=== PATIENT | female | born 1940 | race Caucasian/White ===

== ENCOUNTER → 2020-03-09 09:54 | Outpatient (BNVA) | payer MEDICARE, SELFPAY | PROVIDERS: PCP Internal Medicine; Visit Provider Surgery | DX: N64.4 Mastodynia (principal); Z80.3 Family history of malignant neoplasm of breast | CPT/HCPCS: 99214 ==

== ENCOUNTER 2020-03-10 22:58 | Emergency (ER) | payer MEDICARE, SELFPAY ==
[2020-03-10 23:10] VITALS: BP 152/68; BP 162/90; PULSE 68; PULSE 73; RESP 16; TEMP 36.7; O2SAT 98; BMI 32.5
--- NOTE | 2020-03-10 23:20 | CT_ITS ---
EXAMINATIONS: CT HEAD WITHOUT CONTRAST AND CT CERVICAL SPINE WITHOUT CONTRAST CLINICAL INFORMATION: Fall. Pain. COMPARISON: 10/21/2013. TECHNIQUE: Contiguous helical images of the brain were obtained without IV contrast. Contiguous helical images of the cervical spine were obtained without IV contrast. Multiplanar reconstructions were performed. DLP: 1004 mGy-cm. FINDINGS: There are no pathologic extra-axial fluid collections. The lateral, third, fourth ventricles are prominent, though stable, age-appropriate and concordant with the appearance of the sulci. There is no evidence for acute intraparenchymal hemorrhage or infarct. There is neither mass nor mass effect. There is no shift of midline structures. The paranasal sinuses and mastoid air cells are clear. There are no osseous lesions. The cervical vertebra are in normal alignment. There is disc height loss at C4/C5, C5/C6 and C6/C7. Disc heights and vertebral heights are otherwise well-preserved. There are no fractures. There is no prevertebral soft tissue swelling. There is no cervical lymphadenopathy. The visualized lung apices are clear. IMPRESSION: No evidence for acute intracranial injury. No evidence for acute injury to the cervical spine. Automated exposure control (Care Dose) Adjustment of the mA and/or kv according to patient size (this includes techniques or standardized protocols for targeted exams where dose is matched to indication / reason for exam; i.e. extremities or head).
[2020-03-11] VITALS: BP 152/72; PULSE 67; RESP 16; TEMP 36.7; O2SAT 99
--- NOTE | 2020-03-11 | XR_ITS ---
EXAMINATION: XR FOREARM, LEFT CLINICAL INFORMATION: Pain after fall. COMPARISON: None TECHNIQUE: AP and lateral views of the left forearm were obtained. FINDINGS: The bones and soft tissues are normal. No fracture. Imaged portions of the elbow and wrist are unremarkable. IMPRESSION: No evidence for acute injury to the left forearm.
--- NOTE | 2020-03-11 00:04 | ED.FALL ---
HPI - Fall General Chief Complaint: Fall Stated Complaint: FALL,+HEADSTRIKE,-LOC,-THINNERS,+COLLAR Time Seen by Provider: 03/10/20 23:20 Source: patient Mode of arrival: EMS Limitations: no limitations History of Present Illness HPI Narrative: This is a 79-year-old female brought in by EMS after sustaining a fall with head strike but no LOC. Patient states that she got up to take her earrings out turned too quickly became unsteady fell against the bedpost and then onto the floor catching herself with her left wrist. Patient states that she has pain at the left forearm but otherwise no cervical spine tenderness. She states she is up-to-date on her tetanus shot. Related Data Home Medications Medication Instructions Recorded Confirmed atorvastatin 20 mg tablet 20 mg PO DAILY 03/09/20 03/09/20 bupropion HCl 100 mg tablet 150 mg PO BID tab 03/09/20 03/09/20 cholecalciferol (vitamin D3) 25 25 mcg PO DAILY 03/09/20 03/09/20 mcg (1,000 unit) capsule dicyclomine 20 mg tablet 20 mg PO BID 03/09/20 03/09/20 losartan 50 mg tablet 50 mg PO DAILY 03/09/20 03/09/20 nitroglycerin 2 % transdermal 1 inch TRANSDERMAL BID 03/09/20 03/09/20 ointment nortriptyline 10 mg capsule 10 mg PO BID 03/09/20 03/09/20 omega-3 fatty acids 1,000 mg 1,000 mg PO DAILY 03/09/20 03/09/20 capsule pantoprazole 20 mg tablet,delayed 20 mg PO DAILY 03/09/20 03/09/20 release timolol maleate 0.5 % eye drops 1 drp OPHTHALMIC (EYE) DAILY 03/09/20 03/09/20 Allergies Allergy/AdvReac Type Severity Reaction Status Date / Time aspirin [ASPIRIN] Allergy Unknown UNKNOWN Verified 03/10/20 23:17 lisinopril Allergy Unknown cough Verified 03/10/20 23:17 oxycodone [OXYCODONE] Allergy Unknown ITCHY Verified 03/10/20 23:17 Penicillins [PCN] Allergy Unknown RASH Verified 03/10/20 23:17 shellfish Allergy Unknown anaphylaxis Verified 03/10/20 23:17 aspirin AdvReac Unknown severe Verified 03/10/20 23:17 reflux, sever reflux Codeine Phosphate Allergy Intermediate nausea/vomi Uncoded 03/09/20 10:28 ting arythromycin AdvReac Intermediate Gastrointestinal Uncoded 03/10/20 23:17 Upset opiates AdvReac Mild Gastrointestinal Uncoded 03/10/20 23:17 Upset Review of Systems Review of Systems: Pertinent positives and negatives as stated in HPI and 10 point review of systems is otherwise negative. PMFSH Past Medical History Source: nursing notes reviewed Medical History Carpal tunnel syndrome Depression Family history of breast cancer Fibromyalgia GERD (gastroesophageal reflux disease) Glaucoma Hyperlipidemia Seasonal allergies Family History Family History Mother History of breast cancer Father History of throat cancer Paternal Grandmother History of liver cancer Social History Social History Alcohol intake: never Smoking Status: Never smoker Advance Directives: No Advance Directives Information Provided: No Physical Exam Vital Signs: Vital Signs: Vital Signs Temp Pulse Resp BP Pulse Ox 03/11/20 00:00 98.0 F 67 16 152/72 H 99 03/10/20 23:10 98.0 F 68 16 152/68 H 98 Body Mass Index 32.5 VITAL SIGNS: Reviewed. GENERAL: Well developed, well nourished, in no acute distress. HEAD: Normocephalic/+laceration to the LEFT parietal EYES: PERRLA, EOMI intact without pain, no nystagmus/pallor/icterus noted EARS: Ext canals without abnormality, TMs non-bulging and non-erythematous NOSE: Nares patent bilateral OROPHARYNX: no oral lesions noted, posterior pharynx clear and non-erythematous without noted tonsillar enlargement/erythema/exudates NECK: c-collar in place without midline ttp, no adenopathy LUNGS: Normal breath sounds. No adventitious sounds or accessory muscle use. SpO2<98%> CARDIOVASCULAR: Regular rate and rhythm without noted murmurs, no JVD or lower extremity edema. ABDOMEN: Soft, non-tender, non-distended with bowel sounds. No rigidity. No guarding. No palpable masses or hernias noted MUSCULOSKELETAL: No tenderness, deformities, or effusions noted on gross inspection. EXTREMITIES: No cyanosis, clubbing or edema. SKIN: Inspection of the skin reveals no rashes, ulcerations, jaundice, pallor, or petechiae. NEUROLOGIC: Alert and oriented x 4. Strength and sensation to light touch were grossly intact x 4. Course Course Course Narrative: This is a pleasant 79-year-old female with history and clinical presentation consistent with mechanical fall and sustaining laceration to the left scalp and is not taking any blood thinners. There are no neurological findings and patient's head and neck will be scanned as well as checking a UA for presence of any infection. On review of all investigations CT of the head and cervical spine are without acute findings, in addition there is no evidence UTI or fracture to the left wrist. Patient was informed of all results and findings and will be discharged in stable condition with application of 3 sandro to the laceration and good hemostasis obtained. Procedures Laceration Laceration 1: Site: scalp Side (If applicable): left Size (cm): 3 Description: linear Depth: simple, single layer Pre-repair: wound explored and irrigated extensively Skin layer closed with: other ( staple) Number of sutures: 3 MDM - Fall Lab Data Labs: Lab Results 03/11/20 Range/Units 00:32 Urine Color YELLOW Urine Appearance CLEAR Urine pH 6.0 (5.0-8.0) Ur Specific [place] 1.015 (1.005-1.025) Urine Protein NEG (NEG-TRACE) MG/DL Urine Glucose (UA) NEG (NEG) MG/DL Urine Ketones NEG (NEG) MG/DL Urine Blood NEG (NEG) Urine Nitrite NEG (NEG) Ur Leukocyte Esterase NEG (NEG) Discharge Plan Discharge Clinical Impression: Laceration Fall Qualifiers: Encounter type: initial encounter Qualified Code(s): W19.XXXA - Unspecified fall, initial encounter Patient Disposition: Home, Self-Care Instructions: Fall Prevention for Older Adults (ED), Head Laceration (ED), Staple Care (ED) Additional Instructions: 1. You may wash your hair but be cautious regarding this sandro on the left side when you are combing it. 2. take [id number] Tylenol or ibuprofen as needed for pain control. 3. return to your primary care provider for removal of sandro in 7 days. If your primary care provider is unable to remove them then please return to this emergency room. The patient and/or family acknowledge understanding of results (as applicable), diagnosis, treatment plan, need for follow up, and symptoms that should prompt a return to the emergency room. Prescriptions: No Action atorvastatin [Lipitor] 20 mg tablet 20 mg PO DAILY RF: 0 omega-3 fatty acids [Fish Oil Concentrate] 1,000 mg capsule 1,000 mg PO DAILY RF: 0 bupropion HCl 100 mg tablet 150 mg PO BID RF: 0 timolol maleate 0.5 % drops 1 drp ophthalmic (eye) DAILY RF: 0 nortriptyline 10 mg capsule 10 mg PO BID RF: 0 cholecalciferol (vitamin D3) 25 mcg (1,000 unit) capsule 25 mcg PO DAILY RF: 0 pantoprazole 20 mg tablet,delayed release (DR/EC) 20 mg PO DAILY RF: 0 dicyclomine 20 mg tablet 20 mg PO BID RF: 0 losartan 50 mg tablet 50 mg PO DAILY RF: 0 Nitro-Bid 2 % ointment 1 inch transdermal BID RF: 0 Referrals: Iwona Walker MD [Primary Care Provider] - 2 days ( Staple removal in 7 days)
[2020-03-11 00:45] LABS: Glucose Urine UA NEG (NEG); Leukocyte Esterase Urine NEG (NEG); Nitrite Urine NEG (NEG); Specific Gravity - Urine 1.015 (1.005-1.025); Urine Blood NEG (NEG); Urine Ketones NEG (NEG); Urine Protein NEG (NEG-TRACE)
[2020-03-11 00:47] LABS: Appearance Urine CLEAR; Color Urine YELLOW; UACC Culture Trigger NO
[2020-03-11] MEDS: Acetaminophen 325 MG TABLET 975 MG PO (01:22)
[2020-03-11 02:00] VITALS: BP 156/87; PULSE 88; RESP 16; O2SAT 98
--- NOTE | 2020-03-11 02:35 | PC.NURSE ---
PROVIDER AT BEDSIDE TO PLACE 3 BERNARDO IN PTS L LATERAL HEAD. TOLERATED WELL.
== END 2020-03-11 03:01 | disposition home or self-care (01) ==
PROVIDERS: Emergency Provider Student in an Organized Health Care Education/Training Program; PCP Internal Medicine
DX: S01.01XA Laceration without foreign body of scalp, initial encounter (principal); W01.190A Fall on same level from slipping, tripping and stumbling with subsequent striking against furniture, initial encounter; Y93.9 Activity, unspecified; Y92.019 Unspecified place in single-family (private) house as the place of occurrence of the external cause; Y99.9 Unspecified external cause status
CPT/HCPCS: 12002; 70450; 72125; 73090; 81003; 99284

== ENCOUNTER 2020-03-18 09:51 | Outpatient (REF) | payer MEDICARE, SELFPAY ==
--- NOTE | 2020-03-18 09:59 | XR_ITS ---
EXAMINATION: XR HAND WRIST, LEFT CLINICAL INFORMATION: Pain left wrist. COMPARISON: Radiographs left forearm 03/11/2020 TECHNIQUE: The left hand and wrist are imaged in wide [id number] images for a total of 3 projections. FINDINGS: There is short linear ossification or periosteal thickening at distal dorsal radius in retrospect similar to the forearm radiographs. The pronator quadratus fat pad appears normal. There is no interval radiolucent fracture line demonstrated. The ulnar variance is neutral. The carpus and hand show no acute or healing fracture or dislocation. No destructive process. XR/XR hand wrist LT IMPRESSION: 1. Short linear ossification or periosteal thickening at distal dorsal radius in retrospect similar to prior radiographs 03/11/2020. Pronator quadratus fat is normal. 2. No visible interval radiolucent fracture line or dislocation.
== END 2020-03-18 09:52 | disposition home or self-care (01) ==
LOC: HO.HMGCX 09:51
PROVIDERS: PCP Internal Medicine; Visit Provider Nurse Practitioner Family
DX: M25.532 Pain in left wrist (principal)
CPT/HCPCS: 73110; 73130

== ENCOUNTER 2020-08-27 08:31 | Outpatient (REF) | payer MEDICARE, SELFPAY ==
[2020-08-27 12:53] LABS: Folate 9.7 ng/mL (> or = 4.0); Vitamin B12 205 pg/mL (200-900)
== END 2020-08-27 08:32 | disposition home or self-care (01) ==
LOC: HO.HMGCLDS 08:31
PROVIDERS: PCP Internal Medicine; Visit Provider Psychiatry & Neurology Neurology
DX: G20 Parkinson's disease (principal)
CPT/HCPCS: 36415; 82607; 82746

== ENCOUNTER 2020-11-18 11:12 | Outpatient (REF) | payer MEDICARE, SELFPAY ==
--- NOTE | ~2020-11-18 | MM_ITS ---
EXAMINATION: MM SCREENING DIGITAL BREAST TOMOSYNTHESIS, BILATERAL CLINICAL INFORMATION: Screening. Asymptomatic. The lifetime risk of breast cancer based on the Tyrer-Cuzick Model is 1.9%. COMPARISON: Mammography: June 20, 2019 and studies dating back to February 01, 2012 TECHNIQUE: Digital breast tomosynthesis is performed in both the craniocaudal and mediolateral oblique views along with computer-aided detection (CAD). Synthesized 2D images are generated from the tomosynthesis. FINDINGS: The breasts are heterogeneously dense, which may obscure small masses (ACR BI-RADS breast composition Category c). There are no significant masses, abnormal calcifications, or other abnormalities. MM/MM tomosynthesis screening BI IMPRESSION: There are no significant changes from prior study. ASSESSMENT: BI-RADS 1: Negative RECOMMENDATION: Routine annual mammography screening. This patient's information was entered into a reminder system with a target due date for their next mammogram.
== END 2020-11-18 11:13 | disposition home or self-care (01) ==
LOC: HO.MAMMO 11:12
PROVIDERS: Visit Provider Internal Medicine
DX: Z12.31 Encounter for screening mammogram for malignant neoplasm of breast (principal)
CPT/HCPCS: 77063; 77067

== ENCOUNTER → 2021-04-01 11:09 | Outpatient (BNVA) | payer MEDICARE, SELFPAY | PROVIDERS: PCP Internal Medicine; Referring Provider Internal Medicine; Visit Provider Surgery | DX: Z91.89 Other specified personal risk factors, not elsewhere classified (principal); Z80.3 Family history of malignant neoplasm of breast | CPT/HCPCS: 99212 ==

== ENCOUNTER → 2021-05-24 11:00 | Outpatient (BNVA) | payer MEDICARE, SELFPAY | PROVIDERS: PCP Internal Medicine; Visit Provider Nurse Practitioner Family | DX: M54.40 Lumbago with sciatica, unspecified side (principal) | CPT/HCPCS: 99202 ==

== ENCOUNTER 2021-07-05 05:57 | Day surgery (SDC) | payer MEDICARE, SELFPAY ==
[2021-05-26 13:24] VITALS: BMI 30.4
--- NOTE | 2021-07-04 10:56 | HO.ANESPROP2 ---
Documented by User: Madisyn Suazo NP 07/04/21 10:57 HPI - Anesthesia Eval Consult details Narrative: 80yo F for Colonoscopy *Multiple Med Allergies* PMFSH Active Problems Active Problems: All Active Problems (Updated 05/26/21 @ 13:13 by Marilyn Celeste RN) Hyperlipidemia (Acute) Bilateral low back pain with sciatica (Acute) Parkinson disease (Acute) Family history of breast cancer (Acute) Family history of Parkinson's disease (Acute) Difficulty performing writing activities (Acute) Seasonal allergies (Acute) Glaucoma (Acute) Depression (Acute) Past Medical History Medical History Balance problems Bilateral low back pain with sciatica Carpal tunnel syndrome COVID-19 vaccine series completed Depression Difficulty performing writing activities Family history of breast cancer Family history of Parkinson's disease Fibromyalgia Fibromyalgia GERD (gastroesophageal reflux disease) Glaucoma Hyperlipidemia IBS (irritable bowel syndrome) Left wrist pain Osteoarthritis Parkinson disease Seasonal allergies Tremor of right hand Family History Family History Mother History of breast cancer Father History of throat cancer Paternal Grandmother History of liver cancer Surgical History Surgical History H/O colonoscopy History of carpal tunnel surgery History of esophagogastroduodenoscopy (EGD) Social History Social History Are you a primary physician locums urgent care to a significant other at home: No Alcohol intake: never Patient Tobacco Use Status: Never used Tobacco Use of substances other than those prescribed or required for medical reasons: No Have you been hit, kicked, punched, or otherwise hurt by someone within the past year? If so, by whom?: No Are you DNR?: No Advance Directives Information Provided: Yes (as above noted-will bring copy DOS) Advance Directives on File: No Recently lost weight without trying: No Eating poorly because of decreased appetite: No Nutrition Risks: Surgical patient >75years Poor oral hygiene: No Meds Allergies Allergy/AdvReac Type Severity Reaction Status Date / Time shellfish derived Allergy Severe Anaphylaxis Verified 05/26/21 13:11 oxycodone [OXYCODONE] Allergy Intermediate Itching Verified 05/26/21 13:11 Penicillins [PCN] Allergy Intermediate RASH Verified 05/26/21 13:11 aspirin [ASPIRIN] Allergy Unknown UNKNOWN Verified 05/24/21 11:07 codeine AdvReac Intermediate Nausea and Verified 05/26/21 13:09 Vomiting erythromycin base AdvReac Intermediate Gastrointestinal Verified 05/26/21 13:09 Upset lisinopril AdvReac Intermediate cough Verified 05/26/21 13:11 Home Medications Medication Instructions Recorded Confirmed Last Taken Type cholecalciferol (vitamin D3) 25 25 mcg PO DAILY 03/09/20 05/26/21 Unknown History mcg (1,000 unit) capsule dicyclomine 20 mg tablet 20 mg PO BID 03/09/20 05/26/21 Unknown History nitroglycerin 2 % transdermal 1 inch TRANSDERMAL BID 03/09/20 05/24/21 Unknown History ointment (Nitro-Bid) omega-3 fatty acids 1,000 mg 1,000 mg PO DAILY 03/09/20 05/26/21 06/21/21 History capsule (Fish Oil Concentrate) pantoprazole 20 mg tablet,delayed 20 mg PO DAILY 03/09/20 05/26/21 07/05/21 History release carbidopa ER 50 mg-levodopa 200 mg 1 tab PO TID 10/13/20 05/26/21 07/05/21 History tablet,extended release bupropion HCl 200 mg tablet,12 hr 200 mg PO BID 04/01/21 05/26/21 07/05/21 History sustained-release timolol maleate 0.5 % eye drops 1 drp OPHTHALMIC (EYE) BID 04/13/21 05/26/21 07/05/21 History atorvastatin 20 mg tablet 1 tab PO DAILY 05/26/21 05/26/21 Unknown History Exam Exam Date and Time: July 04, 2021 1056 Height,Weight and Vital Signs: Height 5 ft 6 in Weight 85.729 kg Assessment and Plan Assessment Anesthesia Assessment: Chart Reviewed Documented by User: Zeenat Stephen MD 07/05/21 07:51 [facility] Active Problems Active Problems: All Active Problems (Updated 05/26/21 @ 13:13 by Marilyn Celeste RN) Hyperlipidemia (Acute) Bilateral low back pain with sciatica (Acute) Parkinson disease (Acute) Family history of breast cancer (Acute) Family history of Parkinson's disease (Acute) Difficulty performing writing activities (Acute) Seasonal allergies (Acute) Glaucoma (Acute) Depression (Acute) Hypertension Raynaud's- on nitrobid ointment GERD Past Medical History Medical History Balance problems Bilateral low back pain with sciatica Carpal tunnel syndrome COVID-19 vaccine series completed Depression Difficulty performing writing activities Family history of breast cancer Family history of Parkinson's disease Fibromyalgia Fibromyalgia GERD (gastroesophageal reflux disease) Glaucoma Hyperlipidemia IBS (irritable bowel syndrome) Left wrist pain Osteoarthritis Parkinson disease Seasonal allergies Tremor of right hand Family History Family History Mother History of breast cancer Father History of throat cancer Paternal Grandmother History of liver cancer Family history of problems with anesthesia: No Surgical History Surgical History H/O colonoscopy History of carpal tunnel surgery History of esophagogastroduodenoscopy (EGD) History of Problems with Anesthesia: No Social History Social History Are you a primary physician locums urgent care to a significant other at home: No Alcohol intake: never Patient Tobacco Use Status: Never used Tobacco Use of substances other than those prescribed or required for medical reasons: No Have you been hit, kicked, punched, or otherwise hurt by someone within the past year? If so, by whom?: No Are you DNR?: No Advance Directives Information Provided: Yes (as above noted-will bring copy DOS) Advance Directives on File: No Recently lost weight without trying: No Eating poorly because of decreased appetite: No Nutrition Risks: Surgical patient >75years Poor oral hygiene: No Meds Allergies Allergy/AdvReac Type Severity Reaction Status Date / Time shellfish derived Allergy Severe Anaphylaxis Verified 05/26/21 13:11 oxycodone [OXYCODONE] Allergy Intermediate Itching Verified 05/26/21 13:11 Penicillins [PCN] Allergy Intermediate RASH Verified 05/26/21 13:11 aspirin [ASPIRIN] Allergy Unknown UNKNOWN Verified 05/24/21 11:07 codeine AdvReac Intermediate Nausea and Verified 05/26/21 13:09 Vomiting erythromycin base AdvReac Intermediate Gastrointestinal Verified 05/26/21 13:09 Upset lisinopril AdvReac Intermediate cough Verified 05/26/21 13:11 Home Medications Medication Instructions Recorded Confirmed Last Taken Type cholecalciferol (vitamin D3) 25 25 mcg PO DAILY 03/09/20 05/26/21 Unknown History mcg (1,000 unit) capsule dicyclomine 20 mg tablet 20 mg PO BID 03/09/20 05/26/21 Unknown History nitroglycerin 2 % transdermal 1 inch TRANSDERMAL BID 03/09/20 05/24/21 Unknown History ointment (Nitro-Bid) omega-3 fatty acids 1,000 mg 1,000 mg PO DAILY 03/09/20 05/26/21 06/21/21 History capsule (Fish Oil Concentrate) pantoprazole 20 mg tablet,delayed 20 mg PO DAILY 03/09/20 05/26/21 07/05/21 History release carbidopa ER 50 mg-levodopa 200 mg 1 tab PO TID 10/13/20 05/26/21 07/05/21 History tablet,extended release bupropion HCl 200 mg tablet,12 hr 200 mg PO BID 04/01/21 05/26/21 07/05/21 History sustained-release timolol maleate 0.5 % eye drops 1 drp OPHTHALMIC (EYE) BID 04/13/21 05/26/21 07/05/21 History atorvastatin 20 mg tablet 1 tab PO DAILY 05/26/21 05/26/21 Unknown History Exam Height,Weight and Vital Signs: Height 5 ft 6 in Weight 85.729 kg Vital Signs Temp Pulse Resp BP Pulse Ox 07/05/21 06:26 98 F 60 16 139/71 97 Airway Mallampati Class: III TM Dist: >3cm Neck ROM: Full Loose/Missing/Broken Teeth: Yes (Missing molars ) Heart: RRR Lungs: CTAB Assessment and Plan Assessment Anesthesia Assessment: Anesthesia Plan Discussed Final Anesthetic Review Family History of Problems with Anesthesia: No History of Problems with Anesthesia: No NPO: Yes ASA Class: III Final Preanesthetic Review: No Changes in Pt Med Stat, Meds/Allgs Chart Reviewed, Consent Obtained/Reviewed and Anes Risks/Benef Reviewed Patient Risk: Intermediate Procedure Risk: Low Assessment/Block/Sedation in SS: Assess/Block/Sedation-SS Anesthetic Plan Anesthetic Plan: MAC: Disposition: Standard PACU
[2021-07-05 06:26] VITALS: BP 139/71; PULSE 60; RESP 16; TEMP 36.6; O2SAT 97
[2021-07-05] MEDS: Lactated Ringers 1,000 ML 100 ML IVCONT (07:01)
--- NOTE | 2021-07-05 07:02 | MHC.SHP ---
Pre-Procedural Eval Section A Date of Service: 07/05/21 Section B Chief Complaint: screening Details of Present Illness: see H&P no changes Relevant Family History (Specify if Yes): No Relevant Social History: None Present Medications: see Short Stay Collaborative assessment Medical History: No relevant PMH History of Previous Operations: No relevant previous surgery Allergies: Allergies Allergy/AdvReac Type Severity Reaction Status Date / Time shellfish derived Allergy Severe Anaphylaxis Verified 05/26/21 13:11 oxycodone [OXYCODONE] Allergy Intermediate Itching Verified 05/26/21 13:11 Penicillins [PCN] Allergy Intermediate RASH Verified 05/26/21 13:11 aspirin [ASPIRIN] Allergy Unknown UNKNOWN Verified 05/24/21 11:07 codeine AdvReac Intermediate Nausea and Verified 05/26/21 13:09 Vomiting erythromycin base AdvReac Intermediate Gastrointestinal Verified 05/26/21 13:09 Upset lisinopril AdvReac Intermediate cough Verified 05/26/21 13:11 Review of Systems Sugical H&P ROS: Negative: Constitution, Cardiovascular, Respiratory, Neurological, Psychiatric, Hem-Onc, Allergic/Immunologic, Gastrointestinal, Genitourinary, Musculoskeletal, Integumentary, Endocrine and Eyes/Ears/Nose/Throat Exam Surgical H&P Exam: Normal: HEENT, Normal: Heart, Normal: Lungs, Normal: Extremities, Normal: Abdomen, Normal: Skin and Normal: Neurological Plan Diagnosis/Plan: Unchanged I have reviewed the history and physical and performed a pertinent physical examination on my patient. No changes have occurred unless specified.
[2021-07-05 08:02] VITALS: BP 123/36; PULSE 58; RESP 16; TEMP 36.9; O2SAT 98
--- NOTE | 2021-07-05 08:03 | PM.OP ---
Brief Operative Note Date of Service: 07/05/21 Pre-op diagnosis: screening Post-op diagnosis: same (colon polyp) Procedure: colonoscopy Surgeon: Maury Gautam Anesthesia: MAC Was an Application Support Consultant used for this Procedure?: No Estimated blood loss (mL): 0 Pathology: other (polyps x2) Condition: stable Disposition: PACU
[2021-07-05 08:17] VITALS: BP 108/55; PULSE 79; RESP 18; TEMP 36.7; O2SAT 100
--- NOTE | 2021-07-05 08:37 | OP_ITS ---
SURGEON: Maury Gautam MD INDICATIONS: Colon cancer screening. PREOPERATIVE DIAGNOSIS: POSTOPERATIVE DIAGNOSIS: PROCEDURE PERFORMED: Colonoscopy to the terminal ileum with snare polypectomy. ESTIMATED BLOOD LOSS: COMPLICATIONS: ANESTHESIA: Medications, monitored anesthesia care. ASSISTANTS: SPECIMENS: DESCRIPTION OF PROCEDURE: A history and physical was performed. The risks and benefits of the procedure were explained to the patient. Informed consent was obtained. The patient was placed in the left lateral decubitus position. A digital rectal exam was performed and was found to be normal. The Olympus pediatric video colonoscope was introduced into the rectum and advanced to the cecum without difficulty. The cecum was identified by transillumination, palpation, and identification of ileocecal valve. Examination was performed. The scope was removed. She tolerated the procedure well and was returned to the recovery area in stable condition. FINDINGS: The terminal ileum was examined and appeared normal. The visualized colonic mucosa was normal. The quality of the prep was good. Two polyps measuring less than 10 mm were removed with a snare and recovered via suction. The 1st was located in the cecum. The 2nd was located at 70 cm. No other polyps were identified. Retroflexed examination showed moderate-sized internal hemorrhoids. IMPRESSION: Colon polyps. RECOMMENDATION: 1. Follow up the biopsy results. 2. Further screening is optional based on age. MD DANIAL Cobb/FRANCISCO / [phone]
== END 2021-07-05 09:05 | disposition home or self-care (01) ==
PROVIDERS: PCP Internal Medicine; Visit Provider Internal Medicine Gastroenterology
PROC: 0DJD8ZZ Inspection of Lower Intestinal Tract, Via Natural or Artificial Opening Endoscopic (ICD-10-PCS; CPT 45378; principal; 2021-07-05 07:30)
DX: Z12.11 Encounter for screening for malignant neoplasm of colon (principal); Z86.010 Personal history of colon polyps; D12.0 Benign neoplasm of cecum; K63.5 Polyp of colon; K64.8 Other hemorrhoids; K58.9 Irritable bowel syndrome, unspecified; K21.9 Gastro-esophageal reflux disease without esophagitis; E78.00 Pure hypercholesterolemia, unspecified; G20 Parkinson's disease; R26.81 Unsteadiness on feet; M79.7 Fibromyalgia; F32.9 Major depressive disorder, single episode, unspecified; Z79.899 Other long term (current) drug therapy
CPT/HCPCS: 45385; 88305

== ENCOUNTER 2021-11-15 08:25 | Outpatient (REF) | payer MEDICARE, SELFPAY ==
[2021-11-15 11:34] LABS: MANUAL DIFF FLAG NO
[2021-11-15 11:59] LABS: Basophils Percent Auto 0.4 % (0-2); Eosinophils Absolute Auto 0.1 X10*3/uL (0.0-0.4); Eosinophils Percent Auto 1.3 % (0-4); Hematocrit 46.3 % (37.0-47.0); Hemoglobin 14.9 g/dl (12.0-16.0); Imm Gran Abs Auto 0.02 X10*3/uL (0.00-0.03); Imm Gran Pct Auto 0.3 % (0.0-0.4); Lymphocytes Absolute Auto 1.8 X10*3/uL (1.2-4.9); Lymphocytes Percent Auto 23.1 % (20-40); Mean Corpuscular HGB Conc 32.2 g/dl (31.0-35.0); Mean Corpuscular Hemoglobin 31.6 pg (27.0-33.0); Mean Corpuscular Volume 98.1 fL (80.0-98.0); Mean Platelet Volume 10.4 fL (9.4-12.3); Monocytes Absolute Auto 0.7 X10*3/uL (0.1-1.2); Monocytes Percent Auto 8.6 % (2-11); Neutrophils Percent Auto 66.3 % (45-73); Platelet Count 265 X10*3/uL (160-400); Red Blood Count 4.72 X10*6/uL (4.20-5.50); Red Cell Distribution Width 12.8 % (11.0-16.0); White Blood Count 7.6 X10*3/uL (4.8-10.8)
[2021-11-15 12:11] LABS: Alanine Aminotransferase 7 U/L (0-31); Anion Gap 10 (12-20); Aspartate Amino Transferase 17 U/L (5-31); Blood Urea Nitrogen 15 mg/dL (9-16); Calcium 9.3 mg/dL (8.4-10.2); Carbon Dioxide 28 mmol/L (22-29); Chloride 105 mmol/L (96-108); Cholesterol 158 mg/dL; Estimated Glomerular Filt Rate > 60; Glucose Fasting 113 mg/dL (60-99); HDL Cholesterol 37 mg/dL; LDL Cholesterol Calculated 87 mg/dl; Potassium 4.3 mmol/L (3.3-5.1); Sodium 139 mmol/L (135-145); Triglycerides 174 mg/dL
[2021-11-15 12:24] LABS: Vitamin D 25-OH Total 35.5 ng/mL (>30)
== END 2021-11-15 08:26 | disposition home or self-care (01) ==
LOC: HO.HMGCLDS 08:25
PROVIDERS: Visit Provider Internal Medicine
DX: Z78.0 Asymptomatic menopausal state (principal); E78.5 Hyperlipidemia, unspecified
CPT/HCPCS: 36415; 80048; 80061; 82306; 84450; 84460; 85025

== ENCOUNTER 2021-11-23 10:48 | Outpatient (REF) | payer MEDICARE, SELFPAY ==
--- NOTE | ~2021-11-23 | MM_ITS ---
EXAMINATION: MM SCREENING DIGITAL BREAST TOMOSYNTHESIS, BILATERAL CLINICAL INFORMATION: Screening. Asymptomatic. The lifetime risk of breast cancer based on the Tyrer-Cuzick Model is 4%. COMPARISON: Mammography: 11/18/2020, 06/20/2019, 05/03/2018 TECHNIQUE: Digital breast tomosynthesis is performed in both the craniocaudal and mediolateral oblique views along with computer-aided detection (CAD). Synthesized 2D images are generated from the tomosynthesis. FINDINGS: There are scattered areas of fibroglandular density (ACR BI-RADS breast composition Category b). There are scattered bilateral stable asymmetries and fibronodular pattern similar to prior studies. There is denser breast tissue composition right upper outer quadrant similar to prior exams. No developing density or interval architectural abnormality. There are regional ductal secretory calcifications anterior right breast and benign-appearing tightly grouped relatively coarse calcifications posterior upper outer right breast. The axilla and skin contours are unremarkable. No significant changes. MM/MM tomosynthesis screening BI IMPRESSION: No mammographic evidence of malignancy. ASSESSMENT: BI-RADS 2: Benign RECOMMENDATION: Routine annual mammography screening. This patient's information was entered into a reminder system with a target due date for their next mammogram.
== END 2021-11-23 10:49 | disposition home or self-care (01) ==
LOC: HO.MAMMO 10:48
PROVIDERS: Visit Provider Internal Medicine
DX: Z12.31 Encounter for screening mammogram for malignant neoplasm of breast (principal)
CPT/HCPCS: 77063; 77067

== ENCOUNTER → 2022-02-14 14:02 | Outpatient (BNVA) | payer MEDICARE, SELFPAY | PROVIDERS: PCP Internal Medicine; Visit Provider Obstetrics & Gynecology | DX: N95.0 Postmenopausal bleeding (principal) | CPT/HCPCS: 99202 ==

== ENCOUNTER 2022-03-02 12:53 | Outpatient (REF) | payer MEDICARE, SELFPAY ==
--- NOTE | ~2022-03-02 | US_ITS ---
EXAMINATION: US PELVIS CLINICAL INFORMATION: Postmenopausal bleeding. COMPARISON: Previous pelvic ultrasound April 2018. TECHNIQUE: Ultrasound of the pelvis is performed using both transabdominal and transvaginal transducers along with Doppler. Transvaginal imaging is performed due to inadequate visualization transabdominally. FINDINGS: The uterus is anteverted and measures 7.4 x 4.5 x 5.8 cm in dimension. The endometrium is markedly thickened measuring 2.9 cm and heterogeneous appearing with small cystic areas. This is increased in size from 2.2 cm April 2018. There is question of a focal hyperechoic solid lesion. Measuring 2.7 x 2.7 x 2.4 cm questionable for a polyp. There is a 3.2 x 3.2 x 2.9 cm left upper uterine body fibroid. There are nabothian cysts in the cervix. The right ovary is normal appearing and measures 2.2 x 0.9 x 1.3 cm. The left ovary is not seen. There is no fluid in the pelvis. US/US pelvic and transvaginal IMPRESSION: Markedly thickened heterogeneous endometrium increased in size from 2018. Question endometrial polyp. 3 cm left upper uterine body fibroid. Normal right ovary. Left ovary not seen.
== END 2022-03-02 12:54 | disposition home or self-care (01) ==
LOC: HO.HMGCX 12:53
PROVIDERS: PCP Internal Medicine; Visit Provider Obstetrics & Gynecology
DX: N95.0 Postmenopausal bleeding (principal)
CPT/HCPCS: 76830; 76856

== ENCOUNTER 2022-03-21 12:08 | Outpatient (REF) | payer MEDICARE, SELFPAY | END 2022-03-21 12:09 | disposition home or self-care (01) | LOC: HO.LNP 12:08 | PROVIDERS: PCP Internal Medicine; Visit Provider Obstetrics & Gynecology | DX: N95.0 Postmenopausal bleeding (principal); D21.9 Benign neoplasm of connective and other soft tissue, unspecified | CPT/HCPCS: 58100; 88305; 99212 ==

== ENCOUNTER → 2022-03-27 11:23 | Outpatient (BNVA) | payer MEDICARE, SELFPAY | PROVIDERS: PCP Internal Medicine; Visit Provider Obstetrics & Gynecology | DX: C54.1 Malignant neoplasm of endometrium (principal) | CPT/HCPCS: 99212 ==

== ENCOUNTER → 2022-06-09 10:46 | Outpatient (BNVA) | payer MEDICARE, SELFPAY | PROVIDERS: PCP Internal Medicine; Referring Provider Internal Medicine; Visit Provider Surgery | DX: Z91.89 Other specified personal risk factors, not elsewhere classified (principal); Z80.3 Family history of malignant neoplasm of breast | CPT/HCPCS: 99212 ==

== ENCOUNTER 2022-06-20 08:20 | Outpatient (REF) | payer MEDICARE, SELFPAY ==
[2022-06-20 12:30] LABS: Alanine Aminotransferase < 6 U/L (0-31); Anion Gap 12 (12-20); Aspartate Amino Transferase 16 U/L (5-31); Blood Urea Nitrogen 16 mg/dL (9-16); Calcium 9.1 mg/dL (8.4-10.2); Carbon Dioxide 28 mmol/L (22-29); Chloride 105 mmol/L (96-108); Cholesterol 159 mg/dL; Estimated Glomerular Filt Rate > 60; Glucose Fasting 106 mg/dL (60-99); HDL Cholesterol 39 mg/dL; LDL Cholesterol Calculated 102 mg/dl; Potassium 4.4 mmol/L (3.3-5.1); Sodium 141 mmol/L (135-145); Triglycerides 91 mg/dL
[2022-06-20 12:33] LABS: Estimated Average Glucose 108 mg/dL; Hemoglobin A1c % 5.4 %
== END 2022-06-20 08:21 | disposition home or self-care (01) ==
LOC: HO.HMGCLDS 08:20
PROVIDERS: PCP Internal Medicine; Visit Provider Internal Medicine
DX: F32.9 Major depressive disorder, single episode, unspecified (principal); R73.01 Impaired fasting glucose; R26.89 Other abnormalities of gait and mobility; I10 Essential (primary) hypertension; E78.5 Hyperlipidemia, unspecified
CPT/HCPCS: 36415; 80048; 80061; 83036; 84450; 84460

== ENCOUNTER 2022-07-11 11:22 | Outpatient (AMB) | payer MEDICARE, SELFPAY ==
--- NOTE | 2022-07-11 11:48 | A.OFFPC_ITS ---
Vital Signs 07/11/22 11:59 Height 5 ft 6 in Weight 188 lb BMI 30.3 BP 136/70 Blood Pressure Location Lt brachial Position Sitting Pulse 80 Pulse Source Pulse Oximeter Pulse Oximetry (%) 97 Oxygen Delivery Method Room Air Intake Visit Reasons: Followup labs,meds Intake Note: Pt is here today for her labs and meds Allergies shellfish derived Allergy (Severe, Verified 01/09/23 11:20) Anaphylaxis oxycodone [OXYCODONE] Allergy (Intermediate, Verified 01/09/23 11:20) Itching Penicillins [PCN] Allergy (Intermediate, Verified 01/09/23 11:20) RASH aspirin [ASPIRIN] Allergy (Unknown, Verified 01/09/23 11:20) UNKNOWN codeine Adverse Reaction (Intermediate, Verified 01/09/23 11:20) Nausea and Vomiting erythromycin base Adverse Reaction (Intermediate, Verified 01/09/23 11:20) Gastrointestinal Upset lisinopril Adverse Reaction (Intermediate, Verified 01/09/23 11:20) cough Medication List - Last Reconciled 07/11/22 by Iwona Walker MD atorvastatin 20 mg PO DAILY bupropion HCl 200 mg PO BID 90 days carbidopa-levodopa 50-200 mg ER 1 tab PO TID cholecalciferol (vitamin D3) 25 mcg PO DAILY dicyclomine 20 mg PO BID losartan 50 mg PO DAILY nitroglycerin 2% (Nitro-Bid) 1 inch transdermal BID omega-3 fatty acids (Fish Oil Concentrate) 1,000 mg PO DAILY timolol maleate 0.5% 1 drp ophthalmic (eye) BID Tobacco use date assessed: 07/11/22 Fall risk assessment: No Falls in past year Last assessed Fall Risk: 07/11/22 HPI Followup labs,meds HPI Details 82-year-old lady with Parkinson's disease, hypertension, hyperlipidemia, IBS, depression, glaucoma, with history of endometrial adenocarcinoma, here today for a follow-up. Had recent fasting labs done which showed electrolytes and renal function within normal limits, but fasting blood sugar mildly elevated and LDL cholesterol at goal but low HDL cholesterol level. [facility] Medical History (Updated 01/09/23 @ 11:37 by Iwona Walker MD) Bilateral low back pain with sciatica Carpal tunnel syndrome COVID-19 vaccine series completed Depression Essential hypertension Family history of Parkinson's disease Fibromyalgia Gait instability GERD (gastroesophageal reflux disease) Glaucoma Hyperlipidemia IBS (irritable bowel syndrome) Impaired fasting glucose Osteoarthritis Parkinson disease Seasonal allergies Tremor of right hand Surgical History (Reviewed 01/09/23 @ 10:57 by Nicola Peace [facility]) H/O colonoscopy H/O: hysterectomy History of carpal tunnel surgery History of esophagogastroduodenoscopy (EGD) Family History (Reviewed 01/09/23 @ 10:57 by Nicola Peace [facility]) Mother History of breast cancer Father History of throat cancer Paternal Grandmother History of liver cancer Social History (Reviewed 01/09/23 @ 10:57 by Nicola Peace [facility]) Housing: House Are you a primary career development counselor to a significant other at home: No Alcohol intake: never Patient Tobacco Use Status: Never used Tobacco e-Cigarette/Vaping Use: Never Used service: No Current occupational status: retired Cognitive needs: No Hearing needs: No Vision needs: Yes Questionnaire PHQ-9 Over the last 2 weeks, how often have you been bothered by any of the following problems? 1. Little interest or pleasure in doing things: not at all 2. Feeling down, depressed, or hopeless: not at all 3. Trouble falling or staying asleep, or sleeping too much: not at all 4. Feeling tired or having little energy: not at all 5. Poor appetite or overeating: not at all 6. Feeling bad about yourself - or that you are a failure or have let yourself or your family down: not at all 7. Trouble concentrating on things, such as reading the newspaper or watching television: not at all 8. Moving or speaking so slowly that other people could have noticed. Or the opposite - being so fidgety or restless that you have been moving around a lot more than usual: not at all 9. Thoughts that you would be better off or of hurting yourself in some way: not at all Total score: 0 Source: Developed by Drs. Milo Maurice, Tyesha oFx, Cj Gregory and colleagues, with an educational hernandez from [employer]. Thrive Questionnaire Declines Thrive assessment: No Date Thrive assessed: 07/11/22 I am a: Patient What is your living situation today?: I have a steady place to live Within the past 12 months, did the food you bought not last and you didn't have the money to get more?: Never true Within the past 12 months, did you worry whether your food would run out before you got money to buy more?: Never true Do you have trouble paying for medicines?: No Do you have trouble getting transportation to medical appointments?: No Do you have trouble paying your heating and electricity bill?: No Do you have trouble taking care of your child, family member or friend?: No Do you have trouble with day-to-day activities such as bathing, preparing meals, shopping, managing finances, etc.?: No Are you currently unemployed and looking for a job?: No Are you interested in more education?: No AUDIT C Alcohol Use Questionnaire (AUDIT-C) 1. How often do you have a drink containing alcohol?: Never 3. How often do you have six or more drinks on one occasion?: Never Total Score: 0 FOREST-7 AMB Questionnaire FOREST-7 Date FOREST - 7 assessed: 07/11/22 Feeling nervous, anxious, or on edge: 0 = Not at all Not being able to stop or control worryin = Not at all Worrying too much about different things: 0 = Not at all Trouble relaxin = Not at all Being so restless that it is hard to sit still: 0 = Not at all Becoming easily annoyed or irritable: 0 = Not at all Feeling afraid as if something awful might happen: 0 = Not at all Total FOREST-7 score (0-4 normal; 5-9 mild; 10-14 moderate; 15-21 severe): 0 Source: Developed by Drs. Milo Maurice, Tyesha Fox, Cj Gregory and colleagues, with an educational hernandez from [employer]. Review of Systems Const Denies body aches, Denies fever(s), Denies headache(s) and Denies weakness Eyes Denies change in vision ENT Denies dizziness, Denies headache(s), Denies nasal congestion, Denies nasal discharge and Denies sore throat Card Denies chest pain, Denies lightheadedness, Denies palpitations and Denies dyspnea Resp Denies chest congestion, Denies cough, Denies dyspnea and Denies wheezing GI Denies abdominal pain, Denies change in bowel habits and Denies heartburn Denies hematuria, Denies urinary frequency, Denies dysuria and Denies urinary u rgency Skin/Breast Denies breast pain, Denies lesions and Denies rash Neuro Denies dizziness, Denies headache(s), Reports tremor(s) (In hands) and Denies weakness Psych Reports as per HPI Endo Denies polydipsia, Denies polyuria and Denies palpitations Yair/Lymph Denies easy bruising Aller/Immun Denies seasonal rhinorrhea and Denies wheezing Physical exam (Primary Care) Vital Signs: Last Vital Signs Pulse 80 07/11/22 11:59 BP 136/70 07/11/22 11:59 Pulse Ox 97 07/11/22 11:59 Oxygen Delivery Method Room Air 07/11/22 11:59 BMI result Body Mass Index 30.3 Tobacco/Smoking Status: Tobacco use Status Tobacco use date assessed 07/11/22 07/11/22 12:04 Patient Tobacco Use Status Never used Tobacco 07/11/22 11:50 e-Cigarette/Vaping Use Never Used 07/11/22 11:50 PHQ-9: PHQ-9 Score PHQ-9: Total score 0 01/15/23 00:26 Thrive Assessment: Date of Thrive Assessment Date Thrive assessed 07/11/22 07/11/22 12:00 Const General: comfortable, no acute distress and alert Orientation/consciousness: patient oriented x3 HENMT Ears: external ears normal, TM's normal bilaterally and EAC's normal General nose exam: Normal external nose present and No nasal discharge present Mouth: Normal oral and palatal mucosa present, oropharynx normal and moist mucous membranes Eyes General: appearance normal, both eyes and all related structures Conjunctivae: conjunctivae normal Sclerae: sclerae normal Pupils: Equal, round and reactive pupils present EOM: EOMs intact bilaterally Neck Neck: Yes full ROM, Yes no lymphadenopathy and Yes supple Resp Effort & Inspection: normal respiratory effort and able to speak in complete sentences Auscultation: clear to auscultation bilaterally Cardio Rate: regular rate Rhythm: regular rhythm (Occasional skipped beat) Heart sounds: S1 normal heart sound present and S2 normal heart sound present GI Palpation (GI): Soft to palpation, nontender and no masses Auscultation: normal bowel sounds Back/Spine/Pelvis Back: No back tenderness Skin General skin exam: no rashes or lesions noted Neuro Other: Mild tremors noted in both hands General: patient oriented x3, tone normal, moves all extremities, Normal light touch and pain sensation and no focal motor deficits Cranial nerves: Yes CN's II-XII intact bilaterally and Yes Equal, round and reactive pupils present Cognition (Neuro): normal cognition Extrem General: Yes full ROM, Yes no joint enlargement, Yes no clubbing, cyanosis or edema and Yes no calf tenderness Psych Appearance: grossly normal and well kempt Mental Status: mental status grossly normal Speech and movement: Normal speech and movement present Affect: normal affect Attitude: cooperative Results Reviewed Results Reviewed: SPEC : [id number] KRANTHI: 06/20/22 STATUS: COMP REQ : [id number] RECD: 06/20/[address]: Iwona Walker MD COMP: 06/20/22 ENTERED: 06/20/[address]: ORDERED: Met Prof Fast, AST, ALT, Lipid Panel Test Result Flag Reference Site Sodium 141 135-145 mmol/L Potassium 4.4 3.3-5.1 mmol/L CL 105 96-108 mmol/L CO2 28 22-29 mmol/L Gap 12 12-20 BUN 16 9-16 mg/dL Creat 0.84 0.5-1.4 mg/dL EGFR > 60 NOTE: For -[place] individuals, multiply the result by 1.210. Chronic Kidney Disease: Estimated GFR < 60 mL/min/1.73m2 Severe Kidney Disease: Estimated GFR < 15 m L/min/1.73m2 FBS 106 H 60-99 mg/dL A fasting glucose from 100-125 mg/dl is considered impaired (pre-diabetes). CA 9.1 8.4-10.2 mg/dL AST (GOT) 16 5-31 U/L ALT (GPT) < 6 0-31 U/L Triglyceride 91 mg/dL Desirable Triglyceride: less than 150 mg/dL Borderline High Triglyceride 150-199 mg/dL High Triglyceride: 200-499 mg/dL Very High Triglyceride: greater than or equal to 5OO mg/dL Chol 159 mg/dL Desirable Cholesterol: less than 200 mg/dL Borderline High Cholesterol: 200-239 mg/dL High Cholesterol: greater than 239 mg/dL LDL Calculated 102 mg/dl Desirable LDL: less than 100 mg/dL Near Optimal/Above Optimal LDL: 110-129 mg/dL Borderline High LDL: 130-159 mg/dL High LDL: 160-189 mg/dL Very High LDL: greater than or equal to 190 mg/dL HDL 39 mg/dL Desirable HDL: greater than 40 mg/dL Note: This HDL assay may give artificially low results in patients with liver disease. Assessment and Plan Assessment & Plan (1) Essential hypertension: Code(s): I10 - Essential (primary) hypertension Plan: Blood pressure at goal of less than 130/80. Continue with current medication. Reinforced importance of following a low sodium diet, getting regular exercise, and lowering stress levels. (2) Hyperlipidemia: Code(s): E78.5 - Hyperlipidemia, unspecified Plan: Reviewed recent fasting lipid profile with patient with LDL cholesterol at goal . Continue with atorvastatin 20 mg daily and [place] 3 fatty acid supplements once or twice a day , in addition to adherence to low-cholesterol diet and regular exercise, at least 30 minutes 3 to 4 times a week. Advised patient to make healthy food choices, eat more fruits, vegetables, whole grains, wild caught fish and low-fat dairy. Limit amount of meat and fried or fatty food products, as well as processed foods and fast foods. (3) Surgical menopause: Code(s): E89.40 - Asymptomatic postprocedural ovarian failure Plan: Will check vitamin-D level, basic metabolic panel. Taking adequate calcium from dietary sources and cholecalciferol, 25 mcg taken once a day Orders: Orders Alanine Aminotransferase 12/19/22 I10 - Essential (primary) hypertension, E78.5 - Hyperlipidemia, unspecified Aspartate Amino Transferase 12/19/22 I10 - Essential (primary) hypertension, E78.5 - Hyperlipidemia, unspecified Basic Metabolic Panel Fasting 12/19/22 I10 - Essential (primary) hypertension, E78.5 - Hyperlipidemia, unspecified Lipid Panel 12/19/22 I10 - Essential (primary) hypertension, E78.5 - Hyperlipidemia, unspecified Vitamin D 25-OH Total 12/19/22 I10 - Essential (primary) hypertension, E78.5 - Hyperlipidemia, unspecified, E89.40 - Asymptomatic postprocedural ovarian failure Coding Level of Care Code Est Pt Level 3 (56606) Diagnoses Essential hypertension I10 Hyperlipidemia E78.5 Surgical menopause E89.40
[2022-07-11 11:59] VITALS: BP 136/70; PULSE 80; O2SAT 97; BMI 30.3
== END 2022-07-11 12:51 | disposition home or self-care (01) ==
LOC: HO.HMGC 11:22
PROVIDERS: PCP Internal Medicine; Visit Provider Internal Medicine
DX: I10 Essential (primary) hypertension (principal); E78.5 Hyperlipidemia, unspecified; E89.40 Asymptomatic postprocedural ovarian failure
CPT/HCPCS: 99213

== ENCOUNTER 2022-11-29 10:55 | Outpatient (REF) | payer MEDICARE, SELFPAY ==
--- NOTE | ~2022-11-29 | MM_ITS ---
EXAMINATION: MM SCREENING DIGITAL BREAST TOMOSYNTHESIS, BILATERAL CLINICAL INFORMATION: Screening. Asymptomatic. The lifetime risk of breast cancer based on the Tyrer-Cuzick Model is 3.7%. COMPARISON: Mammography: This study is compared with prior exams dating back to 2018. TECHNIQUE: Digital breast tomosynthesis is performed in both the craniocaudal and mediolateral oblique views along with computer-aided detection (CAD). Synthesized 2D images are generated from the tomosynthesis. FINDINGS: The breasts are heterogeneously dense, which may obscure small masses (ACR BI-RADS breast composition Category c). There are no significant masses, abnormal calcifications, or other abnormalities. Few, bilateral, unchanged, benign calcifications are present. MM/MM tomosynthesis screening BI IMPRESSION: No mammographic evidence of malignancy. ASSESSMENT: BI-RADS BI-RADS 2 - Benign Findings RECOMMENDATION: Routine annual mammography screening. 1 year F/U This examination should not preclude the clinical evaluation of a suspicious palpable abnormality. This patient's information was entered into a reminder system with a target due date for their next mammogram.
== END 2022-11-29 10:56 | disposition home or self-care (01) ==
LOC: HO.MAMMO 10:55
PROVIDERS: PCP Internal Medicine; Visit Provider Internal Medicine
DX: Z12.31 Encounter for screening mammogram for malignant neoplasm of breast (principal)
CPT/HCPCS: 77063; 77067

== ENCOUNTER → 2022-11-29 11:00 | Outpatient (BNV) | payer MEDICARE, SELFPAY | PROVIDERS: PCP Internal Medicine; Visit Provider Radiology Diagnostic Radiology | DX: Z12.31 Encounter for screening mammogram for malignant neoplasm of breast (principal) | CPT/HCPCS: 77063; 77067 ==

== ENCOUNTER 2023-01-03 08:09 | Outpatient (REF) | payer MEDICARE, SELFPAY ==
[2023-01-03 12:08] LABS: Alanine Aminotransferase 8 U/L (0-31); Anion Gap 10 (12-20); Aspartate Amino Transferase 19 U/L (5-31); Blood Urea Nitrogen 19 mg/dL (9-16); Calcium 9.3 mg/dL (8.4-10.2); Carbon Dioxide 27 mmol/L (22-29); Chloride 107 mmol/L (96-108); Cholesterol 147 mg/dL; Estimated Glomerular Filt Rate > 60; Glucose Fasting 98 mg/dL (60-99); HDL Cholesterol 39 mg/dL; LDL Cholesterol Calculated 81 mg/dl; Potassium 4.4 mmol/L (3.3-5.1); Sodium 140 mmol/L (135-145); Triglycerides 137 mg/dL
[2023-01-03 12:14] LABS: Vitamin D 25-OH Total 59.3 ng/mL (>30)
== END 2023-01-03 08:10 | disposition home or self-care (01) ==
LOC: HO.HMGCLDS 08:09
PROVIDERS: PCP Internal Medicine; Visit Provider Internal Medicine
DX: E78.5 Hyperlipidemia, unspecified (principal); E89.40 Asymptomatic postprocedural ovarian failure; I10 Essential (primary) hypertension
CPT/HCPCS: 36415; 80048; 80061; 82306; 84450; 84460

== ENCOUNTER 2023-01-09 10:53 | Outpatient (AMB) | payer MEDICARE, SELFPAY ==
[2023-01-09 10:56] VITALS: BP 130/74; PULSE 76; O2SAT 97; BMI 30.8
--- NOTE | 2023-01-09 10:56 | AM.OFFVISMDC ---
Intake Vital Signs 01/09/23 10:56 Height 5 ft 6 in Weight 191 lb BMI 30.8 BP 130/74 Blood Pressure Location Lt brachial Position Sitting Pulse 76 Pulse Source Pulse Oximeter Pulse Oximetry (%) 97 Oxygen Delivery Method Room Air Intake Visit Reasons: AWV Intake Note: pt is here for AWV, labs done. patient left AWV paperwork at home. Cookie Padder Required: No Accompanied by: Self / Same As Patient Allergies shellfish derived Allergy (Severe, Verified 01/09/23 11:20) Anaphylaxis oxycodone [OXYCODONE] Allergy (Intermediate, Verified 01/09/23 11:20) Itching Penicillins [PCN] Allergy (Intermediate, Verified 01/09/23 11:20) RASH aspirin [ASPIRIN] Allergy (Unknown, Verified 01/09/23 11:20) UNKNOWN codeine Adverse Reaction (Intermediate, Verified 01/09/23 11:20) Nausea and Vomiting erythromycin base Adverse Reaction (Intermediate, Verified 01/09/23 11:20) Gastrointestinal Upset lisinopril Adverse Reaction (Intermediate, Verified 01/09/23 11:20) cough Medication List - Last Reconciled 01/09/23 by Iwona Walker MD atorvastatin 20 mg PO DAILY bupropion HCl 200 mg PO BID 90 days carbidopa-levodopa 50-200 mg ER 1 tab PO TID cholecalciferol (vitamin D3) 25 mcg PO DAILY dicyclomine 20 mg PO BID losartan 50 mg PO DAILY nitroglycerin 2% (Nitro-Bid) 1 inch transdermal BID omega-3 fatty acids (Fish Oil Concentrate) 1,000 mg PO DAILY pantoprazole 40 mg PO DAILY timolol maleate 0.5% 1 drp ophthalmic (eye) BID HPI AWV HPI Details SWV ? 82-year-old lady here today for her subsequent annual wellness visit.? She has history of endometrial adenocarcinoma, as Parkinson's disease, stable controlled present treatment, has hyperlipidemia, season allergies, glaucoma, IBS, and depression currently stable controlled on present treatment. She is up-to-date with her screening mammogram done 11/29/2022 with normal findings, sees Dr. Segundo for her routine Pap and pelvic exam . She had a normal bone density scan done 04/11/2016 which showed normal findings. She is up-to-date with her screening colonoscopy done 07/05/[address] Gautam, to be repeated again in 2026. Up-to-date with her lipid and diabetes mellitus screening, done 01/03/2023 with normal findings. She gets yearly flu shots, up-to-date with her COVID vaccination, and Tdap as well as her Shingrix vaccination and pneumococcal vaccines. ? Medical / Social History Reviewed? Past Medical History ?Yes . ? [place] of Care / Care Team list updated ?Yes . ? Surgical/Hospitalization History ?Yes . ? Current Medications (including OTC and supplements) ?Yes . ? Family History ?Yes . ? Tobacco Control form ?Yes . ? AUDIT-C (Alcohol use) form ?Yes . ? Illicit drug use in Social History ?Yes . ? Current diagnosis of depression? ?Yes, controlled with present treatment ? Appropriate PHQ2/PHQ9 completed ?Yes . ? Data entered by ?Miscellaneous Machine Operator and reviewed by provider ? Fall Risk ? Fall History? Have you had any falls with injury in the past year? ?No . ? Have you had two or more falls in the past year? ?No . ? Fall Risk Assessment: ?No falls in the past year . ? HRA filled out by the patient, reviewed by Provider and scanned. ?SWV ? Balance? [place] ?Yes . ? Tandem walk- unable. ? Walk and Turn ?Yes . ? Rise from sit to stand ?Yes . ?Vision? Corrective lens ?Yes ? Vision screen ? Up-to-date, currently sees Dr Humphrey. ? Whisper test ?pass . ?Written Plan?Completed. See Patient Documents.? [facility] Medical History (Updated 01/09/23 @ 11:37 by Iwona Walker MD) Gait instability Impaired fasting glucose Essential hypertension COVID-19 vaccine series completed Osteoarthritis IBS (irritable bowel syndrome) Bilateral low back pain with sciatica Parkinson disease Family history of Parkinson's disease Tremor of right hand Glaucoma Seasonal allergies Depression Carpal tunnel syndrome GERD (gastroesophageal reflux disease) Hyperlipidemia Fibromyalgia Surgical History H/O: hysterectomy History of esophagogastroduodenoscopy (EGD) H/O colonoscopy History of carpal tunnel surgery Family History Mother History of breast cancer Father History of throat cancer Paternal Grandmother History of liver cancer Social History Housing: House Are you a primary acute care nurse to a significant other at home: No Alcohol intake: never Patient Tobacco Use Status: Never used Tobacco e-Cigarette/Vaping Use: Never Used service: No Current occupational status: retired Cognitive needs: No Hearing needs: No Vision needs: Yes Questionnaire Medicare Wellness Checkup What is your age?: 81 or older What gender do you identify with?: female During the past 4 weeks, how much have you been bothered by emotional problems such as feeling anxious, depressed, irritable, sad or downhearted, and blue?: slightly During the past 4 weeks, has your physical & emotional health limited your social activities with family, friends, neighbors, or groups?: not at all During the past 4 weeks, how much bodily pain have you generally had?: very mild pain During the past 4 weeks, was someone available to help you if you needed & wanted help?: yes, as much as I wanted During the past 4 weeks, what was the hardest physical activity you could do for at least 2 minutes?: heavy Can you get to places out of walking distance without help? (For eg., can you travel alone on buses, taxis or drive your car?): No Can you go shopping for groceries or clothes without someone's help?: No Can you prepare your own meals?: Yes Can you do your housework without help?: Yes Because of any health problems, do you need the help of another person with your personal care needs such as eating, bathing, dressing or getting around the house?: No Can you handle your own money without help?: Yes During the past 4 weeks, how would you rate your health in general?: very good During the past 4 weeks how have things been going for you?: pretty well Are you having difficulties driving your car?: not applicable, I don't use a car Do you always fasten your seat belt when you are in a car?: yes, usually During past 4 weeks, have you been bothered by the following: never: Falling or dizzy when standing up, Sexual problems?, Trouble eating well?, Teeth or denture problems? and Problems using the telephone? and sometimes: Tiredness or fatigue? Have you fallen 2 or more times in the past year?: No Are you afraid of falling?: Yes Are you a smoker?: no During the past 4 weeks, how many drinks of wine, beer, or other alcoholic beverages did you have?: no alcohol at all Do you exercise for about 20 minutes 3 or more times a week?: no, I usually do not exercise this much Have you been given information to help with the following?: no: Hazards in your house that might hurt you? and no: Keeping track of your medications? How often do you have trouble taking medicines the way you have been told to take them?: I do not have to take medicine How confident are you that you can control & manage most of your health problems?: very confident What is your race?: White Mini Mental State Exam (MMSE) Orientation What is the (year) (season) (date) (day) (month)?: year (2022), season (Summer), date (01/09/2023), day (Sunday) and month (December) Where are we (state) (county) (town or city) (hospital) (floor)?: state ([place]), county ([place]), town or city ([place]) and hospital/clinic ([facility]) Score Score: 9 Activity of Daily Living Bathing - sponge bath, tub bath or shower: receives no assistance (gets in/out by self, if usual bathing means Dressing - getting clothes from closets & drawers, including inner/outer garments & fasteners.: gets clothes & gets completely dressed without help Toileting - going to the 'toilet room' for urine/bowel elimination & cleaning self/arranging clothes: goes to toilet room, cleans self, arranges clothes without help Transfer: moves in & out of bed and chair without help (may use support object) Continence: controls urination/bowel movements completely by self Feeding: feeds self without help Total Score: 0 Information obtained from: patient Using telephone: independent Traveling: needs assistance Shopping: needs assistance Preparing meals: independent Housework: independent Taking medicine: independent Managing money: independent PHQ-9 Over the last 2 weeks, how often have you been bothered by any of the following problems? 1. Little interest or pleasure in doing things: not at all 2. Feeling down, depressed, or hopeless: not at all 3. Trouble falling or staying asleep, or sleeping too much: not at all 4. Feeling tired or having little energy: several days 5. Poor appetite or overeating: not at all 6. Feeling bad about yourself - or that you are a failure or have let yourself or your family down: not at all 7. Trouble concentrating on things, such as reading the newspaper or watching television: not at all 8. Moving or speaking so slowly that other people could have noticed. Or the opposite - being so fidgety or restless that you have been moving around a lot more than usual: not at all 9. Thoughts that you would be better off or of hurting yourself in some way: not at all Total score: 1 Depression Screening Interpretation: Negative (Depression stable controlled on present treatment) 85339 - PHQ-9 Billing: Yes Source: Developed by Drs. Milo Maurice, Tyesha Fox, Cj Gregory and colleagues, with an educational hernandez from [employer]. Physical Exam Vital Signs: Last Vital Signs Pulse 76 01/09/23 10:56 BP 130/74 01/09/23 10:56 Pulse Ox 97 01/09/23 10:56 Oxygen Delivery Method Room Air 01/09/23 10:56 BMI result Body Mass Index 30.8 Results Reviewed Results Reviewed: ENTERED: 01/03/[address] [facility] [address]: ORDERED: Met Prof Fast, AST, ALT, Lipid Panel, Vitamin D 25-OH Test Result Flag Reference Site Sodium 140 135-145 mmol/L Potassium 4.4 3.3-5.1 mmol/L CL 107 96-108 mmol/L CO2 27 22-29 mmol/L Gap 10 L 12-20 BUN 19 H 9-16 mg/dL Creat 0.85 0.5-1.4 mg/dL EGFR > 60 NOTE: For -Citizen Of [place] individuals, multiply the result by 1.210. Chronic Kidney Disease: Estimated GFR < 60 mL/min/1.73m2 Severe Kidney Disease: Estimated GFR < 15 mL/min/1.73m2 FBS 98 60-99 mg/dL CA 9.3 8.4-10.2 mg/dL AST (GOT) 19 5-31 U/L ALT (GPT) 8 0-31 U/L Triglyceride 137 mg/dL Desirable Triglyceride: less than 150 mg/dL Borderline High Triglyceride 150-199 mg/dL High Triglyceride: 200-499 mg/dL Very High Triglyceride: greater than or equal to 5OO mg/dL Chol 147 mg/dL Desirable Cholesterol: less than 200 mg/dL Borderline High Cholesterol: 200-239 mg/dL High Cholesterol: greater than 239 mg/dL LDL Calculated 81 mg/dl Desirable LDL: less than 100 mg/dL Near Optimal/Above Optimal LDL: 110-129 mg/dL Borderline High LDL: 130-159 mg/dL High LDL: 160-189 mg/dL Very High LDL: greater than or equal to 190 mg/dL HDL 39 mg/dL Desirable HDL: greater than 40 mg/dL Note: This HDL assay may give artificially low results in patients with liver disease. Vit D 25-OH Tot 59.3 >30 ng/mL Health Based Reference Values* < 20 ng/mL Deficient 20-30 ng/mL Insufficient > 30 ng/mL Sufficient Assessment & Plan Assessment & Plan (1) Parkinson disease: Comment: ff'd by Dr Hutson Code(s): G20 - Parkinson's disease Plan: Followed by Neurology, currently on carbidopa-levodopa (2) Gait instability: Code(s): R26.81 - Unsteadiness on feet Plan: Due to Parkinson's disease, referred for physical therapy (3) IBS (irritable bowel syndrome): Code(s): K58.9 - Irritable bowel syndrome without diarrhea Plan: Currently on dicyclomine 20 mg 1 tablet twice a day as needed (4) Endometrial adenocarcinoma: Comment: FIGO 1 Code(s): C54.1 - Malignant neoplasm of endometrium Plan: Status post hysterectomy, followed by supervisor machine setter Dr. Segundo regularly (5) Essential hypertension: Code(s): I10 - Essential (primary) hypertension Plan: Stable controlled on losartan 50 mg daily (6) Hyperlipidemia: Code(s): E78.5 - Hyperlipidemia, unspecified Plan: Recent fasting labs showed lipids within normal limits, stable controlled on [place] 3 fatty acid atorvastatin 20 mg daily (7) Glaucoma: Code(s): H40.9 - Unspecified glaucoma Plan: On timolol maleate eyedrops, followed by Dr. Humphrey (8) Depression: Code(s): F32.9 - Major depressive disorder, single episode, unspecified Plan: Controlled on bupropion HCL 100 mg daily (9) Encounter for subsequent annual wellness visit (AWV) in Medicare patient: Code(s): Z00.00 - Encounter for general adult medical examination without abnormal findings Plan: Medicare wellness checklist discussed with patient, reviewed and updated, copy given to her. Reminded to get her COVID vaccine booster and her flu shot for this year. (10) Advanced directives, counseling/discussion: Code(s): Z71.89 - Other specified counseling Plan: Initiated the conversation about Advanced Directives. Advanced Directives help patients prepare for current and future decisions about their medical treatment and place of care. Discussed with patient that it is a process where a patients current condition and prognosis are reviewed, their wishes for information regarding their illness are elicited, and likely medical dilemmas are presented and options discussed. MOLST completed today. Orders: Orders PT Evaluation and Treatment 01/09/23 G20 - Parkinson's disease, R26.81 - Unsteadiness on feet Quality Reporting (2019) Depression/Bipolar (159/160/161/177) PHQ-9: Total score: 1 Coding Level of Care Code Medicare Subsequent (G0439) Diagnoses Parkinson disease G20 Gait instability R26.81 IBS (irritable bowel syndrome) K58.9 Endometrial adenocarcinoma C54.1 Essential hypertension I10 Hyperlipidemia E78.5 Glaucoma H40.9 Depression F32.9 Encounter for subsequent annual wellness visit (AWV) in Medicare patient Z00.00 Advanced directives, counseling/discussion Z71.89 CPT Codes Advance Care Planning - Time spent: 16-45 minutes ([id number]) Advance Care Planning Advance Care Planning discussion: Completed/Scanned Date of discussion: 01/09/23 Who was present: Patient Forms completed: MOLST Time spent: 16-45 minutes Actual minutes spent: 16
== END 2023-01-09 11:50 | disposition home or self-care (01) ==
PROVIDERS: Visit Provider Internal Medicine
DX: Z00.00 Encounter for general adult medical examination without abnormal findings (principal); G20 Parkinson's disease; K58.9 Irritable bowel syndrome, unspecified; C54.1 Malignant neoplasm of endometrium; I10 Essential (primary) hypertension; F32.9 Major depressive disorder, single episode, unspecified; R26.81 Unsteadiness on feet; E78.5 Hyperlipidemia, unspecified; H40.9 Unspecified glaucoma
CPT/HCPCS: 99497; G0439

== ENCOUNTER 2023-02-28 10:00 | Outpatient (RCR) | payer MEDICARE, SELFPAY ==
--- NOTE | 2023-01-26 12:55 | MHC.PT.EP ---
[facility] [place] [facility] [place] [facility] [place] [facility] [address] Shruthi Horvath [address] [phone] F: [phone] F: [phone] F: [phone] F: [phone] Physical Therapy Plan of Care Date of Evaluation: 01/26/23 Date of Surgery: Diagnosis: This is an 82 yo female presenting to skilled PT with a script for Parkinson's, gait instability. Assessment: This is an 82 yo female presenting to skilled PT with a script for Parkinson's, gait instability. Patient was diagnosed with PD about 2.5 years ago (she had fallen 3 times in a year and then was dx). Today she presents for evaluation with a script from her PCP to work on her balance. In terms of symptoms she reports minor hand tremors, decreased balance, tolerance for walking and stairs and decreased confidence with movements and transfers. Her last fall was 1 year ago. Patient lives alone in a 2 story home but has moved to the first floor and equipped her full bath downstairs to be handicapped accessible. She uses a rollator out of the house and furniture cruises or uses a cane in the house. 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 Of note, she additionally has newer low back pain. Her pain is mainly on the L side low back and increases with flexion based activities. Assessment reveals pain that ranges from up to a 6/10 at the worst. Patient demos limitations in UB and LB ROM, strength of B UE and LE, impaired posture with forward head and rounded shoulders and decreased balance, confidence with mobility and transfers. Based on functional limitations, impaired QOL and pain tolerance patient is a good candidate for skilled PT 2x/wk for 4wks. Our plan is to work on BIG exercises for home use as her transportation and MD appointments do not allow her to come here 4x/wk and then transition care to her back as needed. Frequency and Duration: The patient will be seen 2x/wk for 4wks Short Term Goals: (in 2 weeks) Improve mod tandem stance to 20 sec B Patient will perform TUG and DGI for original assessment Patient will understand safe techniques at home for HEP practice Assisted Goals: (in 4wks) Improve DGI by at least 5 points Improve self reported confidence with transfers, ambulation by at least 25% Demo I with HEP and good understanding of safety techniques Treatment Plan: Modalities to reduce pain, spasms and effusion. Manual therapy to restore motion and function. Therapeutic exercise to improve strength and flexibility. Neuromuscular re-education for posture and balance. Therapeutic activities to return to functional activities of daily living. Electronically signed by: Lynnette Mireles PT Please sign and return to therapist. Thank you for your referral.
--- NOTE | 2023-02-28 13:17 | MHC.PT.DC ---
[facility] [place] Office [place] Office [place] Office [address] Shruthi Horvath [address] [phone] F: [phone] F: [phone] F: [phone] F: [phone] Physical Therapy Discharge Report Diagnosis: This is an 82 yo female presenting to skilled PT with a script for Parkinson's, gait instability. Date of Surgery: Date of Evaluation: 01/26/23 Date of Discharge: 02/28/23 Treatments to Date: 9 Cancellations to Date: 0 No Shows to Date: 0 Discharge Status: Achieved Goals Improved Function Independent with HEP Discharge Summary: Patient now has two options for HEP on own for balance specifically for Parkinson's (BIG program seated and mod standing). She demos improved tolerance for the program, understanding of balance strategies and understanding of diagnosis. She improved her TUG score by 5 secs. She would benefit from use of her rollator not only for balance/safety but for cardiovascular health and foot clearance. She has complained of back pain, I educated her that if she would like to try PT for this she needs to contact her PCP for a referral. DC to HEP, she is I and has met her PT goals. Electronically signed by: Lynnette Mireles, PT Please sign and return to therapist. Thank you for your referral.
== END 2023-02-28 13:17 | disposition home or self-care (01) ==
LOC: HO.PTCHIC 10:00
PROVIDERS: PCP Internal Medicine; Visit Provider Internal Medicine
DX: G20 Parkinson's disease (principal); R26.81 Unsteadiness on feet
CPT/HCPCS: 97110; 97112; 97163

== ENCOUNTER 2023-04-18 08:11 | Outpatient (REF) | payer MEDICARE, SELFPAY ==
[2023-04-18 12:25] LABS: Alanine Aminotransferase 7 U/L (0-31); Anion Gap 9 (12-20); Aspartate Amino Transferase 22 U/L (5-31); Blood Urea Nitrogen 21 mg/dL (9-16); Calcium 9.5 mg/dL (8.4-10.2); Carbon Dioxide 32 mmol/L (22-29); Chloride 103 mmol/L (96-108); Cholesterol 167 mg/dL (<200); Estimated Glomerular Filt Rate > 60; Glucose Fasting 107 mg/dL (60-99); HDL Cholesterol 43 mg/dL (>40); LDL Cholesterol Calculated 90 mg/dL (<100); Potassium 4.3 mmol/L (3.3-5.1); Sodium 140 mmol/L (135-145); Triglycerides 173 mg/dL (<150)
[2023-04-18 12:31] LABS: Vitamin D 25-OH Total 51.4 ng/mL (>30)
== END 2023-04-18 08:12 | disposition home or self-care (01) ==
LOC: HO.HMGCLDS 08:11
PROVIDERS: PCP Internal Medicine; Visit Provider Internal Medicine
DX: E78.5 Hyperlipidemia, unspecified (principal); I10 Essential (primary) hypertension; G20.C Parkinsonism, unspecified; Z78.0 Asymptomatic menopausal state
CPT/HCPCS: 36415; 80048; 80061; 82306; 84450; 84460

== ENCOUNTER 2023-04-25 11:19 | Outpatient (AMB) | payer MEDICARE, SELFPAY ==
--- NOTE | 2023-04-25 11:45 | MHC.PC.OV ---
Vital Signs 04/25/23 11:46 Height 5 ft 6 in Weight 195 lb 4 oz BMI 31.5 BP 132/70 Blood Pressure Location Rt brachial Position Sitting Pulse 70 Pulse Source Pulse Oximeter Pulse Oximetry (%) 99 Oxygen Delivery Method Room Air Intake Visit Reasons: 4 month follow up Intake Note: Pt is here to follow up for her lab results Allergies shellfish derived Allergy (Severe, Verified 06/18/23 04:30) Anaphylaxis oxycodone [OXYCODONE] Allergy (Intermediate, Verified 06/18/23 04:30) Itching Penicillins [PCN] Allergy (Intermediate, Verified 06/18/23 04:30) RASH aspirin [ASPIRIN] Allergy (Unknown, Verified 06/18/23 04:30) UNKNOWN codeine Adverse Reaction (Intermediate, Verified 06/18/23 04:30) Nausea and Vomiting erythromycin base Adverse Reaction (Intermediate, Verified 06/18/23 04:30) Gastrointestinal Upset lisinopril Adverse Reaction (Intermediate, Verified 06/18/23 04:30) cough Medication List - Last Reconciled 04/25/23 by Iwona Walker MD atorvastatin 20 mg PO DAILY bupropion HCl 200 mg PO BID 90 days carbidopa-levodopa 50-200 mg ER 1 tab PO TID cholecalciferol (vitamin D3) 25 mcg PO DAILY dicyclomine 20 mg PO BID losartan 50 mg PO DAILY nitroglycerin 2% (Nitro-Bid) 1 inch transdermal BID omega-3 fatty acids (Fish Oil Concentrate) 1,000 mg PO DAILY pantoprazole 40 mg PO DAILY timolol maleate 0.5% 1 drp ophthalmic (eye) BID Tobacco use date assessed: 04/25/23 Fall risk assessment: No Falls in past year Last assessed Fall Risk: 04/25/23 Dental Screening Dental Screen Date: 04/25/23 Did you have a dental visit in the last 12 months?: Yes Did you have a dental problem in the last 6 months where you did not have access to dental care?: No Was dental information given to patient?: Patient has dentist HPI 4 month follow up HPI Details 82-year-old lady here today for follow-up on her lipids, and hypertension. Has compliant with medications, not much exercise however, as she has Parkinson's and is afraid of falling. Complains of recurrent pain across her lower back, worse with prolonged standing or walking. Denies any accompanying numbness tingling or weakness in extremities noted. She has also been having frequent leaking in her bladder, gets occasional accidents when she coughs or sneezes vigorously. Complains of a slightly itchy rash behind her right ear. [facility] Medical History (Updated 04/25/23 @ 12:46 by Iwona Walker MD) Impaired fasting glucose Urinary incontinence Lumbago syndrome Gait instability Essential hypertension COVID-19 vaccine series completed Osteoarthritis IBS (irritable bowel syndrome) Bilateral low back pain with sciatica Parkinson disease Family history of Parkinson's disease Tremor of right hand Glaucoma Seasonal allergies Depression Carpal tunnel syndrome GERD (gastroesophageal reflux disease) Hyperlipidemia Fibromyalgia Surgical History H/O: hysterectomy History of esophagogastroduodenoscopy (EGD) H/O colonoscopy History of carpal tunnel surgery Family History Mother History of breast cancer Father History of throat cancer Paternal Grandmother History of liver cancer Social History Housing: House Are you a primary manager wound care to a significant other at home: No Alcohol intake: never Comment: Parkinson's-use cane or walker Patient Tobacco Use Status: Never used Tobacco e-Cigarette/Vaping Use: Never Used service: No Current occupational status: retired Cognitive needs: No Hearing needs: No Vision needs: Yes Questionnaire Thrive Questionnaire Date Thrive assessed: 07/11/22 FOREST-7 AMB Questionnaire FOREST-7 Date FOREST - 7 assessed: 07/11/22 Source: Developed by Drs. Milo Maurice, Tyesha Fox, Cj Gregory and colleagues, with an educational hernandez from [employer]. Review of Systems Const Denies body aches, Denies fever(s), Denies headache(s) and Denies weakness Eyes Denies change in vision ENT Denies dizziness, Denies headache(s), Denies nasal congestion, Denies nasal discharge and Denies sore throat Card Denies chest pain, Denies lightheadedness, Denies palpitations and Denies dyspnea Resp Denies chest congestion, Denies cough, Denies dyspnea and Denies wheezing GI Denies abdominal pain, Denies change in bowel habits and Denies heartburn Denies hematuria, Denies urinary frequency, Denies dysuria and Denies urinary urgency Musc Reports no additional complaints and Reports stiffness Neuro Denies dizziness, Denies headache(s), Reports tremor(s) (In hands) and Denies weakness Endo Denies polydipsia, Denies polyuria and Denies palpitations Yair/Lymph Denies easy bruising Aller/Immun Denies seasonal rhinorrhea and Denies wheezing Physical exam (Primary Care) Vital Signs: Last Vital Signs Pulse 70 04/25/23 11:46 BP 132/70 04/25/23 11:46 Pulse Ox 99 04/25/23 11:46 Oxygen Delivery Method Room Air 04/25/23 11:46 BMI result Body Mass Index 31.5 Tobacco/Smoking Status: Tobacco use Status Tobacco use date assessed 04/25/23 04/25/23 11:53 Patient Tobacco Use Status Never used Tobacco 04/25/23 11:46 e-Cigarette/Vaping Use Never Used 04/25/23 11:46 Thrive Assessment: Date of Thrive Assessment Date Thrive assessed 07/11/22 04/25/23 11:46 Const General: comfortable, no acute distress and alert Orientation/consciousness: patient oriented x3 HENMT Ears: external ears normal, TM's normal bilaterally and EAC's normal General nose exam: Normal external nose present Mouth: Normal oral and palatal mucosa present, oropharynx normal and moist mucous membranes Eyes General: appearance normal, both eyes and all related structures Neck Neck: Yes full ROM, Yes no lymphadenopathy and Yes supple Resp Effort & Inspection: normal respiratory effort and able to speak in complete sentences Auscultation: clear to auscultation bilaterally Cardio Rate: regular rate Rhythm: regular rhythm (Occasional skipped beat) Heart sounds: S1 normal heart sound present and S2 normal heart sound present GI Palpation (GI): Soft to palpation, nontender and no masses Auscultation: normal bowel sounds Back/Spine/Pelvis Thoracic/Lumbar Spine: straight leg raise negative bilaterally and paraspinal muscle tenderness bilaterally in the mid lumbar Skin Other: Slightly raised scaly patch on right retroauricular area Neuro Other: Mild tremors noted in both hands General: patient oriented x3, tone normal, moves all extremities, Normal light touch and pain sensation and no focal motor deficits Cranial nerves: Yes CN's II-XII intact bilaterally Cognition (Neuro): normal cognition Extrem General: Yes full ROM, Yes no joint enlargement, Yes no clubbing, cyanosis or edema and Yes no calf tenderness Results Reviewed Results Reviewed: ENTERED: 04/18/[address] [facility] : ORDERED: Met Prof Fast, AST, ALT, Lipid Panel, Vitamin D 25-OH Test Result Flag Reference Site Sodium 140 135-145 mmol/L Potassium 4.3 3.3-5.1 mmol/L CL 103 96-108 mmol/L CO2 32 H 22-29 mmol/L Gap 9 L 12-20 BUN 21 H 9-16 mg/dL Creat 0.87 0.5-1.4 mg/dL EGFR > 60 NOTE: For -Honduran individuals, multiply the result by 1.210. Chronic Kidney Disease: Estimated GFR < 60 mL/min/1.73m2 Severe Kidney Disease: Estimated GFR < 15 mL/min/1.73m2 FBS 107 H 60-99 mg/dL A fasting glucose from 100-125 mg/dl is considered impaired (pre-diabetes). CA 9.5 8.4-10.2 mg/dL AST (GOT) 22 5-31 U/L ALT (GPT) 7 0-31 U/L Triglyceride 173 H <150 mg/dL Desirable Triglyceride: less than 150 mg/dL Borderline High Triglyceride 150-199 mg/dL High Triglyceride: 200-499 mg/dL Very High Triglyceride: greater than or equal to 5OO mg/dL Cholesterol 167 <200 mg/dL Desirable Cholesterol: less than 200 mg/dL Borderline High Cholesterol: 200-239 mg/dL High Cholesterol: greater than 239 mg/dL LDL Calculated 90 <100 mg/dL Desirable LDL: less than 100 mg/dL Near Optimal/Above Optimal LDL: 110-129 mg/dL Borderline High LDL: 130-159 mg/dL High LDL: 160-189 mg/dL Very High LDL: greater than or equal to 190 mg/dL HDL 43 >40 mg/dL Desirable HDL: greater than 40 mg/dL Note: This HDL assay may give artificially low results in patients with liver disease. Vit D 25-OH Tot 51.4 >30 ng/mL Health Based Reference Values* < 20 ng/mL Deficient 20-30 ng/mL Insufficient > 30 ng/mL Sufficient Assessment and Plan Assessment & Plan (1) Essential hypertension: Code(s): I10 - Essential (primary) hypertension Plan: Blood pressure at goal of less than 130/80. Continue with losartan 50 mg daily. Reinforced importance of following a low sodium diet, getting regular exercise, and lowering stress levels. (2) Hyperlipidemia: Code(s): E78.5 - Hyperlipidemia, unspecified Qualifiers: Hyperlipidemia type: mixed hyperlipidemia Qualified Code(s): E78.2 - Mixed hyperlipidemia Plan: Reviewed recent fasting lipid profile with patient with normal LDL cholesterol, but elevated triglycerides. . Continue with atorvastatin 20 mg daily , in addition to adherence to low-cholesterol diet and regular exercise, at least 30 minutes 3 to 4 times a week. Advised to get fasting glucose levels controlled of Advised patient to make healthy food choices, eat more fruits, vegetables, whole grains, wild caught fish and low-fat dairy. Limit amount of meat and fried or fatty food products, as well as processed foods and fast foods. Follow-up scheduled with repeat fasting lipid panel in 6 months. (3) Lumbago syndrome: Code(s): M54.50 - Low back pain, unspecified Qualifiers: Back pain laterality: bilateral Chronicity: chronic Sciatica presence: without sciatica Qualified Code(s): M54.50 - Low back pain, unspecified; G89.29 - Other chronic pain Plan: X-ray lumbar spine ordered, patient interested in getting massage therapy, will check with nearby businesses if they can do home service (4) Urinary incontinence: Code(s): R32 - Unspecified urinary incontinence Qualifiers: Urinary Incontinence type: mixed stress and urge incontinence Qualified Code(s): N39.46 - Mixed incontinence Plan: Started on Mirabegron 25 mg per tablet to take once a day 30 tablets with no refill, call if no improvement of symptoms noted (5) Depression: Code(s): F32.9 - Major depressive disorder, single episode, unspecified Qualifiers: Active/Remission status: in partial remission Depression Type: major depressive disorder Major depression recurrence: recurrent Qualified Code(s): F33.41 - Major depressive disorder, recurrent, in partial remission Plan: Continue bupropion 200 mg twice a day (6) Dermatitis: Code(s): L30.9 - Dermatitis, unspecified Plan: In right retroauricular area, trial of cortisone 10 cream apply sparingly to affected area twice a day for no more than 10 days per (7) Impaired fasting glucose: Code(s): R73.01 - Impaired fasting glucose Plan: Your fasting blood sugars elevated above 100 mg/dL. Impaired glucose metabolism O2 at risk for developing diabetes mellitus type 2, as well as heart attack and stroke later on. Lifestyle changes at just weight loss, healthy eating habits, and regular exercise are important, and can prevent the progression to diabetes Orders: Orders XR lumbar spine 6V w bending 04/25/23 M54.50 - Low back pain, unspecified Hemoglobin A1c 12/10/23 R73.01 - Impaired fasting glucose, I10 - Essential (primary) hypertension, E78.5 - Hyperlipidemia, unspecified, Z78.0 - Asymptomatic menopausal state Alanine Aminotransferase 12/10/23 R73.01 - Impaired fasting glucose, I10 - Essential (primary) hypertension, E78.5 - Hyperlipidemia, unspecified, Z78.0 - Asymptomatic menopausal state Basic Metabolic Panel Fasting 12/10/23 R73.01 - Impaired fasting glucose, I10 - Essential (primary) hypertension, E78.5 - Hyperlipidemia, unspecified, Z78.0 - Asymptomatic menopausal state Lipid Panel 12/10/23 R73.01 - Impaired fasting glucose, I10 - Essential (primary) hypertension, E78.5 - Hyperlipidemia, unspecified, Z78.0 - Asymptomatic menopausal state Aspartate Amino Transferase 12/10/23 R73.01 - Impaired fasting glucose, I10 - Essential (primary) hypertension, E78.5 - Hyperlipidemia, unspecified, Z78.0 - Asymptomatic menopausal state Vitamin D 25-OH Total 12/10/23 R73.01 - Impaired fasting glucose, I10 - Essential (primary) hypertension, E78.5 - Hyperlipidemia, unspecified, Z78.0 - Asymptomatic menopausal state Medications: New mirabegron ER 25 mg PO DAILY 30 tabs 0RF R32 - Unspecified urinary incontinence Coding Level of Care Code Est Pt Level 4 (62801) Diagnoses Essential hypertension I10 Mixed hyperlipidemia E78.2 Hyperlipidemia type: mixed hyperlipidemia Chronic bilateral low back pain without sciatica M54.50; G89.29 Back pain laterality: bilateral Chronicity: chronic Sciatica presence: without sciatica Mixed stress and urge urinary incontinence N39.46 Urinary Incontinence type: mixed stress and urge incontinence Recurrent major depressive disorder, in partial remission F33.41 Active/Remission status: in partial remission Depression Type: major depressive disorder Major depression recurrence: recurrent Dermatitis L30.9 Impaired fasting glucose R73.01
[2023-04-25 11:46] VITALS: BP 132/70; PULSE 70; O2SAT 99; BMI 31.5
== END 2023-04-25 12:47 | disposition home or self-care (01) ==
PROVIDERS: PCP Internal Medicine; Visit Provider Internal Medicine
DX: I10 Essential (primary) hypertension (principal); F33.41 Major depressive disorder, recurrent, in partial remission; E78.2 Mixed hyperlipidemia; M54.50 Low back pain, unspecified; G89.29 Other chronic pain; N39.46 Mixed incontinence; L30.9 Dermatitis, unspecified; R73.01 Impaired fasting glucose
CPT/HCPCS: 99214

== ENCOUNTER 2023-05-08 09:49 | Outpatient (REF) | payer MEDICARE, SELFPAY | END 2023-05-08 09:50 | disposition home or self-care (01) | LOC: HO.HMGCX 09:49 | PROVIDERS: PCP Internal Medicine; Visit Provider Internal Medicine | DX: M54.50 Low back pain, unspecified (principal) | CPT/HCPCS: 72110 ==

== ENCOUNTER 2023-06-14 10:37 | Outpatient (AMB) | payer MEDICARE, SELFPAY ==
--- NOTE | 2023-06-14 10:46 | MHC.OFFVIS ---
Intake Vital Signs 06/14/23 10:47 Height 5 ft 6 in Weight 199 lb BMI 32.1 BP 122/80 Blood Pressure Location Lt brachial Position Sitting Intake Visit Reasons: Yearly breast exam Intake Note: Patient is seen in office for yearly breast exam. Pt c/o: denies any concerns or changes mm sched: 12/05/23 Floor Cleaner Required: No Platen Press Feeder: Platen Press Feeder Present Accompanied by: Self / Same As Patient Allergies shellfish derived Allergy (Severe, Verified 06/14/23 10:48) Anaphylaxis oxycodone [OXYCODONE] Allergy (Intermediate, Verified 06/14/23 10:48) Itching Penicillins [PCN] Allergy (Intermediate, Verified 06/14/23 10:48) RASH aspirin [ASPIRIN] Allergy (Unknown, Verified 06/14/23 10:48) UNKNOWN codeine Adverse Reaction (Intermediate, Verified 06/14/23 10:48) Nausea and Vomiting erythromycin base Adverse Reaction (Intermediate, Verified 06/14/23 10:48) Gastrointestinal Upset lisinopril Adverse Reaction (Intermediate, Verified 06/14/23 10:48) cough Medication List - Last Reconciled 06/14/23 by Jak Wilson MD atorvastatin 20 mg PO DAILY bupropion HCl 200 mg PO BID 90 days carbidopa-levodopa 50-200 mg ER 1 tab PO TID cholecalciferol (vitamin D3) 25 mcg PO DAILY dicyclomine 20 mg PO BID losartan 50 mg PO DAILY nitroglycerin 2% (Nitro-Bid) 1 inch transdermal BID omega-3 fatty acids (Fish Oil Concentrate) 1,000 mg PO DAILY timolol maleate 0.5% 1 drp ophthalmic (eye) BID HPI HPI Comments History of Present Illness Details 82-year-old female patient, former patient of Dr. Palumbo, returning for a routine annual breast check due to a strong family history for breast cancer. Her family history is significant for metastatic breast cancer in her mother, diagnosed at the age of 39 as well as a maternal aunt with breast cancer. Her maternal grandfather was treated for prostate cancer. Patient has no breast cancer history and denies any new breast symptoms. H Her Tyrer-Cuzick lifetime risk of developing breast cancer was calculated at 4 %. She is , menarche at the age of 14 menopause at age 54. She denies any new breast concerns this time. She underwent a robotic hysterectomy with lymph node dissection stage [address] Elena Akhtar at [facility] last year. She was seen earlier this year by Dr. Akhtar. She tolerated the procedure well and feels well today. Her most recent mammogram dated 11/29/2022 revealed no mammographic evidence of malignancy (BI-RADS 2). One year follow-up is recommended and has been scheduled for 12/05/2023. [facility] Medical History (Updated 04/25/23 @ 12:46 by Iwona Walker MD) Impaired fasting glucose Urinary incontinence Lumbago syndrome Gait instability Essential hypertension COVID-19 vaccine series completed Osteoarthritis IBS (irritable bowel syndrome) Bilateral low back pain with sciatica Parkinson disease Family history of Parkinson's disease Tremor of right hand Glaucoma Seasonal allergies Depression Carpal tunnel syndrome GERD (gastroesophageal reflux disease) Hyperlipidemia Fibromyalgia Surgical History H/O: hysterectomy History of esophagogastroduodenoscopy (EGD) H/O colonoscopy History of carpal tunnel surgery Family History Mother History of breast cancer Father History of throat cancer Paternal Grandmother History of liver cancer Social History Housing: House Are you a primary senior care manager to a significant other at home: No Alcohol intake: never Comment: Parkinson's-use cane or walker Patient Tobacco Use Status: Never used Tobacco e-Cigarette/Vaping Use: Never Used service: No Current occupational status: retired Cognitive needs: No Hearing needs: No Vision needs: Yes Review of Systems Const All systems reviewed & are unremarkable except as noted in HPI and below Denies anorexia, Denies chills, Denies fever(s) and Denies weight loss ENT Reports Normal hearing present Card Denies chest pain, Denies rapid heart rate, Denies irregular heart rhythm and Denies palpitations Resp Denies chest congestion, Denies cough, Denies hemoptysis and Denies wheezing GI Reports no additional complaints Denies nipple discharge Musc Reports no additional complaints Skin/Breast Denies breast swelling, Denies breast skin changes, Denies breast pain, Denies breast mass, Denies change in breast shape and Denies nipple discharge Neuro Reports Normal hearing present Endo Denies palpitations Yair/Lymph Denies lymphadenopathy Aller/Immun Denies wheezing Physical Exam Vital Signs: Last Vital Signs BP 122/80 06/14/23 10:47 BMI result Body Mass Index 32.1 Const General: cooperative, no acute distress and well developed Nutritional Appearance: well nourished Orientation/consciousness: patient oriented x3 Limitations: no limitations HEENT Head: Yes normocephalic and Yes atraumatic Ears: hearing grossly normal bilaterally Neck Neck: Yes no lymphadenopathy, Yes trachea midline and Yes supple Chest Other: Left breast: No skin change, no nipple retraction, no nipple discharge, no palpable mass, no enlarged lymph nodes. Right breast: No skin change, no nipple retraction, no nipple discharge, no palpable mass, no enlarged lymph nodes Resp Effort & Inspection: normal respiratory effort, no audible wheezes, no cough and no respiratory distress GI Inspection: Yes normal to inspection Skin General skin exam: no rashes or lesions noted Neuro General: patient oriented x3 Cranial nerves: Yes Normal hearing present Extrem General: Yes no clubbing, cyanosis or edema Assessment & Plan Assessment & Plan (1) Family history of breast cancer: Code(s): Z80.3 - Family history of malignant neoplasm of breast Plan: 82-year-old female patient with a strong family history of breast cancer including her mother returning for a follow-up breast examination. Her most recent mammogram dated 11/29/2022 revealed no mammographic evidence of malignancy (BI-RADS 2). One year follow-up mammogram is scheduled for 12/05/2023. Her exam today reveals no suspicious findings in either breast. She should return in 1 year for routine breast examination but is welcome to return sooner as needed. Coding Level of Care Code Est Pt Level 3 (49936) Diagnoses Family history of breast cancer Z80.3
[2023-06-14 10:47] VITALS: BP 122/80; BMI 32.1
== END 2023-06-14 11:11 | disposition home or self-care (01) ==
PROVIDERS: PCP Internal Medicine; Visit Provider Surgery
DX: Z80.3 Family history of malignant neoplasm of breast (principal)
CPT/HCPCS: 99213

== ENCOUNTER → 2023-06-14 10:37 | Outpatient (BNVA) | payer MEDICARE, SELFPAY | PROVIDERS: PCP Internal Medicine; Visit Provider Surgery | DX: Z91.89 Other specified personal risk factors, not elsewhere classified (principal); Z85.42 Personal history of malignant neoplasm of other parts of uterus; Z90.710 Acquired absence of both cervix and uterus; Z80.3 Family history of malignant neoplasm of breast | CPT/HCPCS: 99212 ==

== ENCOUNTER 2023-07-31 12:31 | Outpatient (AMB) | payer MEDICARE, SELFPAY ==
[2023-07-31 12:32] VITALS: BP 112/70; PULSE 91; TEMP 36.1; O2SAT 98; BMI 31.8
--- NOTE | 2023-07-31 12:32 | MHC.OFFWIV ---
Intake Vital Signs 07/31/23 12:32 Height 5 ft 6 in Weight 197 lb BMI 31.8 BP 112/70 Blood Pressure Location Lt brachial Position Sitting Pulse 91 Pulse Source Pulse Oximeter Temp 97.0 F Temp Source Temporal Artery Scan Pulse Oximetry (%) 98 Oxygen Delivery Method Room Air Intake Visit Reasons: EP Wax build up RT ear Intake Note: pt is here today for wax build up rt ear started 3 weeks ago Patient Tobacco Use Status: Never used Tobacco Allergies shellfish derived Allergy (Severe, Verified 07/31/23 12:32) Anaphylaxis oxycodone [OXYCODONE] Allergy (Intermediate, Verified 07/31/23 12:32) Itching Penicillins [PCN] Allergy (Intermediate, Verified 07/31/23 12:32) RASH aspirin [ASPIRIN] Allergy (Unknown, Verified 07/31/23 12:32) UNKNOWN codeine Adverse Reaction (Intermediate, Verified 07/31/23 12:32) Nausea and Vomiting erythromycin base Adverse Reaction (Intermediate, Verified 07/31/23 12:32) Gastrointestinal Upset lisinopril Adverse Reaction (Intermediate, Verified 07/31/23 12:32) cough Do you need a note to return to daycare/school/sports/work: No HPI HPI Comments History of Present Illness Details Pt presents with blocked R ear Ongoing for a while No dizziness Sometimes pressure pain 0/10 now No other complaints No improving or worsening symptoms PFSH Medical History (Updated 07/31/23 @ 12:49 by Laureen Goldberg PA-C) Impaired fasting glucose Urinary incontinence Lumbago syndrome Gait instability Essential hypertension COVID-19 vaccine series completed Osteoarthritis IBS (irritable bowel syndrome) Bilateral low back pain with sciatica Parkinson disease Family history of Parkinson's disease Tremor of right hand Glaucoma Seasonal allergies Depression Carpal tunnel syndrome GERD (gastroesophageal reflux disease) Hyperlipidemia Fibromyalgia Surgical History H/O: hysterectomy History of esophagogastroduodenoscopy (EGD) H/O colonoscopy History of carpal tunnel surgery Family History Mother History of breast cancer Father History of throat cancer Paternal Grandmother History of liver cancer Social History Housing: House Are you a primary patient care coordinator to a significant other at home: No Alcohol intake: never Comment: Parkinson's-use cane or walker Patient Tobacco Use Status: Never used Tobacco e-Cigarette/Vaping Use: Never Used service: No Current occupational status: retired Cognitive needs: No Hearing needs: No Vision needs: Yes Review of Systems Const Denies fever(s) ENT Denies dizziness, Denies ear discharge, Reports otalgia (pressure and blocked R ear), Reports hearing loss and Denies sore throat Resp Denies cough Neuro Denies dizziness Physical Exam Vital Signs: Last Vital Signs Temp 97.0 F 07/31/23 12:32 Pulse 91 07/31/23 12:32 BP 112/70 07/31/23 12:32 Pulse Ox 98 07/31/23 12:32 Oxygen Delivery Method Room Air 07/31/23 12:32 BMI result Body Mass Index 31.8 General: Non-toxic, NAD. Speaking full sentences. Skin: Warm dry throughout HENT: Bilateral canals + cerumen, R TM unable to be visualized. L TM without erythema or bulging. Respiratory: No respiratory distress Neurology: A/O. No aphasia or facial droop. Psych: Good mood and affect Office Procedures Cerumen Removal From which ear canal was the cerumen removed: bilateral Removal: cerumen loop/spoon Notes: patient tolerated procedure well, no complications and ear canal clear [id number] Wax Removal by Spoon/Curette Assessment & Plan Assessment & Plan (1) Cerumen impaction: Code(s): H61.20 - Impacted cerumen, unspecified ear Qualifiers: Laterality: bilateral Qualified Code(s): H61.23 - Impacted cerumen, bilateral Plan: verbal consent obtained curette with light used to remove cerumen from bilareral canals. Canals clear and pt tolerated well All questions answered at time of discharge Coding Level of Care Code Est Pt Level 3 (45620) Diagnoses Bilateral impacted cerumen H61.23 Laterality: bilateral CPT Codes Office Procedure - CPT: 61238-[facility] Wax Removal by Spoon/Curette ([id number])
== END 2023-07-31 12:54 | disposition home or self-care (01) ==
PROVIDERS: PCP Internal Medicine; Visit Provider Physician Assistant
DX: H61.23 Impacted cerumen, bilateral (principal)
CPT/HCPCS: 69210; 99213

== ENCOUNTER 2023-12-05 10:36 | Outpatient (REF) | payer MEDICARE, SELFPAY ==
--- NOTE | ~2023-12-05 | MM_ITS ---
EXAMINATION: MM SCREENING DIGITAL BREAST TOMOSYNTHESIS, BILATERAL CLINICAL INFORMATION: Screening. Asymptomatic. COMPARISON: Mammography: This study is compared with prior exams dating back to 2019. TECHNIQUE: Digital breast tomosynthesis is performed in both the craniocaudal and mediolateral oblique views along with computer-aided detection (CAD). Synthesized 2D images are generated from the tomosynthesis. FINDINGS: The breasts are heterogeneously dense, which may obscure small masses (ACR BI-RADS breast composition Category c). There are no significant masses, abnormal calcifications, or other abnormalities. Bilateral benign calcifications are present. MM/MM tomosynthesis screening BI IMPRESSION: No mammographic evidence of malignancy. ASSESSMENT: BI-RADS BI-RADS 2 - Benign Findings RECOMMENDATION: Routine annual mammography screening. 1 year F/U This examination should not preclude the clinical evaluation of a suspicious palpable abnormality. This patient's information was entered into a reminder system with a target due date for their next mammogram.
== END 2023-12-05 10:37 | disposition home or self-care (01) ==
LOC: HO.MAMMO 10:36
PROVIDERS: Absent Provider Surgery; PCP Internal Medicine; Visit Provider Internal Medicine
DX: Z12.31 Encounter for screening mammogram for malignant neoplasm of breast (principal)
CPT/HCPCS: 77063; 77067

== ENCOUNTER → 2023-12-05 11:00 | Outpatient (BNV) | payer MEDICARE, SELFPAY | PROVIDERS: Absent Provider Surgery; PCP Internal Medicine; Visit Provider Radiology Diagnostic Radiology | DX: Z12.31 Encounter for screening mammogram for malignant neoplasm of breast (principal) | CPT/HCPCS: 77063; 77067 ==

== ENCOUNTER 2024-01-09 07:47 | Outpatient (REF) | payer MEDICARE, SELFPAY ==
[2024-01-09 11:40] LABS: Estimated Average Glucose 114 mg/dL; Hemoglobin A1c % 5.6 % (<6.0)
[2024-01-09 13:00] LABS: Alanine Aminotransferase 5 U/L (0-31); Anion Gap 11 (12-20); Aspartate Amino Transferase 17 U/L (5-31); Blood Urea Nitrogen 17 mg/dL (9-16); Calcium 9.5 mg/dL (8.4-10.2); Carbon Dioxide 25 mmol/L (22-29); Chloride 107 mmol/L (96-108); Cholesterol 150 mg/dL (<200); Estimated Glomerular Filt Rate > 60; Glucose Fasting 97 mg/dL (60-99); HDL Cholesterol 39 mg/dL (>40); LDL Cholesterol Calculated 79 mg/dL (<100); Potassium 4.3 mmol/L (3.3-5.1); Sodium 139 mmol/L (135-145); Triglycerides 161 mg/dL (<150)
[2024-01-09 13:05] LABS: Vitamin D 25-OH Total 45.2 ng/mL (>30)
== END 2024-01-09 07:48 | disposition home or self-care (01) ==
LOC: HO.HMGCLDS 07:47
PROVIDERS: PCP Internal Medicine; Visit Provider Internal Medicine
DX: R73.01 Impaired fasting glucose (principal); I10 Essential (primary) hypertension; E78.5 Hyperlipidemia, unspecified; Z78.0 Asymptomatic menopausal state
CPT/HCPCS: 36415; 80048; 80061; 82306; 83036; 84450; 84460

== ENCOUNTER 2024-02-07 13:09 | Outpatient (AMB) | payer MEDICARE, SELFPAY ==
[2024-02-07 13:19] VITALS: BP 110/70; PULSE 84; O2SAT 96; BMI 31.6
--- NOTE | 2024-02-07 13:19 | A.OFFPC_ITS ---
Vital Signs 02/07/24 13:19 Height 5 ft 6 in Intake Visit Reasons: ROBERTV G0439 - see comments Allergies shellfish derived Allergy (Severe, Verified 07/31/23 12:32) Anaphylaxis oxycodone [OXYCODONE] Allergy (Intermediate, Verified 07/31/23 12:32) Itching Penicillins [PCN] Allergy (Intermediate, Verified 07/31/23 12:32) RASH aspirin [ASPIRIN] Allergy (Unknown, Verified 07/31/23 12:32) UNKNOWN codeine Adverse Reaction (Intermediate, Verified 07/31/23 12:32) Nausea and Vomiting erythromycin base Adverse Reaction (Intermediate, Verified 07/31/23 12:32) Gastrointestinal Upset lisinopril Adverse Reaction (Intermediate, Verified 07/31/23 12:32) cough Tobacco use date assessed: 04/25/23 Dental Screening Dental Screen Date: 04/25/23 [facility] Medical History (Updated 07/31/23 @ 12:49 by Laureen Goldberg PA-C) Impaired fasting glucose Urinary incontinence Lumbago syndrome Gait instability Essential hypertension COVID-19 vaccine series completed Osteoarthritis IBS (irritable bowel syndrome) Bilateral low back pain with sciatica Parkinson disease Family history of Parkinson's disease Tremor of right hand Glaucoma Seasonal allergies Depression Carpal tunnel syndrome GERD (gastroesophageal reflux disease) Hyperlipidemia Fibromyalgia Surgical History H/O: hysterectomy History of esophagogastroduodenoscopy (EGD) H/O colonoscopy History of carpal tunnel surgery Family History Mother History of breast cancer Father History of throat cancer Paternal Grandmother History of liver cancer Social History Housing: House Are you a primary health care coach to a significant other at home: No Alcohol intake: never Comment: Parkinson's-use cane or walker Patient Tobacco Use Status: Never used Tobacco e-Cigarette/Vaping Use: Never Used service: No Current occupational status: retired Cognitive needs: No Hearing needs: No Vision needs: Yes Questionnaire PHQ-9 Over the last 2 weeks, how often have you been bothered by any of the following problems? 1. Little interest or pleasure in doing things: not at all 2. Feeling down, depressed, or hopeless: not at all 3. Trouble falling or staying asleep, or sleeping too much: not at all 4. Feeling tired or having little energy: not at all 5. Poor appetite or overeating: not at all 6. Feeling bad about yourself - or that you are a failure or have let yourself or your family down: not at all 7. Trouble concentrating on things, such as reading the newspaper or watching television: not at all 8. Moving or speaking so slowly that other people could have noticed. Or the opposite - being so fidgety or restless that you have been moving around a lot more than usual: not at all 9. Thoughts that you would be better off or of hurting yourself in some way: not at all Total score: 0 Source: Developed by Drs. Milo Maurice, Tyesha Fox, Cj Gregory and colleagues, with an educational hernandez from [employer]. Thrive Questionnaire Date Thrive assessed: 07/11/22 I am a: Patient What is your living situation today?: I have a steady place to live Within the past 12 months, did the food you bought not last and you didn't have the money to get more?: Often true Within the past 12 months, did you worry whether your food would run out before you got money to buy more?: Never true Do you have trouble paying for medicines?: Yes Do you have trouble getting transportation to medical appointments?: No Do you have trouble paying your heating and electricity bill?: No Do you have trouble taking care of your child, family member or friend?: No Do you have trouble with day-to-day activities such as bathing, preparing meals, shopping, managing finances, etc.?: I choose not to answer this question Are you interested in more education?: I choose not to answer this question Please select the resources that you would like help with: Transportation Currently or been in a relationship where the following occur: I choose not to answer THRIVE Score: 1 FOREST-7 AMB Questionnaire FOREST-7 Date FOREST - 7 assessed: 07/11/22 Feeling nervous, anxious, or on edge: 0 = Not at all Not being able to stop or control worryin = Not at all Worrying too much about different things: 0 = Not at all Trouble relaxin = Not at all Being so restless that it is hard to sit still: 0 = Not at all Becoming easily annoyed or irritable: 0 = Not at all Feeling afraid as if something awful might happen: 0 = Not at all Total FOREST-7 score (0-4 normal; 5-9 mild; 10-14 moderate; 15-21 severe): 0 Source: Developed by Drs. Milo Maurice, Tyesha Fox, Cj Gregory and colleagues, with an educational hernandez from [employer]. Physical exam (Primary Care) Tobacco/Smoking Status: Tobacco use Status Tobacco use date assessed 04/25/23 04/25/23 11:53 Patient Tobacco Use Status Never used Tobacco 07/31/23 12:39 e-Cigarette/Vaping Use Never Used 04/25/23 11:46 Thrive Assessment: Date of Thrive Assessment Date Thrive assessed 07/11/22 04/25/23 11:46 Currently or been in a relationship where the following occur: I choose not to answer Coding
--- NOTE | 2024-02-07 13:29 | AM.OFFVISMDC ---
Intake Vital Signs 02/07/24 13:19 02/07/24 13:33 Height 5 ft 6 in Weight 196 lb BMI 31.6 31.6 BP 110/70 Blood Pressure Location Lt brachial Position Sitting Pulse 84 Pulse Source Pulse Oximeter Pulse Oximetry (%) 96 Oxygen Delivery Method Room Air Intake Visit Reasons: EVELINA [id number] - see comments Intake Note: Pt is here today for her SWV Allergies shellfish derived Allergy (Severe, Verified 02/07/24 13:55) Anaphylaxis oxycodone [OXYCODONE] Allergy (Intermediate, Verified 02/07/24 13:55) Itching Penicillins [PCN] Allergy (Intermediate, Verified 02/07/24 13:55) RASH aspirin [ASPIRIN] Allergy (Unknown, Verified 02/07/24 13:55) UNKNOWN codeine Adverse Reaction (Intermediate, Verified 02/07/24 13:55) Nausea and Vomiting erythromycin base Adverse Reaction (Intermediate, Verified 02/07/24 13:55) Gastrointestinal Upset lisinopril Adverse Reaction (Intermediate, Verified 02/07/24 13:55) cough Medication List - Last Reconciled 02/07/24 by Iwona Walker MD atorvastatin 20 mg PO DAILY bupropion HCl SR 200 mg PO BID 90 days carbidopa-levodopa 50-200 mg ER 1 tab PO TID cholecalciferol (vitamin D3) 25 mcg PO DAILY dicyclomine 20 mg PO BID losartan 50 mg PO DAILY nitroglycerin 2% (Nitro-Bid) 1 inch transdermal BID omega-3 fatty acids (Fish Oil Concentrate) 1,000 mg PO DAILY timolol maleate 0.5% 1 drp ophthalmic (eye) BID HPI SWV [id number] - see comments HPI Details AWV HPI Details SWV ? 83-ye ar-old lady here t marv for her subse quent annual [facility].? She singh s history of endom etrial adenocarcin isidro, has Parkinson 's disease, stable controlled on pre sent treatment, singh s Hyperlipidemia, Seasonal allergies , glaucoma, IBS, a nd depression curr ently stable contr olled on present t reatment. S he is up-to-date w ith her screening mammogram done with normal findings, sees Dr. Segundo for her rou chelo Pap and pelvi c exam . She had a normal bone dens ity scan done 03/22 which showe d normal findings. She is up-to-della e with her screeni ng colonoscopy don e 07/05/[address] Gautam, to be r epeated again in 2 . Up-to-date w ith her lipid and diabetes mellitus screening, done , with irina l findings. She gets yearly f jed shots, due for her COVID booster vaccination, and is UTD with Tdap, Shingrix vaccinat ion and pneumococc al vaccines. ? Medical / So cial History Revie wed? Past Medical History ?Yes . ? Cir kelsey of Care / Car e Team list update d ?Yes . ? Surgical/H ospitalization Hi story ?Yes . ? Curren t Medications (in cluding OTC and pina pplements) ?Yes . ? F amily History ?Yes . ? Tobacco Contro l form ?Yes . ? AUDIT -C (Alcohol use) f orm ?Yes . ? Illicit drug use in Socia l History ?Yes . ? C urrent diagnosis o f depression? ?Ye s, controlled with present treatment ? Appropriate PHQ2/P HQ9 completed ?Ye s . ? Data entered by ?Medical Assista nt and reviewed by provider ? F all Risk ? Fall History? Hav e you had any fall s with injury in the past year? ?No . ? Have you had two or more falls in the past year? ?N o . ? Fall Risk Asses sment: ?No falls in the past year . ? HRA fill ed out by the robina wallace, reviewed by Provider and scann ed. ?SWV ? Balance? Romb erg ?Yes . ? Tandem w alk- unable. ? Walk and Turn ?Yes . ? Rise fr om sit to stand ? Yes . ?Visi on? Corrective lens ?Yes ? Vision screen ? Up-to-date, nathaly lowe sees Dr Grant x. ? Whisper test ?pas s . ?Writte n Plan?Completed. See Patient Docu ments.? PFSH Medical History Impaired fasting glucose Urinary incontinence Lumbago syndrome Gait instability Essential hypertension COVID-19 vaccine series completed Osteoarthritis IBS (irritable bowel syndrome) Bilateral low back pain with sciatica Parkinson disease Family history of Parkinson's disease Tremor of right hand Glaucoma Seasonal allergies Depression Carpal tunnel syndrome GERD (gastroesophageal reflux disease) Hyperlipidemia Fibromyalgia Surgical History H/O: hysterectomy History of esophagogastroduodenoscopy (EGD) H/O colonoscopy History of carpal tunnel surgery Family History Mother History of breast cancer Father History of throat cancer Paternal Grandmother History of liver cancer Social History Housing: House Are you a primary primary care nurse to a significant other at home: No Alcohol intake: never Comment: Parkinson's-use cane or walker Patient Tobacco Use Status: Never used Tobacco e-Cigarette/Vaping Use: Never Used service: No Current occupational status: retired Cognitive needs: No Hearing needs: No Vision needs: Yes Questionnaire Medicare Wellness Checkup What is your age?: 81 or older What gender do you identify with?: female During the past 4 weeks, how much have you been bothered by emotional problems such as feeling anxious, depressed, irritable, sad or downhearted, and blue?: not at all During the past 4 weeks, has your physical & emotional health limited your social activities with family, friends, neighbors, or groups?: quite a bit During the past 4 weeks, how much bodily pain have you generally had?: mild pain During the past 4 weeks, was someone available to help you if you needed & wanted help?: yes, quite a bit During the past 4 weeks, what was the hardest physical activity you could do for at least 2 minutes?: light Can you get to places out of walking distance without help? (For eg., can you travel alone on buses, taxis or drive your car?): No Can you go shopping for groceries or clothes without someone's help?: No Can you prepare your own meals?: Yes Can you do your housework without help?: No Because of any health problems, do you need the help of another person with your personal care needs such as eating, bathing, dressing or getting around the house?: No Can you handle your own money without help?: Yes During the past 4 weeks, how would you rate your health in general?: good During the past 4 weeks how have things been going for you?: pretty well Are you having difficulties driving your car?: not applicable, I don't use a car Do you always fasten your seat belt when you are in a car?: yes, usually During past 4 weeks, have you been bothered by the following: never: Sexual problems?, Trouble eating well?, Teeth or denture problems? and Problems using the telephone?, seldom: Falling or dizzy when standing up and sometimes: Tiredness or fatigue? Have you fallen 2 or more times in the past year?: No Are you afraid of falling?: Yes Are you a smoker?: no During the past 4 weeks, how many drinks of wine, beer, or other alcoholic beverages did you have?: no alcohol at all Do you exercise for about 20 minutes 3 or more times a week?: no, I usually do not exercise this much Have you been given information to help with the following?: no: Hazards in your house that might hurt you? and no: Keeping track of your medications? How often do you have trouble taking medicines the way you have been told to take them?: I always take medicine as prescribed How confident are you that you can control & manage most of your health problems?: very confident What is your race?: White Mini Mental State Exam (MMSE) Orientation What is the (year) (season) (date) (day) (month)?: year (2023), season (Summer), date (February 07, 2024), day () and month (December) Where are we (state) (county) (town or city) (hospital) (floor)?: state ([place]), county ([place]), town or city ([place]) and hospital/clinic ([facility]) Score Score: 9 Activity of Daily Living Bathing - sponge bath, tub bath or shower: receives no assistance (gets in/out by self, if usual bathing means Dressing - getting clothes from closets & drawers, including inner/outer garments & fasteners.: gets clothes & gets completely dressed without help Toileting - going to the 'toilet room' for urine/bowel elimination & cleaning self/arranging clothes: goes to toilet room, cleans self, arranges clothes without help Transfer: moves in & out of bed and chair without help (may use support object) Continence: controls urination/bowel movements completely by self Feeding: feeds self without help Total Score: 0 Information obtained from: patient Using telephone: independent Traveling: needs assistance Shopping: needs assistance Preparing meals: independent Housework: independent Taking medicine: independent Managing money: independent PHQ-9 Over the last 2 weeks, how often have you been bothered by any of the following problems? 1. Little interest or pleasure in doing things: not at all 2. Feeling down, depressed, or hopeless: not at all 3. Trouble falling or staying asleep, or sleeping too much: not at all 4. Feeling tired or having little energy: not at all 5. Poor appetite or overeating: not at all 6. Feeling bad about yourself - or that you are a failure or have let yourself or your family down: not at all 7. Trouble concentrating on things, such as reading the newspaper or watching television: not at all 8. Moving or speaking so slowly that other people could have noticed. Or the opposite - being so fidgety or restless that you have been moving around a lot more than usual: not at all 9. Thoughts that you would be better off or of hurting yourself in some way: not at all Total score: 0 Depression Screening Interpretation: Negative Depression Screening Done: Yes [id number] - PHQ-9 Billing: Yes Source: Developed by Drs. Milo Maurice, Tyesha Fox, Cj Gregory and colleagues, with an educational hernandez from [employer]. Physical Exam Vital Signs: Last Vital Signs Pulse 84 02/07/24 13:19 BP 110/70 02/07/24 13:19 Pulse Ox 96 02/07/24 13:19 Oxygen Delivery Method Room Air 02/07/24 13:19 BMI result Body Mass Index 31.6 Assessment & Plan Assessment & Plan (1) Encounter for subsequent annual wellness visit (AWV) in Medicare patient: Code(s): Z00.00 - Encounter for general adult medical examination without abnormal findings Plan: Medical wellness checklist discussed with patient, reviewed and updated. Copy given patient already has a MOLST form in place, will provide copy of the her healthcare proxy on next visit (2) Essential hypertension: Code(s): I10 - Essential (primary) hypertension Plan: Currently on losartan (3) Hyperlipidemia: Code(s): E78.5 - Hyperlipidemia, unspecified Qualifiers: Hyperlipidemia type: mixed hyperlipidemia Qualified Code(s): E78.2 - Mixed hyperlipidemia Plan: Takes Pavo 3 fatty acid supplements and atorvastatin (4) Parkinson disease: Comment: ff'd by Dr Hutson Code(s): G20 - Parkinson's disease Plan: Followed by Neurology, currently on carbidopa-levodopa (5) Glaucoma: Code(s): H40.9 - Unspecified glaucoma Plan: On timolol eyedrops (6) IBS (irritable bowel syndrome): Code(s): K58.9 - Irritable bowel syndrome without diarrhea Plan: On dicyclomine Quality Reporting (2020) Depression/Bipolar (159/160/161/177) PHQ-9: Total score: 0 Coding Level of Care Code Medicare Subsequent (G0439) Diagnoses Encounter for subsequent annual wellness visit (AWV) in Medicare patient Z00.00 Essential hypertension I10 Mixed hyperlipidemia E78.2 Hyperlipidemia type: mixed hyperlipidemia Parkinson disease G20 Glaucoma H40.9 IBS (irritable bowel syndrome) K58.9 CPT Codes Advance Care Planning - Advance Care Planning discussion: On file, no changes ([id number]) Advance Care Planning - Time spent: 1-15 minutes, on File ([id number]) Advance Care Planning Advance Care Planning discussion: On file, no changes Date of discussion: 02/07/24 Who was present: patient Time spent: 1-15 minutes, on File Actual minutes spent: 15
[2024-02-07 13:33] VITALS: BMI 31.6
== END 2024-02-07 16:49 | disposition home or self-care (01) ==
PROVIDERS: PCP Internal Medicine; Visit Provider Internal Medicine
DX: Z00.00 Encounter for general adult medical examination without abnormal findings (principal); I10 Essential (primary) hypertension; E78.2 Mixed hyperlipidemia; G20.C Parkinsonism, unspecified; H40.9 Unspecified glaucoma; K58.9 Irritable bowel syndrome, unspecified

== ENCOUNTER → 2024-02-07 13:09 | Outpatient (BNVA) | payer MEDICARE, SELFPAY | PROVIDERS: PCP Internal Medicine; Visit Provider Internal Medicine ==

== ENCOUNTER 2024-03-18 13:44 | Outpatient (REF) | payer MEDICARE, SELFPAY ==
--- NOTE | ~2024-03-18 | XR_ITS ---
EXAMINATION: XR KNEE, LEFT CLINICAL INFORMATION: Left knee pain COMPARISON: Knee x-ray on 01/13/2019 TECHNIQUE: Four views of the left knee. FINDINGS: No fracture or joint effusion. Alignment is anatomic. Mild medial compartment joint space narrowing. No abnormal soft tissue calcification. 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 Electronically signed by: Zoraida Black MD 03/18/2024 04:29 PM EDT
== END 2024-03-18 13:45 | disposition home or self-care (01) ==
LOC: HO.HMGCX 13:44
PROVIDERS: PCP Internal Medicine; Visit Provider Nurse Practitioner Family
DX: S86.912A Strain of unspecified muscle(s) and tendon(s) at lower leg level, left leg, initial encounter (principal)
CPT/HCPCS: 73564; 99212

== ENCOUNTER 2024-03-18 13:44 | Outpatient (AMB) | payer MEDICARE, SELFPAY ==
[2024-03-18 13:45] VITALS: BP 130/80; PULSE 68; O2SAT 98; BMI 31.6
--- NOTE | 2024-03-18 13:45 | AM.OFFWIN_ITS ---
Intake Vital Signs 03/18/24 13:45 Height 5 ft 6 in Weight 196 lb BMI 31.6 BP 130/80 Blood Pressure Location Rt brachial Position Sitting Pulse 68 Pulse Source Pulse Oximeter Pulse Oximetry (%) 98 Oxygen Delivery Method Room Air Intake Visit Reasons: EP Severe pain in LT knee can't put pressure on it Intake Note: pt is here for c/o of severe pain in left pain, unable to put pressure on it Patient Tobacco Use Status: Never used Tobacco Allergies shellfish derived Allergy (Severe, Verified 03/18/24 13:46) Anaphylaxis oxycodone [OXYCODONE] Allergy (Intermediate, Verified 03/18/24 13:46) Itching Penicillins [PCN] Allergy (Intermediate, Verified 03/18/24 13:46) RASH aspirin [ASPIRIN] Allergy (Unknown, Verified 03/18/24 13:46) UNKNOWN codeine Adverse Reaction (Intermediate, Verified 03/18/24 13:46) Nausea and Vomiting erythromycin base Adverse Reaction (Intermediate, Verified 03/18/24 13:46) Gastrointestinal Upset lisinopril Adverse Reaction (Intermediate, Verified 03/18/24 13:46) cough Do you need a note to return to daycare/school/sports/work: No HPI HPI Comments History of Present Illness Details 83 y/o female patient who presents to [facility] walk in clinic with c/o left knee pain. Pt reports inability to put weight on it and pain with ambulation. Denies injury or trauma to the knee. [facility] Medical History Impaired fasting glucose Urinary incontinence Lumbago syndrome Gait instability Essential hypertension COVID-19 vaccine series completed Osteoarthritis IBS (irritable bowel syndrome) Bilateral low back pain with sciatica Parkinson disease Family history of Parkinson's disease Tremor of right hand Glaucoma Seasonal allergies Depression Carpal tunnel syndrome GERD (gastroesophageal reflux disease) Hyperlipidemia Fibromyalgia Surgical History H/O: hysterectomy History of esophagogastroduodenoscopy (EGD) H/O colonoscopy History of carpal tunnel surgery Family History Mother History of breast cancer Father History of throat cancer Paternal Grandmother History of liver cancer Social History Housing: House Are you a primary foster care therapist to a significant other at home: No Alcohol intake: never Comment: Parkinson's-use cane or walker Patient Tobacco Use Status: Never used Tobacco e-Cigarette/Vaping Use: Never Used service: No Current occupational status: retired Cognitive needs: No Hearing needs: No Vision needs: Yes Review of Systems Const All systems reviewed & are unremarkable except as noted in HPI and below Physical Exam Vital Signs: Last Vital Signs Pulse 68 03/18/24 13:45 BP 130/80 03/18/24 13:45 Pulse Ox 98 03/18/24 13:45 Oxygen Delivery Method Room Air 03/18/24 13:45 BMI result Body Mass Index 31.6 Const General: cooperative and no acute distress; No comfortable Nutritional Appearance: obese Orientation/consciousness: patient oriented x3 Limitations: ambulation with walker Neuro Other: Walks with walker General: patient oriented x3 and moves all extremities Extrem Right lower extremity: normal to inspection and knee Details: normal ROM; no tenderness and no swelling Left lower extremity: knee (limited ROM of knee due to pain) Details: normal to inspection and tenderness Location: of the patella and of the tibial tuberosity; no ecchymosis and no crepitus Assessment & Plan Assessment & Plan (1) Strain of left knee: Code(s): S86.912A - Strain of unspecified muscle(s) and tendon(s) at lower leg level, left leg, initial encounter Qualifiers: Encounter type: initial encounter Qualified Code(s): S86.912A - Strain of unspecified muscle(s) and tendon(s) at lower leg level, left leg, initial encounter Plan: Ordered Xray of knee Ordered PT and pain management IceHot Orders: Orders PT Evaluation and Treatment Today S86.912A - Strain of unspecified muscle(s) and tendon(s) at lower leg level, left leg, initial encounter Referrals Pain Management Referral S86.912A - Strain of unspecified muscle(s) and tendon(s) at lower leg level, left leg, initial encounter Medications: New cyclobenzaprine 5 mg PO BEDTIME 10 tabs 0RF S86.912A - Strain of unspecified muscle(s) and tendon(s) at lower leg level, left leg, initial encounter acetaminophen 1,000 mg (2 x 500 mg) PO Q6H PRN 30 caps 0RF pain S86.912A - Strain of unspecified muscle(s) and tendon(s) at lower leg level, left leg, initial encounter Coding Level of Care Code Est Pt Level 4 (29793) Diagnoses Strain of left knee, initial encounter S86.912A Encounter type: initial encounter Time Spent (min) 20
== END 2024-03-18 15:10 | disposition home or self-care (01) ==
PROVIDERS: PCP Internal Medicine; Visit Provider Nurse Practitioner Family
DX: S86.912A Strain of unspecified muscle(s) and tendon(s) at lower leg level, left leg, initial encounter (principal)

== ENCOUNTER 2024-03-20 22:49 | Emergency (ER) | payer MEDICARE, SELFPAY ==
[2024-03-20 23:02] VITALS: BP 130/80; PULSE 80; O2SAT 96
[2024-03-20 23:05] VITALS: BP 154/74; PULSE 79; RESP 18; TEMP 36.3; O2SAT 97; BMI 31.6
[2024-03-21 01:04] LABS: MANUAL DIFF FLAG NO
[2024-03-21 01:06] LABS: Basophils Percent Auto 0.4 % (0-2); Eosinophils Absolute Auto 0.2 X10*3/uL (0.0-0.4); Eosinophils Percent Auto 1.9 % (0-4); Hematocrit 39.4 % (37.0-47.0); Hemoglobin 13.4 g/dl (12.0-16.0); Imm Gran Abs Auto 0.02 X10*3/uL (0.00-0.03); Imm Gran Pct Auto 0.3 % (0.0-0.4); Lymphocytes Absolute Auto 2.1 X10*3/uL (1.2-4.9); Lymphocytes Percent Auto 27.1 % (20-40); Mean Corpuscular Hemoglobin 33.4 pg (27.0-33.0); Mean Corpuscular Volume 98.3 fL (80.0-98.0); Mean Platelet Volume 9.5 fL (9.4-12.3); Monocytes Absolute Auto 0.7 X10*3/uL (0.1-1.2); Monocytes Percent Auto 8.9 % (2-11); Neutrophils Absolute Auto 4.9 x10*3/uL (2.0-8.3); Neutrophils Percent Auto 61.4 % (45-73); Platelet Count 254 X10*3/uL (160-400); Red Blood Count 4.01 X10*6/uL (4.20-5.50); Red Cell Distribution Width 13.6 % (11.0-16.0); White Blood Count 7.9 X10*3/uL (4.8-10.8)
[2024-03-21 01:26] LABS: Alanine Aminotransferase 9 U/L (0-31); Albumin Level 4.1 g/dL (3.5-5.0); Alkaline Phosphatase 56 U/L (39-117); Anion Gap 14 (12-20); Aspartate Amino Transferase 22 U/L (5-31); Bilirubin Total 0.7 mg/dL (0.0-1.0); Blood Urea Nitrogen 27 mg/dL (9-16); Calcium 9.8 mg/dL (8.4-10.2); Carbon Dioxide 23 mmol/L (22-29); Chloride 106 mmol/L (96-108); Creatinine Clr Calc Pharmacy 59.5; Estimated Glomerular Filt Rate > 60; Glucose Random 112 mg/dL (60-115); Potassium 4.3 mmol/L (3.3-5.1); Sodium 139 mmol/L (135-145); Total Protein 6.8 g/dL (6.5-8.0)
[2024-03-21 01:36] VITALS: BP 120/53; PULSE 79; RESP 18; TEMP 36.8; O2SAT 96
--- NOTE | 2024-03-21 01:50 | ED.LOWEXIN ---
HPI - Extremity Injury (Lower) General Chief Complaint: Extremity Injury, Lower Stated Complaint: l leg pain Time Seen by Provider: 03/20/24 23:23 Source: patient Mode of arrival: ambulatory Limitations: no limitations History of Present Illness ED Provider: Dr. Espino HPI Narrative: 83 yo female with parkinsonism, GERD. Patient with 2 weeks of left leg pain mostly to the knee. She denies redness, fever or injury. The pain has increase such that she cannot walk without pain MD complaint: other (knee pain) Onset (ago): week(s) Related Data Home Medications ?Medication ?Instructions ?Recorded ?Confirmed cholecalciferol (vitamin D3) 25 25 mcg PO DAILY 03/09/20 06/14/23 mcg (1,000 unit) capsule dicyclomine 20 mg tablet 20 mg PO BID 03/09/20 06/14/23 nitroglycerin 2 % transdermal 1 inch transdermal BID 03/09/20 06/14/23 ointment (Nitro-Bid) omega-3 fatty acids 1,000 mg 1,000 mg PO DAILY 03/09/20 06/14/23 capsule (Fish Oil Concentrate) carbidopa ER 50 mg-levodopa 200 mg 1 tab PO TID 10/13/20 06/14/23 tablet,extended release timolol maleate 0.5 % eye drops 1 drp ophthalmic (eye) BID 04/13/21 06/14/23 Previous Rx's ?Medication ?Instructions ?Recorded atorvastatin 20 mg tablet 20 mg PO DAILY #90 tabs 07/25/23 bupropion HCl 200 mg tablet,12 hr 200 mg PO BID 90 days #180 tabs 07/25/23 sustained-release losartan 50 mg tablet 50 mg PO DAILY #90 tabs 12/03/23 acetaminophen 500 mg capsule 1,000 mg (2 x 500 mg) PO Q6H PRN 03/18/24 pain #30 caps cyclobenzaprine 5 mg tablet 5 mg PO BEDTIME #10 tabs 03/18/24 meloxicam 7.5 mg tablet 7.5 mg PO DAILY #30 tabs 03/21/24 Allergies Allergy/AdvReac Type Severity Reaction Status Date / Time shellfish derived Allergy Severe Anaphylaxis Verified 03/20/24 23:09 oxycodone [OXYCODONE] Allergy Intermediate Itching Verified 03/20/24 23:09 Penicillins [PCN] Allergy Intermediate RASH Verified 03/20/24 23:09 aspirin [ASPIRIN] Allergy Unknown UNKNOWN Verified 03/20/24 23:09 codeine AdvReac Intermediate Nausea and Verified 03/20/24 23:09 Vomiting erythromycin base AdvReac Intermediate Gastrointestinal Verified 03/20/24 23:09 Upset lisinopril AdvReac Intermediate cough Verified 03/20/24 23:09 Review of Systems Review of Systems: Yes all other systems are reviewed and are negative Neurologic: Denies Sensory deficit (Neuro) [facility] Past Medical History Medical History Impaired fasting glucose Urinary incontinence Lumbago syndrome Gait instability Essential hypertension COVID-19 vaccine series completed Osteoarthritis IBS (irritable bowel syndrome) Bilateral low back pain with sciatica Parkinson disease Family history of Parkinson's disease Tremor of right hand Glaucoma Seasonal allergies Depression Carpal tunnel syndrome GERD (gastroesophageal reflux disease) Hyperlipidemia Fibromyalgia Surgical History H/O: hysterectomy History of esophagogastroduodenoscopy (EGD) H/O colonoscopy History of carpal tunnel surgery Family History Family History Mother History of breast cancer Father History of throat cancer Paternal Grandmother History of liver cancer Social History Social History Housing: House Are you a primary home health care coordinator to a significant other at home: No Alcohol intake: never Comment: Parkinson's-use cane or walker Patient Tobacco Use Status: Never used Tobacco e-Cigarette/Vaping Use: Never Used Do you have a plan to hurt others: No Plan service: No Current occupational status: retired Cognitive needs: No Hearing needs: No Vision needs: Yes Physical Exam Vital Signs: Vital Signs: Last Vital Signs Temp 98.3 F 03/21/24 01:36 Pulse 79 03/21/24 01:36 Resp 18 03/21/24 01:36 BP 120/53 L 03/21/24 01:36 Pulse Ox 96 03/21/24 01:36 O2 Del Method Room Air 03/21/24 01:36 BMI result Body Mass Index 31.6 Const: Other: elderly female with resting tremor Nutritional Appearance: average body habitus Orientation/consciousness: oriented to person and patient oriented x3 Limitations: no limitations HEENT: Head: Yes normal to inspection Ears: external ears normal General nose exam: Normal external nose present Mouth: Normal oral and palatal mucosa present and oropharynx normal Throat: Yes posterior oropharynx normal Eyes: General: appearance normal, both eyes and all related structures Neck: Other: supple Neck: Yes normal visual inspection Chest: Chest palpation & inspection: normal inspection of the chest Resp: Auscultation: clear to auscultation bilaterally Cardio: Jugular venous distension: no JVD Rate: regular rate Rhythm: regular rhythm Heart sounds: S1 normal heart sound present and S2 normal heart sound present GI: Inspection: Yes normal to inspection Palpation (GI): Soft to palpation, nontender and No hepatosplenomegaly present Auscultation: normal bowel sounds : General: Yes no CVA tenderness Back/Spine/Pelvis: Back: no CVA tenderness Skin: General skin exam: no rashes or lesions noted Neuro: General: oriented to person and patient oriented x3 Cranial nerves: Yes CN's II-XII intact bilaterally Motor exam (neuro): 5/5 motor strength present throughout Sensory Exam: No Sensory deficit (Neuro) Extrem: Other: left knee no effusion or redness. On palpation patient with pain along the patella tendon to the insertion at the tibial tuberosity. Psych: Appearance: grossly normal Course Reevaluation(s) Reevaluation #1: patient with patella tendonitis will treat with toradol and then low dose mobic Time: 01:57 Medical Decision Making Differential Diagnosis Differential Diagnoses: The differential diagnosis associated with the presentation includes (tedonitis, arthritis, quadriceps tendonitis) Lab Data 03/21/24 00:57 03/21/24 00:57 Labs: Lab Results 03/21/24 Range/Units 00:57 WBC 7.9 (4.8-10.8) X10*3/uL RBC 4.01 L (4.20-5.50) X10*6/uL Hgb 13.4 (12.0-16.0) g/dl Hct 39.4 (37.0-47.0) % MCV 98.3 H (80.0-98.0) fL MCH 33.4 H (27.0-33.0) pg MCHC 34.0 (31.0-35.0) g/dl RDW 13.6 (11.0-16.0) % Plt Count 254 (160-400) X10*3/uL MPV 9.5 (9.4-12.3) fL Immature Gran % (Auto) 0.3 (0.0-0.4) % Neut % (Auto) 61.4 (45-73) % Lymph % (Auto) 27.1 (20-40) % Crook % (Auto) 8.9 (2-11) % Eos % (Auto) 1.9 (0-4) % Baso % (Auto) 0.4 (0-2) % Lymph # (Auto) 2.1 (1.2-4.9) X10*3/uL Crook # (Auto) 0.7 (0.1-1.2) X10*3/uL Eos # (Auto) 0.2 (0.0-0.4) X10*3/uL Baso # (Auto) 0.0 (0.0-0.2) X10*3/uL Abs Immat Gran (auto) 0.02 (0.00-0.03) X10*3/uL Absolute Neuts (auto) 4.9 (2.0-8.3) x10*3/uL Absolute Nucleated RBC 0.000 (0.0-0.012) X10*3/uL Nucleated RBC % (auto) 0.0 (0.0-0.2) /100WBC Sodium 139 (135-145) mmol/L Potassium 4.3 (3.3-5.1) mmol/L Chloride 106 (96-108) mmol/L Carbon Dioxide 23 (22-29) mmol/L Anion Gap 14 (12-20) BUN 27 H (9-16) mg/dL Creatinine 0.79 (0.5-1.4) mg/dL Estim Creat Clear Calc 59.5 Estimated GFR > 60 Random Glucose 112 (60-115) mg/dL Calcium 9.8 (8.4-10.2) mg/dL Total Bilirubin 0.7 (0.0-1.0) mg/dL AST 22 (5-31) U/L ALT 9 (0-31) U/L Alkaline Phosphatase 56 (39-117) U/L Total Protein 6.8 (6.5-8.0) g/dL Albumin 4.1 (3.5-5.0) g/dL External Record Review External record reviewed: Outpatient record Tests considered The following testing was considered but not selected: xray of knee: no effusion or laxity Discharge Plan Discharge Clinical Impression: Patellar tendinitis Patient Disposition: Home, Self-Care Instructions: Tendinitis (ED), Patellar Tendinitis (ED) Prescriptions: New meloxicam 7.5 mg tablet 7.5 mg PO DAILY Qty: 30 0RF No Action carbidopa-levodopa 50-200 mg tablet extended release 1 tab PO TID Rx Instructions: divide evenly over waking hours atorvastatin 20 mg tablet 20 mg PO DAILY Qty: 90 1RF bupropion HCl 200 mg tablet sustained-release 12 hr 200 mg PO BID 90 Days Qty: 180 1RF losartan 50 mg tablet 50 mg PO DAILY Qty: 90 1RF timolol maleate 0.5 % drops 1 drp ophthalmic (eye) BID omega-3 fatty acids [Fish Oil Concentrate] 1,000 mg capsule 1,000 mg PO DAILY cholecalciferol (vitamin D3) 25 mcg (1,000 unit) capsule 25 mcg PO DAILY dicyclomine 20 mg tablet 20 mg PO BID Nitro-Bid 2 % ointment 1 inch transdermal BID Rx Instructions: administer 2 doses/day (approx. 6 hrs apart); remove for 10-12 hrs per 24 hours cyclobenzaprine 5 mg tablet 5 mg PO BEDTIME Qty: 10 0RF acetaminophen 500 mg capsule 1,000 mg PO Q6H PRN (Reason: pain) Qty: 30 0RF [place]: [facility] [place] Group] - 3 days Print Language: Uzbek
[2024-03-21] MEDS: Ketorolac Tromethamine 60 MG/2 ML VIAL IM (02:57)
[2024-03-21 05:15] VITALS: BP 126/60; PULSE 79; RESP 18; TEMP 37; O2SAT 98
== END 2024-03-21 05:16 | disposition home or self-care (01) ==
PROVIDERS: Emergency Provider Emergency Medicine; PCP Internal Medicine
DX: M76.52 Patellar tendinitis, left knee (principal); Z79.899 Other long term (current) drug therapy
CPT/HCPCS: 36415; 80053; 85025; 96372; 99284; J1885

== ENCOUNTER 2024-04-10 11:08 | Outpatient (AMB) | payer MEDICARE, SELFPAY ==
--- NOTE | 2024-04-10 11:17 | A.OFFVIS_ITS ---
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 Patient reports that she was seen at [facility] on 03/21/24 due to left knee pain and swelling for a couple of weeks that had been increasing. She continues to have pain at the anterior aspect of knee that radiates down her leg. She has swelling in her left leg. States meloxicam helps with her pain however she feels an increase of swelling with taking this medication. Allergies shellfish derived Allergy (Severe, Verified 04/10/24 11:30) Anaphylaxis oxycodone [OXYCODONE] Allergy (Intermediate, Verified 04/10/24 11:30) Itching Penicillins [PCN] Allergy (Intermediate, Verified 04/10/24 11:30) RASH aspirin [ASPIRIN] Allergy (Unknown, Verified 04/10/24 11:30) UNKNOWN codeine Adverse Reaction (Intermediate, Verified 04/10/24 11:30) Nausea and Vomiting erythromycin base Adverse Reaction (Intermediate, Verified 04/10/24 11:30) Gastrointestinal Upset lisinopril Adverse Reaction (Intermediate, Verified 04/10/24 11:30) cough Medication List - Last Reconciled 04/10/24 by Jacqui Das PA-C acetaminophen 1,000 mg (2 x 500 mg) PO Q6H PRN atorvastatin 20 mg PO DAILY bupropion HCl SR 200 mg PO BID 90 days carbidopa-levodopa 50-200 mg ER 1 tab PO TID cholecalciferol (vitamin D3) 25 mcg PO DAILY cyclobenzaprine 5 mg PO BEDTIME dicyclomine 20 mg PO BID losartan 50 mg PO DAILY meloxicam 7.5 mg PO DAILY nitroglycerin 2% (Nitro-Bid) 1 inch transdermal BID omega-3 fatty acids (Fish Oil Concentrate) 1,000 mg PO DAILY timolol maleate 0.5% 1 drp ophthalmic (eye) BID HPI HPI 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 She co swelling down the leg for a few weeks with pain in the calf. She was seen in the ED, an US was not performed. She was given meloxicam and referred to our office for ortho eval . [facility] Medical History Impaired fasting glucose Urinary incontinence Lumbago syndrome Gait instability Essential hypertension COVID-19 vaccine series completed Osteoarthritis IBS (irritable bowel syndrome) Bilateral low back pain with sciatica Parkinson disease Family history of Parkinson's disease Tremor of right hand Glaucoma Seasonal allergies Depression Carpal tunnel syndrome GERD (gastroesophageal reflux disease) Hyperlipidemia Fibromyalgia Surgical History H/O: hysterectomy History of esophagogastroduodenoscopy (EGD) H/O colonoscopy History of carpal tunnel surgery Family History Mother History of breast cancer Father History of throat cancer Paternal Grandmother History of liver cancer Social History Housing: House Are you a primary critical care clinical nurse specialist to a significant other at home: No Alcohol intake: never Comment: Parkinson's-use cane or walker Patient Tobacco Use Status: Never used Tobacco e-Cigarette/Vaping Use: Never Used service: No Current occupational status: retired Cognitive needs: No Hearing needs: No Vision needs: Yes Review of Systems Const All systems reviewed & are unremarkable except as noted in HPI and below Physical Exam Vital Signs: BMI result Body Mass Index 31.6 Const General: cooperative and no acute distress Orientation/consciousness: patient oriented x3 Resp Effort & Inspection: normal respiratory effort and able to speak in complete sentences Cardio Peripheral pulses: Peripheral pulses 2+ throughout Neuro General: patient oriented x3 Extrem Other: left knee normal to inspection, no pain with ROM. she does have swelling posterior to the knee and down the leg with tenderness along the price. NVI. Assessment & Plan Assessment & Plan (1) Left leg swelling: Code(s): M79.89 - Other specified soft tissue disorders Category: Medical (2) Osteoarthritis of left knee: Code(s): M17.12 - Unilateral primary osteoarthritis, left knee Category: Medical Plan A STAT ultrasound of the LLE was ordered to further assess the swelling. I recommend PT and activity modification for the left knee oa if symptoms persist and her US is negative. Orders: Orders US venous duplex LE LT Today M79.89 - Other specified soft tissue disorders, R60.9 - Edema, unspecified Coding Level of Care Code New Pt Level 3 (07754) Complex EM visit Add On G2211 Diagnoses Left leg swelling M79.89 Osteoarthritis of left knee M17.12
[2024-04-10 11:24] VITALS: BMI 31.6
== END 2024-04-10 11:59 | disposition home or self-care (01) ==
PROVIDERS: PCP Internal Medicine; Visit Provider Physician Assistant
DX: M79.89 Other specified soft tissue disorders (principal); M17.12 Unilateral primary osteoarthritis, left knee
CPT/HCPCS: 99203; G2211

== ENCOUNTER 2024-04-10 12:24 | Outpatient (REF) | payer MEDICARE, SELFPAY ==
--- NOTE | ~2024-04-10 | US_ITS ---
EXAMINATION: US TRIPLEX LOWER EXTREMITY, LEFT CLINICAL INFORMATION: Edema COMPARISON: None available. TECHNIQUE: Color-flow triplex imaging with spectral analysis and compression Doppler were performed on the left lower extremity. FINDINGS: Respiratory variation, normal compression and augmented flow are noted throughout the left lower extremity. The visualized common femoral vein, superficial femoral vein, profunda femoral vein, popliteal vein and midcalf peroneal and posterior tibial venous segments show no evidence of deep venous thrombosis. There is a 4.8 x 1.0 x 1.7 cm complex fluid collection in the popliteal fossa. US/US venous duplex LE LT IMPRESSION: No evidence of deep venous thrombosis involving the left lower extremity. Electronically signed by: Zoraida Black MD 04/10/2024 01:23 PM MELISSA
== END 2024-04-10 12:25 | disposition home or self-care (01) ==
LOC: HO.US 12:24
PROVIDERS: PCP Internal Medicine; Visit Provider Physician Assistant
DX: R60.0 Localized edema (principal)
CPT/HCPCS: 93971; 99202

== ENCOUNTER 2024-04-24 10:22 | Outpatient (AMB) | payer MEDICARE, SELFPAY ==
--- NOTE | 2024-04-24 10:30 | MHC.OFFVIS ---
Vital Signs 04/24/24 10:34 Height 5 ft 5 in Weight 190 lb BMI 31.6 Intake Visit Reasons: ov- left knee pain Intake Note: Sarai is a 83 year old female who presents today for a follow up visit of her left knee OA s/p US venous duplex LE LT 04/10/2024. Patient reports her left knee feels no better than her last visit. She is having swelling that has not resolved and is unable to put on a shoes due to this. She elevated her leg through out the day and at night and says she still wakes up with this issue. She has hx of Parkinsons so she does not go out much or drive. Complaints of her right leg also swelling. If physical therapy is needed she would like for it to be done at her home. Allergies shellfish derived Allergy (Severe, Verified 04/24/24 10:34) Anaphylaxis oxycodone [OXYCODONE] Allergy (Intermediate, Verified 04/24/24 10:34) Itching Penicillins [PCN] Allergy (Intermediate, Verified 04/24/24 10:34) RASH aspirin [ASPIRIN] Allergy (Unknown, Verified 04/24/24 10:34) UNKNOWN codeine Adverse Reaction (Intermediate, Verified 04/24/24 10:34) Nausea and Vomiting erythromycin base Adverse Reaction (Intermediate, Verified 04/24/24 10:34) Gastrointestinal Upset lisinopril Adverse Reaction (Intermediate, Verified 04/24/24 10:34) cough Medication List - Last Reconciled 04/24/24 by Jacqui Das PA-C acetaminophen 1,000 mg (2 x 500 mg) PO Q6H PRN atorvastatin 20 mg PO DAILY bupropion HCl SR 200 mg PO BID 90 days carbidopa-levodopa 50-200 mg ER 1 tab PO TID cholecalciferol (vitamin D3) 25 mcg PO DAILY cyclobenzaprine 5 mg PO BEDTIME dicyclomine 20 mg PO BID losartan 50 mg PO DAILY nitroglycerin 2% (Nitro-Bid) 1 inch transdermal BID omega-3 fatty acids (Fish Oil Concentrate) 1,000 mg PO DAILY timolol maleate 0.5% 1 drp ophthalmic (eye) BID HPI HPI ov- left knee pain: Details: 83-year-old female who returns to the office today for a follow-up of left knee pain. She states she has no improvement and continues to have pain and swelling in her knee that makes her unable to wear shoes. She has been elevating her leg throughout the day and at night without relief. She has a history of Parkinson?s and her knee pain has been affecting her treatment and quality of life. [facility] Medical History Impaired fasting glucose Urinary incontinence Lumbago syndrome Gait instability Essential hypertension COVID-19 vaccine series completed Osteoarthritis IBS (irritable bowel syndrome) Bilateral low back pain with sciatica Parkinson disease Family history of Parkinson's disease Tremor of right hand Glaucoma Seasonal allergies Depression Carpal tunnel syndrome GERD (gastroesophageal reflux disease) Hyperlipidemia Fibromyalgia Surgical History H/O: hysterectomy History of esophagogastroduodenoscopy (EGD) H/O colonoscopy History of carpal tunnel surgery Family History Mother History of breast cancer Father History of throat cancer Paternal Grandmother History of liver cancer Social History Housing: House Are you a primary cardiac care unit nurse to a significant other at home: No Alcohol intake: never Comment: Parkinson's-use cane or walker Patient Tobacco Use Status: Never used Tobacco e-Cigarette/Vaping Use: Never Used service: No Current occupational status: retired Cognitive needs: No Hearing needs: No Vision needs: Yes Review of Systems Const All systems reviewed & are unremarkable except as noted in HPI and below Physical Exam Vital Signs: BMI result Body Mass Index 31.6 Const General: cooperative and no acute distress Orientation/consciousness: patient oriented x3 Resp Effort & Inspection: normal respiratory effort and able to speak in complete sentences Cardio Peripheral pulses: Peripheral pulses 2+ throughout Neuro General: patient oriented x3 Extrem Other: left knee normal to inspection, no pain with ROM. she does have swelling posterior to the knee and down the leg with tenderness along the price. NVI. Office Procedures AMB Joint Injection/Aspiration Joint Injection/Aspiration Primary Site: left knee Prep: site was prepped using aseptic technique, ethochloride spray was applied and injection warnings given Injected: 80 mg of, DepoMedrol, with 8 mL of, 1% plain lidocaine and in the joint Approach Used: anterolateral Procedure: The patient tolerated the procedure well and there was some relief with the local anesthesia Coding 90639 - Glenohumeral/Tronchanteric Bursa/Intraarticular Procedure code (CPT) selection complete Assessment & Plan Assessment & Plan (1) Osteoarthritis of left knee: Code(s): M17.12 - Unilateral primary osteoarthritis, left knee Category: Medical Plan We discussed options today, which include steroid injection. The patient did consent to move forward with the left knee injection, which was tolerated well. I recommended rest, ice, and elevation and OTC anti-inflammatories as needed for discomfort. If symptoms persist or worsens over the next 6-8 weeks, patient will contact the office, otherwise follow-up as needed. Orders: Referrals [facility] Referral M17.12 - Unilateral primary osteoarthritis, left knee Patient Instructions: Scribed for Jacqui Das PA-C, by Matt Mejia medical van driver, on 04/24/2024 at 10:30 AM EST.? I, Jacqui Das PA-C, have personally reviewed and agree with the information entered by the scribe. Coding Level of Care Code Est Pt Level 3 (49020) Complex EM visit Add On G2211 Diagnoses Osteoarthritis of left knee M17.12 CPT Codes Coding - Joint 7: 29600 - Glenohumeral/Tronchanteric Bursa/Intraarticular ([id number])
[2024-04-24 10:34] VITALS: BMI 31.6
--- OUTSIDE RECORDS SUMMARY | 2024-04-30 01:34 | XMS_ITS ---
Author Organization [facility] Address [address] [place] [address] Care Team Providers Care Global Expansion Sales Director Name Role Phone Denise KARIMI, Iwona Meza Primary Care Provider Un available Chino Zulay Unavailable [phone] Ryan Garcia Unavailable [phone] REASON FOR VISIT Painful nail(s) aggrevated by shoes and causing difficulty standing/walking. Medications Medication SIG (Take, Route, Frequency, Duration) Notes Start Date End Date Status Voltaren 1 % as directed Externally Active Nitro-Bid 2 % as directed Transder mal apply bid to affected skin quiana feet for 30 days Active Encounters Encounter Location Date Provider Diagnosis [facility] [address] [place] [address] 01/14/2024 Ryan Garcia Ingrowing nail L60.0 ; Pain in left toe(s) M79.675 ; 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 I73.00 ; Parkinson disease G20 ; Neuralgia and neuritis, unspecified M79.2 ; Unspecified atherosclerosis of [place] arteries of extremities, bilateral legs I70.203 ; [...] (ICD-10 - M79.2) 01/14/2024 Unspecified atherosclerosis of [place] arteries of extremities, bilateral legs (ICD-10 - I70.203) 01/14/2024 Tinea unguium (ICD-10 - B35.1) 01/14/2024 Pain in right toe(s) (ICD-10 - M79.674) 01/14/2024 Primary osteoarthritis, left ankle and foot (ICD-10 - M19.072) Plan Of Treatment Medication Medication Name Sig Start Date Stop Date Notes Voltaren 1 % as directed Externally Nitro-Bid 2 % as directed Transder mal apply bid to affected skin quiana feet for 30 days Next Appt Details Follow Up: 3 Months, Reason: Provider Name:Zulay elmore, 06/17/2024 11:00:00 AM, [address] [place] [address], [id number], Procedure Notes * Category Sub-Category Detail Notes [...] as necessary. Patient chooses, no pharmaceutical tx (50754) Keratoma Treatment Parring or Cutting o f Benign Hyperkeratotic Lesion(s) 89405 (2-4 Lesions) - The Benign hyperkeratotic lesions, as described above were pared, and/or cut utilizing a sterile #15 blade, tissue nippers, and/or dremel, Q8 Progress Notes * Sarai GONZALEZ RDOB:[birth year] (83 yo F)Acc No.[id number]:01/14/2024 Progress Note Patient:?Sarai GONZALEZ R Provider:?Ryan Garcia DPM :1940???Age:83 Y???Sex:Female D ate:01/14/2024 Address:[address], [place], [id number] Pcp:Victoria Ortiz Subjective: * Chief Complaints: * ???1. Painful nail(s) aggrev ated by shoes and causing difficulty standing/walking.. * HPI: ???Painful Nails:?Pt States Last PCP Visit:?Date:?01/08/2023 ???Foot Pain:?Nature:?burning, tightness and loss of balance.?Location:?Forefoot, Midfoot, B/L.?Duration:?several years.?Onset:?parkinson's.?Course:?progressive.?Misc:?dr. woody.?Toe pain:?Nature:?tenderness, aching.?Location:?B/L feet, Great toe.?Duration:?several months.?Treatments:?pna worked well.? * ROS:?General/Constitutional:?Nausea?denies.?Vomiting?denies.?Hunger Thirst?denies.?Loss appetite?denies.?Chills?denies.?Fatigue?denies.?Fever?denies.?Night Sweats?denies.?Unexplained weight loss?denies.?Unexplained weight gain?denies.?HEENTM:?Dentures?denies.?Dizziness?denies.?Glasses/contacts?admits.?Retinopathy?de nies.?Blurred/double vision?denies.?TMJ?denies.?Discharge/drainage?denies.?Implants?denies.?Sore throat?denies.?Dental implants?denies.?Hard of hearing ?denies.?Difficulty chewing/swallowing/speaking?denies.?Nose bleeds?denies.?Sore mouth?denies.?Respiratory:?On Oxygen?denies.?Pneumonia/pleurisy?denies.?Bronchitis?denies.?Emphysema?denies.?C oughing?denies.?Cough blood?denies.?Shortness of breath?denies.?Wheezing?denies.?Cardiovascular:?Pacemaker?denies.?MVP?denies.?WPW?denies.?CHF?denies.?Heart attack?denies.?Septal defect?denies.?Rapid beat?denies.?Chest pain ?denies.?Atrial Fib.?denies.?Murmur/Palpitations?denies.?Gastrointestinal:?Hemorrhoids?denies.?Stomach/Abdominal pain?denies.?Dark blood stool?denies.?Irritable bowel ?denies.?Constipation?denies.?Diarrhea?denies.?Hematology:?Swelling?denies.?Clots?denies.?Varicose Veins?denies.?Bruising?denies.?Bleeding problem?denies.?Genitourinary:?Blood urine?denies.?Frequent/Painfu/urination/bladder control?denies.?Kidney stones?denies.?Infection (UTI)?denies.?Nephropathy?denies.?sex trans dis (STD)?denies.?Prostate?denies.?Musculoskeletal:?Hammertoes?denies.?Bunions?denies.?Back Pain?denies.?Muscle Cramps/ Resting?denies.?Muscle cramps / walking?denies.?Generalized aches and pains?denies.?Weakness?denies.?Integ.:?Hines?denies.?Scars?denies.?Corns/calluses?denies.?Ingrown nails?denies.?Painful nails?denies.?Open Sores?denies.?Rashes?denies.?Neurologic:?Difficulty sleeping?denies.?Brain disorder?denies.?Numbness?denies.?Balance trouble?denies.?Confusion?denies.?Fainting/blackouts?denies.?Tingling?denies.?Tr emors?denies.? * Medical History:? Objective: * Vitals:? * Examination: ???General Examination: ?GENERAL APPEARANCE:?pleasant, alert, well nourished, well developed, well hydrated, with good attention to hygene/body habitus, and in no acute distress.?ORIENTED:?person,place, and time.?Neurological: ?SENSORY:?Neurological exam reveals intact sensorium, pain sensation normal, vibration sensation intact, pinprick sensation is normal in the lower extremities, Pt denies, anesthesia, burning, paresthesia, tingling, B/L, Neurological exam demonstrates pop ta ipj.?BABINSKI REFLEX:?absent.?Vascular: ?DP PULSES(B):? 0/4, B/L.?PT PULSES(B):? 0/4, B/L.?TROPHIC CONDITION-TEXTURE/ELASTICITY/TURGOR/HAIR GROWTH(B):? decreased, B/L.?TEMPERTURE GRADIENT(C):? decreased, cool to cold, proximal to distal, B/L.?PIGMENTATION:? cyanotic, B/L.?Dermatologic: ?SKIN FINDINGS:? Skin exam reveals Keratotic lesion(s) located at, Plantar, Heel(s), B/L , Medial plantar, IPJ, TA, T5.?Orthopedic: ?MUSCLE STRENGTH:?5/5 all groups in a symmetrical fashion , B/L.?GAIT ABNORMALITY:?pronated, abducted, B/L.?Nails: ?NAILS are:? Elongated, overgrown, dystrophic, lytic, greater than 3mm thick, discolored and friable with crumbly malodorous subungual debris, with pain on palpation, 1-5 B/L.?Ingrown Nail: ?INSPECTION:? Reveals nail incurvation, pain on palpation, groove hypertrophy, groove ischemia, Medial nail border, T5.? Assessment: * Assessment: 1.?Ingrowing nail - L60.0 (P rimary)???2.?Pain in left toe(s) - M79.675???3.?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 - I73.00???4.?Parkinson disease - G20???5.?Neuralgia and neuritis, unspecified - M79.2???6.?Unspecified atherosclerosis of [place] arteries of extremities, bilateral legs - I70.203???7.?Tinea unguium - B35.1???8.?Pain in right toe(s) - M79.674???9.?Primary osteoarthritis, left ankle and foot - M19.072??? Plan: * Treatment: 2.?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? Start Nitro-Bid Ointment, 2 %, as directed, Transdermal, apply bid to affected skin quiana feet, 30 days, 90, Refills 4.?? * Procedures:?Debride Nail 6-10:?Nail debridement?Nail debridement performed extensively to reduce/remove overall nail length and girth, subungual debris, and necrotic tissue, by manual and electrical means with use of a nail nipper and/or dremel, to more viable healthy nail plate or bed tissue 6-10. Silver nitrate used for any petechial bleeding as necessary. Patient chooses, no pharmaceutical tx (66413).?Keratoma Treatment:?Parring or Cutting of Benign Hyperkeratotic Lesion(s)?32875 (2-4 Lesions) - The Benign hyperkeratotic lesions, as described above were pared, and/or cut utilizing a sterile #15 blade, tissue nippers, and/or dremel, Q8.? * Procedure Codes:?83030 DEBRI DE NAIL, 6 OR MORE, Modifiers: XS , 15296 TRIM SKIN LESIONS, 2 TO 4, Modifiers: Q8 * Follow Up:?3 Months * Images: * The named appointment provid er may or may not be the originator of this progress note, and it is not deemed complete until electronically signed by the appointment provider. Sign off status: Pending * Provider:Chrissy Garcia DPM Date:? 024 Generated for Catarina merino/Bryanna/Serafinitting on:?04/30/2024 01:34 AM EST History and Physical Notes * [...] ORIENTED: person,place, and ti me Vascular DP PULSES(B): 0/4, B/L PT PULSES(B): 0/4, B/L TEMPERTURE GRADIENT(C): decreased, cool to cold, proximal to distal, B/L TROPHIC CONDITION-TEXTURE/ELASTICITY/TURGOR/HAIR GROWTH(B): decreased, B/L PIGMENTATION: cyanotic, B/L Nails NAILS are: Elongated, overg rown, dystrophic, lytic, greater than 3mm thick, discolored and friable with crumbly malodorous subungual debris, with pain on palpation, 1-5 B/L
--- OUTSIDE RECORDS SUMMARY | 2024-04-30 01:34 | XMS_ITS ---
Author Organization [facility] Address [address] [place] [address] Care Team Providers Care Appellate Court Judge Name Role Phone Denise KARIMI, Iwona Meza Primary Care Provider Un available Zulay Magana Unavailable [phone] Ryan Garcia Unavailable [phone] REASON FOR VISIT Refill Request Medications Medication SIG (Take, Route, Frequency, Duration) Notes Start Date End Date Status Nitro-Bid 2 % as directed Transder mal apply bid to affected skin quiana feet for 30 days Active Encounters Encounter Location Date Provider Diagnosis [facility] [address] [place] [address] 03/18/2024 Ryan Garcia 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 I73.00 Assessments Encounter Date Diagnosis (ICD Code) Assessment Notes Treatment Notes Treatment Clinical Notes Section Notes 03/18/2024 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 (ICD-10 - I73.00) Plan Of Treatment Medication Medication Name Sig Start Date Stop Date Notes Nitro-Bid 2 % as directed Transder mal apply bid to affected skin quiana feet for 30 days Next Appt Details Provider Name:Zulay elmore, 06/17/2024 11:00:00 AM, [address] [place], [address], Progress Notes * Sarai GONZALEZ RDOB:[birth year] (83 yo F)Acc No.[id number]:03/18/2024 Patient:?GonzalezSarai :1940???Age:83 Y???Sex:Female Address:[address] [place] [address], [place] [address] * Refills? Refill Nitro-Bid Ointment, 2 %, Transdermal, 90, as directed, apply bid to affected skin quiana feet, 30 days, Refills=4 * true * Date:? Generated for Catarina merino/Bryanna/Kavyasmitting on:?04/30/2024 01:34 AM EST
--- OUTSIDE RECORDS SUMMARY | 2024-04-30 01:34 | XMS_ITS | Patient Health Record ---
Author Organization [facility] Address [address] [place] [address] Care Team Providers Care Wet Process Miller Head Assistant Name Role Phone Denise KARIMI, Iwona Primary Care Provider Maury Ram Jr Unavailable ALLERGIES Allergen (clinical drug ingredient) Drug/Non Drug Allergy documented on EMR Reaction Allergy Type Onset Date Status PredniSONE Unknown Drug Allergy Active acetaminophen / oxycodone Percocet Unknown Drug Allergy Active erythromycin Erythromycin Unknown Drug Allergy A ctive Codeine Phosphate Unknown Drug Allergy Active Shellfish (FN) shell fish (uncoded) Unknown Allergy Active Penicillin Unknown Drug Allergy Active REASON FOR REFERRAL No Information MEDICATIONS Medication SIG (Take, Route, Frequency, Duration) Notes Start Date End Date Status Carbidopa-Levodopa ER 50-200 MG Oral for 90 Active Timolol Hemihydrate 0.5 % 1 drop into af fected eye Ophthalmic Once a day Active Fish Oil 1000mg 1 capsule Orally Onc e a day Active Dicyclomine HCl 20 MG TAKE 1 TABLET 4 TI MES DAILYAS NEEDED for 90 Active Losartan Potassium 50 MG 1 tablet Orally Once a day Active MiraLax (colon prep) 17 GM/SCOOP mixed with Gatorade or Crystal Light Orally begin at 5:00 p.m. the day before the procedure for 1 day 05/04/2021 Active Pantoprazole Sodium 20 MG TAKE 1 TABLET BY MOUTH EVERY DAY for 90 Active Vitamin D 1000 UNIT 1 tablet Orally Once a day Active buPROPion HCl ER (SR) 200 MG 1 tablet in the morning Orally Once a day for 30 day(s) Active Lipitor 20 MG 1 tablet Orally Once a day Active Furosemide 20 MG 1 tablet Orally Once a day for 30 day(s) Active IMMUNIZATIONS Vaccine Route Administration Date Status Comme nts Flu vaccine no Preserv 3 and > Unknown 03/30/2015 Admin istered Flu vaccine no Preserv 3 and > Unknown 02/29/2016 Admin istered Flu vaccine no Preserv 3 and > Unknown 03/26/2017 Admin istered Influenza Unknown 03/06/2018 Administered Influenza Unknown 02/16/2021 Administered SOCIAL HISTORY Sex Assigned At : Social History Observation Description Sex Assigned At Unknown PROBLEMS Problem Type ICD Code Onset Dates Problem Status W/U Status Risk SNOMED Code Notes Problem Colon cancer screening (Z12.11) Active confirmed 338871406 Problem Gastroesophageal reflux disease without esophagitis (K21.9) Active confirmed 261460017 Problem Lactose intolerance (E73.9) Active confirmed 197261975 Problem Irritable bowel syndrome, unspecified type (K58.9) Active confirmed 08655832 Problem Esophageal reflux disease (K21.9) Active confirmed 185491636 PLAN OF TREATMENT Pending Test Test Name Order Date CBC w/o DIFF 02/28/2017 CT ABD & PELVIS WITH CONTRAST 02/28/2017 Future Test Test Name Order Date COLONOSCOPY 06/23/2011 COLONOSCOPY 08/09/2016 COLONOSCOPY 05/04/2021 Insurance Providers Payer Name Payer Address Payer Phone Subscriber Number Group Number Insured Name Patient Relationship to Insured Coverage Start Date Coverage End Date MEDICARE OF [place] [address] [place] [address] [id number] GIL GONZALEZ Self - patient is the insured [employer] CLAIMS [address] [place] [address] [id number] GIL GONZALEZ Self - patient is the insured MEDICAL (GENERAL) HISTORY Medical History History ICD Code esophageal reflux urinary urgency depression osteoarthritis fibromyalgia irritable bowel syndrome glaucoma elevated cholesterol parkinsons disease unsteady gait Surgical History Surgery Date(Month/Year) carpal tunnel surgery hammer toe tonsillectomy adnoids
--- OUTSIDE RECORDS SUMMARY | 2024-04-30 01:34 | XMS_ITS | Patient Health Record ---
Author Organization [facility] [place] Address [address] [facility] [place] [address] Care Team Providers Care Gas Processing Plant Operator Name Role Phone Denise KARIMI, Iwona Meza Primary Care Provider Un available ChinoCezaren Unavailable [phone] Ryan Garcia Unavailable [phone] Allergies Allergen (clinical drug ingredient) Drug/Non Drug Allergy documented on EMR Reaction Allergy Type Onset Date Status 12 Hour Nasal [place] Unknown Drug Allergy Active ibuprofen Advil Unknown Drug Allergy Active naproxen Aleve Unknown Drug Allergy Active aspirin Aspirin GERD can't take Drug Allergy A ctive Biaxin Unknown Drug Allergy Active meperidine Demerol Rash Drug Allergy Active erythromycin Erythromycin Unknown Drug Allergy A ctive Motrin Unknown Drug Allergy Active shrimp allergenic extract Shrimp (Diagnostic) Unknown Drug Allergy Active codeine Codeine Unknown Drug Allergy Active gentamicin Gentamicin made with shell fish Drug Allergy Active Penicillin Unknown Drug Allergy Active Shellfish (FN) Shellfish-derived Products Unknown Drug Allergy Active Reason For Referral No Information Medications Medication SIG (Take, Route, Frequency, Duration) Notes Start Date End Date Status Vitamin D 1000 UNIT 1 tablet Orally Once a day Active Nitro-Bid 2 % as directed Transdermal apply bid to affected skin quiana feet for 30 days Active Voltaren 1 % as directed Externally Active Timolol Hemihydrate eye drop Active Pantoprazole Sodium 40 MG 1 tablet Orally Once a day Not-Taking Dicyclomine HCl 20 MG 1 tablet Orally Fo ur times a day Not-Taking Meclizine HCl Not-Ta sandra Carbidopa-Levodopa A ctive Nitro-Bid 2 % APPLY TRANSDERMALLY TWO TIMES A DAY TO AFFECTED SKIN OF BOTH FEET DIRECTED for 30 Not-Taking BuPROPion HBr Active Voltaren 1 % as directed Externally Active Losartan Potassium 50 MG 1 tablet Orally Once a day Active lipitor 1 tab Oral Active Latanoprost 0.005 % 1 drop into affected eye in the evening Ophthalmic Once a day Not-Taking Probiotic Orally Not-Taking Fish Oil 1000 MG 2 Orally Once a day Active Nortripytline HCl No t-Taking Immunizations Vaccine Route Administration Date Status Comme nts COVID-19 Pfizer BioNTech Vaccine Unknown 09/19/2021 Administered 1st 07/05/2020 2nd 07/26/2020 3rd 02/16/2021 Social History Tobacco Use: Social History Observation Description Date Details (start date - stop date) Never Smoker NA - NA Tobacco Use/Smoking Question Answer Notes Are you a: nonsmoker Additional Findings: Tobacco Non-User Current no n-smoker Alcohol Screen Question Answer Notes Did you have a drink containing alcohol in the p ast year? No Points 0 Interpretation Negative Tobacco use other than smoking: Question Answer Notes Are you an other tobacco user? No Problems Problem Type SNOMED Code ICD Code Onset Dates Problem Status W/U Status Risk Notes Problem Unspecified atherosclerosis of [place] arteries of extremities, bilateral legs (I70.203) Active confirmed Problem Localized, primary osteoarthritis of the ankle and/or foot (932063365) Primary osteoarthritis, left ankle and foot (M19.072) Active confirmed Problem Non-pressure chronic ulcer of other part of right foot limited to breakdown of skin (L97.511) Active confirmed Problem 39717455 Parkinson diseas e (G20) Active confirmed Problem 829397680 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 (I73.00) Active confirmed Vital Signs Blood pressure diastolic 70 mm Hg 09/10/2023 Height 5 ft 5 in in 02/13/2024 Blood pressure systolic 120 mm Hg 09/10/2023 Weight 197 lbs 02/13/2024 BMI 32.78 kg/m2 02/13/2024 Encounters Encounter Location Date Provider Diagnosis [facility] [address] [address] 05/07/2023 Ryan Garcia Non-pressure chronic ulcer of other part of right foot limited to breakdown of skin L97.511 [facility] [address] [address] 09/10/2023 Ryan Garcia Ingrowing nail L60.0 ; Pain in left toe(s) M79.675 ; 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 I73.00 ; Parkinson disease G20 ; Neuralgia and neuritis, unspecified M79.2 ; Unspecified atherosclerosis of [place] arteries of extremities, bilateral legs I70.203 ; Tinea unguium B35.1 ; Pain in right toe(s) M79.674 and Primary osteoarthritis, left ankle and foot M19.[address] [address] 02/13/2024 Ryan Garcia Ingrowing nail L60.0 ; Pain in left toe(s) M79.675 ; 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 I73.00 ; Parkinson disease G20 ; Neuralgia and neuritis, unspecified M79.2 ; Unspecified atherosclerosis of [place] arteries of extremities, bilateral legs I70.203 ; Tinea unguium B35.1 ; Pain in right toe(s) M79.674 and Primary osteoarthritis, left ankle and foot M19.[address] [address] 03/18/2024 Ryan Gacria 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 I73.00 Assessments Encounter Date Diagnosis (ICD Code) Assessment Notes Treatment Notes Treatment Clinical Notes Section Notes 05/07/2023 Non-pressure chronic ulcer of other part of right foot limited to breakdown of skin (ICD-10 - L97.511) 09/10/2023 Ingrowing nail (ICD-10 - L60.0) 09/10/2023 Pain in left toe(s) (ICD-10 - M79.675) 02/13/2024 Ingrowing nail (ICD-10 - L60.0) 02/13/2024 Pain in left toe(s) (ICD-10 - M79.675) 03/18/2024 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 (ICD-10 - I73.00) 02/13/2024 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 (ICD-10 - I73.00) 09/10/2023 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 (ICD-10 - I73.00) 09/10/2023 Parkinson disease (ICD-10 - G20) 02/13/2024 Parkinson disease (ICD-10 - G20) 02/13/2024 Neuralgia and neuritis, unspecified (ICD-10 - M79.2) 09/10/2023 Neuralgia and neuritis, unspecified (ICD-10 - M79.2) 09/10/2023 Unspecified atherosclerosis of [place] arteries of extremities, bilateral legs (ICD-10 - I70.203) 02/13/2024 Unspecified atherosclerosis of [place] arteries of extremities, bilateral legs (ICD-10 - I70.203) 02/13/2024 Tinea unguium (ICD-10 - B35.1) 09/10/2023 Tinea unguium (ICD-10 - B35.1) 09/10/2023 Pain in right toe(s) (ICD-10 - M79.674) 02/13/2024 Pain in right toe(s) (ICD-10 - M79.674) 02/13/2024 Primary osteoarthritis, left ankle and foot (ICD-10 - M19.072) 09/10/2023 Primary osteoarthritis, left ankle and foot (ICD-10 - M19.072) Plan Of Treatment Pending Test Test Name Order Date X ray : Foot, left 3V 09/23/2014 97621-Naln Destruction, 1-14 10/28/2014 75234-Pfik Destruction, 1-14 09/23/2014 49977-Huhvlhcz Plate 09/13/2016 00773-Nzwqmsxt Plate 06/25/2017 11499-FXN 11/01/2017 91149- Debride <25 sq cm 11/15/2017 40420- Debride <25 sq cm 12/05/2017 94697-TAXP SKIN LESIONS, 2 TO 4 06/30/19 Next Appt Details Provider Name:Zulay elmore, 06/17/2024 11:00:00 AM, [address] [facility], [place], [address], Insurance Providers Payer Name Payer Address Payer Phone Subscriber Number Group Number Insured Name Patient Relationship to Insured Coverage Start Date Coverage End Date Medicare [employer] [address] [place] [address] [id number] Sarai Ramon Self - patient is the insured [employer] [facility] [address] [place] [address] [phone] [id number] Sarai Ramon Self - patient is the insured Medical (General) History Medical History History ICD Code Back,Hip,and Knee pain Cancer Depression Fibromyalgia High blood pressure Reflux Measles Mumps Chicken pox Neuropathy Irritable bowel syndrome Surgical History Surgery Date(Month/Year) hammer toe 1989 carpal tunnel surgery colonoscopy 2021 hysterectomy cancer 04/11/2022
--- OUTSIDE RECORDS SUMMARY | 2024-04-30 01:34 | XMS_ITS ---
Author Organization [facility] Mara zacarias Otis Address [address] [facility] [place] [address] Care Team Providers Care Contract Negotiation Manager Name Role Phone Denise KARIMI, Iwona Meza Primary Care Provider Un available Zulay Magana Unavailable [phone] GarciaRyan Unavailable [phone] Allergies Allergen (clinical drug ingredient) Drug/Non Drug Allergy documented on EMR Reaction Allergy Type Onset Date Status 12 Hour Nasal [place] Unknown Drug Allergy Active ibuprofen Advil Unknown [...] (FN) Shellfish-derived Products Unknown Drug Allergy Active REASON FOR VISIT Painful nail(s) aggrevated by shoes and causing difficulty standing/walking. Medications Medication SIG (Take, Route, Frequency, Duration) Notes Start Date End Date Status Vitamin D 1000 UNIT 1 tablet Orally Once a day Active Meclizine HCl Not-Ta sandra Nitro-Bid 2 % APPLY TRANSDERMALLY TWO TIMES A DAY TO AFFECTED SKIN OF BOTH FEET DIRECTED for 30 Not-Taking Probiotic Orally Not-Taking Nortripytline HCl No t-Taking Timolol Hemihydrate eye drop Active Pantoprazole Sodium 40 MG 1 tablet Orally Once a day Not-Taking Losartan Potassium 50 MG 1 tablet Orally Once a day Active lipitor 1 tab Oral Active Latanoprost 0.005 % 1 drop into affected eye in the evening Ophthalmic Once a day Not-Taking Dicyclomine HCl 20 MG 1 tablet Orally Fo ur times a day Not-Taking Carbidopa-Levodopa A ctive BuPROPion HBr Active Voltaren 1 % as directed Externally Active Fish Oil 1000 MG 2 Orally Once a day Active Nitro-Bid 2 % as directed Transdermal apply bid to affected skin quiana feet for 30 days Active Voltaren 1 % as directed Externally Active Social History Tobacco Use: Social History Observation Description Date Details (start date - stop date) Never Smoker NA - NA Tobacco Use/Smoking Question Answer Notes Are you a: nonsmoker Additional Findings: Tobacco Non-User Current no n-smoker Tobacco use other than smoking: Question Answer Notes Are you an other tobacco user? No Vital Signs Height 5 ft 5 in in 02/13/2024 Weight 197 lbs 02/13/2024 BMI 32.78 kg/m2 02/13/2024 Encounters Encounter Location Date Provider Diagnosis [facility] [address] [place] [address] 02/13/2024 Ryan Garcia Ingrowing nail L60.0 ; Pain in left toe(s) M79.675 ; 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 I73.00 ; Parkinson disease G20 ; Neuralgia and neuritis, unspecified M79.2 ; Unspecified atherosclerosis of [place] arteries of extremities, bilateral legs I70.203 ; Tinea unguium B35.1 ; Pain in right toe(s) M79.674 and Primary osteoarthritis, left ankle and foot M19.072 Assessments Encounter Date Diagnosis (ICD Code) Assessment Notes Treatment Notes Treatment Clinical Notes Section Notes 02/13/2024 Ingrowing nail (ICD-10 - L60.0) 02/13/2024 Pain in left toe(s) (ICD-10 - M79.675) 02/13/2024 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 (ICD-10 - I73.00) 02/13/2024 Parkinson disease (ICD-10 - G20) 02/13/2024 Neuralgia and neuritis, unspecified (ICD-10 - M79.2) 02/13/2024 Unspecified atherosclerosis of [place] arteries of extremities, bilateral legs (ICD-10 - I70.203) 02/13/2024 Tinea unguium (ICD-10 - B35.1) 02/13/2024 Pain in right toe(s) (ICD-10 - M79.674) 02/13/2024 Primary osteoarthritis, left ankle and foot (ICD-10 - M19.072) Plan Of Treatment Medication Medication Name Sig Start Date Stop Date Notes Nitro-Bid 2 % as directed Transder mal apply bid to affected skin quiana feet for 30 days Voltaren 1 % as directed Externally Next Appt Details Follow Up: 3 Months, Reason: Provider Name:Zulay elmore, 06/17/2024 11:00:00 AM, [address] [place] [address], [id number], Procedure Notes * Category Sub-Category Detail Notes [...] as necessary. Patient chooses, no pharmaceutical tx (02861) Keratoma Treatment Parring or Cutting o f Benign Hyperkeratotic Lesion(s) 17121 (2-4 Lesions) - The Benign hyperkeratotic lesions, as described above were pared, and/or cut utilizing a sterile #15 blade, tissue nippers, and/or dremel, Q8 Progress Notes * Sarai GONZALEZ RDOB:[birth year] (83 yo F)Acc No.[id number]:02/13/2024 Progress Note Patient:?Sarai Gonzalez R Provider:?Ryan Garcia DPM :1940???Age:83 Y???Sex:Female D ate:02/13/2024 Address:[address] [place], [place] [address] [id number] Pcp:Victoria Ortiz Subjective: * Chief Complaints: * ??? Painful nail(s) aggrevat ed by shoes and causing difficulty standing/walking. * HPI: ???Painful Nails:?Pt States Last PCP Visit:?Date:?02/04/2024 ???Foot Pain:?Nature:?burning, tightness and loss of balance.?Location:?Forefoot, [...] sleeping?denies.?Brain disorder?denies.?Numbness?denies.?Balance trouble?denies.?Confusion?denies.?Fainting/blackouts?denies.?Tingling?denies.?Tr emors?denies.? * Medical History:? * Surgical History:?hammer toe 1990carpal tunnel surgery colonoscopy 2022hysterectomy cancer 04/11/2022 * Hospitalization/Major Diagno stic Procedure:?Denies Past Hospitalization * Family History:?Mother: dece ased, diagnosed with Family history of arthritis, Other malignant neoplasm of unspecified site.?Father: , diagnosed with Other malignant neoplasm of unspecified site.?Siblings: .? * Social History:?Tobacco Use:?Tobacco Use/Smoking?Are you a:?nonsmoker ?Additional Findings: Tobacco Non-User?Current non-smoker ?Tobacco use other than smoking?Are you an other tobacco user??No ???Miscellaneous:?no Caffeine, none. ?Children: yes, 2. ?Exercise: yes, quilting,reading, cooking,baking, jason bear maker, card 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 ?Marital status: . 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 * Medications:?TakingVoltaren 1 % Gel as directed Externally BuPROPion HBr Carbidopa-Levodopa Fish Oil 1000 MG Capsule Delayed Release 2 Orally Once a daylipitor 1 tab Oral Losartan Potassium 50 MG Tablet 1 tablet Orally Once a dayTimolol Hemihydrate , Notes: eye dropVitamin D 1000 UNIT Tablet 1 tablet Orally Once a dayNitro-Bid 2 % Ointment as directed Transdermal apply bid to affected skin quiana feetVoltaren 1 % Gel as directed Externally Taking Voltaren 1 % Gel as directed Externally Taking BuPROPion HBr Taking Carbidopa-Levodopa Taking Fish Oil 1000 MG Capsule Delayed Release 2 Orally Once a dayTaking lipitor 1 tab Oral Taking Losartan Potassium 50 MG Tablet 1 tablet Orally Once a dayTaking Timolol Hemihydrate , Notes: eye dropTaking Vitamin D 1000 UNIT Tablet 1 tablet Orally Once a dayTaking Nitro-Bid 2 % Ointment as directed Transdermal apply bid to affected skin quiana feetTaking Voltaren 1 % Gel as directed Externally Not-Taking/PRNDicyclomine HCl 20 MG Tablet 1 tablet Orally Four times a dayLatanoprost 0.005 % Solution 1 drop into affected eye in the evening Ophthalmic Once a dayPantoprazole Sodium 40 MG Tablet Delayed Release 1 tablet Orally Once a dayNitro-Bid 2 % Ointment APPLY TRANSDERMALLY TWO TIMES A DAY TO AFFECTED SKIN OF BOTH FEET DIRECTED Meclizine HCl Nortripytline HCl Probiotic Capsule Orally Medication List reviewed and reconciled with the patientNot- Taking/PRN Dicyclomine HCl 20 MG Tablet 1 tablet Orally Four times a dayNot-Taking/PRN Latanoprost 0.005 % Solution 1 drop into affected eye in the evening Ophthalmic Once a dayNot-Taking/PRN Pantoprazole Sodium 40 MG Tablet Delayed Release 1 tablet Orally Once a dayNot-Taking/PRN Nitro-Bid 2 % Ointment APPLY TRANSDERMALLY TWO TIMES A DAY TO AFFECTED SKIN OF BOTH FEET DIRECTED Not-Taking/PRN Meclizine HCl Not- Taking/PRN Nortripytline HCl Not-Taking/PRN Probiotic Capsule Orally Medication List reviewed and reconciled with the patient * Allergies:?BiaxinAspirin: GE RD can't takeAdvilAleveMotrinDemerol: BjbyTwhjzkurcowe32 Hour Nasal SprayCodeineShrimp (Diagnostic)Shellfish-derived ProductsGentamicin: made with shell fishPenicillinyes[Allergies Verified] Objective: * Vitals:?Ht: 5 ft 5 in, Wt: 1 97, BMI: 32.78, Shoe size: 8M, Wt-k.36 kg. * Examination: ???General Examination: ?GENERAL APPEARANCE:?pleasant, alert, [...] * Assessment: 1.?Ingrowing nail - L60.0 (P rimary)?2.?Pain in left toe(s) - M79.675?3.?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 - I73.00?4.?Parkinson disease - G20?5.?Neuralgia and neuritis, unspecified - M79.2?6.?Unspecified atherosclerosis of [place] arteries of extremities, bilateral legs - I70.203?7.?Tinea unguium - B35.1?8.?Pain in right toe(s) - M79.674?9.?Primary osteoarthritis, left ankle and foot - M19.072? Plan: * Treatment: 2.?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? [...] as necessary. Patient chooses, no pharmaceutical tx (45478).?Keratoma Treatment:?Parring or Cutting of Benign Hyperkeratotic Lesion(s)?34112 (2-4 Lesions) - The Benign hyperkeratotic lesions, as described above were pared, and/or cut utilizing a sterile #15 blade, tissue nippers, and/or dremel, Q8.? * Procedure Codes:?01873 DEBRI DE NAIL, 6 OR MORE, Modifiers: XS 24440 TRIM SKIN LESIONS, 2 TO 4, Modifiers: Q8 * Follow Up:?3 Months * Images: * Sign off status: Completed true * Provider:Chrissy Garcia DPM Date:? 024 Generated for Catarina merino/Bryanna/eTeyalitting on:?04/30/2024 01:34 AM EST History and Physical Notes * HPI (History of Present Illness) Category Sub-Category Detail Notes Category Not es Toe pain Nature: tenderness, aching Location: B/L feet, Great toe Duration: several months Treatments: pna worked well Painful Nails Pt States Last PCP Visit: Date:: 02/04/2024 Foot Pain Nature: burning, tightness and loss [...]
== END 2024-04-24 11:12 | disposition home or self-care (01) ==
PROVIDERS: PCP Internal Medicine; Visit Provider Physician Assistant
DX: M17.12 Unilateral primary osteoarthritis, left knee (principal)
CPT/HCPCS: 20610; 99213

== ENCOUNTER → 2024-04-24 10:22 | Outpatient (BNVA) | payer MEDICARE, SELFPAY | PROVIDERS: PCP Internal Medicine; Visit Provider Physician Assistant | DX: M17.12 Unilateral primary osteoarthritis, left knee (principal); G20.A1 Parkinson's disease without dyskinesia, without mention of fluctuations | CPT/HCPCS: 20610; 99212; J1010; J2003 ==

== ENCOUNTER 2024-07-22 11:27 | Outpatient (AMB) | payer MEDICARE, SELFPAY ==
--- NOTE | 2024-07-22 11:36 | MHC.OFFVIS ---
Vital Signs 07/22/24 11:59 Height 5 ft 5 in Weight 212 lb 8 oz BMI 35.4 BP 152/70 H Blood Pressure Location Lt brachial Position Sitting Pulse 79 Intake Visit Reasons: yearly breast exam Intake Note: Patient is seen in office for yearly breast exam. Pt c/o: denies any concerns with the breast mm sched: 12/17/24 ? has f/up with Shahnaz on 12/17/24 ? Director Career Services Required: No Jockey'S Agent: Jockey'S Agent Present Accompanied by: Self / Same As Patient Allergies shellfish derived Allergy (Severe, Verified 07/22/24 11:56) Anaphylaxis oxycodone [OXYCODONE] Allergy (Intermediate, Verified 07/22/24 11:56) Itching Penicillins [PCN] Allergy (Intermediate, Verified 07/22/24 11:56) RASH aspirin [ASPIRIN] Allergy (Unknown, Verified 07/22/24 11:56) UNKNOWN codeine Adverse Reaction (Intermediate, Verified 07/22/24 11:56) Nausea and Vomiting erythromycin base Adverse Reaction (Intermediate, Verified 07/22/24 11:56) Gastrointestinal Upset lisinopril Adverse Reaction (Intermediate, Verified 07/22/24 11:56) cough Medication List - Last Reconciled 07/22/24 by Jak Wilson MD acetaminophen 1,000 mg (2 x 500 mg) PO Q6H PRN atorvastatin 20 mg PO DAILY bupropion HCl SR 200 mg PO BID 90 days carbidopa-levodopa 50-200 mg ER 1 tab PO TID cholecalciferol (vitamin D3) 25 mcg PO DAILY cyclobenzaprine 5 mg PO BEDTIME dicyclomine 20 mg PO BID losartan 50 mg PO DAILY nitroglycerin 2% (Nitro-Bid) 1 inch transdermal BID omega-3 fatty acids (Fish Oil Concentrate) 1,000 mg PO DAILY timolol maleate 0.5% 1 drp ophthalmic (eye) BID HPI Comments Details: 83-year-old female patient, former patient of Dr. Palumbo, returning for a routine annual breast check due to a strong family history for breast cancer. Her family history is significant for metastatic breast cancer in her mother, diagnosed at the age of 39 as well as a maternal aunt with breast cancer. Her maternal grandfather was treated for prostate cancer. Patient has no breast cancer history and denies any new breast symptoms. H Her Tyrer-Cuzick lifetime risk of developing breast cancer was calculated at 4 %. She is , menarche at the age of 14 menopause at age 54. She denies any new breast concerns this time. She underwent a robotic hysterectomy with lymph node dissection stage [address] Elena Akhtar at [facility] last year. She was seen earlier this year by Dr. Akhtar. She tolerated the procedure well and feels well today. Her most recent mammogram dated 12/05/2023 revealed no mammographic evidence of malignancy (BI-RADS 2). One year follow-up is recommended. [facility] Medical History Impaired fasting glucose Urinary incontinence Lumbago syndrome Gait instability Essential hypertension COVID-19 vaccine series completed Osteoarthritis IBS (irritable bowel syndrome) Bilateral low back pain with sciatica Parkinson disease Family history of Parkinson's disease Tremor of right hand Glaucoma Seasonal allergies Depression Carpal tunnel syndrome GERD (gastroesophageal reflux disease) Hyperlipidemia Fibromyalgia Surgical History H/O: hysterectomy History of esophagogastroduodenoscopy (EGD) H/O colonoscopy History of carpal tunnel surgery Family History Mother History of breast cancer Father History of throat cancer Paternal Grandmother History of liver cancer Social History Housing: House Are you a primary pharmacy care coordinator to a significant other at home: No Alcohol intake: never Comment: Parkinson's-use cane or walker Patient Tobacco Use Status: Never used Tobacco e-Cigarette/Vaping Use: Never Used service: No Current occupational status: retired Cognitive needs: No Hearing needs: No Vision needs: Yes Review of Systems Const All systems reviewed & are unremarkable except as noted in HPI and below Denies anorexia, Denies chills, Denies fever(s) and Denies weight loss ENT Reports Normal hearing present Card Denies chest pain, Denies rapid heart rate, Denies irregular heart rhythm and Denies palpitations Resp Denies chest congestion, Denies cough, Denies hemoptysis and Denies wheezing GI Reports no additional complaints Denies nipple discharge Musc Reports no additional complaints Skin/Breast Denies breast swelling, Denies breast skin changes, Denies breast pain, Denies breast mass, Denies change in breast shape and Denies nipple discharge Neuro Reports Normal hearing present Endo Denies palpitations Yair/Lymph Denies lymphadenopathy Aller/Immun Denies wheezing Physical Exam Const General: cooperative, no acute distress and well developed Nutritional Appearance: well nourished Orientation/consciousness: patient oriented x3 Limitations: no limitations HEENT Head: Yes normocephalic and Yes atraumatic Ears: hearing grossly normal bilaterally Neck Neck: Yes no lymphadenopathy, Yes trachea midline and Yes supple Chest Other: Left breast: No skin change, no nipple retraction, no nipple discharge, no palpable mass, no enlarged lymph nodes. Right breast: No skin change, no nipple retraction, no nipple discharge, no palpable mass, no enlarged lymph nodes Resp Effort & Inspection: normal respiratory effort, no audible wheezes, no cough and no respiratory distress GI Inspection: Yes normal to inspection Skin General skin exam: no rashes or lesions noted Neuro Other: Mobility Assessment: 1. 3 meter assessment time (seconds) 7 2. Gait observations: slow tentative pace General: patient oriented x3 Cranial nerves: Yes Normal hearing present Extrem General: Yes no clubbing, cyanosis or edema Assessment & Plan Assessment & Plan (1) Family history of breast cancer: Code(s): Z80.3 - Family history of malignant neoplasm of breast Category: Medical Plan: 83-year-old female patient with a strong family history of breast cancer including her mother returning for a follow-up breast examination. Her most recent mammogram dated 12/05/2023 revealed no mammographic evidence of malignancy (BI-RADS 2). One year follow-up mammogram is scheduled for 12/05/2023. Her exam today reveals no suspicious findings in either breast. She should return in 1 year for routine breast examination but is welcome to return sooner as needed. Coding Level of Care Code Est Pt Level 3 (24831) Complex EM visit Add On G2211 Diagnoses Family history of breast cancer Z80.3
[2024-07-22 11:59] VITALS: BP 152/70; PULSE 79; BMI 35.4
--- OUTSIDE RECORDS SUMMARY | 2024-07-22 14:31 | XMS_ITS ---
Author Organization [facility] Mara zacarias [place] Address [address] [place] [address] Care Team Providers Care Desk Sergeant Name Role Phone Denise KARIMI, Iwona Meza Primary Care Provider Un available Zulay Magana Unavailable [phone] Allergies Allergen (clinical drug ingredient) Drug/Non Drug Allergy documented on EMR Reaction Allergy Type Onset Date Status 12 Hour Nasal Archbold Unknown Drug Allergy Active ibuprofen Advil Unknown Drug Allergy Active Aleve Unknown Drug Allergy Active aspirin Aspirin [...] Unknown Drug Allergy Active REASON FOR VISIT At Risk Footcare, Painful Nail(s) aggravated by shoes and causing difficulty standing/walking., Swelling Medications Medication SIG (Take, Route, Frequency, Duration) Notes Start Date End Date Status Nitro-Bid 2 % APPLY TRANSDERMALLY TWO TIMES A DAY TO AFFECTED SKIN OF BOTH FEET DIRECTED for 30 Not-Taking Pantoprazole Sodium 40 MG 1 tablet Orally Once a day Not-Taking Meclizine HCl Not-Ta sandra Probiotic Orally Not-Taking Nortripytline HCl No t-Taking Nitro-Bid 2 % as directed Transdermal apply bid to affected skin quiana feet for 30 days Active Vitamin D 1000 UNIT 1 tablet Orally Once a day Active Latanoprost 0.005 % 1 drop into affected eye in the evening Ophthalmic Once a day Not-Taking Dicyclomine HCl 20 MG 1 tablet Orally Fo ur times a day Not-Taking Timolol Hemihydrate eye drop Active BuPROPion HBr Active Fish Oil 1000 MG 2 Orally Once a day Active Carbidopa-Levodopa A ctive lipitor 1 tab Oral Active Losartan Potassium 50 MG 1 tablet Orally Once a day Active Voltaren 1 % as directed Externally Active Voltaren 1 % as directed Externally Active Compression Stockings 20-30mm Hg 1 pair wear daily: With Zippers for 30 days Active Social History Tobacco Use: Social History Observation Description Date Details (start date - stop date) Never Smoker NA - NA Tobacco use other than smoking: Question Answer Notes Are you an other tobacco user? No Tobacco Control (Standard) Question Answer Notes Tobacco use: Nonsmoker Additional Findings: Tobacco non-user Current no nsmoker AUDIT-C (Standard) Question Answer Notes Did you have a drink containing alcohol in the p ast year? No Points 0 Interpretation Negative Problems Problem Type SNOMED Code ICD Code Onset Dates Problem Status W/U Status Risk Notes Problem Atherosclerosis of [place] artery of both lower extremities, with unspecified presence of clinical manifestation (I70.203) Active confirmed Q7(A), Q8(2B), Q9(1B,2C) Vital Signs Height 5 ft 5 in in 06/17/2024 Weight 197 lbs 06/17/2024 BMI 32.78 kg/m2 06/17/2024 Blood pressure systolic 110 mm Hg 06/17/19 25 Blood pressure diastolic 70 mm Hg 025 Encounters Encounter Location Date [facility] [address] [place] [address] 06/17/2024 Zulay Magana Atherosclerosis of [place] artery of both lower extremities, with unspecified presence of clinical manifestation I70.203 ; Edema, lower extremity R60.0 ; Tinea unguium B35.1 ; Pain in right toe(s) M79.674 and Pain in left toe(s) M79.675 Assessments Encounter Date Diagnosis (ICD Code) Assessment Notes Treatment Notes Treatment Clinical Notes Section Notes 06/17/2024 Atherosclerosis of [place] artery of both lower extremities, with unspecified presence of clinical manifestation (ICD-10 - I70.203) Q7(A), Q8(2B), Q9(1B,2C) 06/17/2024 Edema, lower extremity (ICD-10 - R60.0) 06/17/2024 Tinea unguium (ICD-10 - B35.1) 06/17/2024 Pain in right toe(s) (ICD-10 - M79.674) 06/17/2024 Pain in left toe(s) (ICD-10 - M79.675) Plan Of Treatment Medication Medication Name Sig Start Date Stop Date Notes Compression Stockings 20-30m m Hg 1 pair wear daily: With Zippers for 30 days Next Appt Details Follow Up: 3 Months, Reason: Provider Name:Zulay elmore, 09/09/2024 01:00:00 PM, [address] [place] [address], [id number], Procedure Notes * Category Sub-Category Detail Notes Debride Nail 6-10 Nail debridement Due to the cl inical pathology outlined in the exam findings, performance of this nail treatment is medically necessary as its management by an unskilled/untrained nonprofessional would put this patients foot and overall health at risk. Therefore, debridement to affected nail(s), as described in exam ( TA, T1, T2, T3, T4, T5, T6, T7, T8, T9, ), was performed exclusively by the physician of record to reduce/remove overall nail length, girth, thickness, subungual debris, and necrotic tissue, by manual and/or electrical means through the use of a nail nipper and/or dremel-type cutter grinder, to a more viable healthy nail plate or bed tissue 6-10 nails in total. Silver nitrate was used for any petechial bleeding as necessary. Definitive antifungal treatment options, both pharmaceutical and surgical, have been reviewed and discussed with the patient. The patient solely prefers the use of intermittent/as needed professional debridement services for their nail condition and understands the need for additional periodic treatments to maintain effectiveness in symptomatic relief - [id number] Progress Notes * Sarai GONZALEZ RDOB:[birth year] (83 yo F)Acc No.[id number]:06/17/2024 Progress Note Patient:?Sarai GONZALEZ R Provider:?Zulay Magana DPM :1940???Age:83 Y???Sex:Female D ate:06/17/2024 Address:[facility] [address] [place], [id number] Pcp:Victoria rOtiz Subjective: * Chief Complaints: * ???At Risk FootcarePainful N ail(s) aggravated by shoes and causing difficulty standing/walking.Swelling * HPI: ???At Risk footcare:?Pt States Last PCP Visit:?Date?02/06/2024 ???Swelling:?Location:?Both feet/leg.?Duration:?several months.?Course:?worse.?Aggravating factors:?walking, standing.?Treatment:?medication, elevation.? * ROS:?General/Constitutional:?Nausea?denies.?Vomiting?denies.?Hunger Thirst?denies.?Loss appetite?denies.?Chills?denies.?Fatigue?denies.?Fever?denies.?Night Sweats?denies.?Unexplained weight loss?denies.?Unexplained weight gain?denies.?HEENTM:?Dentures?denies.?Dizziness?denies.?Glasses/contacts?admits.?Retinopathy?de nies.?Blurred/double vision?denies.?TMJ?denies.?Discharge/drainage?denies.?Implants?denies.?Sore throat?denies.?Dental implants?denies.?Hard of hearing ?denies.?Difficulty chewing/swallowing/speaking?denies.?Nose bleeds?denies.?Sore mouth?denies.?Respiratory:?On Oxygen?denies.?Pneumonia/pleurisy?denies.?Bronchitis?denies.?Emphysema?denies.?C oughing?denies.?Cough blood?denies.?Shortness of breath?denies.?Wheezing?denies.?Cardiovascular:?Pacemaker?denies.?MVP?denies.?WPW?denies.?CHF?denies.?Heart attack?denies.?Septal defect?denies.?Rapid beat?denies.?Chest pain ?denies.?Atrial Fib.?denies.?Murmur/Palpitations?denies.?Gastrointestinal:?Hemorrhoids?denies.?Stomach/Abdominal pain?denies.?Dark blood stool?denies.?Irritable bowel ?denies.?Constipation?denies.?Diarrhea?denies.?Hematology:?Swelling?admits.?Clots?denies.?Varicose Veins?denies.?Bruising?denies.?Bleeding problem?denies.?Genitourinary:?Blood urine?denies.?Frequent/Painfu/urination/bladder control?denies.?Kidney stones?denies.?Infection (UTI)?denies.?Nephropathy?denies.?sex trans dis (STD)?denies.?Prostate?denies.?Musculoskeletal:?Hammertoes?denies.?Bunions?denies.?Back Pain?denies.?Muscle Cramps/ Resting?denies.?Muscle cramps / walking?denies.?Generalized aches and pains?admits.?Weakness?denies.?Integ.:?Hines?denies.?Scars?denies.?Corns/calluses?denies.?Ingrown nails?denies.?Painful nails?denies.?Open Sores?denies.?Rashes?denies.?Neurologic:?Difficulty sleeping?denies.?Brain disorder?denies.?Numbness?admits.?Balance trouble?denies.?Confusion?denies.?Fainting/blackouts?denies.?Tingling?denies.?Tr emors?denies.? * Medical History:? * Surgical History:?hammer toe 1990carpal tunnel surgery colonoscopy 2021hysterectomy cancer 04/11/2022 * Hospitalization/Major Diagno stic Procedure:[place] patellar tendinitis - edema 03/21/24 * Family History:?Mother: dece ased, diagnosed with Other malignant neoplasm of unspecified site, Family history of arthritis.?Father: , diagnosed with Other malignant neoplasm of unspecified site.?Siblings: .? * Social History:?Tobacco Use:?Tobacco use other than smoking?Are you an other tobacco user??No ?Tobacco Control (Standard)?Tobacco use:?Nonsmoker ?Additional Findings: Tobacco non-user?Current nonsmoker ???Drugs/Alcohol:?Drugs?Have you used drugs other than those for medical reasons in the past 12 months??No ???Miscellaneous:?Caffeine: no, none. ?Children: yes, 2. ?Exercise: no. ?Marital status: . 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 ???Drug/Alcohol:?AUDIT-C (Standard)?Did you have a drink containing alcohol in the past year??No ?Points?0 ?Interpretation?Negative * Medications:?TakingVoltaren 1 % Gel as directed Externally Voltaren 1 % Gel as directed Externally BuPROPion HBr Carbidopa-Levodopa Fish Oil 1000 MG Capsule Delayed Release 2 Orally Once a day lipitor 1 tab Oral Losartan Potassium 50 MG Tablet 1 tablet Orally Once a day Timolol Hemihydrate , Notes to Pharmacist: eye dropVitamin D 1000 UNIT Tablet 1 tablet Orally Once a day Nitro-Bid 2 % Ointment as directed Transdermal apply bid to affected skin quiana feet Taking Voltaren 1 % Gel as directed Externally Taking Voltaren 1 % Gel as directed Externally Taking BuPROPion HBr Taking Carbidopa-Levodopa Taking Fish Oil 1000 MG Capsule Delayed Release 2 Orally Once a day Taking lipitor 1 tab Oral Taking Losartan Potassium 50 MG Tablet 1 tablet Orally Once a day Taking Timolol Hemihydrate , Notes to Pharmacist: eye dropTaking Vitamin D 1000 UNIT Tablet 1 tablet Orally Once a day Taking Nitro-Bid 2 % Ointment as directed Transdermal apply bid to affected skin quiana feet Not-Taking/PRNDicyclomine HCl 20 MG Tablet 1 tablet Orally Four times a day Latanoprost 0.005 % Solution 1 drop into affected eye in the evening Ophthalmic Once a day Pantoprazole Sodium 40 MG Tablet Delayed Release 1 tablet Orally Once a day Nitro-Bid 2 % Ointment APPLY TRANSDERMALLY TWO TIMES A DAY TO AFFECTED SKIN OF BOTH FEET DIRECTED Meclizine HCl Nortripytline HCl Probiotic Capsule Orally Medication List reviewed and reconciled with the patientNot-Taking/PRN Dicyclomine HCl 20 MG Tablet 1 tablet Orally Four times a day Not-Taking/PRN Latanoprost 0.005 % Solution 1 drop into affected eye in the evening Ophthalmic Once a day Not-Taking/PRN Pantoprazole Sodium 40 MG Tablet Delayed Release 1 tablet Orally Once a day Not-Taking/PRN Nitro-Bid 2 % Ointment APPLY TRANSDERMALLY TWO TIMES A DAY TO AFFECTED SKIN OF BOTH FEET DIRECTED Not-Taking/PRN Meclizine HCl Not-Taking/PRN Nortripytline HCl Not-Taking/PRN Probiotic Capsule Orally Medication List reviewed and reconciled with the patient * Allergies:?BiaxinAspirin: GE RD can't takeAdvilAleveMotrinDemerol: [id number] Hour Nasal SprayCodeineShrimp (Diagnostic)Shellfish-derived ProductsGentamicin: made with shell fishPenicillinyes[Allergies Verified] Objective: * Vitals:?Ht: 5 ft 5 in, Wt: 1 97, BMI: 32.78, Shoe size: 8M, BP: 110/70 mm Hg, Wt- k.36 kg. * Examination: ???Vascular: ?DP PULSES (B):? 0/4, B/L.?PT PULSES (B):? 0/4, B/L.?CAPILLARY FILL TIME:? delayed, all digits, B/L.?TROPHIC CONDITION-TEXTURE/ELASTICITY/TURGOR/HAIR GROWTH (B):? decreased, fragile, thin, shiny skin, with sparse to absent hair growth, B/L.?TEMPERTURE GRADIENT (C):? decreased, cool to cool, proximal to distal, B/L.?PIGMENTATION:?pale, B/L.?EDEMA (C):?, 3/4, pitting, B/L, Foot, Ankle(s), Leg(s).?Nails: ?NAILS are:? Elongated, overgrown, dystrophic, lytic, greater than 3mm thick, discolored and friable with crumbly malodorous subungual debris, with pain on palpation,TA, T1, T2, T3, T4, T5, T6, T7, T8, T9.?Dermatologic: ?SKIN FINDINGS:?, Skin exam reveals normal color, texture, elasticity, and turgor. There are no masses, nor excrescences. The interspaces are clear, B/L.?Orthopedic: ?MUSCLE STRENGTH:?5/5 all groups in a symmetrical fashion, B/L.?Neurological: ?SENSORY:?Neurological exam reveals intact sensorium, pain sensation normal, vibration sensation intact, pinprick sensation is normal in the lower extremities, Pt denies, anesthesia, burning, paresthesia, tingling, B/L.?General Examination: ?GENERAL APPEARANCE:?Reveals a pleasant, alert, well nourished, well- developed, well hydrated individual, who demonstrates proper attention to hygiene/body habitus, and is in no acute distress, Pt serves as own historian for office visit today.?ORIENTED:?person, place, and time.? Assessment: * Assessment: 1.?Atherosclerosis of [place] artery of both lower extremities, with unspecified presence of clinical manifestation - I70.203???Notes :Q7(A), Q8(2B), Q9(1B,2C)???2.?Edema, lower extremity - R60.0 (Primary)???Specify :Acute problem, Uncomplicated (3), Rx Management (4)???3.?Tinea unguium - B35.1???4.?Pain in right toe(s) - M79.674???5.?Pain in left toe(s) - M79.675??? Plan: * Treatment: * Procedures:?Debride Nail 6-10:?Nail debridement?Due to the clinical pathology outlined in the exam findings, performance of this nail treatment is medically necessary as its management by an unskilled/untrained nonprofessional would put this patients foot and overall health at risk. Therefore, debridement to affected nail(s), as described in exam ( TA, T1, T2, T3, T4, T5, T6, T7, T8, T9, ), was performed exclusively by the physician of record to reduce/remove overall nail length, girth, thickness, subungual debris, and necrotic tissue, by manual and/or electrical means through the use of a nail nipper and/or dremel-type cutter grinder, to a more viable healthy nail plate or bed tissue 6- 10 nails in total. Silver nitrate was used for any petechial bleeding as necessary. Definitive antifungal treatment options, both pharmaceutical and surgical, have been reviewed and discussed with the patient. The patient solely prefers the use of intermittent/as needed professional debridement services for their nail condition and understands the need for additional periodic treatments to maintain effectiveness in symptomatic relief - [id number].? * Procedure Codes:?22519 DEBRI DE NAIL, 6 OR MORE, Modifiers: XS * Preventive Medicine:? ??Counseling:?Discussion:?-13: Office or other outpatient visit for the evaluation and management of an established patient, which required a medically appropriate history and/or examination and LOW level of DECISION MAKING for: 1 STABLE ACUTE UNCOMPLICATED PROBLEM, 2 OR MORE MINOR PROBLEMS, OR 1 STABLE CHRONIC PROBLEM, THAT POSE(S) A LOW RISK FOR MORBIDITY/MORTALITY. The visit on the day of the encounter encompassed interpreting the data and educating the patient as to the nature of their condition, treatment options available according to their individual PMH, meds, allergies, and overall health/living conditions, as well as any potential risks or complications that may occur from a failure to adhere to, and participate in, the recommended course of therapy. The discussion included a complete verbal, and/or written explanation of the examination results, any x-rays taken, the proposed diagnosis, and outline of the treatment plan. A schedule for future care needs was also explained. The patient verbalized an understanding of the instructions at this time and agreed to be an active participant in their treatment. If the patient should think of any questions or concerns after the visit, I have encouraged the patient to call the office.?Edema:?I explained to the patient the possible etiologies for Edema, including genetic, surgery, infection, medications, heart disease, kidney disease, excess dietary salt, and various cancer treatments. We discussed the risks/benefits of the treatment options available including rest, elevation, OTC compression stockings, Rx compression stockings, Unna Boot application, diet modification to limit salt intake, and Rx segmental compression boots provided the absence of CHD in the patients medical history. The advantages and disadvantages of each option were discussed and the patients questions re: risk of infection(cellulitis), medications, diet, and the daily use of compression stockings(not to be worn at night), and consistency in these home treatment regimens for optimal success were answered to their verbally confirmed satisfaction. Given the risk for vessel clotting disease, the patient was instructed to go immediately to the ER of hospital should they experience any calf pain, SOB, or discomfort. Any changes to the patients medication regimen will be performed by the PCP or patients kidney/heart/cancer specialist. The patient has elected to receive compression stockings. Such were Rxed today with instructions for use.? ??Screening/Special Tests:?Fall Risk?Screening:?No falls in the past year ?FALLS: Screening for Future Fall Risk?Have you had any falls with injury in the past year??No * Follow Up:?3 Months * Images: * Sign off status: Completed true * Provider:?Zulay Magana DPM Date:? Generated for Catarina merino/Bryanna/Valente on:?07/22/2024 02:31 PM EST History and Physical Notes * HPI (History of Present Illness) Category Sub-Category Detail Notes Category Not es At Risk footcare Pt States Last PCP Visit: Date: 4 Swelling Location: Both feet/leg Duration: several months Course: worse Aggravating factors: walking, standing Treatment: medication, elevatio n Examination Category Sub-Category Detail Notes Category Not es Neurological SENSORY: Neurological exa m reveals intact sensorium, pain sensation normal, vibration sensation intact, pinprick sensation is normal in the lower extremities, Pt denies, anesthesia, burning, paresthesia, tingling, B/L Dermatologic SKIN FINDINGS: , Skin exam reve als normal color, texture, elasticity, and turgor. There are no masses, nor excrescences. The interspaces are clear, B/L Orthopedic MUSCLE STRENGTH: 5/5 all groups in a symmetrical fashion, B/L General Examination GENERAL APPEARANCE: Reveals a pleasant, alert, well nourished, well-developed, well hydrated individual, who demonstrates proper attention to hygiene/body habitus, and is in no acute distress, Pt serves as own historian for office visit today ORIENTED: person, place, and t jayesh Vascular DP PULSES (B): 0/4, B/L PT PULSES (B): 0/4, B/L CAPILLARY FILL TIME: delayed, all digits , B/L TEMPERTURE GRADIENT (C): decreased, cool to cool, proximal to distal, B/L TROPHIC CONDITION-TEXTURE/ELASTICITY/TURGOR/HAIR GROWTH (B): decreased, fragile, thin, shiny skin, wi th sparse to absent hair growth, B/L EDEMA (C): , 3/4, pitting, B/L, Foot, Ankle(s), Leg(s) PIGMENTATION: pale, B/L Nails NAILS are: Elongated, overg rown, dystrophic, lytic, greater than 3mm thick, discolored and friable with crumbly malodorous subungual debris, with pain on palpation,TA, T1, T2, T3, T4, T5, T6, T7, T8, T9
--- OUTSIDE RECORDS SUMMARY | 2024-07-22 14:31 | XMS_ITS | Patient Health Record ---
Author Organization [facility] Mara zacarias [place] Address [address] [place] [address] Care Team Providers Care Industrial Maintenance Repairer Helper Name Role Phone Denise KARIMI, Iwona Meza Primary Care Provider Un available Chino Zulay Unavailable [phone] Ryan Garcia Unavailable [phone] Allergies Allergen (clinical drug ingredient) Drug/Non Drug Allergy documented on EMR Reaction Allergy Type Onset Date Status 12 Hour Nasal [place] Unknown Drug Allergy Active ibuprofen Advil Unknown [...] Date Status Nitro-Bid 2 % as directed Transdermal apply bid to affected skin quiana feet for 30 days Active Vitamin D 1000 UNIT 1 tablet Orally Once a day Active Voltaren 1 % as directed Externally Active Latanoprost 0.005 % 1 drop into affected eye in the evening Ophthalmic Once a day Not-Taking Dicyclomine HCl 20 MG 1 tablet Orally Fo ur times a day Not-Taking BuPROPion HBr Active Nitro-Bid 2 % APPLY TRANSDERMALLY TWO TIMES A DAY TO AFFECTED SKIN OF BOTH FEET DIRECTED for 30 Not-Taking Voltaren 1 % as directed Externally Active Pantoprazole Sodium 40 MG 1 tablet Orally Once a day Not-Taking Compression Stockings 20-30mm Hg 1 pair wear daily: With Zippers for 30 days Active Fish Oil 1000 MG 2 Orally Once a day Active Carbidopa-Levodopa A ctive Meclizine HCl Not-Ta sandra lipitor 1 tab Oral Active Probiotic Orally Not-Taking Nortripytline HCl No t-Taking Timolol Hemihydrate eye drop Active Losartan Potassium 50 MG 1 tablet Orally Once a day Active Immunizations Vaccine Route Administration Date Status Comme [...] Status Risk Notes Problem Unspecified atherosclerosis of [place] arteries of extremities, bilateral legs (I70.203) Active confirmed Problem Localized, primary osteoarthritis of the ankle and/or foot (864162935) Primary osteoarthritis, left ankle and foot (M19.072) Active confirmed Problem Non-pressure chronic ulcer of other part of right foot limited to breakdown of skin (L97.511) Active confirmed Problem 00498938 Parkinson diseas e (G20) Active confirmed Problem 217299417 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 (I73.00) Active confirmed Problem Atherosclerosis of [place] artery of both lower extremities, with unspecified presence of clinical manifestation (I70.203) Active confirmed Q7(A), Q8(2B), Q9(1B,2 C) Vital Signs Blood pressure diastolic 70 mm Hg 06/17/2024 Height 5 ft 5 in in 06/17/2024 Blood pressure systolic 110 mm Hg 06/17/2024 Weight 197 lbs 06/17/2024 BMI 32.78 kg/m2 06/17/2024 Encounters Encounter Location Date Provider Diagnosis [facility] [place] [address] [place] [address] 09/10/2023 Ryan Garcia Ingrowing nail L60.0 ; Pain in left toe(s) M79.675 ; 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 I73.00 ; Parkinson disease G20 ; Neuralgia and neuritis, unspecified M79.2 ; Unspecified atherosclerosis of [place] arteries of extremities, bilateral legs I70.203 ; Tinea unguium B35.1 ; Pain in right toe(s) M79.674 and Primary osteoarthritis, left ankle and foot M19.[address] [address] 02/13/2024 Ryan Garcia Ingrowing nail L60.0 ; Pain in left toe(s) M79.675 ; 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 I73.00 ; Parkinson disease G20 ; Neuralgia and neuritis, unspecified M79.2 ; Unspecified atherosclerosis of [place] arteries of extremities, bilateral legs I70.203 ; Tinea unguium B35.1 ; Pain in right toe(s) M79.674 and Primary osteoarthritis, left ankle and foot M19.[address] [address] 06/17/2024 Zulay Perica Atherosclerosis of [place] artery of both lower extremities, with unspecified presence of clinical manifestation I70.203 ; Edema, lower extremity R60.0 ; Tinea unguium B35.1 ; Pain in right toe(s) M79.674 and Pain in left toe(s) M79.[address] [address] 03/18/2024 Ryan Garcia 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 I73.00 Assessments Encounter Date Diagnosis (ICD Code) Assessment Notes Treatment Notes Treatment Clinical Notes Section Notes 09/10/2023 Ingrowing nail (ICD-10 - L60.0) 09/10/2023 Pain in left toe(s) (ICD-10 - M79.675) 02/13/2024 Ingrowing nail (ICD-10 - L60.0) 02/13/2024 Pain in left toe(s) (ICD-10 - M79.675) 03/18/2024 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 (ICD-10 - I73.00) 06/17/2024 Atherosclerosis of [place] artery of both lower extremities, with unspecified presence of clinical manifestation (ICD-10 - I70.203) Q7(A), Q8(2B), Q9(1B,2C) 06/17/2024 Edema, lower extremity (ICD-10 - R60.0) 02/13/2024 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 (ICD-10 - I73.00) 06/17/2024 Tinea unguium (ICD-10 - B35.1) 09/10/2023 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 (ICD-10 - I73.00) 09/10/2023 Parkinson disease (ICD-10 - G20) 02/13/2024 Parkinson disease (ICD-10 - G20) 06/17/2024 Pain in right toe(s) (ICD-10 - M79.674) 02/13/2024 Neuralgia and neuritis, unspecified (ICD-10 - M79.2) 06/17/2024 Pain in left toe(s) (ICD-10 - M79.675) 09/10/2023 Neuralgia and neuritis, unspecified (ICD-10 - M79.2) 09/10/2023 Unspecified atherosclerosis of [place] arteries of extremities, bilateral legs (ICD-10 - I70.203) 02/13/2024 Unspecified atherosclerosis of [place] arteries of extremities, bilateral legs (ICD-10 - [...] X ray : Foot, left 3V 09/23/2014 99209-Iqoy Destruction, 1-14 10/28/2014 19250-Wnab Destruction, 1-14 09/23/2014 74832-Jwasdief Plate 09/13/2016 35600-Yjnjlgee Plate 06/25/2017 54981-FAE 11/01/2017 89976- Debride <25 sq cm 11/15/2017 07053- Debride <25 sq cm 12/05/2017 45283-ONKI SKIN LESIONS, 2 TO 4 06/30/19 Next Appt Details Provider Name:Zulay elmore, 09/09/2024 01:00:00 PM, [address] [place], [address], Insurance Providers Payer Name Payer Address Payer Phone Subscriber Number Group Number Insured Name Patient Relationship to Insured Coverage Start Date Coverage End Date Medicare National Govt [employer] [address] [place] [address] [id number] Sarai Ramon Self - patient is the insured [employer] Blue [employer] [address] [place] [address] [phone] [id number] Sarai Ramon Self - patient is the insured Medical (General) History Medical History History ICD Code Back,Hip,and Knee pain Cancer Depression Fibromyalgia High blood pressure Reflux Measles Mumps Chicken pox Neuropathy Irritable bowel syndrome edema patellar tendinitis Surgical History Surgery Date(Month/Year) hammer toe 1989 carpal tunnel surgery colonoscopy 2021 hysterectomy cancer 04/11/2022 Hospitalization History Reason Date(Month/[place] [facility] [place] - [place]13
--- OUTSIDE RECORDS SUMMARY | 2024-07-22 14:31 | XMS_ITS | Patient Health Record ---
Author Organization [facility] Address [address] [place] [address] Care Team Providers Care Restaurant Inspector Name Role Phone Denise KARIMI, Iwona Primary Care Provider Maury Ram Jr Unavailable ALLERGIES Allergen (clinical drug ingredient) Drug/Non Drug Allergy documented on EMR Reaction Allergy Type Onset Date Status Penicillin Unknown Drug Allergy Active PredniSONE Unknown Drug Allergy Active acetaminophen / oxycodone Percocet Unknown Drug Allergy Active erythromycin Erythromycin Unknown Drug Allergy A ctive Codeine Phosphate Unknown Drug Allergy Active Shellfish (FN) shell fish (uncoded) Unknown Allergy Active REASON FOR REFERRAL No Information [...] Problem Colon cancer screening (Z12.11) Active confirmed 134179396 Problem Gastroesophageal reflux disease without esophagitis (K21.9) Active confirmed 904047334 Problem Lactose intolerance (E73.9) Active confirmed 486080788 Problem Irritable bowel syndrome, unspecified type (K58.9) Active confirmed 87284827 Problem Esophageal reflux disease (K21.9) Active confirmed 091173468 PLAN OF TREATMENT Pending Test Test Name Order Date CBC w/o DIFF 02/28/2017 CT ABD & PELVIS WITH CONTRAST 02/28/2017 Future Test Test Name Order Date COLONOSCOPY 06/23/2011 COLONOSCOPY 08/09/2016 COLONOSCOPY 05/04/2021 Insurance Providers Payer Name Payer Address Payer Phone Subscriber Number Group Number Insured Name Patient Relationship to Insured Coverage Start Date Coverage End Date MEDICARE OF [place] [address] [place] [address] [id number] GIL GONZALEZ Self - patient is the insured MED[employer] ATTN CLAIMS [address] [place] [address] [id number] GIL GONZALEZ Self - patient is the insured MEDICAL (GENERAL) HISTORY Medical History History ICD Code esophageal reflux urinary urgency depression osteoarthritis fibromyalgia irritable bowel syndrome glaucoma elevated cholesterol parkinsons disease unsteady gait Surgical History Surgery Date(Month/Year) carpal tunnel surgery hammer toe tonsillectomy adnoids
--- OUTSIDE RECORDS SUMMARY | 2024-07-22 14:31 | XMS_ITS ---
Author Organization [facility] Address [address] [place] [address] Care Team Providers Care Instructor Dancing Name Role Phone Denise KARIMI, Iwona Meza Primary Care Provider Un available Zulay Magana Unavailable [phone] Ryan Garcia Unavailable [phone] REASON FOR VISIT Refill Request Medications Medication SIG (Take, Route, Frequency, Duration) Notes Start Date End Date Status Nitro-Bid 2 % as directed Transder mal apply bid to affected skin quiana feet for 30 days Active Encounters Encounter Location Date Provider Diagnosis [facility] [address] [place] [address] 03/18/2024 Ryan Garcia 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 [...] days Next Appt Details Provider Name:Zulay elmore, 09/09/2024 01:00:00 PM, [address] [place], [address], Progress Notes * Sarai GONZALEZ RDOB:[birth year] (83 yo F)Acc No.[id number]:03/18/2024 Patient:?GonzalezSarai :1940???Age:83 Y???Sex:Female Address:[address] [place] [address], [place] [address] * Refills? Refill Nitro-Bid Ointment, 2 %, Transdermal, 90, as directed, apply bid to affected skin quiana feet, 30 days, Refills=4 * true * Date:? Generated for Catarina merino/Bryanna/Kavyasmitting on:?07/22/2024 02:31 PM EST
--- OUTSIDE RECORDS SUMMARY | 2024-07-22 14:31 | XMS_ITS ---
Author Organization [facility] Mara zacarias [place] Address [address] [facility] [place] [address] Care Team Providers Care Fisher Lobster Name Role Phone Denise KARIMI, Iwona Meza Primary Care Provider Un available Chino Zulay Unavailable [phone] GarciaRyan Unavailable [phone] Allergies Allergen (clinical drug ingredient) Drug/Non Drug Allergy documented on EMR Reaction Allergy Type Onset Date Status 12 Hour Nasal [place] Unknown Drug Allergy Active ibuprofen Advil Unknown [...] 02/13/2024 Encounters Encounter Location Date Provider Diagnosis [facility] [address] [address] 02/13/2024 Ryan Garcia Ingrowing nail L60.0 ; Pain in left toe(s) M79.675 ; 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 I73.00 ; Parkinson disease G20 ; Neuralgia and neuritis, unspecified M79.2 ; Unspecified atherosclerosis of [place] arteries of extremities, bilateral legs I70.203 ; [...] (ICD-10 - M79.2) 02/13/2024 Unspecified atherosclerosis of [place] arteries of extremities, bilateral legs (ICD-10 - [...] Reason: Provider Name:Zulay elmore, 09/09/2024 01:00:00 PM, [address] [place] [address], [address], Procedure Notes * Category Sub-Category Detail Notes [...] as necessary. Patient chooses, no pharmaceutical tx (19929) Keratoma Treatment Parring or Cutting o f Benign Hyperkeratotic Lesion(s) 54111 (2-4 Lesions) - The Benign hyperkeratotic lesions, as described above were pared, and/or cut utilizing a sterile #15 blade, tissue nippers, and/or dremel, Q8 Progress Notes * CARLOS Sarai RDOB:[birth year] (83 yo F)Acc No.[id number]:02/13/2024 Progress Note Patient:?Sarai Ramon R Provider:?Ryan Garcia DPM :1940???Age:83 Y???Sex:Female D ate:02/13/2024 Address:[address] [place] [address] [facility], [id number] Pcp:Victoria Ortiz Subjective: * Chief Complaints: * [...] 2021hysterectomy cancer 04/11/2022 * Hospitalization/Major Diagno stic Procedure:?Denies [...] 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 ?Marital status: . 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 * Medications:?TakingVoltaren 1 % Gel as directed [...] patient * Allergies:?BiaxinAspirin: GE RD can't takeAdvilAleveMotrinDemerol: [id number] Hour Nasal SprayCodeineShrimp (Diagnostic)Shellfish-derived ProductsGentamicin: made with [...] and neuritis, unspecified - M79.2?6.?Unspecified atherosclerosis of [place] arteries of extremities, bilateral legs - I70.203?7.?Tinea [...] as necessary. Patient chooses, no pharmaceutical tx (33548).?Keratoma Treatment:?Parring or Cutting of Benign Hyperkeratotic Lesion(s)?06577 (2-4 Lesions) - The Benign hyperkeratotic lesions, as described above were pared, and/or cut utilizing a sterile #15 blade, tissue nippers, and/or dremel, Q8.? * Procedure Codes:?63011 DEBRI DE NAIL, 6 OR MORE, Modifiers: XS 59013 TRIM SKIN LESIONS, 2 TO 4, Modifiers: Q8 * Follow Up:?3 Months * Images: * Sign off status: Completed true * Provider:?Ryan Garcia DPM Date:? 024 Generated for Catarina merino/Bryanna/Serafinitting on:?07/22/2024 02:31 PM EST History and Physical [...]
== END 2024-07-22 12:16 | disposition home or self-care (01) ==
PROVIDERS: PCP Internal Medicine; Visit Provider Surgery
DX: Z80.3 Family history of malignant neoplasm of breast (principal)
CPT/HCPCS: 99213; G2211

== ENCOUNTER → 2024-07-22 11:27 | Outpatient (BNVA) | payer MEDICARE, SELFPAY | PROVIDERS: PCP Internal Medicine; Visit Provider Surgery | DX: Z85.42 Personal history of malignant neoplasm of other parts of uterus (principal); Z90.710 Acquired absence of both cervix and uterus; Z80.3 Family history of malignant neoplasm of breast | CPT/HCPCS: 99212 ==

== ENCOUNTER 2024-08-19 07:47 | Outpatient (REF) | payer MEDICARE, SELFPAY ==
--- OUTSIDE RECORDS SUMMARY | 2024-08-19 07:50 | XMS_ITS ---
Author Organization [facility] Mara zacarias [place] Address [address] [facility] [address] Care Team Providers Care Traveling Sales Executive Name Role Phone Denise KARIMI, Iwona Meza Primary Care Provider Un available Zulay Magana Unavailable [phone] Allergies Allergen (clinical drug ingredient) Drug/Non Drug Allergy documented on EMR Reaction Allergy Type Onset Date Status 12 Hour Nasal [place] Unknown Drug Allergy Active ibuprofen Advil Unknown [...] W/U Status Risk Notes Problem Atherosclerosis of [place] artery of both lower extremities, with unspecified presence of clinical manifestation (I70.203) Active confirmed Q7(A), Q8(2B), Q9(1B,2C) Vital Signs Height 5 ft 5 in in 06/17/2024 Weight 197 lbs 06/17/2024 BMI 32.78 kg/m2 06/17/2024 Blood pressure systolic 110 mm Hg 06/17/19 25 Blood pressure diastolic 70 mm Hg 025 Encounters Encounter Location Date [facility] [address] [place] [address] 06/17/2024 Zulay Magana Atherosclerosis of [place] artery of both lower extremities, with unspecified presence of clinical manifestation I70.203 ; Edema, lower extremity R60.0 ; Tinea unguium B35.1 ; Pain in right toe(s) M79.674 and Pain in left toe(s) M79.675 Assessments Encounter Date Diagnosis (ICD Code) Assessment Notes Treatment Notes Treatment Clinical Notes Section Notes 06/17/2024 Atherosclerosis of [place] artery of both lower extremities, with unspecified [...] Reason: Provider Name:Zulay elmore, 09/09/2024 01:00:00 PM, [address] [place] [address], [phone], Procedure Notes * Category Sub-Category Detail Notes [...] use of a nail nipper and/or dremel-type grinder and honer operator automatic, to a more viable healthy nail plate [...] to maintain effectiveness in symptomatic relief - 21479 Progress Notes * Sarai GONZALEZ RDOB:[birth year] (83 yo F)Acc No.[id number]:06/17/2024 Progress Note Patient:?Sarai GONZALEZ R Provider:?Zulay Magana DPM :1940???Age:83 Y???Sex:Female D ate:06/17/2024 Address:[facility] [place], [id number] Pcp:Victoria Ortiz Subjective: * Chief Complaints: * ???At Risk [...] 2021hysterectomy cancer 04/11/2022 * Hospitalization/Major Diagno stic Procedure:?[facility] [place] [facility]- patellar tendinitis - edema 03/21/24 * [...] ?Exercise: no. ?Marital status: . 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 ???Drug/Alcohol:?AUDIT-C (Standard)?Did you have a drink containing [...] patient * Allergies:?BiaxinAspirin: GE RD can't takeAdvilAleveMotrinDemerol: [id number] Hour Nasal SprayCodeineShrimp (Diagnostic)Shellfish-derived ProductsGentamicin: made with [...] and time.? Assessment: * Assessment: 1.?Atherosclerosis of [place] artery of both lower extremities, with unspecified [...] use of a nail nipper and/or dremel-type grinder and honer operator automatic, to a more viable healthy nail plate [...] to maintain effectiveness in symptomatic relief - 39420.? * Procedure Codes:?22422 DEBRI DE NAIL, 6 OR MORE, Modifiers: [...] Magana DPM Date:? Generated for Catarina merino/Bryanna/Valente on:?08/19/2024 07:50 AM EDT History and Physical Notes * HPI [...]
--- OUTSIDE RECORDS SUMMARY | 2024-08-19 07:50 | XMS_ITS ---
Author Organization [facility] Mara zacarias [place] Address [address] [place] [address] Care Team Providers Care Hazardous Waste Remover Name Role Phone Denise KARIMI, Iwona Meza Primary Care Provider Un available Chino Zulay Unavailable [phone] GarciaRyan Unavailable [phone] Allergies Allergen (clinical drug ingredient) Drug/Non Drug Allergy documented on EMR Reaction Allergy Type Onset Date Status 12 Hour Nasal [place] Unknown Drug Allergy Active ibuprofen Advil Unknown [...] 02/13/2024 Encounters Encounter Location Date Provider Diagnosis [facility] [address] [address] 02/13/2024 Ryan Garcia Ingrowing nail L60.0 ; Pain in left toe(s) M79.675 ; 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 I73.00 ; Parkinson disease G20 ; Neuralgia and neuritis, unspecified M79.2 ; Unspecified atherosclerosis of [place] arteries of extremities, bilateral legs I70.203 ; [...] (ICD-10 - M79.2) 02/13/2024 Unspecified atherosclerosis of [place] arteries of extremities, bilateral legs (ICD-10 - [...] Reason: Provider Name:Zulay elmore, 09/09/2024 01:00:00 PM, [address] [place] [address], [address], Procedure Notes * Category Sub-Category Detail Notes [...] as necessary. Patient chooses, no pharmaceutical tx (82905) Keratoma Treatment Parring or Cutting o f Benign Hyperkeratotic Lesion(s) 10731 (2-4 Lesions) - The Benign hyperkeratotic lesions, as described above were pared, and/or cut utilizing a sterile #15 blade, tissue nippers, and/or dremel, Q8 Progress Notes * CARLOS Sarai RDOB:[birth year] (83 yo F)Acc No.[id number]:02/13/2024 Progress Note Patient:?Sarai Ramon R Provider:?Ryan Garcia DPM :1940???Age:83 Y???Sex:Female D ate:02/13/2024 Address:[address] [place] [address] [facility], [id number] Pcp:Victoria Ortiz Subjective: * Chief Complaints: * [...] 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 ?Marital status: . 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 * Medications:?TakingVoltaren 1 % Gel as directed [...] patient * Allergies:?BiaxinAspirin: GE RD can't takeAdvilAleveMotrinDemerol: [id number] Hour Nasal SprayCodeineShrimp (Diagnostic)Shellfish-derived ProductsGentamicin: made with [...] and neuritis, unspecified - M79.2?6.?Unspecified atherosclerosis of [place] arteries of extremities, bilateral legs - I70.203?7.?Tinea [...] as necessary. Patient chooses, no pharmaceutical tx (69182).?Keratoma Treatment:?Parring or Cutting of Benign Hyperkeratotic Lesion(s)?54214 (2-4 Lesions) - The Benign hyperkeratotic lesions, as described above were pared, and/or cut utilizing a sterile #15 blade, tissue nippers, and/or dremel, Q8.? * Procedure Codes:?82215 DEBRI DE NAIL, 6 OR MORE, Modifiers: XS 16358 TRIM SKIN LESIONS, 2 TO 4, Modifiers: Q8 * Follow Up:?3 Months * Images: * Sign off status: Completed true * Provider:?Ryan Garcia DPM Date:? 024 Generated for Catarina merino/Bryanna/eTcashsmitting on:?08/19/2024 07:49 AM EDT History and Physical Notes * [...]
--- OUTSIDE RECORDS SUMMARY | 2024-08-19 07:50 | XMS_ITS ---
Author Organization [facility] Address [address] [place] [address] Care Team Providers Care Agency Sales Representative Name Role Phone Denise KARIMI, Iwona Meza Primary Care Provider Un available Zulay Magana Unavailable [phone] Ryan Garcia Unavailable [phone] REASON FOR VISIT Refill Request Medications Medication SIG (Take, Route, Frequency, Duration) Notes Start Date End Date Status Nitro-Bid 2 % as directed Transder mal apply bid to affected skin quiana feet for 30 days Active Encounters Encounter Location Date Provider Diagnosis [facility] [address] [place] [address] 03/18/2024 Ryan Garcia 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 [...] Provider Name:Zulay elmore, 09/09/2024 01:00:00 PM, [address] [place], [address], Progress Notes * Sarai GONZALEZ RDOB:[birth year] (83 yo F)Acc No.[id number]:03/18/2024 Patient:?GonzalezSarai :1940???Age:83 Y???Sex:Female Address:[address] [place] [address], [place] [address] * Refills? Refill Nitro-Bid Ointment, 2 %, Transdermal, 90, as directed, apply bid to affected skin quiana feet, 30 days, Refills=4 * true * Date:? Generated for Catarina merino/Bryanna/Kavyasmitting on:?08/19/2024 07:50 AM EDT
--- OUTSIDE RECORDS SUMMARY | 2024-08-19 07:50 | XMS_ITS | Patient Health Record ---
Author Organization [facility] Mara zacarias [place] Address [address] [facility] [place] [address] Care Team Providers Care Power Systems Engineer Name Role Phone Denise KARIMI, Iwona Meza Primary Care Provider Un available Chino Zulay Unavailable [phone] Ryan Garcia Unavailable [phone] Allergies Allergen (clinical drug ingredient) Drug/Non Drug Allergy documented on EMR Reaction Allergy Type Onset Date Status 12 Hour Nasal [place] Unknown Drug Allergy Active ibuprofen Advil Unknown [...] Problem Status W/U Status Risk Notes Problem Bilateral atherosclerosis of arteries of lower limbs (disorder) (26562517059844678 ) Unspecified atherosclerosis of bad river band arteries of extremities, bilateral legs (I70.203) Active confirmed Problem Localized, primary osteoarthritis of the ankle and/or foot (772161237) Primary osteoarthritis, left ankle and foot (M19.072) Active confirmed Problem Non-pressure chronic ulcer of other part of right foot limited to breakdown of skin (L97.511) Active confirmed Problem 71425187 Parkinson diseas e (G20) Active confirmed Problem 034194867 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 (I73.00) Active confirmed Problem Atherosclerosis of bad river band artery of both lower extremities, with unspecified presence of clinical manifestation (I70.203) Active confirmed Q7(A), Q8(2B), Q9(1B,2 C) Vital Signs Blood pressure diastolic 70 mm Hg 06/17/2024 Height 5 ft 5 in in 06/17/2024 Blood pressure systolic 110 mm Hg 06/17/2024 Weight 197 lbs 06/17/2024 BMI 32.78 kg/m2 06/17/2024 Encounters Encounter Location Date Provider Diagnosis [facility] [address] [place] [address] 09/10/2023 Ryan Garcia Ingrowing nail L60.0 ; Pain in left toe(s) M79.675 ; 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 I73.00 ; Parkinson disease G20 ; Neuralgia and neuritis, unspecified M79.2 ; Unspecified atherosclerosis of bad river band arteries of extremities, bilateral legs I70.203 ; Tinea unguium B35.1 ; Pain in right toe(s) M79.674 and Primary osteoarthritis, left ankle and foot M19.[address] [address] 02/13/2024 Ryan Garcia Ingrowing nail L60.0 ; Pain in left toe(s) M79.675 ; 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 I73.00 ; Parkinson disease G20 ; Neuralgia and neuritis, unspecified M79.2 ; Unspecified atherosclerosis of bad river band arteries of extremities, bilateral legs I70.203 ; Tinea unguium B35.1 ; Pain in right toe(s) M79.674 and Primary osteoarthritis, left ankle and foot M19.[address] [address] 06/17/2024 Zulay Perica Atherosclerosis of bad river band artery of both lower extremities, with unspecified presence of clinical manifestation I70.203 ; Edema, lower extremity R60.0 ; Tinea unguium B35.1 ; Pain in right toe(s) M79.674 and Pain in left toe(s) M79.[address] [address] 03/18/2024 Ryan Garcia 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 I73.00 Assessments Encounter Date Diagnosis (ICD Code) Assessment Notes Treatment Notes Treatment Clinical Notes Section Notes 09/10/2023 Ingrowing nail (ICD-10 - L60.0) 09/10/2023 Pain in left toe(s) (ICD-10 - M79.675) 02/13/2024 Ingrowing nail (ICD-10 - L60.0) 02/13/2024 Pain in left toe(s) (ICD-10 - M79.675) 03/18/2024 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 (ICD-10 - I73.00) 06/17/2024 Atherosclerosis of bad river band artery of both lower extremities, with unspecified [...] (ICD-10 - M79.2) 09/10/2023 Unspecified atherosclerosis of bad river band arteries of extremities, bilateral legs (ICD-10 - I70.203) 02/13/2024 Unspecified atherosclerosis of bad river band arteries of extremities, bilateral legs (ICD-10 - [...] X ray : Foot, left 3V 09/23/2014 42738-Sjsd Destruction, 1-14 10/28/2014 26069-Wztq Destruction, 1-14 09/23/2014 88712-Yanwpzaq Plate 09/13/2016 53679-Wnhpwshe Plate 06/25/2017 55852-DCA 11/01/2017 05816- Debride <25 sq cm 11/15/2017 98279- Debride <25 sq cm 12/05/2017 03610-ZQGY SKIN LESIONS, 2 TO 4 06/30/19 Next Appt Details Provider Name:Zulay elmore, 09/09/2024 01:00:00 PM, [address] [facility], [place], [address], Insurance Providers Payer Name Payer Address Payer Phone Subscriber Number Group Number Insured Name Patient Relationship to Insured Coverage Start Date Coverage End Date Medicare National Govt [employer] [address] [facility] [address] [id number] Sarai Ramon Self - patient is the insured [employer] [address] [place] [address] [id number] Sarai Ramon Self - patient is the insured Medical (General) History Medical History History ICD Code Back,Hip,and Knee pain Cancer Depression Fibromyalgia High blood pressure Reflux Measles Mumps Chicken pox Neuropathy Irritable bowel syndrome edema patellar tendinitis Surgical History Surgery Date(Month/Year) hammer toe 1989 carpal tunnel surgery colonoscopy 2021 hysterectomy cancer 04/11/2022 Hospitalization History Reason Date(Month/Year) [facility] [place] patellar tendinitis - edema 06/13
[2024-08-19 11:22] LABS: Alanine Aminotransferase 8 U/L (0-31); Anion Gap 11 (12-20); Aspartate Amino Transferase 27 U/L (5-31); Blood Urea Nitrogen 23 mg/dL (9-16); Calcium 9.2 mg/dL (8.4-10.2); Carbon Dioxide 25 mmol/L (22-29); Chloride 109 mmol/L (96-108); Cholesterol 143 mg/dL (<200); Estimated Glomerular Filt Rate > 60; Glucose Fasting 108 mg/dL (60-99); HDL Cholesterol 40 mg/dL (>40); LDL Cholesterol Calculated 79 mg/dL (<100); Potassium 4.3 mmol/L (3.3-5.1); Sodium 141 mmol/L (135-145); Triglycerides 120 mg/dL (<150)
[2024-08-19 11:33] LABS: Vitamin D 25-OH Total 56.8 ng/mL (>30)
== END 2024-08-19 07:48 | disposition home or self-care (01) ==
LOC: HO.HMGCLDS 07:47
PROVIDERS: PCP Internal Medicine; Visit Provider Internal Medicine
DX: R73.01 Impaired fasting glucose (principal); I10 Essential (primary) hypertension; E78.2 Mixed hyperlipidemia; Z78.0 Asymptomatic menopausal state
CPT/HCPCS: 36415; 80048; 80061; 82306; 84450; 84460

== ENCOUNTER 2024-08-21 12:33 | Outpatient (AMB) | payer MEDICARE, SELFPAY ==
[2024-08-21 12:36] VITALS: BP 148/66; PULSE 77; TEMP 36.8; O2SAT 96; BMI 35.0
--- NOTE | 2024-08-21 12:36 | A.OFFPC_ITS ---
Vital Signs 08/21/24 12:36 Height 5 ft 5 in Weight 210 lb 6 oz BMI 35.0 BP 148/66 H Blood Pressure Location Lt brachial Position Sitting Pulse 77 Pulse Source Pulse Oximeter Temp 98.2 F Temp Source Oral Pulse Oximetry (%) 96 Oxygen Delivery Method Room Air Intake Visit Reasons: f/u labs DM and lipids Intake Note: Pt is here today for follow on labs. Allergies shellfish derived Allergy (Severe, Verified 08/24/24 04:51) Anaphylaxis oxycodone [OXYCODONE] Allergy (Intermediate, Verified 08/24/24 04:51) Itching Penicillins [PCN] Allergy (Intermediate, Verified 08/24/24 04:51) RASH aspirin [ASPIRIN] Allergy (Unknown, Verified 08/24/24 04:51) UNKNOWN codeine Adverse Reaction (Intermediate, Verified 08/24/24 04:51) Nausea and Vomiting erythromycin base Adverse Reaction (Intermediate, Verified 08/24/24 04:51) Gastrointestinal Upset lisinopril Adverse Reaction (Intermediate, Verified 08/24/24 04:51) cough Medication List - Last Reconciled 08/24/24 by Iwona Walker MD acetaminophen 1,000 mg (2 x 500 mg) PO Q6H PRN atorvastatin 20 mg PO DAILY bupropion HCl SR 200 mg PO BID 90 days carbidopa-levodopa 50-200 mg ER 1 tab PO TID cholecalciferol (vitamin D3) 25 mcg PO DAILY dicyclomine 20 mg PO BID furosemide 20 mg PO QAM losartan 50 mg PO DAILY nitroglycerin 2% (Nitro-Bid) 1 inch transdermal BID omega-3 fatty acids (Fish Oil Concentrate) 1,000 mg PO DAILY timolol maleate 0.5% 1 drp ophthalmic (eye) BID Tobacco use date assessed: 08/21/24 Fall risk assessment: No Falls in past year Last assessed Fall Risk: 08/21/24 Dental Screening Dental Screen Date: 08/21/24 Did you have a dental visit in the last 12 months?: Yes Did you have a dental problem in the last 6 months where you did not have access to dental care?: No Was dental information given to patient?: Patient has dentist HPI f/u labs DM and lipids HPI Details 83 year old lady with past medical histo ry of endometrial adenocarcinoma; has Parkinson's disease, stable controlled on present treatment, has Hyperlipidemia, Seasonal allergies, glaucoma, IBS, and depression currently controlled on Bupropion HCL SR , here today for follow-up visit. She has been feeling well except for pain and stiffness in her left knee. She has been seen at [facility] orth[facility] , told that she has a Hayes's cyst and arthritis in her knee, has been taking Tylenol arthritis which has not afforded any significant relief, and received steroid injection her left knee last month. Patient states that injections only afforded approximately 3 weeks of pain relief, would like a referral to [facility] for a 2nd opinion. [facility] Medical History (Updated 08/24/24 @ 05:10 by Iwona Walker MD) History of carpal tunnel syndrome Left anterior knee pain Impaired fasting glucose Urinary incontinence Gait instability Essential hypertension Osteoarthritis IBS (irritable bowel syndrome) Parkinson disease Tremor of right hand Glaucoma Seasonal allergies Depression GERD (gastroesophageal reflux disease) Hyperlipidemia Fibromyalgia Surgical History H/O: hysterectomy History of esophagogastroduodenoscopy (EGD) H/O colonoscopy History of carpal tunnel surgery Family History Mother History of breast cancer Father History of throat cancer Paternal Grandmother History of liver cancer Social History Housing: House Are you a primary medicare compliance auditor to a significant other at home: No Alcohol intake: never Comment: Parkinson's-use cane or walker Patient Tobacco Use Status: Never used Tobacco e-Cigarette/Vaping Use: Never Used service: No Current occupational status: retired Cognitive needs: No Hearing needs: No Vision needs: Yes Questionnaire PHQ-9 Over the last 2 weeks, how often have you been bothered by any of the following problems? 1. Little interest or pleasure in doing things: not at all 2. Feeling down, depressed, or hopeless: not at all 3. Trouble falling or staying asleep, or sleeping too much: not at all 4. Feeling tired or having little energy: not at all 5. Poor appetite or overeating: not at all 6. Feeling bad about yourself - or that you are a failure or have let yourself or your family down: not at all 7. Trouble concentrating on things, such as reading the newspaper or watching television: not at all 8. Moving or speaking so slowly that other people could have noticed. Or the opposite - being so fidgety or restless that you have been moving around a lot more than usual: not at all 9. Thoughts that you would be better off or of hurting yourself in some way: not at all Total score: 0 Depression Screening Interpretation: Negative Depression Screening Done: Yes 72881 - PHQ-9 Billing: Yes Source: Developed by Drs. Milo Maurice, Tyesha Fox, Cj Gregory and colleagues, with an educational hernandez from [employer]. Thrive Questionnaire Date Thrive assessed: 08/21/24 I am a: Patient What is your living situation today?: I have a steady place to live Within the past 12 months, did the food you bought not last and you didn't have the money to get more?: Never true Within the past 12 months, did you worry whether your food would run out before you got money to buy more?: Never true Do you have trouble paying for medicines?: No Do you have trouble getting transportation to medical appointments?: No Do you have trouble paying your heating and electricity bill?: No Do you have trouble taking care of your child, family member or friend?: No Do you have trouble with day-to-day activities such as bathing, preparing meals, shopping, managing finances, etc.?: I choose not to answer this question Are you currently unemployed and looking for a job?: No Are you interested in more education?: No Please select the resources that you would like help with: None Currently or been in a relationship where the following occur: No concerns reported THRIVE Score: 0 AUDIT C Alcohol Use Questionnaire (AUDIT-C) 1. How often do you have a drink containing alcohol?: Never 3. How often do you have six or more drinks on one occasion?: Never Total Score: 0 Score Reviewed/Action Taken: Yes FOREST-7 AMB Questionnaire FOREST-7 Date FOREST - 7 assessed: 08/21/24 Feeling nervous, anxious, or on edge: 0 = Not at all Not being able to stop or control worryin = Not at all Worrying too much about different things: 0 = Not at all Trouble relaxin = Not at all Being so restless that it is hard to sit still: 0 = Not at all Becoming easily annoyed or irritable: 0 = Not at all Feeling afraid as if something awful might happen: 0 = Not at all Total FOREST-7 score (0-4 normal; 5-9 mild; 10-14 moderate; 15-21 severe): 0 Source: Developed by Drs. Milo Maurice, Tyesha Fox, Cj Gregory and colleagues, with an educational hernandez from [employer]. FOREST-7 Assessment Billing FOREST-7 Assessment Tool: FOREST-7 Assessment 72404 Review of Systems Const Denies anorexia, Denies chills and Denies fever(s) Eyes Denies change in vision ENT Reports Normal hearing present Card Denies chest pain, Denies rapid heart rate and Denies irregular heart rhythm Resp Denies chest congestion, Denies cough, Denies hemoptysis and Denies wheezing GI Reports no additional complaints Reports no additional complaints Musc Reports as per HPI Neuro Reports Normal hearing present Psych Reports no additional complaints Endo Reports no additional complaints Yair/Lymph Denies lymphadenopathy Aller/Immun Denies wheezing Physical exam (Primary Care) Vital Signs: Last Vital Signs Temp 98.2 F 08/21/24 12:36 Pulse 77 08/21/24 12:36 BP 148/66 H 08/21/24 12:36 Pulse Ox 96 08/21/24 12:36 Oxygen Delivery Method Room Air 08/21/24 12:36 BMI result Body Mass Index 35.0 Tobacco/Smoking Status: Tobacco use Status Tobacco use date assessed 08/21/24 08/21/24 12:39 Patient Tobacco Use Status Never used Tobacco 08/21/24 12:39 e-Cigarette/Vaping Use Never Used 08/21/24 12:39 PHQ-9: PHQ-9 Score PHQ-9: Total score 0 08/21/24 13:07 Depression Screening Interpretation: Negative Thrive Assessment: Date of Thrive Assessment Date Thrive assessed 08/21/24 08/21/24 12:44 Currently or been in a relationship where the following occur: No concerns reported Const General: comfortable, no acute distress and alert Orientation/consciousness: patient oriented x3 HENMT Ears: external ears normal General nose exam: Normal external nose present Mouth: Normal oral and palatal mucosa present, oropharynx normal and moist mucous membranes Eyes General: appearance normal, both eyes and all related structures Neck Neck: Yes full ROM, Yes no lymphadenopathy and Yes supple Resp Effort & Inspection: normal respiratory effort and able to speak in complete sentences Auscultation: clear to auscultation bilaterally Cardio Rate: regular rate Rhythm: regular rhythm (Occasional skipped beat) Heart sounds: S1 normal heart sound present and S2 normal heart sound present GI Palpation (GI): Soft to palpation, nontender and no masses Auscultation: normal bowel sounds Neuro Other: Mild tremors noted in both hands General: patient oriented x3, tone normal, moves all extremities, Normal light touch and pain sensation and no focal motor deficits Cranial nerves: Yes Normal hearing present Cognition (Neuro): normal cognition Extrem Other: Crepitus in both knees left more than right, slight swelling on anterior aspect of left knee joint, no cyst or any mass in popliteal area palpated, negative calf tenderness Psych Appearance: grossly normal and well kempt Mental Status: mental status grossly normal Speech and movement: Clear speech present and Slowed movement present (Neuro) Affect: normal affect Thought process: Normal thought process present Thought content: Normal thought content present Coding Level of Care Code Est Pt Level 4 (57530) Complex EM visit Add On G2211 Diagnoses Primary osteoarthritis of left knee M17.12 Osteoarthritis type: primary Localized swelling of both lower legs R22.43 Essential hypertension I10 Parkinson's disease with fluctuating manifestations, unspecified whether dyskinesia present G20.A2 Dyskinesia presence: unspecified whether dyskinesia Fluctuating manifestations: with fluctuating manifestations Recurrent major depressive disorder, in partial remission F33.41 Active/Remission status: in partial remission Depression Type: major depressive disorder Major depression recurrence: recurrent Glaucoma H40.9 Irritable bowel syndrome, unspecified type K58.9 Irritable bowel syndrome type: unspecified Impaired fasting glucose R73.01 Additional Codes FOREST-7 Assessment Billing - FOREST-7 Assessment Tool: FOREST-7 Assessment 91193 ([id number]) PHQ-9 - 75346 - PHQ-9 Billing: Yes ([id number]) Assessment & Plan Assessment & Plan (1) Osteoarthritis of left knee: Code(s): M17.12 - Unilateral primary osteoarthritis, left knee Category: Medical Qualifiers: Osteoarthritis type: primary Qualified Code(s): M17.12 - Unilateral primary osteoarthritis, left knee Plan: Referred to [facility] for further evaluation management, patient requesting 2nd opinion (2) Localized swelling of both lower legs: Code(s): R22.43 - Localized swelling, mass and lump, lower limb, bilateral Category: Medical Plan: Ultrasound venous insufficiency bilateral ordered, BNP ordered. Given prescription for furosemide 20 mg per tablet to take once tablet in a.m. (3) Essential hypertension: Code(s): I10 - Essential (primary) hypertension Category: Medical Plan: Blood pressure slightly elevated on this visit, , will continue to monitor and continued on losartan 50 mg daily. Fasting labs ordered (4) Parkinson disease: Comment: ff'd by Dr Hutson Code(s): G20 - Parkinson's disease Category: Medical Qualifiers: Dyskinesia presence: unspecified whether dyskinesia Fluctuating manifestations: with fluctuating manifestations Qualified Code(s): G20.A2 - Parkinson's disease without dyskinesia, with fluctuations Plan: Currently followed by Neurology currently on carbidopa levodopa (5) Depression: Code(s): F32.9 - Major depressive disorder, single episode, unspecified Category: Medical Qualifiers: Active/Remission status: in partial remission Depression Type: major depressive disorder Major depression recurrence: recurrent Qualified Code(s): F33.41 - Major depressive disorder, recurrent, in partial remission Plan: Controlled on bupropion HCL SR 200 mg taken twice a day (6) Glaucoma: Comment: sees Dr Humphrey Code(s): H40.9 - Unspecified glaucoma Category: Medical Plan: On timolol maleate 0.5% 1 drop to eye twice a day. Followed by Dr. Humphrey (7) IBS (irritable bowel syndrome): Code(s): K58.9 - Irritable bowel syndrome, unspecified Category: Medical Qualifiers: Irritable bowel syndrome type: unspecified Qualified Code(s): K58.9 - Irritable bowel syndrome, unspecified Plan: Takes dicyclomine as needed, which has been helping (8) Impaired fasting glucose: Code(s): R73.01 - Impaired fasting glucose Category: Medical Plan: Your previous fasting blood sugars were elevated above 100 mg/dL. Impaired glucose metabolism increases the risk for developing diabetes mellitus type 2, as well as heart attack and stroke later on. Lifestyle changes that promotes weight loss, healthy eating habits, and regular exercise are important, and can prevent the progression to diabetes Orders: Orders Basic Metabolic Panel 09/12/24 R22.43 - Localized swelling, mass and lump, lower limb, bilateral US venous insuf bilat 08/21/24 R22.43 - Localized swelling, mass and lump, lower limb, bilateral B Type Natriuretic Peptide 09/12/24 R22.43 - Localized swelling, mass and lump, lower limb, bilateral Referrals Orthopedics Referral M17.12 - Unilateral primary osteoarthritis, left knee, M25.562 - Pain in left knee Medications: New furosemide 20 mg PO QAM 30 tabs 0RF R22.43 - Localized swelling, mass and lump, lower limb, bilateral
--- OUTSIDE RECORDS SUMMARY | 2024-08-21 13:37 | XMS_ITS | Patient Health Record ---
Author Organization [facility] Address [address] [place] [address] Care Team Providers Care Health Systems Analyst Name Role Phone Denise KARIMI, Iwona Primary Care Provider Maury Ram Jr Unavailable Allergies Allergen (clinical drug ingredient) Drug/Non Drug Allergy documented on EMR Reaction Allergy Type Onset Date Status PredniSONE Unknown Drug Allergy Active acetaminophen / oxycodone Percocet Unknown Drug Allergy Active erythromycin Erythromycin Unknown Drug Allergy A ctive Codeine Phosphate Unknown Drug Allergy Active Shellfish (FN) shell fish (uncoded) Unknown Allergy Active Penicillin Unknown Drug Allergy Active Reason For Referral [...] Once a day for 30 day(s) Active Immunizations Vaccine Route Administration Date Status Comme nts Flu vaccine no Preserv 3 and > Unknown 03/30/2015 Admin istered Flu vaccine no Preserv 3 and > Unknown 02/29/2016 Admin istered Flu vaccine no Preserv 3 and > Unknown 03/26/2017 Admin istered Influenza Unknown 03/06/2018 Administered Influenza Unknown 02/16/2021 Administered Problems Problem Type SNOMED Code ICD Code Onset Dates Problem Status W/U Status Risk Notes Problem 307190493 Colon cancer screening (Z12.11) Active confirmed Problem 910026294 Gastroesophageal reflux disease without esophagitis (K21.9) Active confirmed Problem 239170155 Lactose intolera nce (E73.9) Active confirmed Problem 77891100 Irritable bowel syndrome, unspecified type (K58.9) Active confirmed Problem 898322538 Esophageal reflu x disease (K21.9) Active confirmed Plan Of Treatment Pending Test Test Name Order Date CBC w/o DIFF 02/28/2017 CT ABD & PELVIS WITH CONTRAST 02/28/2017 Future Test Test Name Order Date COLONOSCOPY 06/23/2011 COLONOSCOPY 08/09/2016 COLONOSCOPY 05/04/2021 Insurance Providers Payer Name Payer Address Payer Phone Subscriber Number Group Number Insured Name Patient Relationship to Insured Coverage Start Date Coverage End Date MEDICARE OF [place] [address] [place] [address] [id number] GIL GONZALEZ Self - patient is the insured [employer] ATT[employer] CLAIMS [address] [place] [address] [phone] [id number] GIL GONZALEZ Self - patient is the insured Medical (General) History Medical History History ICD Code esophageal reflux urinary urgency depression osteoarthritis fibromyalgia irritable bowel syndrome glaucoma elevated cholesterol parkinsons disease unsteady gait Surgical History Surgery Date(Month/Year) carpal tunnel surgery hammer toe tonsillectomy adnoids
--- OUTSIDE RECORDS SUMMARY | 2024-08-21 13:37 | XMS_ITS | Patient Health Record ---
Author Organization [facility] Mara zacarias [place] Address [address] [place] [address] Care Team Providers Care Senior Core Java Developer Name Role Phone Denise KARIMI, Iwona Meza Primary Care Provider Un available Chino Zulay Unavailable [phone] Ryan Garcia Unavailable [phone] Allergies Allergen (clinical drug ingredient) Drug/Non Drug Allergy documented on EMR Reaction Allergy Type Onset Date Status 12 Hour Nasal [place] Unknown Drug Allergy Active ibuprofen Advil Unknown [...] atherosclerosis of arteries of lower limbs (disorder) (22395895275077867 ) Unspecified atherosclerosis of jena arteries of extremities, bilateral legs (I70.203) Active confirmed Problem Localized, primary osteoarthritis of the ankle and/or foot (538770565) Primary osteoarthritis, left ankle and foot (M19.072) Active confirmed Problem Non-pressure chronic ulcer of other part of right foot limited to breakdown of skin (L97.511) Active confirmed Problem 34511060 Parkinson diseas e (G20) Active confirmed Problem 414530478 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 (I73.00) Active confirmed Problem Atherosclerosis of jena artery of both lower extremities, with unspecified presence of clinical manifestation (I70.203) Active confirmed Q7(A), Q8(2B), Q9(1B,2 C) Vital Signs Blood pressure diastolic 70 mm Hg 06/17/2024 Height 5 ft 5 in in 06/17/2024 Blood pressure systolic 110 mm Hg 06/17/2024 Weight 197 lbs 06/17/2024 BMI 32.78 kg/m2 06/17/2024 Encounters Encounter Location Date Provider Diagnosis [facility] [address] [place] [address] 09/10/2023 Ryan Garcia Ingrowing nail L60.0 ; Pain in left toe(s) M79.675 ; 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 I73.00 ; Parkinson disease G20 ; Neuralgia and neuritis, unspecified M79.2 ; Unspecified atherosclerosis of jena arteries of extremities, bilateral legs I70.203 ; Tinea unguium B35.1 ; Pain in right toe(s) M79.674 and Primary osteoarthritis, left ankle and foot M19.[address] [address] 02/13/2024 Ryan Garcia Ingrowing nail L60.0 ; Pain in left toe(s) M79.675 ; 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 I73.00 ; Parkinson disease G20 ; Neuralgia and neuritis, unspecified M79.2 ; Unspecified atherosclerosis of jena arteries of extremities, bilateral legs I70.203 ; Tinea unguium B35.1 ; Pain in right toe(s) M79.674 and Primary osteoarthritis, left ankle and foot M19.[address] [address] 06/17/2024 Zulay Perica Atherosclerosis of jena artery of both lower extremities, with unspecified presence of clinical manifestation I70.203 ; Edema, lower extremity R60.0 ; Tinea unguium B35.1 ; Pain in right toe(s) M79.674 and Pain in left toe(s) M79.[address] [address] 03/18/2024 Ryan Garcia 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 I73.00 Assessments Encounter Date Diagnosis (ICD Code) Assessment Notes Treatment Notes Treatment Clinical Notes Section Notes 09/10/2023 Ingrowing nail (ICD-10 - L60.0) 09/10/2023 Pain in left toe(s) (ICD-10 - M79.675) 02/13/2024 Ingrowing nail (ICD-10 - L60.0) 02/13/2024 Pain in left toe(s) (ICD-10 - M79.675) 03/18/2024 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 (ICD-10 - I73.00) 06/17/2024 Atherosclerosis of jena artery of both lower extremities, with unspecified presence of clinical manifestation (ICD-10 - I70.203) Q7(A), Q8(2B), Q9(1B,2C) 06/17/2024 Edema, lower extremity (ICD-10 - R60.0) 06/17/2024 Tinea unguium (ICD-10 - B35.1) 02/13/2024 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 (ICD-10 - [...] (ICD-10 - M79.2) 02/13/2024 Unspecified atherosclerosis of jena arteries of extremities, bilateral legs (ICD-10 - I70.203) 09/10/2023 Unspecified atherosclerosis of jena arteries of extremities, bilateral legs (ICD-10 - I70.203) 09/10/2023 Tinea unguium (ICD-10 - B35.1) 02/13/2024 Tinea unguium (ICD-10 - B35.1) 02/13/2024 Pain in right toe(s) (ICD-10 - M79.674) 09/10/2023 Pain in right toe(s) (ICD-10 - M79.674) 09/10/2023 Primary osteoarthritis, left ankle and foot (ICD-10 - M19.072) 02/13/2024 Primary osteoarthritis, left ankle and foot (ICD-10 - M19.072) Plan Of Treatment Pending Test Test Name Order Date X ray : Foot, left 3V 09/23/2014 54912-Nnqj Destruction, 1-14 10/28/2014 85397-Bpvy Destruction, 1-14 09/23/2014 48432-Azldpbtz Plate 06/25/2017 57842-Akqtpvnb Plate 09/13/2016 06015-UIN 11/01/2017 27380- Debride <25 sq cm 11/15/2017 85210- Debride <25 sq cm 12/05/2017 50051-PRGL SKIN LESIONS, 2 TO 4 06/30/19 Next Appt Details Provider Name:Zulay elmore, 09/09/2024 01:00:00 PM, [address] [facility], [place], [address], Insurance Providers Payer Name Payer Address Payer Phone Subscriber Number Group Number Insured Name Patient Relationship to Insured Coverage Start Date Coverage End Date Medicare National Govt [employer] [address] [place] [address] [id number] Sarai Ramon Self - patient is the insured [employer] [address] [place] [address] [id number] Sarai Ramon Self - patient is the insured Medical (General) History Medical History History ICD Code Back,Hip,and Knee pain Cancer Depression Fibromyalgia High blood pressure Reflux Measles Mumps Chicken pox Neuropathy Irritable bowel syndrome edema patellar tendinitis Surgical History Surgery Date(Month/Year) hammer toe 1989 carpal tunnel surgery colonoscopy 2021 hysterectomy cancer 04/11/2022 Hospitalization History Reason Date(Month/Year) [facility] [place] [facility] tend[place] - edema 06/13
--- OUTSIDE RECORDS SUMMARY | 2024-08-21 13:37 | XMS_ITS ---
Author Organization [facility] Mara zacarias [place] Address [address] [facility] [place] [address] Care Team Providers Care Rocket Motor Tester Name Role Phone Denise KARIMI, Iwona Meza Primary Care Provider Un available Chino Zulay Unavailable [phone] GarciaRyan Unavailable [phone] Allergies Allergen (clinical drug ingredient) Drug/Non Drug Allergy documented on EMR Reaction Allergy Type Onset Date Status 12 Hour Nasal [place] Unknown Drug Allergy Active ibuprofen Advil Unknown [...] 02/13/2024 Encounters Encounter Location Date Provider Diagnosis [facility] [address] [address] 02/13/2024 Ryan Garcia Ingrowing nail L60.0 ; Pain in left toe(s) M79.675 ; 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 I73.00 ; Parkinson disease G20 ; Neuralgia and neuritis, unspecified M79.2 ; Unspecified atherosclerosis of shoshone-paiute arteries of extremities, bilateral legs I70.203 ; [...] (ICD-10 - M79.2) 02/13/2024 Unspecified atherosclerosis of shoshone-paiute arteries of extremities, bilateral legs (ICD-10 - [...] Reason: Provider Name:Zulay elmore, 09/09/2024 01:00:00 PM, [address] [place] [address], [phone], Procedure Notes * Category Sub-Category Detail Notes [...] as necessary. Patient chooses, no pharmaceutical tx (56650) Keratoma Treatment Parring or Cutting o f Benign Hyperkeratotic Lesion(s) 60834 (2-4 Lesions) - The Benign hyperkeratotic lesions, as described above were pared, and/or cut utilizing a sterile #15 blade, tissue nippers, and/or dremel, Q8 Progress Notes * CARLOS Sarai RDOB:[birth year] (83 yo F)Acc No.[id number]:02/13/2024 Progress Note Patient:?Sarai Ramon R Provider:?Ryan Garcia DPM :1940???Age:83 Y???Sex:Female D ate:02/13/2024 Address:[address] [place] [address] [facility], [id number] Pcp:Victoria Ortiz Subjective: * Chief Complaints: * [...] 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 ?Marital status: . 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. * Medications:?TakingVoltaren 1 % Gel as directed [...] patient * Allergies:?BiaxinAspirin: GE RD can't takeAdvilAleveMotrinDemerol: [id number] Hour Nasal SprayCodeineShrimp (Diagnostic)Shellfish-derived ProductsGentamicin: made with [...] and neuritis, unspecified - M79.2?6.?Unspecified atherosclerosis of shoshone-paiute arteries of extremities, bilateral legs - I70.203?7.?Tinea [...] as necessary. Patient chooses, no pharmaceutical tx (51095).?Keratoma Treatment:?Parring or Cutting of Benign Hyperkeratotic Lesion(s)?78809 (2-4 Lesions) - The Benign hyperkeratotic lesions, as described above were pared, and/or cut utilizing a sterile #15 blade, tissue nippers, and/or dremel, Q8.? * Procedure Codes:?56424 DEBRI DE NAIL, 6 OR MORE, Modifiers: XS 09670 TRIM SKIN LESIONS, 2 TO 4, Modifiers: Q8 * Follow Up:?3 Months * Images: * Sign off status: Completed true * Provider:?Ryan Garcia DPM Date:? 024 Generated for Catarina merino/Bryanna/Kavyasmitting on:?08/21/2024 01:37 PM EDT History and Physical Notes * [...]
--- OUTSIDE RECORDS SUMMARY | 2024-08-21 13:38 | XMS_ITS ---
Author Organization [facility] Address [address] [place] [address] Care Team Providers Care Merchant Seaman Name Role Phone Denise KARIMI, Iwona Meza Primary Care Provider Un available Zulay Magana Unavailable [phone] Ryan Garcia Unavailable [phone] REASON FOR VISIT Refill Request Medications Medication SIG (Take, Route, Frequency, Duration) Notes Start Date End Date Status Nitro-Bid 2 % as directed Transder mal apply bid to affected skin quiana feet for 30 days Active Encounters Encounter Location Date Provider Diagnosis [facility] [address] [place] [address] 03/18/2024 Ryan Garcia 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 [...] Provider Name:Zulay elmore, 09/09/2024 01:00:00 PM, [address] [place], [address], Progress Notes * Sarai GONZALEZ RDOB:[birth year] (83 yo F)Acc No.[id number]:03/18/2024 Patient:?GonzalezSarai :1940???Age:83 Y???Sex:Female Address:[address] [place] [address], [place] [address] * Refills? Refill Nitro-Bid Ointment, 2 %, Transdermal, 90, as directed, apply bid to affected skin quiana feet, 30 days, Refills=4 * true * Date:? Generated for Catarina merino/Bryanna/Kavyasmitting on:?08/21/2024 01:37 PM EDT
--- OUTSIDE RECORDS SUMMARY | 2024-08-21 13:38 | XMS_ITS ---
Author Organization [facility] Mara zacarias [place] Address [address] [place] [address] Care Team Providers Care Platform Software Engineer Name Role Phone Denise KARIMI, Iwona Meza Primary Care Provider Un available Zulay Magana Unavailable [phone] Allergies Allergen (clinical drug ingredient) Drug/Non Drug Allergy documented on EMR Reaction Allergy Type Onset Date Status 12 Hour Nasal [place] Unknown Drug Allergy Active ibuprofen Advil Unknown [...] W/U Status Risk Notes Problem Atherosclerosis of cantwell artery of both lower extremities, with unspecified presence of clinical manifestation (I70.203) Active confirmed Q7(A), Q8(2B), Q9(1B,2C) Vital Signs Height 5 ft 5 in in 06/17/2024 Weight 197 lbs 06/17/2024 BMI 32.78 kg/m2 06/17/2024 Blood pressure systolic 110 mm Hg 06/17/19 25 Blood pressure diastolic 70 mm Hg 025 Encounters Encounter Location Date [facility] [address] [place] [address] 06/17/2024 Zulay Magana Atherosclerosis of cantwell artery of both lower extremities, with unspecified presence of clinical manifestation I70.203 ; Edema, lower extremity R60.0 ; Tinea unguium B35.1 ; Pain in right toe(s) M79.674 and Pain in left toe(s) M79.675 Assessments Encounter Date Diagnosis (ICD Code) Assessment Notes Treatment Notes Treatment Clinical Notes Section Notes 06/17/2024 Atherosclerosis of cantwell artery of both lower extremities, with unspecified [...] Reason: Provider Name:Zulay elmore, 09/09/2024 01:00:00 PM, [address] [place] [address], [phone], Procedure Notes * Category Sub-Category Detail Notes [...] of a nail nipper and/or dremel-type grinder tender, to a more viable healthy nail plate [...] to maintain effectiveness in symptomatic relief - 53819 Progress Notes * Sarai GONZALEZ RDOB:[birth year] (83 yo F)Acc No.[id number]:06/17/2024 Progress Note Patient:?Sarai GONZALEZ R Provider:?Zulay Magana DPM :1940???Age:83 Y???Sex:Female D ate:06/17/2024 Address:[facility] [place], [id number] Pcp:Victoria Ortiz Subjective: * Chief Complaints: * [...] cancer 04/11/2022 * Hospitalization/Major Diagno stic Procedure:[place] [place] - [place] 03/21/24 * [...] ?Exercise: no. ?Marital status: . 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 ???Drug/Alcohol:?AUDIT-C (Standard)?Did you have a drink [...] patient * Allergies:?BiaxinAspirin: GE RD can't takeAdvilAleveMotrinDemerol: [id number] Hour Nasal SprayCodeineShrimp (Diagnostic)Shellfish-derived ProductsGentamicin: made with [...] and time.? Assessment: * Assessment: 1.?Atherosclerosis of cantwell artery of both lower extremities, with unspecified [...] of a nail nipper and/or dremel-type grinder tender, to a more viable healthy nail plate [...] to maintain effectiveness in symptomatic relief - 17541.? * Procedure Codes:?43315 DEBRI DE NAIL, 6 OR MORE, Modifiers: [...] Magana DPM Date:? Generated for Catarina merino/Bryanna/Valente on:?08/21/2024 01:37 PM EDT History and Physical [...]
== END 2024-08-21 13:38 | disposition home or self-care (01) ==
LOC: HO.HMCC 12:34
PROVIDERS: PCP Internal Medicine; Visit Provider Internal Medicine
DX: M17.12 Unilateral primary osteoarthritis, left knee (principal); R22.43 Localized swelling, mass and lump, lower limb, bilateral; I10 Essential (primary) hypertension; G20.A2 Parkinson's disease without dyskinesia, with fluctuations; F33.41 Major depressive disorder, recurrent, in partial remission; H40.9 Unspecified glaucoma; K58.9 Irritable bowel syndrome, unspecified; R73.01 Impaired fasting glucose

== ENCOUNTER → 2024-08-21 12:33 | Outpatient (BNVA) | payer MEDICARE, SELFPAY | PROVIDERS: PCP Internal Medicine; Visit Provider Internal Medicine | DX: M17.12 Unilateral primary osteoarthritis, left knee (principal); R22.43 Localized swelling, mass and lump, lower limb, bilateral; I10 Essential (primary) hypertension; G20.A2 Parkinson's disease without dyskinesia, with fluctuations; F33.41 Major depressive disorder, recurrent, in partial remission; H40.9 Unspecified glaucoma; K58.9 Irritable bowel syndrome, unspecified; R73.01 Impaired fasting glucose | CPT/HCPCS: 96127; 99212 ==

== ENCOUNTER 2024-09-22 07:20 | Outpatient (REF) | payer MEDICARE, SELFPAY ==
--- OUTSIDE RECORDS SUMMARY | 2024-09-22 07:23 | XMS_ITS | Patient Health Record ---
Author Organization [facility] Address [address] [place] [address] Care Team Providers Care Sizing Sponger Name Role Phone Denise KARIMI, Iwona Primary Care Provider Maury Ram Jr Unavailable [phone] Allergies Allergen (clinical drug ingredient) Drug/Non Drug [...] Problem Status W/U Status Risk Notes Problem 733839794 Colon cancer screening (Z12.11) Active confirmed Problem 088839724 Gastroesophageal reflux disease without esophagitis (K21.9) Active confirmed Problem 939937935 Lactose intolera nce (E73.9) Active confirmed Problem 11380232 Irritable bowel syndrome, unspecified type (K58.9) Active confirmed Problem 172401096 Esophageal reflu x disease (K21.9) Active confirmed [...] Date MEDICARE OF [place] [address] [place] [address] [id number] GIL GONZALEZ Self - patient is the insured [employer] ATT[employer] CLAIMS [address] [place] [address] [phone] [id number] GIL GONZALEZ Self - patient is the insured Medical (General) History Medical History History ICD Code esophageal reflux urinary urgency depression osteoarthritis fibromyalgia irritable bowel syndrome glaucoma elevated cholesterol parkinsons disease unsteady gait Surgical History Surgery Date(Month/Year) carpal tunnel surgery hammer toe tonsillectomy adnoids
--- OUTSIDE RECORDS SUMMARY | 2024-09-22 07:23 | XMS_ITS ---
Author Organization [facility] Mara zacarias [place] Address [address] [facility] [place] [address] Care Team Providers Care Hospice Music Therapy Name Role Phone Denise KARIMI, Iwona Meza Primary Care Provider Un available Zulay Magana Unavailable [phone] Allergies Allergen (clinical drug ingredient) Drug/Non Drug Allergy documented on EMR Reaction Allergy Type Onset Date Status 12 Hour Nasal [place] Unknown Drug Allergy Active ibuprofen Advil Unknown [...] Duration) Notes Start Date End Date Status Pantoprazole Sodium 40 MG 1 tablet Orally Once a day Not-Taking Nortripytline HCl No t-Taking Probiotic Orally Not-Taking Nitro-Bid 2 % APPLY TRANSDERMALLY TWO TIMES A DAY TO AFFECTED SKIN OF BOTH FEET DIRECTED for 30 Not-Taking Meclizine HCl Not-Ta sandra Latanoprost 0.005 % 1 drop into affected eye in the evening Ophthalmic Once a day Not-Taking Furosemide 20 MG TAKE 1 TAB ORALLY EVERY MORNING Oral for 30 Days Active Dicyclomine HCl 20 MG 1 tablet Orally Fo ur times a day Not-Taking Compression Stockings 20-30mm Hg 1 pair wear daily: With Zippers for 30 days Active Nitro-Bid 2 % as directed Transdermal apply bid to affected skin quiana feet for 30 days Active Vitamin D 1000 UNIT 1 tablet Orally Once a day Active Losartan Potassium 50 MG 1 tablet Orally Once a day Active Timolol Hemihydrate eye drop Active Fish Oil 1000 MG 2 Orally Once a day Active lipitor 1 tab Oral Active BuPROPion HBr Active Carbidopa-Levodopa A ctive Voltaren 1 % as directed Externally Active [...] Additional Findings: Tobacco non-user Current no nsmoker Vital Signs Height 5 ft 5 in in 09/09/2024 Weight 195 lbs 09/09/2024 BMI 32.45 kg/m2 09/09/2024 Blood pressure systolic 110 mm Hg 09/10/19 25 Blood pressure diastolic 70 mm Hg 025 Encounters Encounter Location Date Provider Diagnosis [facility] [place] [address] [place] [address] 09/09/2024 Zulay Magana Atherosclerosis of iroquois artery of both lower extremities, with unspecified presence of clinical manifestation I70.203 ; Edema, lower extremity R60.0 ; Tinea unguium B35.1 ; Pain in right toe(s) M79.674 and Pain in left toe(s) M79.675 Assessments Encounter Date Diagnosis (ICD Code) Assessment Notes Treatment Notes Treatment Clinical Notes Section Notes 09/09/2024 Atherosclerosis of iroquois artery of both lower extremities, with unspecified presence of clinical manifestation (ICD-10 - I70.203) Q7(A), Q8(2B), Q9(1B,2C) 09/09/2024 Edema, lower extremity (ICD-10 - R60.0) 09/09/2024 Tinea unguium (ICD-10 - B35.1) 09/09/2024 Pain in right toe(s) (ICD-10 - M79.674) 09/09/2024 Pain in left toe(s) (ICD-10 - M79.675) Plan Of Treatment Next Appt Details Follow Up: 3 Months, Reason: Provider Name:Zulay elmore, 12/10/2024 11:00:00 AM, [address] [place] [address], [phone], Procedure Notes * Category Sub-Category Detail Notes Debride Nail 6-10 Nail debridement Due to the cl inical pathology outlined in the exam findings, performance of this nail treatment is medically necessary as its management by an unskilled/untrained nonprofessional would put this patients foot and overall health at risk. Therefore, debridement to affected nail(s), as described in exam ( T1, T2, T3, T4, T6, T7, T8, T9, ), was performed exclusively by the physician of record to reduce/remove overall nail length, girth, thickness, subungual debris, and necrotic tissue, by manual and/or electrical means through the use of a nail nipper and/or dremel-type stopper grinder, to a more viable healthy nail [...] to maintain effectiveness in symptomatic relief - 98969 Keratoma Treatment Parring or Cutting o f Benign Hyperkeratotic Lesion(s) (-57) More than 4 Lesions - Due to the at risk nature of the patients medical condition as documented in the exam findings, performance of this keratoderma treatment is medically necessary as its management by an unskilled/untrained nonprofessional would put this patients foot and overall health at risk. Therefore, the benign hyperkeratotic lesions, (6) in total, locations as stated and described in the exam ( Medial plantar, TA, T5, SUB MTH (s), 1, B/L, Plantar Heel(s), B/L ), were pared, and/or cut utilizing a sterile 15 blade, tissue nippers, and/or power dremel instrumentation by the physician of record - 82877 Progress Notes * Sarai GONZALEZ RDOB:[birth year] (83 yo F)Acc No.[id number]:09/09/2024 Progress Note Patient:?Sarai GONZALEZ Provider:?Zulay Magana DPM :1940???Age:83 Y???Sex:Female D ate:09/09/2024 Address:[address] [place] [address], [place], [id number] Pcp:Victoria Ortiz Subjective: * Chief Complaints: * ???At Risk FootcarePainful N ail(s) aggravated by shoes and causing difficulty standing/walking.Swelling * HPI: ???At Risk footcare:?Pt States Last PCP Visit:?Date?08/21/2024 ???Swelling:?Location:?Both feet/leg.?Duration:?several months.?Onset:?sudden, no hx of trauma.?Course:?worse.?Aggravating factors:?walking, standing.?Treatment:?medication, elevation, could not wear compression stockings, scheduled for ultrasound.? * ROS:?General/Constitutional:?Nausea?denies.?Vomiting?denies.?Hunger Thirst?denies.?Loss appetite?denies.?Chills?denies.?Fatigue?denies.?Fever?denies.?Night Sweats?denies.?Unexplained weight loss?denies.?Unexplained [...] 2021hysterectomy cancer 04/11/2022 * Hospitalization/Major Diagno stic Procedure:?[facility] [place]- patellar tendinitis - edema 03/21/24 * Family History:?Mother: dece ased, diagnosed with Other malignant neoplasm of unspecified site, Family history of arthritis.?Father: , diagnosed with Other malignant neoplasm of unspecified site.?Siblings: .? * Social History:?Tobacco Use:?Tobacco use other than smoking?Are you an other tobacco user??No ?Tobacco Control (Standard)?Tobacco use:?Nonsmoker ?Additional Findings: Tobacco non-user?Current nonsmoker ???Miscellaneous:?Caffeine: no, none. ?Children: yes, 2. ?Exercise: no. ?Marital status: . 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 * Medications:?TakingVoltaren 1 % Gel as directed [...] apply bid to affected skin quiana feet Compression Stockings 20-30mm Hg closed toe- knee high 1 pair wear daily: With Zippers Furosemide 20 MG Tablet TAKE 1 TAB ORALLY EVERY MORNING Oral Taking Voltaren 1 % Gel as directed [...] bid to affected skin quiana feet Taking Compression Stockings 20- 30mm Hg closed toe- knee high 1 pair wear daily: With Zippers Taking Furosemide 20 MG Tablet TAKE 1 TAB ORALLY EVERY MORNING Oral Not-Taking/PRNDicyclomine HCl 20 MG Tablet 1 tablet [...] patient * Allergies:?BiaxinAspirin: GE RD can't takeAdvilAleveMotrinDemerol: [id number] Hour Nasal SprayCodeineShrimp (Diagnostic)Shellfish-derived ProductsGentamicin: made with shell fishPenicillinyes[Allergies Verified] Objective: * Vitals:?Ht: 5 ft 5 in, Wt: 1 95, BMI: 32.45, Shoe size: 8M, BP: 110/70 mm Hg, Wt- k.45 kg. * Examination: ???Vascular: ?DP PULSES (B):? 0/4, B/L.?PT PULSES (B):? 0/4, B/L.?CAPILLARY FILL TIME:? delayed, all digits, B/L.?TROPHIC CONDITION-TEXTURE/ELASTICITY/TURGOR/HAIR GROWTH (B):? decreased, fragile, thin, shiny skin, with sparse to absent hair growth, B/L.?TEMPERTURE GRADIENT (C):? 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 Elongated, overgrown, dystrophic, lytic, greater than 3mm thick, discolored and friable with crumbly malodorous subungual debris, with pain on palpation,TA, T1, T2, T3, T4, T5, T6, T7, T8, T9.?Dermatologic: ?SKIN FINDINGS:?Skin exam reveals Keratotic lesion(s) located at , Medial plantar, TA, T5, SUB MTH (s), 1, B/L, Plantar Heel(s), B/L.?Orthopedic: ?MUSCLE STRENGTH:?5/5 all groups in a [...] and time.? Assessment: * Assessment: 1.?Atherosclerosis of iroquois artery of both lower extremities, with unspecified presence of clinical manifestation - I70.203???Notes :Q7(A), Q8(2B), Q9(1B,2C)???2.?Edema, lower extremity - R60.0 (Primary)???Specify :Acute problem, Worse???3.?Tinea unguium - B35.1???4.?Pain in right toe(s) - [...] affected nail(s), as described in exam ( ?T1, T2, T3, T4, T6, T7, T8, T9, ), was performed exclusively by the physician of record to reduce/remove overall nail length, girth, thickness, subungual debris, and necrotic tissue, by manual and/or electrical means through the use of a nail nipper and/or dremel-type stopper grinder, to a more viable healthy nail [...] to maintain effectiveness in symptomatic relief - 00634.?Keratoma Treatment:?Parring or Cutting of Benign Hyperkeratotic Lesion(s)?(-57) More than 4 Lesions - Due to the at risk nature of the patients medical condition as documented in the exam findings, performance of this keratoderma treatment is medically necessary as its management by an unskilled/untrained nonprofessional would put this patients foot and overall health at risk. Therefore, the benign hyperkeratotic lesions, (6) in total, locations as stated and described in the exam (?Medial plantar,?TA,?T5,?SUB MTH (s),?1,?B/L,?Plantar Heel(s),?B/L?), were pared, and/or cut utilizing a sterile 15 blade, tissue nippers, and/or power dremel instrumentation by the physician of record - 12779.? * Procedure Codes:?71588 DEBRI DE NAIL, 6 OR MORE, Modifiers: XS 75083 TRIM SKIN LESIONS, OVER 4, Modifiers: XS , Q8 * Preventive Medicine:? ??Counseling:?Discussion:?-13: Office or other [...] have encouraged the patient to call the office.?Consult:?The patient was counseled on the diagnosis, treatment options, and the need for a, Vascular Consult due to pedal risk of limb/life, gave pt information on NEEV, pt has appt for ultrasound.?Edema:?I explained to the patient the possible etiologies [...] performed by the PCP or patients kidney/heart/cancer specialist..? ??Screening/Special Tests:?Fall Risk?Screening:?No falls in the past year ?FALLS: Screening for Future Fall Risk?Have you had any falls with injury in the past year??No * Follow Up:?3 Months * Images: * Sign off status: Completed true * Provider:?Zulay Magana DPM Date:? Generated for Catarina merino/Bryanna/Valente on:?09/22/2024 07:23 AM EDT History and Physical Notes * HPI (History of Present Illness) Category Sub-Category Detail Notes Category Not es At Risk footcare Pt States Last PCP Visit: Date: 5 Swelling Location: Both feet/leg Duration: several months Onset: sudden, no hx of tra rob Course: worse Aggravating factors: walking, standing Treatment: medication, elevatio n, could not wear compression stockings, scheduled for ultrasound Examination Category Sub-Category Detail Notes Category Not es Neurological SENSORY: Neurological exa m reveals intact sensorium, pain sensation normal, vibration sensation intact, pinprick sensation is normal in the lower extremities, Pt denies, anesthesia, burning, paresthesia, tingling, B/L Dermatologic SKIN FINDINGS: Skin exam reveal s Keratotic lesion(s) located at , Medial plantar, TA, T5, SUB MTH (s), 1, B/L, Plantar Heel(s), B/L Orthopedic MUSCLE STRENGTH: 5/5 all groups [...] , 3/4, pitting, B/L, Foot, Ankle(s), Leg(s) TELANGECTASIA: present VARICOSITIES: present, moderate, n onpainful, B/L PIGMENTATION: pale, B/L Nails NAILS are: Elongated, overg rown, dystrophic, lytic, greater than 3mm thick, discolored and friable with crumbly malodorous subungual debris, with pain on palpation,TA, T1, T2, T3, T4, T5, T6, T7, T8, T9
--- OUTSIDE RECORDS SUMMARY | 2024-09-22 07:23 | XMS_ITS ---
Author Organization [facility] Address [address] [place] [address] Care Team Providers Care Lcpc Name Role Phone Denise KARIMI, Iwona Meza Primary Care Provider Un available Zulay Magana Unavailable [phone] Ryan Garcia Unavailable [phone] REASON FOR VISIT Refill Request Medications Medication SIG (Take, Route, Frequency, Duration) Notes Start Date End Date Status Nitro-Bid 2 % as directed Transder mal apply bid to affected skin quiana feet for 30 days Active Encounters Encounter Location Date Provider Diagnosis [facility] [address] [place] [address] 03/18/2024 Ryan Garcia 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 [...] days Next Appt Details Provider Name:Zulay elmore, 12/10/2024 11:00:00 AM, [address] [place], [address], Progress Notes * Sarai GONZALEZ RDOB:[birth year] (83 yo F)Acc No.[id number]:03/18/2024 Patient:?TrisetnSarai :1940???Age:83 Y???Sex:Female Address:[address] [place] [address], [place] [address] * Refills? Refill Nitro-Bid Ointment, 2 %, Transdermal, 90, as directed, apply bid to affected skin quiana feet, 30 days, Refills=4 * true * Date:? Generated for Catarina merino/Bryanna/Kavyasmitting on:?09/22/2024 07:23 AM EDT
--- OUTSIDE RECORDS SUMMARY | 2024-09-22 07:23 | XMS_ITS | Patient Health Record ---
Author Organization [facility] Mara zacarias [place] Address [address] [place] [address] Care Team Providers Care Bucket Operator Name Role Phone Denise KARIMI, Iwona Meza Primary Care Provider Un available Ch[place] Zulay Unavailable [phone] Ryan Garcia Unavailable [phone] Allergies Allergen (clinical drug ingredient) Drug/Non Drug Allergy documented on EMR Reaction Allergy Type Onset Date Status 12 Hour Nasal [place] Unknown Drug Allergy Active ibuprofen Advil Unknown [...] Duration) Notes Start Date End Date Status BuPROPion HBr Active Latanoprost 0.005 % 1 drop into affected eye in the evening Ophthalmic Once a day Not-Taking Carbidopa-Levodopa A ctive Pantoprazole Sodium 40 MG 1 tablet Orally Once a day Not-Taking Furosemide 20 MG TAKE 1 TAB ORALLY EVERY MORNING Oral for 30 Days Active Voltaren 1 % as directed Externally Active Dicyclomine HCl 20 MG 1 tablet Orally Fo ur times a day Not-Taking Compression Stockings 20-30mm Hg 1 pair wear daily: With Zippers for 30 days Active Voltaren 1 % as directed Externally Active Vitamin D 1000 UNIT 1 tablet Orally Once a day Active Nitro-Bid 2 % as directed Transdermal apply bid to affected skin quiana feet for 30 days Active Losartan Potassium 50 MG 1 tablet Orally Once a day Active Nortripytline HCl No t-Taking Timolol Hemihydrate eye drop Active Probiotic Orally Not-Taking Fish Oil 1000 MG 2 Orally Once a day Active Nitro-Bid 2 % APPLY TRANSDERMALLY TWO TIMES A DAY TO AFFECTED SKIN OF BOTH FEET DIRECTED for 30 Not-Taking lipitor 1 tab Oral Active Meclizine HCl Not-Ta sandra Immunizations Vaccine Route Administration Date Status Comme [...] atherosclerosis of arteries of lower limbs (disorder) (51717876266909251 ) Unspecified atherosclerosis of eagle arteries of extremities, bilateral legs (I70.203) Active confirmed Problem Localized, primary osteoarthritis of the ankle and/or foot (636927568) Primary osteoarthritis, left ankle and foot (M19.072) Active confirmed Problem Non-pressure chronic ulcer of other part of right foot limited to breakdown of skin (L97.511) Active confirmed Problem 49672836 Parkinson diseas e (G20) Active confirmed Problem 545579786 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 (I73.00) Active confirmed Problem Atherosclerosis of eagle artery of both lower extremities, with unspecified presence of clinical manifestation (I70.203) Active confirmed Q7(A), Q8(2B), Q9(1B,2 C) Vital Signs Blood pressure diastolic 70 mm Hg 09/09/2024 Height 5 ft 5 in in 09/09/2024 Blood pressure systolic 110 mm Hg 09/09/2024 Weight 195 lbs 09/09/2024 BMI 32.45 kg/m2 09/09/2024 Encounters Encounter Location Date Provider Diagnosis [address] [address] 02/13/2024 Ryan Garcia Ingrowing nail L60.0 ; Pain in left toe(s) M79.675 ; 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 I73.00 ; Parkinson disease G20 ; Neuralgia and neuritis, unspecified M79.2 ; Unspecified atherosclerosis of eagle arteries of extremities, bilateral legs I70.203 ; Tinea unguium B35.1 ; Pain in right toe(s) M79.674 and Primary osteoarthritis, left ankle and foot M19.[address] [address] 06/17/2024 Zulay Perica Atherosclerosis of eagle artery of both lower extremities, with unspecified presence of clinical manifestation I70.203 ; Edema, lower extremity R60.0 ; Tinea unguium B35.1 ; Pain in right toe(s) M79.674 and Pain in left toe(s) M79.[address] [address] 09/09/2024 Zulay Perica Atherosclerosis of eagle artery of both lower extremities, with unspecified presence of clinical manifestation I70.203 ; Edema, lower extremity R60.0 ; Tinea unguium B35.1 ; Pain in right toe(s) M79.674 and Pain in left toe(s) M79.[address] [address] 03/18/2024 Ryan Garcia 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 I73.00 Assessments Encounter Date Diagnosis (ICD Code) Assessment Notes Treatment Notes Treatment Clinical Notes Section Notes 02/13/2024 Ingrowing nail (ICD-10 - L60.0) 02/13/2024 Pain in left toe(s) (ICD-10 - M79.675) 03/18/2024 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 (ICD-10 - I73.00) 06/17/2024 Atherosclerosis of eagle artery of both lower extremities, with unspecified presence of clinical manifestation (ICD-10 - I70.203) Q7(A), Q8(2B), Q9(1B,2C) 06/17/2024 Edema, lower extremity (ICD-10 - R60.0) 09/09/2024 Atherosclerosis of eagle artery of both lower extremities, with unspecified presence of clinical manifestation (ICD-10 - I70.203) Q7(A), Q8(2B), Q9(1B,2C) 09/09/2024 Edema, lower extremity (ICD-10 - R60.0) 02/13/2024 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 (ICD-10 - I73.00) 09/09/2024 Tinea unguium (ICD-10 - B35.1) 06/17/2024 Tinea unguium (ICD-10 - B35.1) 02/13/2024 Parkinson disease (ICD-10 - G20) 06/17/2024 Pain in right toe(s) (ICD-10 - M79.674) 09/09/2024 Pain in right toe(s) (ICD-10 - M79.674) 02/13/2024 Neuralgia and neuritis, unspecified (ICD-10 - M79.2) 06/17/2024 Pain in left toe(s) (ICD-10 - M79.675) 09/09/2024 Pain in left toe(s) (ICD-10 - M79.675) 02/13/2024 Unspecified atherosclerosis of eagle arteries of extremities, bilateral legs (ICD-10 - I70.203) 02/13/2024 Tinea unguium (ICD-10 - B35.1) 02/13/2024 Pain in right toe(s) (ICD-10 - M79.674) 02/13/2024 Primary osteoarthritis, left ankle and foot (ICD-10 - M19.072) Plan Of Treatment Pending Test Test Name Order Date X ray : Foot, left 3V 09/23/2014 54099-Njxc Destruction, -10/28/2014 67072-Mfva Destruction, -09/23/2014 87276-Ghybjnsn Plate 09/13/2016 31570-Vhlyegsv Plate 06/25/2017 44775-RKB 11/01/2017 34023- Debride <25 sq cm 11/15/2017 58851- Debride <25 sq cm 12/05/2017 23633-JIOP SKIN LESIONS, 2 TO 4 06/30/19 Next Appt Details Provider Name:Zulay elmore, 12/10/2024 11:00:00 AM, [address] [place], [address], Insurance Providers Payer Name Payer Address Payer Phone Subscriber Number Group Number Insured Name Patient Relationship to Insured Coverage Start Date Coverage End Date Medicare [facility] [address] [place] [address] [id number] Sarai Ramon Self - patient is the insured [employer] [address] [place] [address] [phone] [id number] Sarai Ramon Self - patient is the insured Medical (General) History Medical History History ICD Code Back,Hip,and Knee pain Cancer Depression Fibromyalgia High blood pressure Reflux Measles Mumps Chicken pox Neuropathy Irritable bowel syndrome edema patellar tendinitis Surgical History Surgery Date(Month/Year) hammer toe 1989 carpal tunnel surgery colonoscopy 2021 hysterectomy cancer 04/11/2022 Hospitalization History Reason Date(Month/Year) [facility] [place] [facility]- patellar tendinitis - edema 06/13
--- OUTSIDE RECORDS SUMMARY | 2024-09-22 07:24 | XMS_ITS ---
Author Organization [facility] Mara zacarias [place] Address [address] [facility] [place] [address] Care Team Providers Care English Horn Player Name Role Phone Denise KARIMI, Iwona Meza Primary Care Provider Un available Zulay Magana Unavailable [phone] Allergies Allergen (clinical drug ingredient) Drug/Non Drug Allergy documented on EMR Reaction Allergy Type Onset Date Status 12 Hour Nasal [place] Unknown Drug Allergy Active ibuprofen Advil Unknown [...] W/U Status Risk Notes Problem Atherosclerosis of salamatof artery of both lower extremities, with unspecified presence of clinical manifestation (I70.203) Active confirmed Q7(A), Q8(2B), Q9(1B,2C) Vital Signs Height 5 ft 5 in in 06/17/2024 Weight 197 lbs 06/17/2024 BMI 32.78 kg/m2 06/17/2024 Blood pressure systolic 110 mm Hg 06/17/19 25 Blood pressure diastolic 70 mm Hg 025 Encounters Encounter Location Date [facility] [address] [place] [address] 06/17/2024 Zulay Magana Atherosclerosis of salamatof artery of both lower extremities, with unspecified presence of clinical manifestation I70.203 ; Edema, lower extremity R60.0 ; Tinea unguium B35.1 ; Pain in right toe(s) M79.674 and Pain in left toe(s) M79.675 Assessments Encounter Date Diagnosis (ICD Code) Assessment Notes Treatment Notes Treatment Clinical Notes Section Notes 06/17/2024 Atherosclerosis of salamatof artery of both lower extremities, with unspecified [...] Reason: Provider Name:Zulay elmore, 12/10/2024 11:00:00 AM, [address] [place] [address], [address], Procedure Notes * Category Sub-Category Detail Notes [...] use of a nail nipper and/or dremel-type contact lens curve grinder, to a more viable healthy nail [...] to maintain effectiveness in symptomatic relief - 99140 Progress Notes * Sarai GONZALEZ RDOB:[birth year] (83 yo F)Acc No.[id number]:06/17/2024 Progress Note Patient:?Sarai GONZALEZ R Provider:?Zulay Magana DPM :1940???Age:83 Y???Sex:Female D ate:06/17/2024 Address:[facility] [place], [id number] Pcp:Victoria Ortiz Subjective: * Chief Complaints: * [...] cancer 04/11/2022 * Hospitalization/Major Diagno stic Procedure:?[facility] [place] [facility]- patellar tendinitis - edema 03/21/24 * [...] ?Exercise: no. ?Marital status: . 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 ???Drug/Alcohol:?AUDIT-C (Standard)?Did you have a drink [...] patient * Allergies:?BiaxinAspirin: GE RD can't takeAdvilAleveMotrinDemerol: AofdOpqpxrwdkskw57 Hour Nasal SprayCodeineShrimp (Diagnostic)Shellfish-derived ProductsGentamicin: made with [...] and time.? Assessment: * Assessment: 1.?Atherosclerosis of salamatof artery of both lower extremities, with unspecified [...] use of a nail nipper and/or dremel-type contact lens curve grinder, to a more viable healthy nail [...] to maintain effectiveness in symptomatic relief - 90800.? * Procedure Codes:?87272 DEBRI DE NAIL, 6 OR MORE, Modifiers: [...]
[2024-09-22 10:26] LABS: B Type Natriuretic Peptide 74 pg/mL (<100)
[2024-09-22 10:40] LABS: Anion Gap 12 (12-20); Blood Urea Nitrogen 27 mg/dL (9-16); Calcium 9.2 mg/dL (8.4-10.2); Carbon Dioxide 27 mmol/L (22-29); Chloride 103 mmol/L (96-108); Estimated Glomerular Filt Rate 60; Glucose Random 97 mg/dL (60-115); Potassium 4.3 mmol/L (3.3-5.1); Sodium 138 mmol/L (135-145)
== END 2024-09-22 07:21 | disposition home or self-care (01) ==
LOC: HO.HMGCLDS 07:20
PROVIDERS: PCP Internal Medicine; Visit Provider Internal Medicine
DX: R22.43 Localized swelling, mass and lump, lower limb, bilateral (principal)
CPT/HCPCS: 36415; 80048; 83880

== ENCOUNTER 2024-09-24 12:44 | Outpatient (AMB) | payer MEDICARE, SELFPAY ==
[2024-09-24 12:46] VITALS: BP 130/72; PULSE 78; O2SAT 97; BMI 33.8
--- NOTE | 2024-09-24 12:46 | A.OFFPC_ITS ---
Vital Signs 09/24/24 12:46 Height 5 ft 5 in Weight 203 lb 4 oz BMI 33.8 BP 130/72 Blood Pressure Location Lt brachial Position Sitting Pulse 78 Pulse Source Pulse Oximeter Pulse Oximetry (%) 97 Oxygen Delivery Method Room Air Intake Visit Reasons: 1 month f/up-high BP Intake Note: Pt is here today for 1 month follow up on high blood pressure Allergies shellfish derived Allergy (Severe, Verified 08/24/24 04:51) Anaphylaxis oxycodone [OXYCODONE] Allergy (Intermediate, Verified 08/24/24 04:51) Itching Penicillins [PCN] Allergy (Intermediate, Verified 08/24/24 04:51) RASH aspirin [ASPIRIN] Allergy (Unknown, Verified 08/24/24 04:51) UNKNOWN codeine Adverse Reaction (Intermediate, Verified 08/24/24 04:51) Nausea and Vomiting erythromycin base Adverse Reaction (Intermediate, Verified 08/24/24 04:51) Gastrointestinal Upset lisinopril Adverse Reaction (Intermediate, Verified 08/24/24 04:51) cough Medication List - Last Reconciled 09/24/24 by Iwona Walker MD acetaminophen 1,000 mg (2 x 500 mg) PO Q6H PRN atorvastatin 20 mg PO DAILY bupropion HCl SR 200 mg PO BID 90 days carbidopa-levodopa 50-200 mg ER 1 tab PO TID cholecalciferol (vitamin D3) 25 mcg PO DAILY dicyclomine 20 mg PO BID furosemide 20 mg PO QAM losartan 50 mg PO DAILY nitroglycerin 2% (Nitro-Bid) 1 inch transdermal BID omega-3 fatty acids (Fish Oil Concentrate) 1,000 mg PO DAILY timolol maleate 0.5% 1 drp ophthalmic (eye) BID Tobacco use date assessed: 08/21/24 Dental Screening Dental Screen Date: 08/21/24 HPI 1 month f/up-high BP HPI Details 83-year-old lady with hypertension, here today for her follow-up. She has been taking furosemide 20 mg daily in the morning and losartan 50 mg once a day. Blood pressure has been stable and controlled on present medications. COUNTS INCLUDE 234 BEDS AT THE [facility] Medical History Varicose vein of leg History of carpal tunnel syndrome Left anterior knee pain Impaired fasting glucose Urinary incontinence Gait instability Essential hypertension Osteoarthritis IBS (irritable bowel syndrome) Parkinson disease Tremor of right hand Glaucoma Seasonal allergies Depression GERD (gastroesophageal reflux disease) Hyperlipidemia Fibromyalgia Surgical History H/O: hysterectomy History of esophagogastroduodenoscopy (EGD) H/O colonoscopy History of carpal tunnel surgery Family History Mother History of breast cancer Father History of throat cancer Paternal Grandmother History of liver cancer Social History Housing: House Are you a primary daycare teacher to a significant other at home: No Alcohol intake: never Comment: Parkinson's-use cane or walker Patient Tobacco Use Status: Never used Tobacco e-Cigarette/Vaping Use: Never Used service: No Current occupational status: retired Cognitive needs: No Hearing needs: No Vision needs: Yes Questionnaire PHQ-9 Over the last 2 weeks, how often have you been bothered by any of the following problems? Depression Screening Interpretation: Negative Depression Screening Done: Yes Source: Developed by Drs. Milo Maurice, Tyesha Fox, Cj Gregory and colleagues, with an educational hernandez from [employer]. Thrive Questionnaire Date Thrive assessed: 09/24/24 I am a: Patient What is your living situation today?: I have a steady place to live Within the past 12 months, did the food you bought not last and you didn't have the money to get more?: Never true Within the past 12 months, did you worry whether your food would run out before you got money to buy more?: Never true Do you have trouble paying for medicines?: No Do you have trouble getting transportation to medical appointments?: No Do you have trouble paying your heating and electricity bill?: No Do you have trouble taking care of your child, family member or friend?: No Do you have trouble with day-to-day activities such as bathing, preparing meals, shopping, managing finances, etc.?: I choose not to answer this question Are you currently unemployed and looking for a job?: No Are you interested in more education?: No Please select the resources that you would like help with: None Currently or been in a relationship where the following occur: No concerns reported THRIVE Score: 0 AUDIT C Alcohol Use Questionnaire (AUDIT-C) 1. How often do you have a drink containing alcohol?: Never 3. How often do you have six or more drinks on one occasion?: Never Total Score: 0 Score Reviewed/Action Taken: Yes FOREST-7 AMB Questionnaire FOREST-7 Date FOREST - 7 assessed: 08/21/24 Source: Developed by Drs. Milo Maurice, Tyesha Fox, Cj Gregory and colleagues, with an educational hernandez from [employer]. Review of Systems Const Denies anorexia, Denies chills and Denies fever(s) Eyes Denies change in vision ENT Reports Normal hearing present Card Denies chest pain, Denies rapid heart rate and Denies irregular heart rhythm Resp Denies chest congestion, Denies cough, Denies hemoptysis and Denies wheezing GI Reports no additional complaints Reports no additional complaints Musc Reports as per HPI Neuro Reports Normal hearing present Psych Reports no additional complaints Endo Reports no additional complaints Yair/Lymph Denies lymphadenopathy Aller/Immun Denies wheezing Physical exam (Primary Care) Vital Signs: Last Vital Signs Pulse 78 09/24/24 12:46 BP 130/72 09/24/24 12:46 Pulse Ox 97 09/24/24 12:46 Oxygen Delivery Method Room Air 09/24/24 12:46 BMI result Body Mass Index 33.8 Tobacco/Smoking Status: Tobacco use Status Tobacco use date assessed 08/21/24 09/24/24 12:48 Patient Tobacco Use Status Never used Tobacco 09/24/24 12:48 e-Cigarette/Vaping Use Never Used 09/24/24 12:48 Depression Screening Interpretation: Negative Thrive Assessment: Date of Thrive Assessment Date Thrive assessed 09/24/24 09/24/24 12:48 Currently or been in a relationship where the following occur: No concerns reported Const General: comfortable, no acute distress and alert Orientation/consciousness: patient oriented x3 HENMT Ears: external ears normal General nose exam: Normal external nose present Mouth: Normal oral and palatal mucosa present, oropharynx normal and moist mucous membranes Eyes General: appearance normal, both eyes and all related structures Neck Neck: Yes full ROM, Yes no lymphadenopathy and Yes supple Resp Effort & Inspection: normal respiratory effort and able to speak in complete sentences Auscultation: clear to auscultation bilaterally Cardio Rate: regular rate Rhythm: regular rhythm (Occasional skipped beat) Heart sounds: S1 normal heart sound present and S2 normal heart sound present GI Palpation (GI): Soft to palpation, nontender and no masses Auscultation: normal bowel sounds Neuro Other: Mild tremors noted in both hands General: patient oriented x3, tone normal, moves all extremities, Normal light touch and pain sensation and no focal motor deficits Cranial nerves: Yes Normal hearing present Cognition (Neuro): normal cognition Extrem Other: Crepitus in both knees left more than right, slight swelling on anterior aspect of left knee joint, no cyst or any mass in popliteal area palpated, negative calf tenderness Psych Appearance: grossly normal and well kempt Mental Status: mental status grossly normal Speech and movement: Clear speech present and Slowed movement present (Neuro) Affect: normal affect Thought process: Normal thought process present Thought content: Normal thought content present Results Reviewed Results Reviewed: Name: Sarai Ramon Age/Sex: 83/F : 1940 Unit#: [id number] Attend Dr: Iwona Walker MD Re09/22/24 Status: DEP REF Location: [facility] Disch: SPEC : [id number] KRANTHI: 09/22/24 STATUS: COMP REQ : [id number] RECD: 09/22/24-[address]: Iwona Walker MD COMP: 09/22/24 ENTERED: 09/22/[address]: ORDERED: BMP Test Result Flag Reference Sodium 138 135-145 mmol/L Potassium 4.3 3.3-5.1 mmol/L Slight Hemolysis.Interpret result with caution. CL 103 96-108 mmol/L CO2 27 22-29 mmol/L Gap 12 12-20 BUN 27 H 9-16 mg/dL Creat 0.90 0.5-1.4 mg/dL eGFR 60 Chronic Kidney Disease: Estimated GFR < 60 mL/min/1.73m2 Severe Kidney Disease: Estimated GFR < 15 mL/min/1.73m2 Glucose, Random 97 60-115 mg/dL CA 9.2 8.4-10.2 mg/dL Coding Level of Care Code Est Pt Level 4 (77884) Diagnoses Essential hypertension I10 Assessment & Plan Assessment & Plan (1) Essential hypertension: Code(s): I10 - Essential (primary) hypertension Category: Medical Plan: Blood pressure now stable controlled on present treatment, continue with current dose of losartan 50 mg taken once a day and takes furosemide 20 mg as needed for swelling. Reinforced importance following a low-salt diet
--- OUTSIDE RECORDS SUMMARY | 2024-09-24 13:47 | XMS_ITS | Patient Health Record ---
Author Organization [facility] Mara zacarias [place] Address [address] [facility] [place] [address] Care Team Providers Care Senior Informatica Developer Name Role Phone Denise KARIMI, Iwona Meza Primary Care Provider Un available Chino Zulay Unavailable [phone] Ryan Garcia Unavailable [phone] Allergies Allergen (clinical drug ingredient) Drug/Non Drug Allergy documented on EMR Reaction Allergy Type Onset Date Status 12 Hour Nasal [place] Unknown Drug Allergy Active ibuprofen Advil Unknown [...] atherosclerosis of arteries of lower limbs (disorder) (49117948125364812 ) Unspecified atherosclerosis of [place] arteries of extremities, bilateral legs (I70.203) Active confirmed Problem Localized, primary osteoarthritis of the ankle and/or foot (912702405) Primary osteoarthritis, left ankle and foot (M19.072) Active confirmed Problem Non-pressure chronic ulcer of other part of right foot limited to breakdown of skin (L97.511) Active confirmed Problem 47771725 Parkinson diseas e (G20) Active confirmed Problem 286097442 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 (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) Active confirmed Problem Atherosclerosis of [place] artery of both lower extremities, with unspecified presence of clinical manifestation (I70.203) Active confirmed Q7(A), Q8(2B), Q9(1B,2 C) Vital Signs Blood pressure diastolic 70 mm Hg 09/09/2024 Height 5 ft 5 in in 09/09/2024 Blood pressure systolic 110 mm Hg 09/09/2024 Weight 195 lbs 09/09/2024 BMI 32.45 kg/m2 09/09/2024 Encounters Encounter Location Date Provider Diagnosis [address] [address] 02/13/2024 Ryan Garcia Ingrowing nail L60.0 ; Pain in left toe(s) M79.675 ; 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 I73.00 ; Parkinson disease G20 ; Neuralgia and neuritis, unspecified M79.2 ; Unspecified atherosclerosis of [place] arteries of extremities, bilateral legs I70.203 ; Tinea unguium B35.1 ; Pain in right toe(s) M79.674 and Primary osteoarthritis, left ankle and foot M19.[address] [address] 06/17/2024 Zulay Perica Atherosclerosis of [place] artery of both lower extremities, with unspecified presence of clinical manifestation I70.203 ; Edema, lower extremity R60.0 ; Tinea unguium B35.1 ; Pain in right toe(s) M79.674 and Pain in left toe(s) M79.[address] [address] 09/09/2024 Zulay Perica Atherosclerosis of [place] artery of both lower extremities, with unspecified presence of clinical manifestation I70.203 ; Edema, lower extremity R60.0 ; Tinea unguium B35.1 ; Pain in right toe(s) M79.674 and Pain in left toe(s) M79.[address] [address] 03/18/2024 Ryan Garcia 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 I73.00 Assessments Encounter Date Diagnosis (ICD Code) Assessment Notes Treatment Notes Treatment Clinical Notes Section Notes 02/13/2024 Ingrowing nail (ICD-10 - L60.0) 02/13/2024 Pain in left toe(s) (ICD-10 - M79.675) 06/17/2024 Atherosclerosis of [place] artery of both lower extremities, with unspecified presence of clinical manifestation (ICD-10 - I70.203) Q7(A), Q8(2B), Q9(1B,2C) 06/17/2024 Edema, lower extremity (ICD-10 - R60.0) 03/18/2024 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 (ICD-10 - I73.00) 09/09/2024 Atherosclerosis of [place] artery of both lower extremities, with unspecified presence of clinical manifestation (ICD-10 - I70.203) Q7(A), Q8(2B), Q9(1B,2C) 09/09/2024 Edema, lower extremity (ICD-10 - R60.0) 06/17/2024 Tinea unguium (ICD-10 - B35.1) 09/09/2024 Tinea unguium (ICD-10 - B35.1) 02/13/2024 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 (ICD-10 - I73.00) 02/13/2024 Parkinson disease (ICD-10 - G20) 06/17/2024 Pain in right toe(s) (ICD-10 - M79.674) 09/09/2024 Pain in right toe(s) (ICD-10 - M79.674) 06/17/2024 Pain in left toe(s) (ICD-10 - M79.675) 02/13/2024 Neuralgia and neuritis, unspecified (ICD-10 - M79.2) 09/09/2024 Pain in left toe(s) (ICD-10 - M79.675) 02/13/2024 Unspecified atherosclerosis of [place] arteries of extremities, bilateral legs (ICD-10 - I70.203) 02/13/2024 Tinea unguium (ICD-10 - B35.1) 02/13/2024 Pain in right toe(s) (ICD-10 - M79.674) 02/13/2024 Primary osteoarthritis, left ankle and foot (ICD-10 - M19.072) Plan Of Treatment Pending Test Test Name Order Date X ray : Foot, left 3V 09/23/2014 71068-Ubmx Destruction, -10/28/2014 19465-Evso Destruction, -09/23/2014 89447-Bglsjkir Plate 09/13/2016 01804-Uugtktqw Plate 06/25/2017 93612-CKN 11/01/2017 92846- Debride <25 sq cm 11/15/2017 18167- Debride <25 sq cm 12/05/2017 71389-OBIB SKIN LESIONS, 2 TO 4 06/30/19 Next Appt Details Provider Name:Zulay elmore, 12/10/2024 11:00:00 AM, [address] [place], [address], Insurance Providers Payer Name Payer Address Payer Phone Subscriber Number Group Number Insured Name Patient Relationship to Insured Coverage Start Date Coverage End Date Medicare [facility] [address] [place] [address] [id number] Sarai Ramon Self - patient is the insured [employer] [address] [place] [address] [phone] [id number] Sarai Ramon Self - patient is the insured Medical (General) History Medical History History ICD Code Back,Hip,and Knee pain Cancer Depression Fibromyalgia High blood pressure Reflux Measles Mumps Chicken pox Neuropathy Irritable bowel syndrome edema patellar tendinitis Surgical History Surgery Date(Month/Year) hammer toe 1989 carpal tunnel surgery colonoscopy 2021 hysterectomy cancer 04/11/2022 Hospitalization History Reason Date(Month/Year) [facility] ER- patellar tendinitis - edema 06/13
--- OUTSIDE RECORDS SUMMARY | 2024-09-24 13:47 | XMS_ITS ---
Author Organization [facility] Mara zacarias [place] Address [address] [place] [address] Care Team Providers Care Forge Shop Machine Repairer Name Role Phone Denise KARIMI, Iwona Meza Primary Care Provider Un available Zulay Magana Unavailable [phone] Allergies Allergen (clinical drug ingredient) Drug/Non Drug Allergy documented on EMR Reaction Allergy Type Onset Date Status 12 Hour Nasal [place] Unknown Drug Allergy Active ibuprofen Advil Unknown [...] 025 Encounters Encounter Location Date Provider Diagnosis [facility] [address] [place] [address] 09/09/2024 Zulay Magana Atherosclerosis of [place] artery of both lower extremities, with unspecified presence of clinical manifestation I70.203 ; Edema, lower extremity R60.0 ; Tinea unguium B35.1 ; Pain in right toe(s) M79.674 and Pain in left toe(s) M79.675 Assessments Encounter Date Diagnosis (ICD Code) Assessment Notes Treatment Notes Treatment Clinical Notes Section Notes 09/09/2024 Atherosclerosis of [place] artery of both lower extremities, with unspecified presence of clinical manifestation (ICD-10 - I70.203) Q7(A), Q8(2B), Q9(1B,2C) 09/09/2024 Edema, lower extremity (ICD-10 - R60.0) 09/09/2024 Tinea unguium (ICD-10 - B35.1) 09/09/2024 Pain in right toe(s) (ICD-10 - M79.674) 09/09/2024 Pain in left toe(s) (ICD-10 - M79.675) Plan Of Treatment Next Appt Details Follow Up: 3 Months, Reason: Provider Name:Zulay elmore, 12/10/2024 11:00:00 AM, [address] [place] [address], [address], Procedure Notes * Category Sub-Category Detail Notes [...] use of a nail nipper and/or dremel-type tankage grinder operator, to a more viable healthy nail plate [...] to maintain effectiveness in symptomatic relief - 95582 Keratoma Treatment Parring or Cutting o f [...] instrumentation by the physician of record - 84225 Progress Notes * Sarai GONZALEZ RDOB:[birth year] (83 yo F)Acc No.[id number]:09/09/2024 Progress Note Patient:?Sarai GONZALEZ Provider:?Zulay Magana DPM :1940???Age:83 Y???Sex:Female D ate:09/09/2024 Address:[address] [place] [address], [place], [id number] Pcp:Victoria Ortiz Subjective: * Chief Complaints: * [...] cancer 04/11/2022 * Hospitalization/Major Diagno stic Procedure:?[facility] ER- patellar tendinitis - edema 03/21/24 * [...] ?Exercise: no. ?Marital status: . 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 * Medications:?TakingVoltaren 1 % Gel as directed [...] patient * Allergies:?BiaxinAspirin: GE RD can't takeAdvilAleveMotrinDemerol: [id number] Hour Nasal SprayCodeineShrimp (Diagnostic)Shellfish-derived ProductsGentamicin: made with [...] and time.? Assessment: * Assessment: 1.?Atherosclerosis of [place] artery of both lower extremities, with unspecified [...] use of a nail nipper and/or dremel-type tankage grinder operator, to a more viable healthy nail plate [...] to maintain effectiveness in symptomatic relief - 98780.?Keratoma Treatment:?Parring or Cutting of Benign Hyperkeratotic Lesion(s)?(-57) [...] instrumentation by the physician of record - 02300.? * Procedure Codes:?51059 DEBRI DE NAIL, 6 OR MORE, Modifiers: XS 11524 TRIM SKIN LESIONS, OVER 4, Modifiers: XS [...] Magana DPM Date:? Generated for Catarina merino/Bryanna/Valente on:?09/24/2024 01:47 PM EDT History and Physical Notes * [...]
--- OUTSIDE RECORDS SUMMARY | 2024-09-24 13:47 | XMS_ITS ---
Author Organization [facility] Mara zacarias [place] Address [address] [place] [address] Care Team Providers Care Director Of Global Sales Name Role Phone Denise KARIMI, Iwona Meza Primary Care Provider Un available Zulay Magana Unavailable [phone] Allergies Allergen (clinical drug ingredient) Drug/Non Drug Allergy documented on EMR Reaction Allergy Type Onset Date Status 12 Hour Nasal [place] Unknown Drug Allergy Active ibuprofen Advil Unknown [...] W/U Status Risk Notes Problem Atherosclerosis of [place] artery of both lower extremities, with unspecified presence of clinical manifestation (I70.203) Active confirmed Q7(A), Q8(2B), Q9(1B,2C) Vital Signs Height 5 ft 5 in in 06/17/2024 Weight 197 lbs 06/17/2024 BMI 32.78 kg/m2 06/17/2024 Blood pressure systolic 110 mm Hg 06/17/19 25 Blood pressure diastolic 70 mm Hg 025 Encounters Encounter Location Date Provider [facility] [address] [place] [address] 06/17/2024 Zulay Magana Atherosclerosis of [place] artery of both lower extremities, with unspecified presence of clinical manifestation I70.203 ; Edema, lower extremity R60.0 ; Tinea unguium B35.1 ; Pain in right toe(s) M79.674 and Pain in left toe(s) M79.675 Assessments Encounter Date Diagnosis (ICD Code) Assessment Notes Treatment Notes Treatment Clinical Notes Section Notes 06/17/2024 Atherosclerosis of [place] artery of both lower extremities, with unspecified [...] Reason: Provider Name:Zulay elmore, 12/10/2024 11:00:00 AM, [address] [place] [address], [address], Procedure Notes * Category Sub-Category Detail Notes [...] use of a nail nipper and/or dremel-type watch crystal edge grinder, to a more viable healthy nail [...] to maintain effectiveness in symptomatic relief - 01419 Progress Notes * Sarai GONZALEZ RDOB:[birth year] (83 yo F)Acc No.[id number]:06/17/2024 Progress Note Patient:?Sarai GONZALEZ R Provider:?Zulay Magana DPM :1940???Age:83 Y???Sex:Female D ate:06/17/2024 Address:[facility] [place], [id number] Pcp:Victoria Ortiz Subjective: * Chief Complaints: * [...] 2021hysterectomy cancer 04/11/2022 * Hospitalization/Major Diagno stic Procedure:?[facility] ER- patellar tendinitis - edema [...] ?Exercise: no. ?Marital status: . 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 ???Drug/Alcohol:?AUDIT-C (Standard)?Did you have a drink [...] patient * Allergies:?BiaxinAspirin: GE RD can't takeAdvilAleveMotrinDemerol: HtmhFrygigkslsyr20 Hour Nasal SprayCodeineShrimp (Diagnostic)Shellfish-derived ProductsGentamicin: made with [...] and time.? Assessment: * Assessment: 1.?Atherosclerosis of [place] artery of both lower extremities, with unspecified [...] use of a nail nipper and/or dremel-type watch crystal edge grinder, to a more viable healthy nail [...] to maintain effectiveness in symptomatic relief - 69061.? * Procedure Codes:?60101 DEBRI DE NAIL, 6 OR MORE, Modifiers: [...]
--- OUTSIDE RECORDS SUMMARY | 2024-09-24 13:47 | XMS_ITS ---
Author Organization [facility] Address [address] [place] [address] Care Team Providers Care Photography Assistant Name Role Phone Denise KARIMI, Iwona Meza Primary Care Provider Un available Zulay Magana Unavailable [phone] Ryan Garcia Unavailable [phone] REASON FOR VISIT Refill Request Medications Medication SIG (Take, Route, Frequency, Duration) Notes Start Date End Date Status Nitro-Bid 2 % as directed Transder mal apply bid to affected skin quiana feet for 30 days Active Encounters Encounter Location Date Provider Diagnosis [facility] [address] [place] [address] 03/18/2024 Ryan Garcia 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 [...] Provider Name:Zulay elmore, 12/10/2024 11:00:00 AM, [address] [place], [address], Progress Notes * Sarai GONZALEZ RDOB:[birth year] (83 yo F)Acc No.[id number]:03/18/2024 Patient:?TristenSarai :1940???Age:83 Y???Sex:Female Address:[address] [place] [address], [place] [address] * Refills? Refill Nitro-Bid Ointment, 2 %, Transdermal, 90, as directed, apply bid to affected skin quiana feet, 30 days, Refills=4 * true * Date:? Generated for Catarina merino/Bryanna/Kavyasmitting on:?09/24/2024 01:47 PM EDT
--- OUTSIDE RECORDS SUMMARY | 2024-09-24 13:47 | XMS_ITS | Patient Health Record ---
Author Organization [facility] Address [address] [place] [address] Care Team Providers Care Housing Project Manager Name Role Phone Denise KARIMI, Iwona Primary [...] Problem Status W/U Status Risk Notes Problem 395939103 Colon cancer screening (Z12.11) Active confirmed Problem 047472924 Gastroesophageal reflux disease without esophagitis (K21.9) Active confirmed Problem 414438751 Lactose intolera nce (E73.9) Active confirmed Problem 11167464 Irritable bowel syndrome, unspecified type (K58.9) Active confirmed Problem 784667340 Esophageal reflu x disease (K21.9) Active confirmed [...] Date MEDICARE OF [place] [address] [place] [address] [id number] GIL GONZALEZ Self - patient is the insured [employer] ATT[employer] CLAIMS [address] [place] [address] [phone] [id number] GIL GONZALEZ Self - patient is the insured Medical (General) History Medical History History ICD Code esophageal reflux urinary urgency depression osteoarthritis fibromyalgia irritable bowel syndrome glaucoma elevated cholesterol parkinsons disease unsteady gait Surgical History Surgery Date(Month/Year) carpal tunnel surgery hammer toe tonsillectomy adnoids
== END 2024-09-24 13:28 | disposition home or self-care (01) ==
LOC: HO.HMCC 12:45
PROVIDERS: PCP Internal Medicine; Visit Provider Internal Medicine
DX: I10 Essential (primary) hypertension (principal)

== ENCOUNTER → 2024-09-24 12:44 | Outpatient (BNVA) | payer MEDICARE, SELFPAY | PROVIDERS: PCP Internal Medicine; Visit Provider Internal Medicine | DX: I10 Essential (primary) hypertension (principal) | CPT/HCPCS: 99212 ==

== ENCOUNTER 2024-09-26 10:21 | Outpatient (REF) | payer MEDICARE, SELFPAY ==
--- NOTE | ~2024-09-26 | US_ITS ---
EXAMINATION: US LOWER EXTREMITY VENOUS (REFLUX EXAM), BILATERAL CLINICAL INFORMATION: Varices. COMPARISON: None. TECHNIQUE: Color flow triplex imaging and compression Doppler was performed to evaluate both the deep and the superficial systems bilaterally. To evaluate the superficial system, the examination was performed in the upright position. Color-flow Doppler ultrasound and compression ultrasound were utilized. In addition, maneuvers were utilized to demonstrate reflux. FINDINGS: 1. DEEP VENOUS ULTRASOUND OF THE RIGHT LOWER EXTREMITY: Common Femoral Vein: Compressible, normal respiratory variation and augmented flow. Femoral Vein: Compressible, normal color flow and augmentation. Popliteal Vein: Compressible, normal augmentation. Deep Reflux: There is no evidence of reflux in the deep system in either the common femoral vein, superficial femoral or the popliteal vein. There is no evidence of a Hayes's cyst. 2. SUPERFICIAL ULTRASOUND WITH DOPPLER OF RIGHT LOWER EXTREMITY: GREAT SAPHENOUS VEIN: Saphenofemoral Junction: 0.8 cm; Reflux: 0 ms Proximal Thigh: 0.7 cm; Reflux: 0 ms Mid Thigh: 0.4 cm; Reflux: 0 ms Distal Thigh: 0.5 cm; Reflux: 0 ms At Knee: 0.5 cm; Reflux: 0 ms Proximal Calf: 0.3 cm; Reflux: 0 ms Mid Calf: 0.3 cm; Reflux: 2340 ms Distal Calf: 0.3 cm; Reflux: 0 ms DUPLICATED MEDIAL GREAT SAPHENOUS VEIN: Diameter: None imaged Reflux: NA DUPLICATED LATERAL GREAT SAPHENOUS VEIN: Diameter: 0.3 cm. Reflux: NA SMALL SAPHENOUS VEIN: Saphenopopliteal Junction: 0.3 cm; Reflux: 0 ms Proximal: 0.2 cm; Reflux: 0 ms Distal: 0.2 cm; Reflux: 0 ms VEIN OF GIACOMINI: Size: NA Reflux: NA PERFORATORS: Location: Great saphenous vein, distal thigh and proximal calf Size: 0.2-0.3 cm. Reflux: NA VARICOSITIES: Location: None imaged. Size: NA Reflux: NA 3. DEEP VENOUS ULTRASOUND OF THE LEFT LOWER EXTREMITY: Common Femoral Vein: Compressible, normal respiratory variation and augmented flow. Femoral Vein: Compressible, normal color flow and augmentation. Popliteal Vein: Compressible, normal augmentation. Deep Reflux: There is no evidence of reflux in the deep system in either the common femoral vein, superficial femoral or the popliteal vein. There is no evidence of a Hayes's cyst. 4. SUPERFICIAL ULTRASOUND WITH DOPPLER OF LEFT LOWER EXTREMITY: GREAT SAPHENOUS VEIN: Saphenofemoral Junction: 0.8 cm; Reflux: 0 ms Proximal Thigh: 0.6 cm; Reflux: 0 ms Mid Thigh: 0.5 cm; Reflux: 0 ms Distal Thigh: 0.5 cm; Reflux: 0 ms At Knee: 0.4 cm; Reflux: 0 ms Proximal Calf: 0.3 cm; Reflux: 0 ms Mid Calf: 0.2 cm; Reflux: 0 ms Distal Calf: 0.3 cm; Reflux: 0 ms DUPLICATED MEDIAL GREAT SAPHENOUS VEIN: Diameter: None imaged Reflux: NA DUPLICATED LATERAL GREAT SAPHENOUS VEIN: Diameter: None imaged. Reflux: NA SMALL SAPHENOUS VEIN: Saphenopopliteal Junction: 0.2 cm; Reflux: 0 ms Proximal: 0.2 cm; Reflux: 0 ms Distal: 0.2 cm; Reflux: 0 ms VEIN OF GIACOMINI: Size: NA Reflux: NA PERFORATORS: Location: The great saphenous vein, proximal calf. Size: 0.2-0.4 cm. Reflux: NA VARICOSITIES: Location: None Imaged Size: NA Reflux: NA US/US venous insuf bilat IMPRESSION: Right: Venous insufficiency, great saphenous vein in the mid calf. Perforators without reflux. No gross varices. Left: No venous insufficiency. Perforators without reflux. No gross varices. Electronically signed by: Ga Bell MD 09/26/2024 11:45 AM EDT
--- OUTSIDE RECORDS SUMMARY | 2024-09-26 10:52 | XMS_ITS ---
Author Organization [facility] Mara zacarias [place] Address [address] [place] [address] Care Team Providers Care Grey Stock Recorder Name Role Phone Denise KARIMI, Iwona Meza Primary Care Provider Un available Zulay Magana Unavailable [phone] Allergies Allergen (clinical drug ingredient) Drug/Non Drug Allergy documented on EMR Reaction Allergy Type Onset Date Status 12 Hour Nasal [place] Unknown Drug Allergy Active ibuprofen Advil Unknown [...] 025 Encounters Encounter Location Date Provider Diagnosis [facility] [place] [address] [place] [address] 09/09/2024 Zulay Magana Atherosclerosis of circle artery of both lower extremities, with unspecified presence of clinical manifestation I70.203 ; Edema, lower extremity R60.0 ; Tinea unguium B35.1 ; Pain in right toe(s) M79.674 and Pain in left toe(s) M79.675 Assessments Encounter Date Diagnosis (ICD Code) Assessment Notes Treatment Notes Treatment Clinical Notes Section Notes 09/09/2024 Atherosclerosis of circle artery of both lower extremities, with unspecified presence of clinical manifestation (ICD-10 - I70.203) Q7(A), Q8(2B), Q9(1B,2C) 09/09/2024 Edema, lower extremity (ICD-10 - R60.0) 09/09/2024 Tinea unguium (ICD-10 - B35.1) 09/09/2024 Pain in right toe(s) (ICD-10 - M79.674) 09/09/2024 Pain in left toe(s) (ICD-10 - M79.675) Plan Of Treatment Next Appt Details Follow Up: 3 Months, Reason: Provider Name:Zulay elmore, 12/10/2024 11:00:00 AM, [address] [place] [address], [id number], Procedure Notes * Category Sub-Category Detail Notes [...] use of a nail nipper and/or dremel-type drier and grinder tender, to a more viable healthy [...] to maintain effectiveness in symptomatic relief - 75216 Keratoma Treatment Parring or Cutting o f [...] instrumentation by the physician of record - 83336 Progress Notes * Sarai GONZALEZ RDOB:[birth year] (83 yo F)Acc No.[id number]:09/09/2024 Progress Note Patient:?Sarai GONZALEZ Provider:?Zulay Magana DPM :1940???Age:83 Y???Sex:Female D ate:09/09/2024 Address:[address] [place] [address], [place], [id number] Pcp:Victoria Ortiz Subjective: * Chief Complaints: * [...] 2021hysterectomy cancer 04/11/2022 * Hospitalization/Major Diagno stic Procedure:?[facility] [place] ER- patellar tendinitis - edema 03/21/24 * [...] ?Exercise: no. ?Marital status: . 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 * Medications:?TakingVoltaren 1 % Gel as directed [...] patient * Allergies:?BiaxinAspirin: GE RD can't takeAdvilAleveMotrinDemerol: YjuyTbqbpuzsoggq95 Hour Nasal SprayCodeineShrimp (Diagnostic)Shellfish-derived ProductsGentamicin: made with [...] and time.? Assessment: * Assessment: 1.?Atherosclerosis of circle artery of both lower extremities, with unspecified [...] use of a nail nipper and/or dremel-type drier and grinder tender, to a more viable healthy [...] to maintain effectiveness in symptomatic relief - 90281.?Keratoma Treatment:?Parring or Cutting of Benign Hyperkeratotic Lesion(s)?(-57) [...] instrumentation by the physician of record - 68299.? * Procedure Codes:?60180 DEBRI DE NAIL, 6 OR MORE, Modifiers: XS 39567 TRIM SKIN LESIONS, OVER 4, Modifiers: XS [...] Provider:?Zulay Magana DPM Date:? Generated for Catarina merino/Bryanna/Serafinitting on:?09/26/2024 10:52 AM EDT History and Physical Notes * [...]
--- OUTSIDE RECORDS SUMMARY | 2024-09-26 10:52 | XMS_ITS | Patient Health Record ---
Author Organization [facility] Address [address] [place] [address] Care Team Providers Care Wheat Grower Name Role Phone Denise KARIMI, Iwona Primary [...] Problem Status W/U Status Risk Notes Problem 361749306 Colon cancer screening (Z12.11) Active confirmed Problem 094349791 Gastroesophageal reflux disease without esophagitis (K21.9) Active confirmed Problem 758354318 Lactose intolera nce (E73.9) Active confirmed Problem 60428611 Irritable bowel syndrome, unspecified type (K58.9) Active confirmed Problem 766079186 Esophageal reflu x disease (K21.9) Active confirmed [...] Date MEDICARE OF [place] [address] [place] [address] [id number] GIL GONZALEZ Self - patient is the insured [employer] ATTN CLAIMS [address] [place] [address] [phone] [id number] GIL GONZALEZ Self - patient is the insured Medical (General) History Medical History History ICD Code esophageal reflux urinary urgency depression osteoarthritis fibromyalgia irritable bowel syndrome glaucoma elevated cholesterol parkinsons disease unsteady gait Surgical History Surgery Date(Month/Year) carpal tunnel surgery hammer toe tonsillectomy adnoids
--- OUTSIDE RECORDS SUMMARY | 2024-09-26 10:52 | XMS_ITS | Patient Health Record ---
Author Organization [facility] Mara zacarias [place] Address [address] [facility] [place] [address] Care Team Providers Care Fisher Eel Name Role Phone Denise KARIMI, Iwona Meza Primary Care Provider Un available Ch[place] Zulay Unavailable [phone] Ryan Garcia Unavailable [phone] Allergies Allergen (clinical drug ingredient) Drug/Non Drug Allergy documented on EMR Reaction Allergy Type Onset Date Status 12 Hour Nasal [place] Unknown Drug Allergy Active ibuprofen Advil Unknown [...] Status Risk Notes Problem Unspecified atherosclerosis of [place] arteries of extremities, bilateral legs (I70.203) Active confirmed Problem Localized, primary osteoarthritis of the ankle and/or foot (303831978) Primary osteoarthritis, left ankle and foot (M19.072) Active confirmed Problem Non-pressure chronic ulcer of other part of right foot limited to breakdown of skin (L97.511) Active confirmed Problem 43549948 Parkinson diseas e (G20) Active confirmed Problem 280147200 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 (I73.00) Active confirmed Problem Bilateral atherosclerosis of arteries of lower limbs (disorder) (68820029604608024 ) Atherosclerosis of [place] artery of both lower extremities, with unspecified presence of clinical manifestation (I70.203) Active confirmed Q7(A), Q8(2B), Q9(1B,2 C) Vital Signs Blood pressure diastolic 70 mm Hg 09/09/2024 Height 5 ft 5 in in 09/09/2024 Blood pressure systolic 110 mm Hg 09/09/2024 Weight 195 lbs 09/09/2024 BMI 32.45 kg/m2 09/09/2024 Encounters Encounter Location Date Provider Diagnosis [address] [address] 02/13/2024 Ryan Garcia Ingrowing nail L60.0 ; Pain in left toe(s) M79.675 ; 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 I73.00 ; Parkinson disease G20 ; Neuralgia and neuritis, unspecified M79.2 ; Unspecified atherosclerosis of [place] arteries of extremities, bilateral legs I70.203 ; Tinea unguium B35.1 ; Pain in right toe(s) M79.674 and Primary osteoarthritis, left ankle and foot M19.[address] [address] 06/17/2024 Zulay Perica Atherosclerosis of [place] artery of both lower extremities, with unspecified presence of clinical manifestation I70.203 ; Edema, lower extremity R60.0 ; Tinea unguium B35.1 ; Pain in right toe(s) M79.674 and Pain in left toe(s) M79.[address] [address] 09/09/2024 Zulay Perica Atherosclerosis of [place] artery of both lower extremities, with unspecified presence of clinical manifestation I70.203 ; Edema, lower extremity R60.0 ; Tinea unguium B35.1 ; Pain in right toe(s) M79.674 and Pain in left toe(s) M79.[address] [address] 03/18/2024 Ryan Garcia 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 I73.00 Assessments Encounter Date Diagnosis (ICD Code) Assessment Notes Treatment Notes Treatment Clinical Notes Section Notes 02/13/2024 Ingrowing nail (ICD-10 - L60.0) 02/13/2024 Pain in left toe(s) (ICD-10 - M79.675) 03/18/2024 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 (ICD-10 - I73.00) 06/17/2024 Atherosclerosis of [place] artery of both lower extremities, with unspecified presence of clinical manifestation (ICD-10 - I70.203) Q7(A), Q8(2B), Q9(1B,2C) 06/17/2024 Edema, lower extremity (ICD-10 - R60.0) 09/09/2024 Atherosclerosis of [place] artery of both lower extremities, with unspecified [...] (ICD-10 - M79.675) 02/13/2024 Unspecified atherosclerosis of [place] arteries of extremities, bilateral legs (ICD-10 - I70.203) 02/13/2024 Tinea unguium (ICD-10 - B35.1) 02/13/2024 Pain in right toe(s) (ICD-10 - M79.674) 02/13/2024 Primary osteoarthritis, left ankle and foot (ICD-10 - M19.072) Plan Of Treatment Pending Test Test Name Order Date X ray : Foot, left 3V 09/23/2014 06258-Hbgn Destruction, -10/28/2014 77570-Nqxw Destruction, -09/23/2014 53697-Temgpwbv Plate 09/13/2016 69820-Vnbpblao Plate 06/25/2017 70557-VZM 11/01/2017 35362- Debride <25 sq cm 11/15/2017 90405- Debride <25 sq cm 12/05/2017 41501-YBTN SKIN LESIONS, 2 TO 4 06/30/19 Next Appt Details Provider Name:Zualy elmore, 12/10/2024 11:00:00 AM, [address] [place], [address], Insurance Providers Payer Name Payer Address Payer Phone Subscriber Number Group Number Insured Name Patient Relationship to Insured Coverage Start Date Coverage End Date Medicare [facility] [address] [place] [address] [id number] Sarai Ramon Self - patient is the insured [employer] [address] [place] [address] [phone] [id number] Sarai Ramon Self - patient is the insured Medical (General) History Medical History History ICD Code Back,Hip,and Knee pain Cancer Depression Fibromyalgia High blood pressure Reflux Measles Mumps Chicken pox Neuropathy Irritable bowel syndrome edema patellar tendinitis Surgical History Surgery Date(Month/Year) hammer toe 1989 carpal tunnel surgery colonoscopy 2021 hysterectomy cancer 04/11/2022 Hospitalization History Reason Date(Month/Year) [facility] ER- patellar tendinitis - edema 06/13
--- OUTSIDE RECORDS SUMMARY | 2024-09-26 10:52 | XMS_ITS ---
Author Organization [facility] Address [address] [place] [address] Care Team Providers Care County Court Judge Name Role Phone Denise KARIMI, Iwona Meza Primary Care Provider Un available Zulay Magana Unavailable [phone] Ryan Garcia Unavailable [phone] REASON FOR VISIT Refill Request Medications Medication SIG (Take, Route, Frequency, Duration) Notes Start Date End Date Status Nitro-Bid 2 % as directed Transder mal apply bid to affected skin quiana feet for 30 days Active Encounters Encounter Location Date Provider Diagnosis [facility] [address] [place] [address] 03/18/2024 Ryan Garcia 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 [...] Provider Name:Zulay elmore, 12/10/2024 11:00:00 AM, [address] [place], [address], Progress Notes * Sarai GONZALEZ RDOB:[birth year] (83 yo F)Acc No.[id number]:03/18/2024 Patient:?TristenSarai :1940???Age:83 Y???Sex:Female Address:[address] [place] [address], [place] [address] * Refills? Refill Nitro-Bid Ointment, 2 %, Transdermal, 90, as directed, apply bid to affected skin quiana feet, 30 days, Refills=4 * true * Date:? Generated for Catarina merino/Bryanna/eTransmitting on:?09/26/2024 10:52 AM EDT
--- OUTSIDE RECORDS SUMMARY | 2024-09-26 10:53 | XMS_ITS ---
Author Organization [facility] Mara zacarias [place] Address [address] [place] [address] Care Team Providers Care Belt Glass Sander Name Role Phone Denise KARIMI, Iwona Meza Primary Care Provider Un available Zulay Magana Unavailable [phone] Allergies Allergen (clinical drug ingredient) Drug/Non Drug Allergy documented on EMR Reaction Allergy Type Onset Date Status 12 Hour Nasal [place] Unknown Drug Allergy Active ibuprofen Advil Unknown [...] atherosclerosis of arteries of lower limbs (disorder) (54239680955603395 ) Atherosclerosis of [place] artery of both lower extremities, with unspecified presence of clinical manifestation (I70.203) Active confirmed Q7(A), Q8(2B), Q9(1B,2 C) Vital Signs Height 5 ft 5 in in 06/17/2024 Weight 197 lbs 06/17/2024 BMI 32.78 kg/m2 06/17/2024 Blood pressure systolic 110 mm Hg 06/17/19 25 Blood pressure diastolic 70 mm Hg 025 Encounters Encounter Location Date Provider Diagnosis [facility] [place] [address] [place] [address] 06/17/2024 Zulay Magana Atherosclerosis of [place] artery of both lower extremities, with unspecified presence of clinical manifestation I70.203 ; Edema, lower extremity R60.0 ; Tinea unguium B35.1 ; Pain in right toe(s) M79.674 and Pain in left toe(s) M79.675 Assessments Encounter Date Diagnosis (ICD Code) Assessment Notes Treatment Notes Treatment Clinical Notes Section Notes 06/17/2024 Atherosclerosis of [place] artery of both lower extremities, with unspecified [...] Reason: Provider Name:Zulay elmore, 12/10/2024 11:00:00 AM, [address] [place] [address], [address], Procedure Notes * Category Sub-Category Detail Notes [...] use of a nail nipper and/or dremel-type carbon plant grinder, to a more viable healthy nail [...] to maintain effectiveness in symptomatic relief - 68585 Progress Notes * Sarai GONZALEZ RDOB:[birth year] (83 yo F)Acc No.[id number]:06/17/2024 Progress Note Patient:?Sarai GONZALEZ R Provider:?Zulay Magana DPM :1940???Age:83 Y???Sex:Female D ate:06/17/2024 Address:[place], [id number] Pcp:Victoria Ortiz Subjective: * Chief Complaints: * [...] 2021hysterectomy cancer 04/11/2022 * Hospitalization/Major Diagno stic Procedure:?[facility] ER- patellar tendinitis - edema 03/21/24 * [...] ?Exercise: no. ?Marital status: . 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 ???Drug/Alcohol:?AUDIT-C (Standard)?Did you have a drink containing [...] patient * Allergies:?BiaxinAspirin: GE RD can't takeAdvilAleveMotrinDemerol: LnboAdalciphxkzf48 Hour Nasal SprayCodeineShrimp (Diagnostic)Shellfish-derived ProductsGentamicin: made with [...] and time.? Assessment: * Assessment: 1.?Atherosclerosis of [place] artery of both lower extremities, with unspecified [...] use of a nail nipper and/or dremel-type carbon plant grinder, to a more viable healthy nail [...] to maintain effectiveness in symptomatic relief - 71993.? * Procedure Codes:?07254 DEBRI DE NAIL, 6 OR MORE, Modifiers: [...] Magana DPM Date:? Generated for Catarina merino/Bryanna/Valente on:?09/26/2024 10:52 AM EDT History and Physical [...]
== END 2024-09-26 10:22 | disposition home or self-care (01) ==
LOC: HO.US 10:21
PROVIDERS: PCP Internal Medicine; Visit Provider Internal Medicine
DX: R22.43 Localized swelling, mass and lump, lower limb, bilateral (principal); I83.90 Asymptomatic varicose veins of unspecified lower extremity
CPT/HCPCS: 93970

== ENCOUNTER → 2024-09-26 10:23 | Outpatient (BNV) | payer MEDICARE, SELFPAY | PROVIDERS: PCP Internal Medicine; Visit Provider Radiology Diagnostic Radiology | DX: I87.2 Venous insufficiency (chronic) (peripheral) (principal) | CPT/HCPCS: 93970 ==

== ENCOUNTER 2024-10-08 11:23 | Observation (INO) | payer MEDICARE, SELFPAY ==
[2024-10-08] VITALS (10 sets, daily range): BP systolic 123–171; BP diastolic 44–72; PULSE 56–79; RESP 14–18; TEMP 36.3–36.6; O2SAT 93–98; BMI 31.6; BMI 34.1
--- NOTE | 2024-10-08 | ECG_ITS ---
Test Reason : SYNCOPE Blood Pressure : */* mmHG Vent. Rate : 69 BPM Atrial Rate : 69 BPM P-R Int : 130 ms QRS Dur : 82 ms QT Int : 384 ms P-R-T Axes : 65 61 21 degrees QTcB Int : 411 ms Sinus rhythm with Premature supraventricular complexes Otherwise normal ECG When compared with ECG of 21-Oct-2013 09:12, Premature supraventricular complexes are now Present Referred By: Generic ED Physician Electronically Signed By: Rishabh Deluna
--- NOTE | 2024-10-08 11:46 | ED_ITS ---
HPI - Syncope General Chief Complaint: Syncope Stated Complaint: syncopal epi at home, LOC for 15 sec Time Seen by Provider: 10/08/24 11:42 Source: patient and EMS Mode of arrival: EMS Limitations: no limitations History of Present Illness ED Provider: Richmond Carballo PA-C HPI narrative: 83-year-old female with medical history of glaucoma, GERD, HLD, HTN, Arthritis, fibromyalgia, Parkinson disease, presents to the emergency department by EMS after a witnessed syncopal episode. She states that she was at home greeting her silvestre at the front door when she suddenly felt hot, dizzy and sweaty , and went to sit down on her front steps. She then reports a loss of consciousness, without confusion and woke up to her silvestre calling 911. Her silvestre reported to EMS that she was down for approximately 30 seconds before regaining consciousness. Patient states that she woke up this morning feeling fine took a shower and took losartan and carbidopa but did not get to eat her breakfast or have much to drink this morning. She reports having a headache over the last week but states this feels like normal sinus headaches she tends to get due to allergies. Patient is not on AC. She reports her PCP recently started her on Lasix for fluid retention that she takes approximately every other day. She denies chest pain, shortness of breath, visual changes, nausea, vomiting. MD complaint: loss of consciousness Related Data Home Medications ?Medication ?Instructions ?Recorded ?Confirmed cholecalciferol (vitamin D3) 25 25 mcg PO DAILY 03/09/20 10/08/24 mcg (1,000 unit) capsule carbidopa ER 50 mg-levodopa 200 mg 1 tab PO TID 10/13/20 10/08/24 tablet,extended release timolol maleate 0.5 % eye drops 1 drp ophthalmic (eye) BID 04/13/21 10/08/24 atorvastatin 20 mg tablet 20 mg PO BEDTIME 10/08/24 10/08/24 Previous Rx's ?Medication ?Instructions ?Recorded acetaminophen 500 mg capsule 1,000 mg (2 x 500 mg) PO Q6H PRN 03/18/24 pain #30 caps bupropion HCl 200 mg tablet,12 hr 200 mg PO BID 90 days #180 tabs 03/26/24 sustained-release losartan 50 mg tablet 50 mg PO DAILY #90 tabs 03/26/24 Allergies Allergy/AdvReac Type Severity Reaction Status Date / Time shellfish derived Allergy Severe Anaphylaxis Verified 10/08/24 11:32 oxycodone [OXYCODONE] Allergy Intermediate Itching Verified 10/08/24 11:32 Penicillins [PCN] Allergy Intermediate RASH Verified 10/08/24 11:32 aspirin [ASPIRIN] Allergy Unknown UNKNOWN Verified 10/08/24 11:32 codeine AdvReac Intermediate Nausea and Verified 10/08/24 11:32 Vomiting erythromycin base AdvReac Intermediate Gastrointestinal Verified 10/08/24 11:32 Upset lisinopril AdvReac Intermediate cough Verified 10/08/24 11:32 Review of Systems 2 Review of Systems: CONST: Negative for fever, body aches and chills. HENT: Negative for neck pain/stiffness, headache, congestion, sore throat, swelling. EYES: Negative for discharge/pain or vision changes. RESP: Negative for cough/hemoptysis and shortness of breath. CV: Negative chest pain, difficulty breathing, palpitations. ABD: Negative abdominal pain, nausea, vomiting. : Negative increase frequency, dysuria, blood in urine or stool. MUSC: Negative for muscle aches, edema. SKIN: Negative rash, lesions/sores. NEURO: Pos headache, negative dizziness, negative weakness. Yes all other systems are reviewed and are negative Neurologic: Denies Abnormal speech present and Denies confusion Psychiatric: Psychiatric: Denies confusion PMFSH Past Medical History Attestation statement: The following information was validated with the patient. Source: old records reviewed and nursing notes reviewed Medical History Varicose vein of leg History of carpal tunnel syndrome Left anterior knee pain Impaired fasting glucose Urinary incontinence Gait instability Essential hypertension Osteoarthritis IBS (irritable bowel syndrome) Parkinson disease Tremor of right hand Glaucoma Seasonal allergies Depression GERD (gastroesophageal reflux disease) Hyperlipidemia Fibromyalgia Surgical History H/O: hysterectomy History of esophagogastroduodenoscopy (EGD) H/O colonoscopy History of carpal tunnel surgery Family History Family History Mother History of breast cancer Father History of throat cancer Paternal Grandmother History of liver cancer Social History Social History Housing: House Are you a primary student career development specialist to a significant other at home: No Alcohol intake: never Comment: Parkinson's-use cane or walker Patient Tobacco Use Status: Never used Tobacco Smoked in Last 30 Days: No e-Cigarette/Vaping Use: Never Used Second Hand Smoke Exposure: No Use of substances other than those prescribed or required for medical reasons: No Currently Displaying Signs/Symptoms of Drug Intoxication Withdrawal: No Advance Directives: Yes Advance Directives on File: Yes Advance Directives Date on File: 08/21/24 Do you have a plan to hurt others: No Plan service: No Current occupational status: retired Cognitive needs: No Hearing needs: No Vision needs: Yes Physical Exam 2 Vital Signs: Vital Signs: Last Vital Signs Temp 98.2 F 10/09/24 11:06 Pulse 74 10/09/24 11:06 Resp 18 10/09/24 11:06 BP 132/62 10/09/24 11:06 Pulse Ox 97 10/09/24 11:06 O2 Del Method Room Air 10/09/24 11:06 BMI result Body Mass Index 31.6 Const: General: cooperative, healthy appearing and comfortable; No no acute distress, in distress, anxious, confusion, intoxicated appearing or lethargic Nutritional Appearance: well nourished Orientation/consciousness: patient oriented x3, No confusion and No lethargic Limitations: no limitations HEENT: Head: Yes normal to inspection, Yes No palpable skull fracture present, Yes normocephalic, No contusion, No hematoma and No scalp tenderness Ears: h earing grossly normal bilaterally General nose exam: Normal external nose present Face and sinus: Yes normal facial exam, Yes face symmetric, No abrasion, No ecchymosis, No erythema and No edema Mouth: Normal oral and palatal mucosa present and moist mucous membranes Eyes: General: appearance normal, both eyes and all related structures C onjunctivae: conjunctivae normal Sclerae: sclerae normal Pupils: Equal, round and reactive pupils present EOM: EOMs intact bilaterally Neck: Neck: Yes normal visual inspection and Yes full ROM Chest: Chest palpation & inspection: normal inspection of the chest Resp: Effort & Inspection: normal respiratory effort, able to speak in complete sentences, no audible wheezes, no grunting, not labored, no nasal flaring, No prolonged expiratory phase and symmetric chest movement A uscultation: clear to auscultation bilaterally, no crackles, no rales, no rhonchi and no wheezes Cardio: Jugular venous distension: no JVD Rate: regular rate Rhythm: r egular rhythm Heart sounds: S1 normal heart sound present and S2 normal heart sound present Back/Spine/Pelvis: Cervical Spine: cervical ROM normal and No Cervical spine tenderness Skin: General skin exam: no rashes or lesions noted Trauma: no lacerations or abrasions Neuro: General: patient oriented x3 and No confusion Cranial nerves: Yes Equal, round and reactive pupils present and Yes Nystagmus not present C ognition (Neuro): normal cognition Speech: No Abnormal speech present M otor exam (neuro): 5/5 motor strength present throughout and Tremors during motor activity present (chronic R handed tremor) Extrem: General: Yes normal to inspection Right upper extremity: normal to inspection and full ROM Left upper extremity: normal to inspection and full ROM Right lower extremity: normal to inspection and edema (2+ pitting edema of RLE) Details: pitting and 2+ Left lower extremity: normal to inspection and edema (1+ pitting edema to LLE) Details: pitting and 1+ Course Reevaluation(s) Reevaluation #1: DR. Carrasquillo's progress note: 83-year-old female on Lasix at home found to be hypovolemic with orthostatic hypotension patient came in for evaluation of syncopal episode at home, patient lives home alone need to be encouraged with p.o. intake, ideally for this patient is to admit for gentle hydration and reassure or static hypotension has resolved. Time: 17:31 Medications Administered Generic Name Dose Route Start Last Admin Trade Name Freq PRN Reason Stop Dose Admin Atorvastatin Calcium 20 mg 10/08/24 21:00 10/08/24 22:00 Atorvastatin Calcium 20 Mg Tablet PO 20 mg BEDTIME PILAR Administration Bupropion HCl 450 mg 10/09/24 09:00 10/09/24 08:43 Bupropion Hcl Xl 150 Mg Tab.Er.24h PO 450 mg DAILY PILAR Administration Carbidopa/Levodopa 1 tab 10/08/24 21:00 10/09/24 14:12 Carbidopa/Levodopa Cr 50/200 Tablet.Er PO 1 tab TID PILAR Administration Losartan Potassium 50 mg 10/09/24 09:00 10/09/24 08:43 Losartan Potassium 50 Mg Tablet PO 50 mg DAILY PILAR Administration Protocol Sodium Chloride 3 ml 10/09/24 00:00 10/09/24 08:43 0.9 % Sodium Chloride Flush 3 Ml Syringe IVFLUSH 3 ml QSHIFT PILAR Administration Timolol Maleate 1 drop 10/08/24 21:00 10/09/24 08:44 Timolol Maleate 0.5 % Oph Belkis 5 Ml Drbtl EYE-BOTH 1 drop BID PILAR Administration Vitamin D 25 mcg 10/09/24 09:00 10/09/24 08:43 Cholecalciferol (Vitamin D3) 25 Mcg Tablet PO 25 mcg DAILY PILAR Administration Medical Decision Making Medical Decision Making MDM Narrative: 83-year-old female with medical history of glaucoma, GERD, HLD, HTN, Arthritis, fibromyalgia, Parkinson disease, presents to the emergency department by EMS after a witnessed syncopal episode. VSS, in no acute distress, nontoxic appearing. On physical exam no focal neurological deficits, no speech abnormalities. Strength is 5/5 throughout. HINTS exam reveals no abnormalities. EKG does not show ST elevation/depression, T wave abnormality, no delta wave, significantly prolonged QTc, or irregularly irregular rhythm. Currently awaiting troponin results. CBC unremarkable. Orthostatic vital signs positive- Layin/61, Sittin/66, Standin/60. Awaiting CMP, magnesium, UA and viral swabs. Course 12:59- CMP reveals no electrolyte abnormality. BUN is elevated at 18 but upon chart review this is patients baseline. Glucose is WNL at 115. Troponin WNL- less likely ACS as EKG does not show evidence of ST elevation/depression, T wave abnormality. Viral swabs negative. UA reveals 1+ protein, otherwise unremarkable. 14:15- Bedside echo does not reveal any structural abnormalities/cardiomyopathy. Patient states she was recently started on Lasix to manage LLE which she takes every other day. At this time suspect decreased PO intake of fluids, along with Lasix dosing caused orthostatic hypotension resulting in syncope. Currently encouraging PO hydration while in the department. Will recheck orthostatic vital signs after PO hydration. 16:00- Patient unable to tolerate orthostatic vitals when it came time to stand as she felt dizzy and had to lay down immediately. Patient states she has not eaten anything today, will give patient sandwich and juice in the department and reassess orthostatics. 17:00- patient ate and drank juice. She is still orthostatic however, able to tolerate standing. Patient was ambulating with walker in the department with baseline gait due to Parkinson disease, without dizziness. Patient currently trying to get ahold of family members to stay the night with her upon discharge. Patient discharged to my attending Dr. Carrasquillo to continue care. Differential Diagnosis Differential Diagnoses: The differential diagnosis associated with the presentation includes TIA Orthostatic hypotension Vaso-vagal syncope Hypoglycemia ACS Electrolyte abnormality Cardiomyopathy Dysrhythmia Admission/Observation Consideration of admission/observation: Escalation of care including admission/observation considered Lab Data MDM Lab Attestation statement: I reviewed the patient's lab results. I independently reviewed lab results 10/08/24 12:11 10/08/24 12:10 Labs: Lab Results 10/08/24 10/08/24 10/08/24 Range/Units 12:10 12:11 12:38 WBC 7.1 (4.8-10.8) X10*3/uL RBC 4.46 (4.20-5.50) X10*6/uL Hgb 14.8 (12.0-16.0) g/dl Hct 44.4 (37.0-47.0) % MCV 99.6 H (80.0-98.0) fL MCH 33.2 H (27.0-33.0) pg MCHC 33.3 (31.0-35.0) g/dl RDW 13.0 (11.0-16.0) % Plt Count 218 (160-400) X10*3/uL MPV 9.6 (9.4-12.3) fL Immature Gran % (Auto) 0.1 (0.0-0.4) % Neut % (Auto) 71.6 (45-73) % Lymph % (Auto) 18.4 L (20-40) % [place] % (Auto) 8.1 (2-11) % Eos % (Auto) 1.4 (0-4) % Baso % (Auto) 0.4 (0-2) % Lymph # (Auto) 1.3 (1.2-4.9) X10*3/uL [place] # (Auto) 0.6 (0.1-1.2) X10*3/uL Eos # (Auto) 0.1 (0.0-0.4) X10*3/uL Baso # (Auto) 0.0 (0.0-0.2) X10*3/uL Abs Immat Gran (auto) 0.01 (0.00-0.03) X10*3/uL Absolute Neuts (auto) 5.1 (2.0-8.3) x10*3/uL Absolute Nucleated RBC 0.000 (0.0-0.012) X10*3/uL Nucleated RBC % (auto) 0.0 (0.0-0.2) /100WBC Sodium 141 (135-145) mmol/L Potassium 4.5 (3.3-5.1) mmol/L Chloride 107 (96-108) mmol/L Carbon Dioxide 28 (22-29) mmol/L Anion Gap 11 L (12-20) BUN 18 H (9-16) mg/dL Creatinine 0.77 (0.5-1.4) mg/dL Estim Creat Clear Calc 61.0 Estimated GFR > 60 Random Glucose 115 (60-115) mg/dL Calcium 9.3 (8.4-10.2) mg/dL Magnesium 2.2 (1.6-2.6) mg/dL Total Bilirubin 1.0 (0.0-1.0) mg/dL AST 24 (5-31) U/L ALT 14 (0-31) U/L Alkaline Phosphatase 63 (39-117) U/L Troponin I High Sens 2.7 (<3.5-17.0) ng/L Total Protein 6.7 (6.5-8.0) g/dL Albumin 4.2 (3.5-5.0) g/dL Urine Color Yellow Urine Appearance Cloudy Urine pH 8.5 (5.0-9.0) Ur Specific [place] 1.020 (1.005-1.025) Urine Protein 30 (1+) H (Neg-Trace) mg/dL Urine Glucose (UA) Negative (Negative) mg/dL Urine Ketones Trace (Negative) mg/dL Urine Blood Negative (Negative) Urine Nitrite Negative (Negative) Ur Leukocyte Esterase Negative (Negative) Urine RBC 0-2 (0-2) /HPF Urine WBC 0-5 (0-5) /HPF Ur Squamous Epith Cells 11-20 (0-2) /HPF Urine Bacteria 1+ (None Seen) Hyaline Casts 3-5 (0-2) /LPF Influenza Type A (PCR) NEGATIVE (Negative) Influenza Type B (PCR) NEGATIVE (Negative) RSV RNA Qual (PCR) NEGATIVE (Negative) SARS-CoV-2 RNA (RT-PCR) NEGATIVE (Negative) Independent Interpretation I performed an independent interpretation of an: EKG Interpretation: I independently reviewed EKG Vent. Rate : 69 BPM Atrial Rate : 69 BPM P-R Int : 130 ms QRS Dur : 82 ms QT Int : 384 ms P-R-T Axes : 65 61 21 degrees QTcB Int : 411 ms Sinus rhythm with Premature supraventricular complexes Otherwise normal ECG Independent Historian Clinical information obtained from an independent historian. History obtained from or confirmed by: EMS External Record Review External record reviewed: Inpatient record, Office record and Outpatient record Chronic Conditions Patient?s care impacted by: Hypertension and Other (Parkinson's disease, HLD) Attestation Attending Attestation: I was personally present and available for consultation in the ED. I have reviewed everything on the chart that is available and agree with the documentation provided by the JEFF including discussion about the assessment, treatment plan and discussion. Based on medical record the care appears appropriate. I ALSO PERSONALLY EXAMINED THE PATIENT AND PERFORMED AN ECHO SEE THE NOTE ABOVE. THE PATIENT RECENTLY WAS STARTED ON DIURETIC LIKELY THE CAUSE OF HER ORTHOSTATIC SYMPTOMS. DESPITE AGGRESSIVE ORAL HYDRATION SHE IS STILL QUITE SYMPTOMATIC UPON STANDING MAY NEED ADDITIONAL FLUID REASSESSMENT. Ziyad Wan MD [facility] Emergency Medicine Procedures Procedure Narrative Procedure Narrative: EMERGENCY ULTRASOUND INTERPRETATION-LIMITED ECHOCARDIOGRAPHY [THIS STUDY WAS ORDERED, PERFORMED, AND INTERPRETED BY MYSELF. THE STUDY REVEALS: IMPRESSION: NORMAL LV FUNCTION, NO RV DYSFUNCTION, NO PERICARDIAL EFFUSION] [EMERGENT CARDIAC FOR INDICATION: VIEWS USED: PLAX, PSSA, A4, SX, IVC PERICARDIAL EFFUSION/TAMPONADE FINDINGS: NONE RV DILATION (> LV DIAM IN 4CH APICAL): NONE GLOBAL LV FXN: NORMAL IVC DILATION AND RESP VARIATION: NORMAL PERFORMED BY: MD KELIN IMAGES WERE STORED CPT:74623] Discharge Plan Discharge Clinical Impression: Syncope, Orthostatic hypotension Patient Disposition: Admitted As Inpatient Interventions: Admission Worksheet (ED) Last Done: 10/08/24 19:27 Discharge Date/Time: 10/08/24 20:24
[2024-10-08 12:17] LABS: MANUAL DIFF FLAG NO
[2024-10-08 12:20] LABS: Basophils Percent Auto 0.4 % (0-2); Eosinophils Absolute Auto 0.1 X10*3/uL (0.0-0.4); Eosinophils Percent Auto 1.4 % (0-4); Hematocrit 44.4 % (37.0-47.0); Hemoglobin 14.8 g/dl (12.0-16.0); Imm Gran Abs Auto 0.01 X10*3/uL (0.00-0.03); Imm Gran Pct Auto 0.1 % (0.0-0.4); Lymphocytes Absolute Auto 1.3 X10*3/uL (1.2-4.9); Lymphocytes Percent Auto 18.4 % (20-40); Mean Corpuscular HGB Conc 33.3 g/dl (31.0-35.0); Mean Corpuscular Hemoglobin 33.2 pg (27.0-33.0); Mean Corpuscular Volume 99.6 fL (80.0-98.0); Mean Platelet Volume 9.6 fL (9.4-12.3); Monocytes Absolute Auto 0.6 X10*3/uL (0.1-1.2); Monocytes Percent Auto 8.1 % (2-11); Neutrophils Absolute Auto 5.1 x10*3/uL (2.0-8.3); Neutrophils Percent Auto 71.6 % (45-73); Platelet Count 218 X10*3/uL (160-400); Red Blood Count 4.46 X10*6/uL (4.20-5.50); White Blood Count 7.1 X10*3/uL (4.8-10.8)
[2024-10-08 12:49] LABS: Appearance Urine Cloudy; Color Urine Yellow; Glucose Urine UA Negative (Negative); Leukocyte Esterase Urine Negative (Negative); Nitrite Urine Negative (Negative); PH 8.5 (5.0-9.0); UMIC TRIGGER UACC YES; Urine Blood Negative (Negative); Urine Ketones Trace mg/dL (Negative); Urine Protein 30 (1+) mg/dL (Neg-Trace)
[2024-10-08 12:50] LABS: Alanine Aminotransferase 14 U/L (0-31); Alkaline Phosphatase 63 U/L (39-117); Anion Gap 11 (12-20); Aspartate Amino Transferase 24 U/L (5-31); Blood Urea Nitrogen 18 mg/dL (9-16); Calcium 9.3 mg/dL (8.4-10.2); Carbon Dioxide 28 mmol/L (22-29); Chloride 107 mmol/L (96-108); Glucose Random 115 mg/dL (60-115); Magnesium 2.2 mg/dL (1.6-2.6); Potassium 4.5 mmol/L (3.3-5.1); Sodium 141 mmol/L (135-145); Total Protein 6.7 g/dL (6.5-8.0)
[2024-10-08 12:51] LABS: Troponin-I High Sensitivity 2.7 ng/L (<3.5-17.0)
[2024-10-08 12:55] LABS: Influenza A PCR NEGATIVE (Negative); Influenza B PCR NEGATIVE (Negative); Resp Syncy Virus RNA Qual PCR NEGATIVE (Negative); SARS COV2 PCR INHOUSE NEGATIVE (Negative)
[2024-10-08 13:01] LABS: Bacteria Urine 1+ (None Seen); RBC Urine 0-2 /HPF (0-2); WBC Urine 0-5 /HPF (0-5)
--- OUTSIDE RECORDS SUMMARY | 2024-10-08 13:06 | XMS_ITS | Patient Health Record ---
Author Organization [facility] Address [address] [place] [address] Care Team Providers Care Herbologist Name Role Phone Denise KARIMI, Iwona Primary Care Provider Maury Ram Jr Unavailable Allergies Allergen (clinical drug ingredient) Drug/Non Drug Allergy documented on EMR Reaction Allergy Type Onset Date Status acetaminophen / oxycodone Percocet Unknown Drug Allergy Active erythromycin Erythromycin Unknown Drug Allergy A ctive Codeine Phosphate Unknown Drug Allergy Active Shellfish (FN) shell fish (uncoded) Unknown Allergy Active Penicillin Unknown Drug Allergy Active PredniSONE Unknown Drug Allergy Active Reason For Referral [...] Problem Status W/U Status Risk Notes Problem 712263175 Colon cancer screening (Z12.11) Active confirmed Problem 275969168 Gastroesophageal reflux disease without esophagitis (K21.9) Active confirmed Problem 725008753 Lactose intolera nce (E73.9) Active confirmed Problem 58282549 Irritable bowel syndrome, unspecified type (K58.9) Active confirmed Problem 224869404 Esophageal reflu x disease (K21.9) Active confirmed [...] Date MEDICARE OF [place] [address] [place] [address] [id number] GIL GONZALEZ Self - patient is the insured [employer] ATT[employer] CLAIMS [address] [place] [address] [id number] GIL GONZALEZ Self - patient is the insured Medical (General) History Medical History History ICD Code esophageal reflux urinary urgency depression osteoarthritis fibromyalgia irritable bowel syndrome glaucoma elevated cholesterol parkinsons disease unsteady gait Surgical History Surgery Date(Month/Year) carpal tunnel surgery hammer toe tonsillectomy adnoids
--- OUTSIDE RECORDS SUMMARY | 2024-10-08 13:07 | XMS_ITS ---
Author Organization [facility] [place] Address [address] [place] [address] Care Team Providers Care Senior Web Developer Name Role Phone Denise KARIMI, Iwona Meza Primary Care Provider Un available Zulay Magana Unavailable [phone] Allergies Allergen (clinical drug ingredient) Drug/Non Drug Allergy documented on EMR Reaction Allergy Type Onset Date Status 12 Hour Nasal [place] Unknown Drug Allergy Active ibuprofen Advil Unknown [...] 025 Encounters Encounter Location Date Provider Diagnosis [facility] [address] [place] [address] 09/09/2024 Zulay Magana Atherosclerosis of [place] artery of both lower extremities, with unspecified presence of clinical manifestation I70.203 ; Edema, lower extremity R60.0 ; Tinea unguium B35.1 ; Pain in right toe(s) M79.674 and Pain in left toe(s) M79.675 Assessments Encounter Date Diagnosis (ICD Code) Assessment Notes Treatment Notes Treatment Clinical Notes Section Notes 09/09/2024 Atherosclerosis of [place] artery of both lower extremities, with unspecified presence of clinical manifestation (ICD-10 - I70.203) Q7(A), Q8(2B), Q9(1B,2C) 09/09/2024 Edema, lower extremity (ICD-10 - R60.0) 09/09/2024 Tinea unguium (ICD-10 - B35.1) 09/09/2024 Pain in right toe(s) (ICD-10 - M79.674) 09/09/2024 Pain in left toe(s) (ICD-10 - M79.675) Plan Of Treatment Next Appt Details Follow Up: 3 Months, Reason: Provider Name:Zulay elmore, 12/10/2024 11:00:00 AM, [address] [place] [address], [id number], Procedure Notes * Category Sub-Category Detail Notes [...] use of a nail nipper and/or dremel-type regrinder, to a more viable healthy nail plate [...] to maintain effectiveness in symptomatic relief - 21923 Keratoma Treatment Parring or Cutting o f [...] instrumentation by the physician of record - 35154 Progress Notes * Sarai GONZALEZ RDOB:[birth year] (83 yo F)Acc No.[id number]:09/09/2024 Progress Note Patient:?Sarai GONZALEZ Provider:?Zulay Magana DPM :1940???Age:83 Y???Sex:Female D ate:09/09/2024 Address:[address] [place] [address], [place], [phone] Pcp:Victoria Ortiz Subjective: * Chief Complaints: * [...] 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 ?Marital status: . 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 * Medications:?TakingVoltaren 1 % Gel as [...] patient * Allergies:?BiaxinAspirin: GE RD can't takeAdvilAleveMotrinDemerol: [id number] Hour Nasal SprayCodeineShrimp (Diagnostic)Shellfish-derived ProductsGentamicin: made with [...] and time.? Assessment: * Assessment: 1.?Atherosclerosis of [place] artery of both lower extremities, with unspecified [...] use of a nail nipper and/or dremel-type regrinder, to a more viable healthy nail plate [...] to maintain effectiveness in symptomatic relief - 70734.?Keratoma Treatment:?Parring or Cutting of Benign Hyperkeratotic Lesion(s)?(-57) [...] instrumentation by the physician of record - 18045.? * Procedure Codes:?38336 DEBRI DE NAIL, 6 OR MORE, Modifiers: XS 70427 TRIM SKIN LESIONS, OVER 4, Modifiers: XS [...] Magana DPM Date:? Generated for Catarina merino/Bryanna/Valente on:?10/08/2024 01:06 PM EDT History and Physical Notes * [...]
--- OUTSIDE RECORDS SUMMARY | 2024-10-08 13:07 | XMS_ITS | Patient Health Record ---
Author Organization [facility] Mara zacarias [place] Address [address] [place] [address] Care Team Providers Care Messenger Floorperson Name Role Phone Denise KARIMI, Iwona Meza Primary Care Provider Un available [place] Zulay Unavailable [phone] Ryan Garcia Unavailable [phone] Allergies Allergen (clinical drug ingredient) Drug/Non Drug Allergy documented on EMR Reaction Allergy Type Onset Date Status 12 Hour Nasal [place] Unknown Drug Allergy Active ibuprofen Advil Unknown [...] atherosclerosis of arteries of lower limbs (disorder) (63026939484731760 ) Unspecified atherosclerosis of [place]velock arteries of extremities, bilateral legs (I70.203) Active confirmed Problem Localized, primary osteoarthritis of the ankle and/or foot (789526785) Primary osteoarthritis, left ankle and foot (M19.072) Active confirmed Problem Non-pressure chronic ulcer of other part of right foot limited to breakdown of skin (L97.511) Active confirmed Problem 22222340 Parkinson diseas e (G20) Active confirmed Problem 127219994 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 (I73.00) Active confirmed Problem Bilateral atherosclerosis of arteries of lower limbs (disorder) (17988527192040626 ) 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, with unspecified presence of clinical manifestation (I70.203) Active confirmed Q7(A), Q8(2B), Q9(1B,2 C) Vital Signs Blood pressure diastolic 70 mm Hg 09/09/2024 Height 5 ft 5 in in 09/09/2024 Blood pressure systolic 110 mm Hg 09/09/2024 Weight 195 lbs 09/09/2024 BMI 32.45 kg/m2 09/09/2024 Encounters Encounter Location Date Provider Diagnosis [address] [address] 02/13/2024 Ryan Garcia Ingrowing nail L60.0 ; Pain in left toe(s) M79.675 ; 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 I73.00 ; Parkinson disease G20 ; Neuralgia and neuritis, unspecified M79.2 ; Unspecified atherosclerosis of lovelock arteries of extremities, bilateral legs I70.203 ; Tinea unguium B35.1 ; Pain in right toe(s) M79.674 and Primary osteoarthritis, left ankle and foot M19.[address] [address] 06/17/2024 Zulay Perica 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, with unspecified presence of clinical manifestation I70.203 ; Edema, lower extremity R60.0 ; Tinea unguium B35.1 ; Pain in right toe(s) M79.674 and Pain in left toe(s) M79.[address] [address] 09/09/2024 Zulay Perica 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, with unspecified presence of clinical manifestation I70.203 ; Edema, lower extremity R60.0 ; Tinea unguium B35.1 ; Pain in right toe(s) M79.674 and Pain in left toe(s) M79.[address] [address] 03/18/2024 Ryan Garcia 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 I73.00 Assessments Encounter Date Diagnosis (ICD Code) Assessment Notes Treatment Notes Treatment Clinical Notes Section Notes 02/13/2024 Ingrowing nail (ICD-10 - L60.0) 02/13/2024 Pain in left toe(s) (ICD-10 - M79.675) 03/18/2024 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 (ICD-10 - I73.00) 06/17/2024 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, with unspecified presence of clinical manifestation (ICD-10 - I70.203) Q7(A), Q8(2B), Q9(1B,2C) 06/17/2024 Edema, lower extremity (ICD-10 - R60.0) 09/09/2024 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, with unspecified [...] (ICD-10 - M79.675) 02/13/2024 Unspecified atherosclerosis of lovelock arteries of extremities, bilateral legs (ICD-10 - I70.203) 02/13/2024 Tinea unguium (ICD-10 - B35.1) 02/13/2024 Pain in right toe(s) (ICD-10 - M79.674) 02/13/2024 Primary osteoarthritis, left ankle and foot (ICD-10 - M19.072) Plan Of Treatment Pending Test Test Name Order Date X ray : Foot, left 3V 09/23/2014 97812-Phof Destruction, 1-10/28/2014 95927-Qnga Destruction, -14 09/23/2014 88573-Qqoigssn Plate 09/13/2016 86342-Gnycxhks Plate 06/25/2017 88495-ZDJ 11/01/2017 86035- Debride <25 sq cm 11/15/2017 26877- Debride <25 sq cm 12/05/2017 04525-XNFI SKIN LESIONS, 2 TO 4 06/30/19 Next Appt Details Provider Name:Zulay elmore, 12/10/2024 11:00:00 AM, [address] [place], [address], Insurance Providers Payer Name Payer Address Payer Phone Subscriber Number Group Number Insured Name Patient Relationship to Insured Coverage Start Date Coverage End Date Medicare National [facility] [employer] [address] [place] [address] [id number] Sarai Ramon Self - patient is the insured [employer] [address] [place] [address] [id number] Sarai Ramon Self - patient is the insured Medical (General) History Medical History History ICD Code Back,Hip,and Knee pain Cancer Depression Fibromyalgia High blood pressure Reflux Measles Mumps Chicken pox Neuropathy Irritable bowel syndrome edema patellar tendinitis Surgical History Surgery Date(Month/Year) hammer toe 1989 carpal tunnel surgery colonoscopy 2021 hysterectomy cancer 04/11/2022 Hospitalization History Reason Date(Month/Year) [facility] [place]- patellar tendinitis - edema 06/13
--- OUTSIDE RECORDS SUMMARY | 2024-10-08 13:07 | XMS_ITS ---
Author Organization [facility] Mara zacarias [place] Address [address] [place] [address] Care Team Providers Care Education And Outreach Coordinator Name Role Phone Denise KARIMI, Iwona Meza Primary Care Provider Un available Zulay Magana Unavailable [phone] Allergies Allergen (clinical drug ingredient) Drug/Non Drug Allergy documented on EMR Reaction Allergy Type Onset Date Status 12 Hour Nasal [place] Unknown Drug Allergy Active ibuprofen Advil Unknown [...] W/U Status Risk Notes Problem Atherosclerosis of [place] artery of both lower extremities, with unspecified presence of clinical manifestation (I70.203) Active confirmed Q7(A), Q8(2B), Q9(1B,2C) Vital Signs Height 5 ft 5 in in 06/17/2024 Weight 197 lbs 06/17/2024 BMI 32.78 kg/m2 06/17/2024 Blood pressure systolic 110 mm Hg 06/17/19 25 Blood pressure diastolic 70 mm Hg 025 Encounters Encounter Location Date Provider [facility] [address] [place] [address] 06/17/2024 Zulay Magana Atherosclerosis of [place] artery of both lower extremities, with unspecified presence of clinical manifestation I70.203 ; Edema, lower extremity R60.0 ; Tinea unguium B35.1 ; Pain in right toe(s) M79.674 and Pain in left toe(s) M79.675 Assessments Encounter Date Diagnosis (ICD Code) Assessment Notes Treatment Notes Treatment Clinical Notes Section Notes 06/17/2024 Atherosclerosis of [place] artery of both lower extremities, with unspecified [...] Reason: Provider Name:Zulay elmore, 12/10/2024 11:00:00 AM, [address] [place] [address], [id number], Procedure Notes * Category Sub-Category Detail Notes [...] use of a nail nipper and/or dremel-type cast shell grinder, to a more viable healthy nail [...] to maintain effectiveness in symptomatic relief - 77976 Progress Notes * Sarai GONZALEZ RDOB:[birth year] (83 yo F)Acc No.[id number]:06/17/2024 Progress Note Patient:?Sarai GONZALEZ R Provider:?Zulay Magana DPM :1940???Age:83 Y???Sex:Female D ate:06/17/2024 Address:[facility] [place], [id number] Pcp:Victoria Ortiz Subjective: * Chief Complaints: * [...] 2021hysterectomy cancer 04/11/2022 * Hospitalization/Major Diagno stic Procedure:?[facility] [place]- patellar tendinitis - edema 03/21/24 * [...] ?Exercise: no. ?Marital status: . 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 ???Drug/Alcohol:?AUDIT-C (Standard)?Did you have a [...] patient * Allergies:?BiaxinAspirin: GE RD can't takeAdvilAleveMotrinDemerol: [id number] Hour Nasal SprayCodeineShrimp (Diagnostic)Shellfish-derived ProductsGentamicin: made with [...] and time.? Assessment: * Assessment: 1.?Atherosclerosis of [place]aki[place] artery of both lower extremities, with unspecified [...] use of a nail nipper and/or dremel-type cast shell grinder, to a more viable healthy nail [...] to maintain effectiveness in symptomatic relief - 73779.? * Procedure Codes:?46338 DEBRI DE NAIL, 6 OR MORE, Modifiers: [...] DPM Date:? Generated for Catarina merino/Bryanna/Valente on:?10/08/2024 01:07 PM EDT History and Physical Notes [...]
--- OUTSIDE RECORDS SUMMARY | 2024-10-08 13:07 | XMS_ITS ---
Author Organization [facility] Address [address] [place] [address] Care Team Providers Care Lodge Officer Name Role Phone Denise KARIMI, Iwona Meza Primary Care Provider Un available Zulay Magana Unavailable [phone] Ryan Garcia Unavailable [phone] REASON FOR VISIT Refill Request Medications Medication SIG (Take, Route, Frequency, Duration) Notes Start Date End Date Status Nitro-Bid 2 % as directed Transder mal apply bid to affected skin quiana feet for 30 days Active Encounters Encounter Location Date Provider Diagnosis [facility] [address] [place] [address] 03/18/2024 Ryan Garcia 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 [...] Provider Name:Zulay elmore, 12/10/2024 11:00:00 AM, [address] [place], [address], Progress Notes * Sarai GONZALEZ RDOB:[birth year] (83 yo F)Acc No.[id number]:03/18/2024 Patient:?TristenSarai :1940???Age:83 Y???Sex:Female Address:[address] [place] [address], [place] [address] * Refills? Refill Nitro-Bid Ointment, 2 %, Transdermal, 90, as directed, apply bid to affected skin quiana feet, 30 days, Refills=4 * true * Date:? Generated for Catarina merino/Bryanna/Kavyasmitting on:?10/08/2024 01:06 PM EDT
[2024-10-08 14:09] LABS: Albumin Level 4.2 g/dL (3.5-5.0); Estimated Glomerular Filt Rate > 60
--- NOTE | 2024-10-08 17:53 | PM.IMHP ---
History of Present Illness Date of Service: 10/08/24 Chief Complaint: syncope 83 year old female with parkinson and HTN take losartan and recently was started on Lasix. She was sitting on stairs with a friend when she felt dizzy, hot, lightheaded and then passed out for about 15 seconds. There was no head injury, no seizure-like activity, no head injury. ECG unremarkable, troponin I negative. Blood Pressure is now ok. Review of Systems Review of Systems: Gen: no fever Resp: no sob, no cough CV: no chest, no ESTRADA, no leg edema GI: No n/v, no abd pain Neuro: No confusion Yes all other systems are reviewed and are negative [facility] Medical History Varicose vein of leg History of carpal tunnel syndrome Left anterior knee pain Impaired fasting glucose Urinary incontinence Gait instability Essential hypertension Osteoarthritis IBS (irritable bowel syndrome) Parkinson disease Tremor of right hand Glaucoma Seasonal allergies Depression GERD (gastroesophageal reflux disease) Hyperlipidemia Fibromyalgia Family History Mother History of breast cancer Father History of throat cancer Paternal Grandmother History of liver cancer Surgical History H/O: hysterectomy History of esophagogastroduodenoscopy (EGD) H/O colonoscopy History of carpal tunnel surgery Social History Housing: House Are you a primary child care centre manager to a significant other at home: No Alcohol intake: never Comment: Parkinson's-use cane or walker Patient Tobacco Use Status: Never used Tobacco Smoked in Last 30 Days: No e-Cigarette/Vaping Use: Never Used Second Hand Smoke Exposure: No Use of substances other than those prescribed or required for medical reasons: No Currently Displaying Signs/Symptoms of Drug Intoxication Withdrawal: No Advance Directives: Yes Advance Directives on File: Yes Advance Directives Date on File: 08/21/24 Do you have a plan to hurt others: No Plan service: No Current occupational status: retired Cognitive needs: No Hearing needs: No Vision needs: Yes Meds Allergies Allergy/AdvReac Type Severity Reaction Status Date / Time shellfish derived Allergy Severe Anaphylaxis Verified 10/08/24 11:32 oxycodone [OXYCODONE] Allergy Intermediate Itching Verified 10/08/24 11:32 Penicillins [PCN] Allergy Intermediate RASH Verified 10/08/24 11:32 aspirin [ASPIRIN] Allergy Unknown UNKNOWN Verified 10/08/24 11:32 codeine AdvReac Intermediate Nausea and Verified 10/08/24 11:32 Vomiting erythromycin base AdvReac Intermediate Gastrointestinal Verified 10/08/24 11:32 Upset lisinopril AdvReac Intermediate cough Verified 10/08/24 11:32 Home Medications ?Medication ?Instructions ?Recorded ?Confirmed ?Last Taken ?Type cholecalciferol (vitamin D3) 25 25 mcg PO DAILY 03/09/20 10/08/24 10/08/24 History mcg (1,000 unit) capsule carbidopa ER 50 mg-levodopa 200 mg 1 tab PO TID 10/13/20 10/08/24 10/08/24 History tablet,extended release timolol maleate 0.5 % eye drops 1 drp ophthalmic (eye) BID 04/13/21 10/08/24 10/08/24 History atorvastatin 20 mg tablet 20 mg PO BEDTIME 10/08/24 10/08/24 10/07/24 History furosemide 20 mg tablet 20 mg PO DAILY PRN edema 10/08/24 10/08/24 Unknown History Physical Exam Vital Signs and Narrative: Vital Signs: Last Vital Signs Temp 97.4 F 10/08/24 11:38 Pulse 78 10/08/24 15:54 Resp 14 10/08/24 11:38 BP 144/58 H 10/08/24 15:54 Pulse Ox 98 10/08/24 11:51 O2 Del Method Room Air 10/08/24 11:51 BMI result Body Mass Index 31.6 Const: Other: General: AO X 3, no acute distress Resp: CTA bilateral CVS: S1,S2,RRR GI: +BS, NT, no distention Skin: No rash Neuro: motor grossly intact Psych: appropriate affect Results Labs 10/08/24 12:11 10/08/24 12:10 Labs: Laboratory Results - last 24 hr 10/08/24 10/08/24 10/08/24 12:10 12:11 12:38 MCV 99.6 H MCH 33.2 H MCHC 33.3 RDW 13.0 Plt Count 218 MPV 9.6 Immature Gran % (Auto) 0.1 Neut % (Auto) 71.6 Lymph % (Auto) 18.4 L [place] % (Auto) 8.1 Eos % (Auto) 1.4 Baso % (Auto) 0.4 Lymph # (Auto) 1.3 [place] # (Auto) 0.6 Eos # (Auto) 0.1 Baso # (Auto) 0.0 Abs Immat Gran (auto) 0.01 Absolute Neuts (auto) 5.1 Absolute Nucleated RBC 0.000 Nucleated RBC % (auto) 0.0 Anion Gap 11 L Estim Creat Clear Calc 61.0 Estimated GFR > 60 Random Glucose 115 Calcium 9.3 Magnesium 2.2 Total Bilirubin 1.0 AST 24 ALT 14 Alkaline Phosphatase 63 Total Protein 6.7 Albumin 4.2 Urine Color Yellow Urine Appearance Cloudy Urine pH 8.5 Ur Specific [place] 1.020 Urine Protein 30 (1+) H Urine Glucose (UA) Negative Urine Ketones Trace Urine Blood Negative Urine Nitrite Negative Ur Leukocyte Esterase Negative Urine RBC 0-2 Urine WBC 0-5 Ur Squamous Epith Cells 11-20 Urine Bacteria 1+ Hyaline Casts 3-5 Influenza Type A (PCR) NEGATIVE Influenza Type B (PCR) NEGATIVE RSV RNA Qual (PCR) NEGATIVE SARS-CoV-2 RNA (RT-PCR) NEGATIVE Assessment and Plan (1) Orthostatic hypotension: Status: Acute (2) Essential hypertension: Status: Acute (3) Hyperlipidemia: Qualifiers: Hyperlipidemia type: mixed hyperlipidemia Qualified Code(s): E78.2 - Mixed hyperlipidemia Status: Acute Plan 83/F HTN, parkinson here with syncope. DDx: orthostatic hypotension, vasovagal syncope, others plan: Tele monitoring check orthos hold Lasix parkinson's resume home meds after med rec HTN resume home meds tomorrow dvt porphylaxis lovneox full code obs Quality Stroke Does the patient have a stroke diagnosis?: No VTE Prior VTE?: No VTE Risk Level:: Medical - moderate - high VTE Device Contraindication: N/A - Device Ordered VTE Drug Contraindication: N/A - Med Ordered
--- NOTE | 2024-10-08 19:01 | PHA.MEDREC ---
Addendum entered by Kenzie Rodrigez RPh 10/08/24 19:04: reviewed by [facility]. Original Note: Pharmacy Consult ? Medication Reconciliation Pharmacy has completed the medication reconciliation. Spoke to patient to confirm med list. patient states she is no longer taking Dicyclomine 20 mg, and [place]-3 Fatty acids 1,000 mg. Patient states she took all her morning medications today.
[2024-10-08] MEDS: Carbidopa/Levodopa CR 50/200 TABLET.ER 1 TAB PO (21:59)
[2024-10-08] MEDS: Atorvastatin Calcium 20 MG TABLET PO (22:00)
[2024-10-08] MEDS: timoloL maleate 0.5 % Oph Sol 5 ML DRBTL 1 DROP EYE-BOTH (22:00)
[2024-10-08] MEDS: 0.9 % Sodium Chloride Flush 3 ML SYRINGE IVFLUSH (22:00)
[2024-10-09] VITALS (7 sets, daily range): BP systolic 116–141; BP diastolic 52–80; PULSE 62–80; RESP 16–18; TEMP 36.2–36.8; O2SAT 94–97
[2024-10-09] MEDS: Carbidopa/Levodopa CR 50/200 TABLET.ER 1 TAB PO ×2 (08:43→14:12)
[2024-10-09] MEDS: Losartan Potassium 50 MG TABLET PO (08:43)
[2024-10-09] MEDS: buPROPion HCl XL 150 MG TAB.ER.24H 450 MG PO (08:43)
[2024-10-09] MEDS: 0.9 % Sodium Chloride Flush 3 ML SYRINGE IVFLUSH (08:43)
[2024-10-09] MEDS: Cholecalciferol (Vitamin D3) 25 MCG TABLET PO (08:43)
[2024-10-09] MEDS: timoloL maleate 0.5 % Oph Sol 5 ML DRBTL 1 DROP EYE-BOTH (08:44)
--- NOTE | 2024-10-09 09:12 | MHC.CM.PN ---
Delliah 10/09/24, Pt lives alone, she does not have home health services, she has private assistance once a week for house work. PCP confirmed: Dr. Walker, HCP she said is on file with her PCP, CM will call for copy. For DME, she uses a rollator walker. Transportation home at [place] will be her son. DCP: home, self care, CM to follow for [place] needs.
--- NOTE | 2024-10-09 12:20 | P.DS_ITS ---
DS: Providers Provider Date of Service: 10/09/24 Date of admission: 10/08/24 17:53 Date of discharge: 10/09/24 Primary care physician: Iwona Walker MD DS: Diagnosis Discharge Diagnosis (1) Orthostatic hypotension: Status: Acute (2) Essential hypertension: Status: Acute (3) Hyperlipidemia: Status: Acute DS: Summary Hospital Course Hospital Course: admission hpi Chief Complaint: syncope 83 year old female with parkinson and HTN take losartan and recently was started on Lasix. She was sitting on stairs with a friend when she felt dizzy, hot, lightheaded and then passed out for about 15 seconds. There was no head injury, no seizure-like activity, no head injury. ECG unremarkable, troponin I negative. Blood Pressure is now ok. Hospital course: Patient was observed overnight on cardiac telemetry with no arrhythmia noted to account for syncope, she is presently sinus rhythm at time with PAC, orthostatic BP are negative, her symptoms may have been related recently added Lasix. Her blood pressure is normal and Lasix will be on hold, she's advised to avoid driving and to follow up her PCP Time Attestation Discharge Coordination Time (in mins): 35 Quality: Safe Use of Opioids Does Pt have an Active Cancer Diagnosis on the Problem List?: No Quality: Stroke Does the patient have a stroke diagnosis?: No Physical Exam Vital Signs: Vital Signs: Last Vital Signs Temp 98.2 F 10/09/24 11:06 Pulse 74 10/09/24 11:06 Resp 18 10/09/24 11:06 BP 132/62 10/09/24 11:06 Pulse Ox 97 10/09/24 11:06 O2 Del Method Room Air 10/09/24 11:06 BMI result Body Mass Index 34.1 Const: Other: General: AO X 3, no acute distress Resp: CTA bilateral CVS: S1,S2,RRR GI: +BS, NT, no distention Skin: No rash Neuro: motor grossly intact Psych: appropriate affect DS: Data Data Completed and Pending Labs on day of discharge: Laboratory Results - last 24 hr 10/08/24 10/08/24 10/08/24 12:10 12:11 12:38 WBC 7.1 RBC 4.46 Hgb 14.8 Hct 44.4 MCV 99.6 H MCH 33.2 H MCHC 33.3 RDW 13.0 Plt Count 218 MPV 9.6 Immature Gran % (Auto) 0.1 Neut % (Auto) 71.6 Lymph % (Auto) 18.4 L [place] % (Auto) 8.1 Eos % (Auto) 1.4 Baso % (Auto) 0.4 Lymph # (Auto) 1.3 [place] # (Auto) 0.6 Eos # (Auto) 0.1 Baso # (Auto) 0.0 Abs Immat Gran (auto) 0.01 Absolute Neuts (auto) 5.1 Absolute Nucleated RBC 0.000 Nucleated RBC % (auto) 0.0 Sodium 141 Potassium 4.5 Chloride 107 Carbon Dioxide 28 Anion Gap 11 L BUN 18 H Creatinine 0.77 Estim Creat Clear Calc 61.0 Estimated GFR > 60 Random Glucose 115 Calcium 9.3 Magnesium 2.2 Total Bilirubin 1.0 AST 24 ALT 14 Alkaline Phosphatase 63 Troponin I High Sens 2.7 Total Protein 6.7 Albumin 4.2 Urine Color Yellow Urine Appearance Cloudy Urine pH 8.5 Ur Specific [place] 1.020 Urine Protein 30 (1+) H Urine Glucose (UA) Negative Urine Ketones Trace Urine Blood Negative Urine Nitrite Negative Ur Leukocyte Esterase Negative Urine RBC 0-2 Urine WBC 0-5 Ur Squamous Epith Cells 11-20 Urine Bacteria 1+ Hyaline Casts 3-5 Influenza Type A (PCR) NEGATIVE Influenza Type B (PCR) NEGATIVE RSV RNA Qual (PCR) NEGATIVE SARS-CoV-2 RNA (RT-PCR) NEGATIVE Discharge Plan Discharge Anticipated Discharge Date/Time: 10/09/24 11:54 Patient Disposition: Home, Self-Care Discharge Diagnosis: Syncope Referrals: Iwona Walker MD [Primary Care Provider] - 1 Week Discharge Medications: Continued carbidopa-levodopa 50-200 mg tablet extended release 1 tab PO TID Rx Instructions: divide evenly over waking hours losartan 50 mg tablet 50 mg PO DAILY Qty: 90 1RF bupropion HCl 200 mg tablet sustained-release 12 hr 200 mg PO BID 90 Days Qty: 180 1RF atorvastatin 20 mg tablet 20 mg PO BEDTIME timolol maleate 0.5 % drops 1 drp ophthalmic (eye) BID Rx Instructions: both eyes cholecalciferol (vitamin D3) 25 mcg (1,000 unit) capsule 25 mcg PO DAILY acetaminophen 500 mg capsule 1,000 mg PO Q6H PRN (Reason: pain) Qty: 30 0RF Discontinued furosemide 20 mg tablet 20 mg PO DAILY PRN (Reason: edema) Discharge Orders: Discharge Order (Routine); Ordered 10/09/24 Ordered By: Gavin Platt Diet: Advance to usual diet Activity on Discharge: As tolerated Stand Alone Forms: Patient Portal Discharge page Print Language: Tajik Care Plan Goals: recovery from syncope and passing out Health Concerns: syncope Plan of Treatment: stop taking Lasix follow up with yor doctor in 1 to 2 weeks you are advised not to drive or operating heavy machinery for at least 3 months and no further episodes of passing out. Assessment: see above
== END 2024-10-09 15:34 | disposition home or self-care (01) ==
LOC: HO.ED 17:33 → HO.EDOVER 18:29 → HO.IMC 19:04
PROVIDERS: Admitting Provider Internal Medicine; Emergency Provider Emergency Medicine; PCP Internal Medicine; Visit Provider Internal Medicine
DX: R55 Syncope and collapse (principal); I10 Essential (primary) hypertension; E78.2 Mixed hyperlipidemia; K21.9 Gastro-esophageal reflux disease without esophagitis; G20.A1 Parkinson's disease without dyskinesia, without mention of fluctuations; E78.5 Hyperlipidemia, unspecified; R51.9 Headache, unspecified; Z03.818 Encounter for observation for suspected exposure to other biological agents ruled out; Z79.899 Other long term (current) drug therapy
CPT/HCPCS: 0241U; 80053; 81001; 83735; 84484; 85025; 93005; 99222; 99285

== ENCOUNTER → 2024-10-08 11:41 | Outpatient (BNV) | payer MEDICARE, SELFPAY | PROVIDERS: Emergency Provider Emergency Medicine; PCP Internal Medicine; Visit Provider Internal Medicine Cardiovascular Disease | DX: I49.1 Atrial premature depolarization (principal) | CPT/HCPCS: 93010 ==

== ENCOUNTER → 2024-10-08 17:53 | Outpatient (BNV) | payer MEDICARE, SELFPAY | PROVIDERS: Admitting Provider Internal Medicine; Emergency Provider Emergency Medicine; PCP Internal Medicine; Visit Provider Internal Medicine | DX: I95.1 Orthostatic hypotension (principal); I10 Essential (primary) hypertension; E78.2 Mixed hyperlipidemia | CPT/HCPCS: 99222; 99239 ==

== ENCOUNTER 2024-10-14 13:46 | Outpatient (AMB) | payer MEDICARE, SELFPAY ==
--- NOTE | 2024-10-14 13:47 | A.OFFPC_ITS ---
Vital Signs 10/14/24 13:50 Weight 207 lb 4 oz BP 128/68 Blood Pressure Location Lt brachial Position Sitting Respiration 12 Pulse 86 Pulse Source Pulse Oximeter Temp 97.6 F Temp Source Oral Pulse Oximetry (%) 97 Intake Visit Reasons: TCM Allergies shellfish derived Allergy (Severe, Verified 10/14/24 14:06) Anaphylaxis oxycodone [OXYCODONE] Allergy (Intermediate, Verified 10/14/24 14:06) Itching Penicillins [PCN] Allergy (Intermediate, Verified 10/14/24 14:06) RASH aspirin [ASPIRIN] Allergy (Unknown, Verified 10/14/24 14:06) UNKNOWN codeine Adverse Reaction (Intermediate, Verified 10/14/24 14:06) Nausea and Vomiting erythromycin base Adverse Reaction (Intermediate, Verified 10/14/24 14:06) Gastrointestinal Upset lisinopril Adverse Reaction (Intermediate, Verified 10/14/24 14:06) cough Medication List - Last Reconciled 10/14/24 by Iwona Walker MD acetaminophen 1,000 mg (2 x 500 mg) PO Q6H PRN atorvastatin 20 mg PO BEDTIME bupropion HCl SR 200 mg PO BID 90 days carbidopa-levodopa 50-200 mg ER 1 tab PO TID cholecalciferol (vitamin D3) 25 mcg PO DAILY losartan 50 mg PO DAILY timolol maleate 0.5% 1 drp ophthalmic (eye) BID Tobacco use date assessed: 10/14/24 Dental Screening Dental Screen Date: 10/14/24 Did you have a dental visit in the last 12 months?: Yes Did you have a dental problem in the last 6 months where you did not have access to dental care?: No Was dental information given to patient?: Patient has dentist HPI TCM HPI Details 83 year old female with parkinson and HT N , currently on losartan and recently was started on Lasix to take as needed for recurrent leg swelling right more than left leg, here today for a TCM visit. She had a brief episode of syncopal attack 5 days ago. Patient states that she was sitting on the stairs with a friend when she felt suddenly dizzy, hot, lightheaded and then passed out for about 15 seconds. There was no head injury, no seizure-like activity, no head injury. ECG unremarkable, troponin I negative. Blood Pressure was normal on arrival at the ER. She was observed overnight on cardiac telemetry, with no arrhythmia noted was in sinus rhythm , negative orthostatic BP . It was felt that her symptoms may have been related recently to the addition of Lasix, which was held on discharge. At present patient states that she feels well, back to baseline, with blood pressure within normal limits. She has been diagnosed to have venous insufficiency in her right lower extremity for which she takes Lasix as needed in the past. She has tried using compression stockings but they were very uncomfortable and had a hard time putting them on. Patient report that is the swelling in her lower extremities resolve with elevation, wakes up in the morning with no leg swelling. [facility] Medical History (Updated 10/15/24 @ 00:40 by Iwona Walker MD) Venous insufficiency of right lower extremity Varicose vein of leg History of carpal tunnel syndrome Left anterior knee pain Impaired fasting glucose Urinary incontinence Gait instability Essential hypertension Osteoarthritis IBS (irritable bowel syndrome) Parkinson disease Tremor of right hand Glaucoma Seasonal allergies Depression GERD (gastroesophageal reflux disease) Hyperlipidemia Fibromyalgia Surgical History H/O: hysterectomy History of esophagogastroduodenoscopy (EGD) H/O colonoscopy History of carpal tunnel surgery Family History Mother History of breast cancer Father History of throat cancer Paternal Grandmother History of liver cancer Social History Housing: House Are you a primary manager career to a significant other at home: No Alcohol intake: never Comment: Parkinson's-use cane or walker Patient Tobacco Use Status: Never used Tobacco e-Cigarette/Vaping Use: Never Used Second Hand Smoke Exposure: No Advance Directives Date on File: 08/21/24 service: No Current occupational status: retired Cognitive needs: No Hearing needs: No Vision needs: Yes Questionnaire Thrive Questionnaire Date Thrive assessed: 08/21/24 I am a: Patient What is your living situation today?: I have a steady place to live Within the past 12 months, did the food you bought not last and you didn't have the money to get more?: Never true Within the past 12 months, did you worry whether your food would run out before you got money to buy more?: Never true Do you have trouble paying for medicines?: No Do you have trouble getting transportation to medical appointments?: No Do you have trouble paying your heating and electricity bill?: No Do you have trouble taking care of your child, family member or friend?: No Do you have trouble with day-to-day activities such as bathing, preparing meals, shopping, managing finances, etc.?: I choose not to answer this question Are you currently unemployed and looking for a job?: No Are you interested in more education?: No Please select the resources that you would like help with: None Currently or been in a relationship where the following occur: No concerns reported THRIVE Score: 0 FOREST-7 AMB Questionnaire FOREST-7 Date FOREST - 7 assessed: 08/21/24 Source: Developed by Drs. Milo Maurice, Tyesha Fox, Cj Gregory and colleagues, with an educational hernandez from [employer]. Review of Systems Const Denies anorexia, Denies chills and Denies fever(s) Eyes Denies change in vision ENT Reports Normal hearing present Card Denies chest pain, Denies rapid heart rate and Denies irregular heart rhythm Resp Denies chest congestion, Denies cough, Denies hemoptysis and Denies wheezing GI Reports no additional complaints Reports no additional complaints Musc Reports as per HPI Neuro Reports Normal hearing present Psych Reports no additional complaints Endo Reports no additional complaints Yair/Lymph Denies lymphadenopathy Aller/Immun Denies wheezing Physical exam (Primary Care) Vital Signs: Last Vital Signs Temp 97.6 F 10/14/24 13:50 Pulse 86 10/14/24 13:50 Resp 12 10/14/24 13:50 BP 128/68 10/14/24 13:50 Pulse Ox 97 10/14/24 13:50 Tobacco/Smoking Status: Tobacco use Status Tobacco use date assessed 10/14/24 10/14/24 13:59 Patient Tobacco Use Status Never used Tobacco 10/14/24 13:48 e-Cigarette/Vaping Use Never Used 10/14/24 13:48 Thrive Assessment: Date of Thrive Assessment Date Thrive assessed 08/21/24 10/14/24 13:48 Currently or been in a relationship where the following occur: No concerns reported Const General: comfortable, no acute distress and alert Orientation/consciousness: patient oriented x3 HENMT Ears: external ears normal General nose exam: Normal external nose present Mouth: Normal oral and palatal mucosa present, oropharynx normal and moist mucous membranes Eyes General: appearance normal, both eyes and all related structures Neck Neck: Yes full ROM, Yes no lymphadenopathy and Yes supple Resp Effort & Inspection: normal respiratory effort and able to speak in complete sentences Auscultation: clear to auscultation bilaterally Cardio Rate: regular rate Rhythm: regular rhythm (Occasional skipped beat) Heart sounds: S1 normal heart sound present and S2 normal heart sound present GI Palpation (GI): Soft to palpation, nontender and no masses Auscultation: normal bowel sounds Neuro Other: Mild tremors noted in both hands General: patient oriented x3, tone normal, moves all extremities, Normal light touch and pain sensation and no focal motor deficits Cranial nerves: Yes Normal hearing present Cognition (Neuro): normal cognition Extrem Other: Crepitus in both knees left more than right, bilateral leg swelling right more than the left, presence of superficial varicosities noted in both lower extremities, negative calf tenderness on palpation Psych Appearance: grossly normal and well kempt Mental Status: mental status grossly normal Speech and movement: Clear speech present and Slowed movement present (Neuro) Affect: normal affect Thought process: Normal thought process present Thought content: Normal thought content present Coding Level of Care Code TCM Mod MDM <= 7 Days Diagnoses Venous insufficiency of right lower extremity I87.2 Essential hypertension I10 History of syncope Z87.898 Assessment & Plan Assessment & Plan (1) Venous insufficiency of right lower extremity: Code(s): I87.2 - Venous insufficiency (chronic) (peripheral) Category: Medical Plan: Patient having hard time wearing compression socks, and states that it was very uncomfortable, cuts off circulation just below her knee. Will try wearing support pantyhose stockings instead,and elevate legs as much as possible. Advised to monitor her weight at home and see if she is starting to gain, which is likely water weight. she can take half a tablet of her furosemide-10 mg, and then just take half a tablet of the losartan, make it 25 mg when she takes furosemide for intermittent episodes of swelling in lower extremities (2) Essential hypertension: Code(s): I10 - Essential (primary) hypertension Category: Medical Plan: Blood pressure today stable and controlled on losartan 50 mg daily. Furosemide currently on hold (3) History of syncope: Code(s): Z87.898 - Personal history of other specified conditions Plan: Likely orthostatic hypotension with dehydration brought about by taking f urosemide on a regular basis
[2024-10-14 13:50] VITALS: BP 128/68; PULSE 86; RESP 12; TEMP 36.4; O2SAT 97
--- OUTSIDE RECORDS SUMMARY | 2024-10-14 14:01 | XMS_ITS | Patient Health Record ---
Author Organization [facility] Address [address] [place] [address] Care Team Providers Care Correctional Counselor/Case Manager Name Role Phone Denise KARIMI, Iwona [...] Problem Status W/U Status Risk Notes Problem 757072011 Colon cancer screening (Z12.11) Active confirmed Problem 466746198 Gastroesophageal reflux disease without esophagitis (K21.9) Active confirmed Problem 392957860 Lactose intolera nce (E73.9) Active confirmed Problem 75662239 Irritable bowel syndrome, unspecified type (K58.9) Active confirmed Problem 821368479 Esophageal reflu x disease (K21.9) Active confirmed [...] Date MEDICARE OF [place] [address] [place] [address] [id number] GIL GONZALEZ Self - patient is the insured [employer] ATT[employer] CLAIMS [address] [place] [address] [phone] [id number] GIL GONZALEZ Self - patient is the insured Medical (General) History Medical History History ICD Code esophageal reflux urinary urgency depression osteoarthritis fibromyalgia irritable bowel syndrome glaucoma elevated cholesterol parkinsons disease unsteady gait Surgical History Surgery Date(Month/Year) carpal tunnel surgery hammer toe tonsillectomy adnoids
== END 2024-10-14 15:28 | disposition home or self-care (01) ==
PROVIDERS: PCP Internal Medicine; Visit Provider Internal Medicine
DX: I10 Essential (primary) hypertension (principal); I87.2 Venous insufficiency (chronic) (peripheral); Z87.898 Personal history of other specified conditions

== ENCOUNTER → 2024-10-14 13:46 | Outpatient (BNVA) | payer MEDICARE, SELFPAY | PROVIDERS: PCP Internal Medicine; Visit Provider Internal Medicine | DX: I87.2 Venous insufficiency (chronic) (peripheral) (principal); I10 Essential (primary) hypertension; Z87.898 Personal history of other specified conditions | CPT/HCPCS: 99495 ==

== ENCOUNTER 2024-12-17 10:26 | Outpatient (REF) | payer MEDICARE, SELFPAY ==
--- OUTSIDE RECORDS SUMMARY | 2024-12-17 11:20 | XMS_ITS | Patient Health Record ---
Author Organization [facility] Address [address] [place] [address] Care Team Providers Care Nematology Teacher Name Role Phone Denise KARIMI, Iwona Primary [...] (FN) shell fish (uncoded) Unknown Allergy Active Reason For Referral No Information [...] Problem Status W/U Status Risk Notes Problem 763364140 Colon cancer screening (Z12.11) Active confirmed Problem 418136757 Gastroesophageal reflux disease without esophagitis (K21.9) Active confirmed Problem 303624893 Lactose intolera nce (E73.9) Active confirmed Problem 11101444 Irritable bowel syndrome, unspecified type (K58.9) Active confirmed Problem 960438001 Esophageal reflu x disease (K21.9) Active confirmed [...] Date MEDICARE OF [place] [address] [place] [address] [id number] GIL GONZALEZ Self - patient is the insured [employer] ATT[employer] CLAIMS [address] [place] [address] [id number] GIL GONZALEZ Self - patient is the insured Medical (General) History Medical History History ICD Code esophageal reflux urinary urgency depression osteoarthritis fibromyalgia irritable bowel syndrome glaucoma elevated cholesterol parkinsons disease unsteady gait Surgical History Surgery Date(Month/Year) carpal tunnel surgery hammer toe tonsillectomy adnoids
--- OUTSIDE RECORDS SUMMARY | 2024-12-17 11:20 | XMS_ITS | Patient Health Record ---
Author Organization [facility] Mara zacarias [facility] Address [address] [place] [address] Care Team Providers Care Controlled Atmospheric Furnace Brazer Name Role Phone Denise KARIMI, Iwona Meza Primary Care Provider Un available Zulay Magana Unavailable [phone] Ryan Garcia Unavailable [phone] Allergies Allergen (clinical drug ingredient) Drug/Non Drug Allergy documented on EMR Reaction Allergy Type Onset Date Status 12 Hour Nasal [place] Unknown Drug Allergy Active ibuprofen Advil Unknown [...] 1 tablet Orally Once a day Not-Taking Fish Oil 1000 MG 2 Orally Once a day Active Nitro-Bid 2 % APPLY TRANSDERMALLY TWO TIMES A DAY TO AFFECTED SKIN OF BOTH FEET DIRECTED; Duration: 30 Not-Taking lipitor 1 tab Oral Active Meclizine HCl Not-Ta sandra Losartan Potassium 50 MG 1 tablet Orally Once a day Active Nortripytline HCl No t-Taking Timolol Hemihydrate eye drop Active Probiotic Orally Not-Taking Vitamin D 1000 UNIT 1 tablet Orally Once a day Active Nitro-Bid 2 % as directed Transdermal apply bid to affected skin quiana feet; Duration: 30 days Active Compression Stockings 20-30mm Hg 1 pair wear daily: With Zippers; Duration: 30 days Active Voltaren 1 % as directed Externally Active Furosemide 20 MG TAKE 1 TAB ORALLY EVERY MORNING Oral; Duration: 30 Days Active Voltaren 1 % as directed Externally Active Dicyclomine HCl 20 MG 1 tablet Orally Fo ur times a day Not-Taking Immunizations Vaccine Route Administration Date Status Comme nts Influenza Unknown 01/20/2024 Administered COVID-19 Pfizer BioNTech Vaccine Unknown 09/19/2021 Administered [...] atherosclerosis of arteries of lower limbs (disorder) ([id number] ) Unspecified atherosclerosis of [place] arteries of extremities, bilateral legs (I70.203) Active confirmed Problem Parkinson's disease (44217171) Parkinson disease (G20) Active confirmed Problem Raynaud's disease (567187982) 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 (I73.00) Active confirmed Vital Signs Blood pressure diastolic 70 mm Hg 12/10/2024 Height 5 ft 5 in in 12/10/2024 Blood pressure systolic 112 mm Hg 12/10/2024 Weight 200 lbs 12/10/2024 BMI 33.28 kg/m2 12/10/2024 Encounters Encounter Location Date Provider Diagnosis [facility] [place] [address] [place] [address] 02/13/2024 Ryan Garcia Ingrowing nail L60.0 ; Pain in left toe(s) M79.675 ; 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 I73.00 ; Parkinson disease G20 ; Neuralgia and neuritis, unspecified M79.2 ; Unspecified atherosclerosis of [place] arteries of extremities, bilateral legs I70.203 ; Tinea unguium B35.1 ; Pain in right toe(s) M79.674 and Primary osteoarthritis, left ankle and foot M19.[address] [address] 06/17/2024 Zulay Perica Atherosclerosis of [place] artery of both lower extremities, with unspecified presence of clinical manifestation I70.203 ; Edema, lower extremity R60.0 ; Tinea unguium B35.1 ; Pain in right toe(s) M79.674 and Pain in left toe(s) M79.[address] [address] 09/09/2024 Zulay Perica Atherosclerosis of [place] artery of both lower extremities, with unspecified presence of clinical manifestation I70.203 ; Edema, lower extremity R60.0 ; Tinea unguium B35.1 ; Pain in right toe(s) M79.674 and Pain in left toe(s) M79.[address] [address] 12/10/2024 Zulay Magana Edema, lower extremi ty R60.0 ; Tinea unguium B35.1 ; Atherosclerosis of [place] artery of both lower extremities, with unspecified presence of clinical manifestation I70.203 ; Pain in right toe(s) M79.674 and Pain in left toe(s) M79.[address] [address] 03/18/2024 Ryan Garcia 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 I73.[address] [address] 12/11/2024 Zulay Magana Assessments Encounter Date Diagnosis (ICD Code) Assessment Notes Treatment Notes Treatment Clinical Notes Section Notes 02/13/2024 Ingrowing nail (ICD-10 - L60.0) 02/13/2024 Pain in left toe(s) (ICD-10 - M79.675) 03/18/2024 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 (ICD-10 - I73.00) 06/17/2024 Atherosclerosis of [place] artery of both lower extremities, with unspecified presence of clinical manifestation (ICD-10 - I70.203) Q7(A), Q8(2B), Q9(1B,2C) 06/17/2024 Edema, lower extremity (ICD-10 - R60.0) 09/09/2024 Atherosclerosis of [place] artery of both lower extremities, with unspecified presence of clinical manifestation (ICD-10 - I70.203) Q7(A), Q8(2B), Q9(1B,2C) 09/09/2024 Edema, lower extremity (ICD-10 - R60.0) 12/10/2024 Tinea unguium (ICD-10 - B35.1) 12/10/2024 Edema, lower extremity (ICD-10 - R60.0) 12/10/2024 Atherosclerosis of [place] artery of both lower extremities, with unspecified presence of clinical manifestation (ICD-10 - I70.203) Q7(A), Q8(2B), Q9(1B,2C) 02/13/2024 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 (ICD-10 - I73.00) 09/09/2024 Tinea unguium (ICD-10 - B35.1) 06/17/2024 Tinea unguium (ICD-10 - B35.1) 02/13/2024 Parkinson disease (ICD-10 - G20) 06/17/2024 Pain in right toe(s) (ICD-10 - M79.674) 09/09/2024 Pain in right toe(s) (ICD-10 - M79.674) 12/10/2024 Pain in right toe(s) (ICD-10 - M79.674) 12/10/2024 Pain in left toe(s) (ICD-10 - M79.675) 02/13/2024 Neuralgia and neuritis, unspecified (ICD-10 - M79.2) 06/17/2024 Pain in left toe(s) (ICD-10 - M79.675) 09/09/2024 Pain in left toe(s) (ICD-10 - M79.675) 02/13/2024 Unspecified atherosclerosis of [place] arteries of extremities, bilateral legs (ICD-10 - I70.203) 02/13/2024 Tinea unguium (ICD-10 - B35.1) 02/13/2024 Pain in right toe(s) (ICD-10 - M79.674) 02/13/2024 Primary osteoarthritis, left ankle and foot (ICD-10 - M19.072) Plan Of Treatment Pending Test Test Name Order Date X ray : Foot, left 3V 09/23/2014 [id number]-Uccd Destruction, 1-10/28/2014 47941-Lczs Destruction, -09/23/2014 15881-Xerohimf Plate 09/13/2016 [id number]-Ufwudgdw Plate 06/25/2017 [id number] 11/01/2017 08701- Debride <25 sq cm 11/15/2017 83627- Debride <25 sq cm 12/05/2017 [id number]-NRNH SKIN LESIONS, 2 TO 4 06/30/19 Next Appt Details Provider Name:Zulay elmore, 03/17/2025 11:30:00 AM, [address] [facility], [place], [address], Insurance Providers Payer Name Payer Address Payer Phone Subscriber Number Group Number Insured Name Patient Relationship to Insured Coverage Start Date Coverage End Date Medicare National [employer] [address] [place] [address] [id number] Sarai Ramon Self - patient is the insured [employer] [address] [place] [address] [id number] [place] Sarai Self - patient is the insured Medical (General) History Medical History History ICD Code Back,Hip,and Knee pain Cancer Depression Fibromyalgia High blood pressure Reflux Measles Mumps Chicken pox Neuropathy Irritable bowel syndrome edema patellar tendinitis Surgical History Surgery Date(Month/Year) hammer toe 1989 carpal tunnel surgery colonoscopy 2021 hysterectomy cancer 04/11/2022 Hospitalization History Reason Date(Month/Year) low blood pressure, passed out, dehydrat ed 09/12 [facility] [place] ER- patellar tendinitis - edema 06/13
== END 2024-12-17 10:27 | disposition home or self-care (01) ==
LOC: HO.MAMMO 10:26
PROVIDERS: PCP Internal Medicine; Visit Provider Internal Medicine
DX: Z12.31 Encounter for screening mammogram for malignant neoplasm of breast (principal)
CPT/HCPCS: 77063; 77067

== ENCOUNTER → 2024-12-17 10:30 | Outpatient (BNV) | payer MEDICARE, SELFPAY | PROVIDERS: PCP Internal Medicine; Visit Provider Internal Medicine | DX: Z12.31 Encounter for screening mammogram for malignant neoplasm of breast (principal) | CPT/HCPCS: 77063; 77067 ==

== ENCOUNTER 2025-02-09 10:41 | Outpatient (AMB) | payer MEDICARE, SELFPAY ==
--- OUTSIDE RECORDS SUMMARY | 2024-01-14 07:15 | XMS_ITS ---
Author Organization [facility] Address [address] [place] [address] Care Team Providers Care Automobile Parker Name Role Phone Denise KARIMI, Iwona Meza Primary Care Provider Un available Zluay Magana Unavailable [phone] Ryan Garcia Unavailable [phone] REASON FOR VISIT Painful nail(s) aggrevated by shoes and causing difficulty standing/walking. 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 Patient chooses, no pharmaceutical tx (61490) Keratoma Treatment Parring or Cutting o f Benign Hyperkeratotic Lesion(s) 58463 (2-4 Lesions) - The Benign hyperkeratotic lesions, as described above were pared, and/or cut utilizing a sterile #15 blade, tissue nippers, and/or dremel, Q8 Progress Notes * Sarai GONZALEZ RDOB:[birth year] (84 yo F)Acc No.[id number]:01/14/2024 Progress Note Patient: Sarai MARTINEZ R Provider: Shanon Garcia DPM :1940 A ge:83 Y S ex:Female Date:01/14/2024 Address:[address] [place], [place] [address], [id number] Pcp:Victoria Ortiz Subjective: * Chief Complaints: * 1 . [...] enies. C ardiovascular: Pacemaker d enies. M TEACHER ASSISTANT d enies. W PW d enies. C [...] M79.2 6 . U nspecified atherosclerosis of [place] arteries of extremities, bilateral legs - I70.203 [...] as necessary. Patient chooses, no pharmaceutical tx ([id number]). K eratoma Treatment: Parring or Cutting of Benign Hyperkeratotic Lesion(s) 1 1056 (2-4 Lesions) - The Benign hyperkeratotic lesions, as described above were pared, and/or cut utilizing a sterile #15 blade, tissue nippers, and/or dremel, Q8. * Procedure Codes: 1 1721 DEBRIDE NAIL, 6 OR MORE, Modifiers: XS , 85776 TRIM SKIN LESIONS, 2 TO 4, Modifiers: Q8 * Follow Up: 3 Months * Images: * The named appointment provid er may or may not be the originator of this progress note, and it is not deemed complete until electronically signed by the appointment provider. Sign off status: Pending * Provider: Shanon Garcia DPM Date: 0 01/14/2024 Generated for Catarina merino/Bryanna/Valente on: 0 02/09/2025 01:07 PM EDT History and Physical Notes * HPI (History [...]
--- NOTE | 2025-02-09 10:50 | A.OFFVIS_ITS ---
Intake Vital Signs 02/09/25 11:01 Height 5 ft 5 in Weight 198 lb BMI 32.9 BP 100/60 Blood Pressure Location Lt brachial Position Sitting Respiration 15 Pulse 78 Pulse Source Pulse Oximeter Temp 97.8 F Temp Source Oral Pulse Oximetry (%) 96 Oxygen Delivery Method Room Air Intake Visit Reasons: SWV G0439 Intake Note: Pt is here today for her SWV: Last mammogram 01/03/23, colonoscopy 07/05/21 Allergies shellfish derived Allergy (Severe, Verified 02/09/25 11:30) Anaphylaxis oxycodone (OXYCODONE) Allergy (Intermediate, Verified 02/09/25 11:30) Itching Penicillins (PCN) Allergy (Intermediate, Verified 02/09/25 11:30) RASH aspirin (ASPIRIN) Allergy (Unknown, Verified 02/09/25 11:30) UNKNOWN codeine Adverse Reaction (Intermediate, Verified 02/09/25 11:30) Nausea and Vomiting erythromycin base Adverse Reaction (Intermediate, Verified 02/09/25 11:30) Gastrointestinal Upset lisinopril Adverse Reaction (Intermediate, Verified 02/09/25 11:30) cough Medication List - Last Reconciled 02/09/25 by Iwona Walker MD acetaminophen 1,000 mg (2 x 500 mg) PO Q6H PRN atorvastatin 20 mg PO BEDTIME bupropion HCl SR 200 mg PO BID 90 days carbidopa-levodopa 50-200 mg ER 1 tab PO TID cholecalciferol (vitamin D3) 25 mcg PO DAILY losartan 50 mg PO DAILY timolol maleate 0.5% 1 drp ophthalmic (eye) BID HPI SWV G0439 HPI Details SWV ? 84 year old lady here today for her subsequent annual wellness visit.? She has history of endometrial adenocarcinoma, has Parkinson's disease, stable controlled on present treatment, has Hyperlipidemia, Seasonal allergies, glaucoma, IBS, and depression currently stable controlled on present treatment. She is up-to-date with her screening mammogram done 12/17/2024 with normal findings, sees Dr. Segundo for her routine Pap and pelvic exam . She had a normal bone density scan done 04/11/2016 which showed normal findings, due for repeat bone density scan She is up-to-date with her screening colonoscopy done 08/02/[address] Gautam, to be repeated again in 2026. Up-to-date with her lipid and diabetes mellitus screening, done 08/19/2024 and 1824 respectively , both within normal limits. She gets yearly flu shots, due for her COVID booster vaccination, and is UTD with Tdap, Shingrix vaccination and pneumococcal vaccines. ? Medical / Social History Reviewed? Past Medical History ?Yes . ? [place] of Care / Care Team list updated ?Yes . ? Surgical/Hospitalization History ?Yes . ? Current Medications (including OTC and supplements) ?Yes . ? Family History ?Yes . ? Tobacco Control form ?Yes . ? AUDIT-C (Alcohol use) form ?Yes . ? Illicit drug use in Social History ?Yes . ? Current diagnosis of depression? ?Yes, controlled with present treatment ? Appropriate PHQ2/PHQ9 completed ?Yes . ? Data entered by ?Electrification Adviser and reviewed by provider ? Fall Risk ? Fall History? Have you had any falls with injury in the past year? ?No . ? Have you had two or more falls in the past year? ?No . ? Fall Risk Assessment: ?No falls in the past year . ? HRA filled out by the patient, reviewed by Provider and scanned. ?SWV ? Balance? Romberg ?negative ? Tandem walk- unable. ? Walk and Turn ?Yes . ? Rise from sit to stand ?Yes . ?Vision? Corrective lens ?Yes ? Vision screen ? Up-to-date, currently sees Dr Neha Elaine, diagnosed with glaucoma and beginning cataracts ? Whisper test ?pass . ?Written Plan?Completed. See Patient Documents. She has an updated healthcare proxy and MOLST form already in medical record? [facility] Medical History (Updated 02/12/25 @ 18:00 by Iwona Walker MD) Venous insufficiency of right lower extremity Varicose vein of leg History of carpal tunnel syndrome Left anterior knee pain Impaired fasting glucose Urinary incontinence Essential hypertension Osteoarthritis IBS (irritable bowel syndrome) Parkinson disease Tremor of right hand Glaucoma Seasonal allergies Depression GERD (gastroesophageal reflux disease) Hyperlipidemia Fibromyalgia Surgical History H/O: hysterectomy History of esophagogastroduodenoscopy (EGD) H/O colonoscopy History of carpal tunnel surgery Family History Mother History of breast cancer Father History of throat cancer Paternal Grandmother History of liver cancer Social History Housing: House Are you a primary animal care provider to a significant other at home: No Alcohol intake: never Comment: Parkinson's-use cane or walker Patient Tobacco Use Status: Never used Tobacco e-Cigarette/Vaping Use: Never Used Second Hand Smoke Exposure: No Advance Directives Date on File: 08/21/24 service: No Current occupational status: retired Cognitive needs: No Hearing needs: No Vision needs: Yes Questionnaire Medicare Wellness Checkup What is your age?: 80 or older What gender do you identify with?: female During the past 4 weeks, how much have you been bothered by emotional problems such as feeling anxious, depressed, irritable, sad or downhearted, and blue?: slightly During the past 4 weeks, has your physical & emotional health limited your social activities with family, friends, neighbors, or groups?: quite a bit During the past 4 weeks, how much bodily pain have you generally had?: moderate pain During the past 4 weeks, was someone available to help you if you needed & wanted help?: yes, quite a bit During the past 4 weeks, what was the hardest physical activity you could do for at least 2 minutes?: very light Can you get to places out of walking distance without help? (For eg., can you travel alone on buses, taxis or drive your car?): No Can you go shopping for groceries or clothes without someone's help?: No Can you prepare your own meals?: No Can you do your housework without help?: No Because of any health problems, do you need the help of another person with your personal care needs such as eating, bathing, dressing or getting around the house?: No Can you handle your own money without help?: Yes During the past 4 weeks, how would you rate your health in general?: good During the past 4 weeks how have things been going for you?: pretty well Are you having difficulties driving your car?: not applicable, I don't use a car Do you always fasten your seat belt when you are in a car?: yes, usually During past 4 weeks, have you been bothered by the following: never: Sexual problems?, Teeth or denture problems? and Problems using the telephone?, seldom: Falling or dizzy when standing up and Tiredness or fatigue? and sometimes: Trouble eating well? Have you fallen 2 or more times in the past year?: No Are you afraid of falling?: Yes Are you a smoker?: no During the past 4 weeks, how many drinks of wine, beer, or other alcoholic beverages did you have?: no alcohol at all Do you exercise for about 20 minutes 3 or more times a week?: no, I usually do not exercise this much Have you been given information to help with the following?: no: Hazards in your house that might hurt you? and no: Keeping track of your medications? How often do you have trouble taking medicines the way you have been told to take them?: I always take medicine as prescribed How confident are you that you can control & manage most of your health problems?: very confident What is your race?: White Mini Mental State Exam (MMSE) Orientation What is the (year) (season) (date) (day) (month)?: year (2024), season (Fall), date (02/09/25), day (Sunday) and month () Where are we (state) (county) (town or city) (hospital) (floor)?: state ([facility]), county ([place]), town or city ([place]) and hospital/clinic ([facility]) Score Score: 9 Activity of Daily Living Bathing - sponge bath, tub bath or shower: receives no assistance (gets in/out by self, if usual bathing means Dressing - getting clothes from closets & drawers, including inner/outer garments & fasteners.: gets clothes & gets completely dressed without help Toileting - going to the 'toilet room' for urine/bowel elimination & cleaning self/arranging clothes: goes to toilet room, cleans self, arranges clothes without help Transfer: moves in & out of bed and chair without help (may use support object) Continence: controls urination/bowel movements completely by self Feeding: feeds self without help Total Score: 0 Information obtained from: patient Using telephone: independent Traveling: needs assistance Shopping: needs assistance Preparing meals: independent Housework: needs assistance Taking medicine: independent Managing money: independent PHQ-9 Over the last 2 weeks, how often have you been bothered by any of the following problems? 1. Little interest or pleasure in doing things: not at all 2. Feeling down, depressed, or hopeless: not at all 3. Trouble falling or staying asleep, or sleeping too much: not at all 4. Feeling tired or having little energy: not at all 5. Poor appetite or overeating: not at all 6. Feeling bad about yourself - or that you are a failure or have let yourself or your family down: not at all 7. Trouble concentrating on things, such as reading the newspaper or watching television: not at all 8. Moving or speaking so slowly that other people could have noticed. Or the opposite - being so fidgety or restless that you have been moving around a lot more than usual: not at all 9. Thoughts that you would be better off or of hurting yourself in some way: not at all Total score: 0 Depression Screening Interpretation: Negative Depression Screening Done: Yes 73833 - PHQ-9 Billing: Yes Source: Developed by Drs. Milo Maurice, Tyesha Fox, Cj Gregory and colleagues, with an educational hernandez from [employer]. Physical Exam Vital Signs: Last Vital Signs Temp 97.8 F 02/09/25 11:01 Pulse 78 02/09/25 11:01 Resp 15 02/09/25 11:01 BP 100/60 02/09/25 11:01 Pulse Ox 96 02/09/25 11:01 Oxygen Delivery Method Room Air 02/09/25 11:01 BMI result Body Mass Index 32.9 Assessment & Plan Assessment & Plan (1) Encounter for subsequent annual wellness visit (AWV) in Medicare patient: Code(s): Z00.00 - Encounter for general adult medical examination without abnormal findings Plan: Medical wellness checklist reviewed, discussed with patient and updated., up-to-date with all her vaccines, up-to-date with her screenings but has not yet had a bone density scan which was ordered today (2) Glaucoma: Comment: sees Dr Humphrey Code(s): H40.9 - Unspecified glaucoma Qualifiers: Glaucoma type: unspecified Plan: Followed by Dr. Neha Elaine , currently on timolol mildly 8 0.5% 1 drop twice a day in affected eye (3) Parkinson disease: Comment: ff'd by Dr Hutson Code(s): G20 - Parkinson's disease Qualifiers: Dyskinesia presence: unspecified whether dyskinesia Fluctuating manifestations: with fluctuating manifestations Qualified Code(s): G20.A2 - Parkinson's disease without dyskinesia, with fluctuations Plan: Followed by Neurology, currently on carbidopa-levodopa (4) Depression: Code(s): F32.9 - Major depressive disorder, single episode, unspecified Qualifiers: Active/Remission status: in partial remission Depression Type: major depressive disorder Major depression recurrence: recurrent Qualified Code(s): F33.41 - Major depressive disorder, recurrent, in partial remission Plan: Currently on bupropion HCL SR 200 mg 1 capsule twice Orders: Orders XR DEXA axial skeleton 02/09/25 Z78.0 - Asymptomatic menopausal state Medications: Changed From losartan 50 mg PO DAILY 90 tabs 1RF To losartan 50 mg (2 x 25 mg) PO DAILY 90 tabs 1RF Quality Reporting (2019) Depression/Bipolar (159/160/161/177) PHQ-9: Total score: 0 Coding Level of Care Code Medicare Subsequent (G0439) Diagnoses Encounter for subsequent annual wellness visit (AWV) in Medicare patient Z00.00 Glaucoma H40.9 Glaucoma type: unspecified Parkinson's disease with fluctuating manifestations, unspecified whether dyskinesia present G20.A2 Dyskinesia presence: unspecified whether dyskinesia Fluctuating manifestations: with fluctuating manifestations Recurrent major depressive disorder, in partial remission F33.41 Active/Remission status: in partial remission Depression Type: major depressive disorder Major depression recurrence: recurrent CPT Codes Advance Care Planning - Advance Care Planning discussion: On file, no changes ([id number]) Advance Care Planning - Time spent: 1-15 minutes, on File ([id number]) Additional Codes PHQ-9 - 00808 - PHQ-9 Billing: Yes ([id number]) Advance Care Planning Advance Care Planning discussion: On file, no changes Date of discussion: 02/09/25 Who was present: Patient Forms completed: Health Care Proxy and MOLST Time spent: 1-15 minutes, on File Actual minutes spent: 1
[2025-02-09 11:01] VITALS: BP 100/60; PULSE 78; RESP 15; TEMP 36.6; O2SAT 96; BMI 32.9
--- OUTSIDE RECORDS SUMMARY | 2025-02-09 13:08 | XMS_ITS | Patient Health Record ---
Author Organization [facility] Address [address] [place] [address] Care Team Providers Care Rehabilitation Teacher Name Role Phone Denise KARIMI, Iwona Primary Care Provider Maury Ram Jr Unavailable [phone] Allergies Allergen (clinical drug ingredient) Drug/Non Drug [...] Problem Status W/U Status Risk Notes Problem 993163743 Colon cancer screening (Z12.11) Active confirmed Problem 851989422 Gastroesophageal reflux disease without esophagitis (K21.9) Active confirmed Problem 331525097 Lactose intolera nce (E73.9) Active confirmed Problem 01456556 Irritable bowel syndrome, unspecified type (K58.9) Active confirmed Problem 186218473 Esophageal reflu x disease (K21.9) Active confirmed [...] Date MEDICARE OF [place] [address] [place] [address] [id number] GIL GONZALEZ Self - patient is the insured [employer] ATT[employer] CLAIMS [address] [place] [address] [id number] GIL GONZALEZ Self - patient is the insured Medical (General) History Medical History History ICD Code esophageal reflux urinary urgency depression osteoarthritis fibromyalgia irritable bowel syndrome glaucoma elevated cholesterol parkinsons disease unsteady gait Surgical History Surgery Date(Month/Year) carpal tunnel surgery hammer toe tonsillectomy adnoids
--- OUTSIDE RECORDS SUMMARY | 2025-02-09 13:08 | XMS_ITS | Patient Health Record ---
Author Organization [facility] Mara zacarias [place] Address [address] [place] [address] Care Team Providers Care Gravure Press Set Up Operator Name Role Phone Denise KARIMI, Iwona Meza Primary Care Provider Un available Zulay Magana Unavailable [phone] Ryan Garcia Unavailable [phone] Allergies Allergen (clinical drug ingredient) Drug/Non Drug Allergy documented on EMR Reaction Allergy Type Onset Date Status 12 Hour Nasal [place] Unknown Drug Allergy Active ibuprofen Advil Unknown [...] atherosclerosis of arteries of lower limbs (disorder) (49978416349680815 ) Unspecified atherosclerosis of eastern [place] arteries of extremities, bilateral legs (I70.203) Active confirmed Problem Parkinson's disease (08976330) Parkinson disease (G20) Active confirmed Problem Raynaud's disease (556034460) 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 (I73.00) Active confirmed Vital Signs Blood pressure diastolic 70 mm Hg 12/10/2024 Height 5 ft 5 in in 12/10/2024 Blood pressure systolic 112 mm Hg 12/10/2024 Weight 200 lbs 12/10/2024 BMI 33.28 kg/m2 12/10/2024 Encounters Encounter Location Date Provider Diagnosis [facility] [place] [address] [place] [address] 02/13/2024 Ryan Garcia Ingrowing nail L60.0 ; Pain in left toe(s) M79.675 ; 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 I73.00 ; Parkinson disease G20 ; Neuralgia and neuritis, unspecified M79.2 ; Unspecified atherosclerosis of eastern [place] arteries of extremities, bilateral legs I70.203 ; Tinea unguium B35.1 ; Pain in right toe(s) M79.674 and Primary osteoarthritis, left ankle and foot M19.[address] [address] 06/17/2024 Zulay Perica Atherosclerosis of eastern sh[place] artery of both lower extremities, with unspecified presence of clinical manifestation I70.203 ; Edema, lower extremity R60.0 ; Tinea unguium B35.1 ; Pain in right toe(s) M79.674 and Pain in left toe(s) M79.[address] [address] 09/09/2024 Zulay Perica Atherosclerosis of eastern [place] artery of both lower extremities, with unspecified presence of clinical manifestation I70.203 ; Edema, lower extremity R60.0 ; Tinea unguium B35.1 ; Pain in right toe(s) M79.674 and Pain in left toe(s) M79.[address] [address] 12/10/2024 Zulay Magana Edema, lower extremi ty R60.0 ; Tinea unguium B35.1 ; Atherosclerosis of eastern [place] artery of both lower extremities, with unspecified presence of clinical manifestation I70.203 ; Pain in right toe(s) M79.674 and Pain in left toe(s) M79.[address] [address] 03/18/2024 Ryan Garcia 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 I73.[address] [address] 12/11/2024 Zulay Magana Assessments Encounter Date Diagnosis (ICD Code) Assessment Notes Treatment Notes Treatment Clinical Notes Section Notes 02/13/2024 Ingrowing nail (ICD-10 - L60.0) 02/13/2024 Pain in left toe(s) (ICD-10 - M79.675) 03/18/2024 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 (ICD-10 - I73.00) 06/17/2024 Atherosclerosis of eastern shosh[place] artery of both lower extremities, with unspecified presence of clinical manifestation (ICD-10 - I70.203) Q7(A), Q8(2B), Q9(1B,2C) 06/17/2024 Edema, lower extremity (ICD-10 - R60.0) 09/09/2024 Atherosclerosis of eastern shosh[place] artery of both lower extremities, with unspecified presence of clinical manifestation (ICD-10 - I70.203) Q7(A), Q8(2B), Q9(1B,2C) 09/09/2024 Edema, lower extremity (ICD-10 - R60.0) 12/10/2024 Tinea unguium (ICD-10 - B35.1) 12/10/2024 Edema, lower extremity (ICD-10 - R60.0) 12/10/2024 Atherosclerosis of eastern sh[place] artery of both lower extremities, with unspecified [...] (ICD-10 - M79.675) 02/13/2024 Unspecified atherosclerosis of eastern sh[place] arteries of extremities, bilateral legs (ICD-10 - I70.203) 02/13/2024 Tinea unguium (ICD-10 - B35.1) 02/13/2024 Pain in right toe(s) (ICD-10 - M79.674) 02/13/2024 Primary osteoarthritis, left ankle and foot (ICD-10 - M19.072) Plan Of Treatment Pending Test Test Name Order Date X ray : Foot, left 3V 09/23/2014 30247-Vroo Destruction, 1-10/28/2014 93349-Apri Destruction, -09/23/2014 15258-Dtbbxezn Plate 09/13/2016 23542-Sqmaswsf Plate 06/25/2017 84224-FRY 11/01/2017 81369- Debride <25 sq cm 11/15/2017 43515- Debride <25 sq cm 12/05/2017 46508-ZEWM SKIN LESIONS, 2 TO 4 06/30/19 Next Appt Details Provider Name:Zulay elmore, 03/17/2025 11:30:00 AM, [address] [facility], [place], [address], Insurance Providers Payer Name Payer Address Payer Phone Subscriber Number Group Number Insured Name Patient Relationship to Insured Coverage Start Date Coverage End Date Medicare National [employer]t [employer] [address] [place] [address] [id number] Sarai Ramon Self - patient is the insured [employer] [address] [place] [address] [phone] [id number] [place] Sarai Self - patient is the insured Medical (General) History Medical History History ICD Code Back,Hip,and Knee pain Cancer Depression Fibromyalgia High blood pressure Reflux Measles Mumps Chicken pox Neuropathy Irritable bowel syndrome edema patellar tendinitis Surgical History Surgery Date(Month/Year) hammer toe 1989 carpal tunnel surgery colonoscopy 2021 hysterectomy cancer 04/11/2022 Hospitalization History Reason Date(Month/Year) low blood pressure, passed out, dehydrat ed 09/12 [facility] [place] [facility] ER- patellar tendinitis - edema 06/13
== END 2025-02-09 12:09 | disposition home or self-care (01) ==
LOC: HO.HMCC 10:41
PROVIDERS: PCP Internal Medicine; Visit Provider Internal Medicine
DX: Z00.00 Encounter for general adult medical examination without abnormal findings (principal); H40.9 Unspecified glaucoma; G20.A2 Parkinson's disease without dyskinesia, with fluctuations; F33.41 Major depressive disorder, recurrent, in partial remission

== ENCOUNTER → 2025-02-09 10:41 | Outpatient (BNVA) | payer MEDICARE, SELFPAY | PROVIDERS: PCP Internal Medicine; Visit Provider Internal Medicine | DX: Z00.00 Encounter for general adult medical examination without abnormal findings (principal); E78.5 Hyperlipidemia, unspecified; J30.9 Allergic rhinitis, unspecified; H40.9 Unspecified glaucoma; G20.A2 Parkinson's disease without dyskinesia, with fluctuations; F33.41 Major depressive disorder, recurrent, in partial remission; Z78.0 Asymptomatic menopausal state | CPT/HCPCS: 96127 ==

== ENCOUNTER 2025-03-12 09:59 | Outpatient (AMB) | payer MEDICARE, SELFPAY ==
--- NOTE | 2025-03-12 10:10 | A.OFFVIS_ITS ---
Intake Visit Reasons: 6 month Allergies shellfish derived Allergy (Severe, Verified 02/09/25 11:30) Anaphylaxis oxycodone (OXYCODONE) Allergy (Intermediate, Verified 02/09/25 11:30) Itching Penicillins (PCN) Allergy (Intermediate, Verified 02/09/25 11:30) RASH aspirin (ASPIRIN) Allergy (Unknown, Verified 02/09/25 11:30) UNKNOWN codeine Adverse Reaction (Intermediate, Verified 02/09/25 11:30) Nausea and Vomiting erythromycin base Adverse Reaction (Intermediate, Verified 02/09/25 11:30) Gastrointestinal Upset lisinopril Adverse Reaction (Intermediate, Verified 02/09/25 11:30) cough HPI Comments Details: 84 yo woman with parkinson disease started around 2020 with right hand tremor. She is presenting with concerns related to arthritis affecting mobility and management of lower extremity edema. She reports arthritis in her lumbar spine leading to severe pain and substantial difficulty in maintaining her standing posture, thus forcing her to sit more than advisable. This in turn is reducing her strength and negatively impacting her Parkinson's Disease, though she notes the arthritis is the predominant issue. The right lower extremity exhibits edema, attributed to venous insufficiency as evidenced by ultrasound. Diuretic therapy has successfully alleviated some symptoms of the swelling. Notably, the patient expresses challenges in accessing activities like swimming due to transport inadequacies. [facility] Medical History (Updated 03/12/25 @ 10:14 by Tara Hutson MD) Venous insufficiency of right lower extremity Varicose vein of leg History of carpal tunnel syndrome Left anterior knee pain Impaired fasting glucose Urinary incontinence Essential hypertension Osteoarthritis IBS (irritable bowel syndrome) Parkinson disease Tremor of right hand Glaucoma Seasonal allergies Depression GERD (gastroesophageal reflux disease) Hyperlipidemia Fibromyalgia Surgical History H/O: hysterectomy History of esophagogastroduodenoscopy (EGD) H/O colonoscopy History of carpal tunnel surgery Family History Mother History of breast cancer Father History of throat cancer Paternal Grandmother History of liver cancer Social History Housing: House Are you a primary intensive care unit nurse to a significant other at home: No Alcohol intake: never Comment: Parkinson's-use cane or walker Patient Tobacco Use Status: Never used Tobacco e-Cigarette/Vaping Use: Never Used Second Hand Smoke Exposure: No Advance Directives Date on File: 08/21/24 service: No Current occupational status: retired Cognitive needs: No Hearing needs: No Vision needs: Yes Review of Systems Narrative - Musculoskeletal: Reports significant lumbar spine arthritis pain affecting standing ability. - Neurological: Reports concerns about the exacerbation of Parkinson's symptoms due to reduced physical activity. - Cardiovascular: Reports right lower extremity edema; acknowledges venous insufficiency. - General: Denies additional balance problems; addresses reduced activity due to pain. Physical Exam Neuro Other: Mental Status: Alert and oriented to person, place, and time. Normal attention. Normal spontaneous speech, fluency, and comprehension. Cranial Nerves: CN II: Visual shipman full to confrontation, visual acuity intact. CN III, IV, : Pupils equal, round, reactive to light and accommodation. Extraocular movements are normal. CN V: Facial sensation is normal. CN VII: Facial movements symmetrical. CN VIII: Hearing intact to bedside conversation is normal. CN IX, X: Palate elevates symmetrically. CN XI: Shoulder shrug and head turn symmetrical. CN XII: Tongue midline without atrophy or fasciculations. Motor: Bulk and tone normal in all extremities. No significant muscle weakness in arms and legs. No drift. Reflexes: Deep tendon reflexes 2+ and symmetric. Plantar response down-going bilaterally. Coordination: Qqgbsm-di-wyrq and cesw-xf-xarw testing normal. No dysmetria. Gait and Station: No obvious gait abnormality. No ataxia or instability. Extrapyramidal: Full facial expressions and blinking. No rigidity. Movements are appropriate with no tremor or abnormality. Speech: Normal; no dysarthria or tremor. 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 Code(s): G20 - Parkinson's disease Category: Medical (2) Multifactorial gait disorder: Code(s): R26.89 - Other abnormalities of gait and mobility Category: Medical Plan I discussed with the patient that the primary focus should remain on her lumbar spine arthritis, as it is severely impacting her capacity to stay active, subsequently affecting her Parkinson's Disease management. We have agreed on exploring further physical therapy interventions, focusing on low-impact exercises to boost muscle strength and improve mobility, particularly given the seasonal considerations with reduced daylight and colder temperatures likely limiting outdoor activities. For her venous insufficiency and resulting edema, continuation of the current diuretic regimen was advised, as it appears to have reduced swelling. We did not change medication dosages during this visit. We acknowledged the patient's transportation challenges but emphasized considering aquatic therapy if logistics allow. Follow-up was planned in six months to reassess the efficacy of this management plan. Medications: Refilled carbidopa-levodopa 50-200 mg ER divide evenly over waking hours 1 tab PO TID 270 tabs 0RF Coding Level of Care Code Est Pt Level 4 (19909) Diagnoses Parkinson disease G20 Multifactorial gait disorder R26.89
== END 2025-03-12 10:20 | disposition home or self-care (01) ==
LOC: HO.HSM 10:00
PROVIDERS: PCP Internal Medicine; Referring Provider Internal Medicine; Visit Provider Psychiatry & Neurology Neurology
DX: G20.A1 Parkinson's disease without dyskinesia, without mention of fluctuations (principal); R26.89 Other abnormalities of gait and mobility
CPT/HCPCS: 99214

== ENCOUNTER → 2025-03-12 09:59 | Outpatient (BNVA) | payer MEDICARE, SELFPAY | PROVIDERS: PCP Internal Medicine; Referring Provider Internal Medicine; Visit Provider Psychiatry & Neurology Neurology | DX: G20.A1 Parkinson's disease without dyskinesia, without mention of fluctuations (principal); F03.A0 Unspecified dementia, mild, without behavioral disturbance, psychotic disturbance, mood disturbance, and anxiety; R26.89 Other abnormalities of gait and mobility; M51.360 Other intervertebral disc degeneration, lumbar region with discogenic back pain only | CPT/HCPCS: 99212 ==

== ENCOUNTER 2025-05-20 09:54 | Outpatient (REF) | payer MEDICARE, SELFPAY ==
--- OUTSIDE RECORDS SUMMARY | 2024-01-14 06:15 | XMS_ITS ---
Author Organization [facility] Address [address] [place] [address] Care Team Providers Care Race Steward Name Role Phone Denise KARIMI, Iwona Meza Primary Care Provider Un available Zulay Magana Unavailable [phone] Ryan Argueta Unavailable [phone] REASON FOR VISIT Painful nail(s) aggrevated by shoes and causing difficulty standing/walking. 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 I73.00 ; Parkinson disease G20 ; Neuralgia and neuritis, unspecified M79.2 ; Unspecified atherosclerosis of [place] arteries of extremities, bilateral legs I70.203 ; Tinea unguium B35.1 ; Pain in right toe(s) M79.674 and Primary osteoarthritis, left ankle and foot M19.072 Assessments Encounter Date Diagnosis (ICD Code) Assessment Notes Treatment Notes Treatment Clinical Notes Section Notes 01/14/2024 Ingrowing nail (ICD-10 - L60.0) 01/14/2024 Pain in left toe(s) (ICD-10 - M79.675) 01/14/2024 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 (ICD-10 - I73.00) 01/14/2024 Parkinson disease (ICD-10 - G20) 01/14/2024 Neuralgia and neuritis, unspecified (ICD-10 - M79.2) 01/14/2024 Unspecified atherosclerosis of [place] arteries of extremities, bilateral legs (ICD-10 - I70.203) 01/14/2024 Tinea unguium (ICD-10 - B35.1) 01/14/2024 Pain in right toe(s) (ICD-10 - M79.674) 01/14/2024 Primary osteoarthritis, left ankle and foot (ICD-10 - M19.072) Plan Of Treatment Medication Medication Name Sig Start Date Stop Date Notes Voltaren 1 % as directed Externally Nitro-Bid 2 % as directed Transder mal apply bid to affected skin quiana feet; Duration: 30 days Next Appt Details Follow Up: 3 Months, Reason: Provider Name:Zulay elmore, 06/17/2025 11:30:00 AM, [address] [place] [address], [phone], Procedure Notes * Category Sub-Category Detail Notes Debride Nail 6-10 Nail debridement Nail debridem ent performed extensively to reduce/remove overall nail length and girth, subungual debris, and necrotic tissue, by manual and electrical means with use of a nail nipper and/or dremel, to more viable healthy nail plate or bed tissue 6-10. Silver nitrate used for any petechial bleeding as necessary. Patient chooses, no pharmaceutical tx (46582) Keratoma Treatment Parring or Cutting o f Benign Hyperkeratotic Lesion(s) 90864 (2-4 Lesions) - The Benign hyperkeratotic lesions, as described above were pared, and/or cut utilizing a sterile #15 blade, tissue nippers, and/or dremel, Q8 Progress Notes * Sarai GONZALEZ RDOB:[birth year] (84 yo F)Acc No.[id number]:01/14/2024 Progress Note Patient: Sarai MARTINEZ R Provider: Shanon Garcia DPM :1940 A ge:83 Y S ex:Female Date:01/14/2024 Address:[address] [place], [id number] Pcp:Victoria Oritz Subjective: * Chief Complaints: * 1 . Painful nail(s) aggrevated by shoes and causing difficulty standing/walking.. * HPI: P ainful Nails: Pt States Last PCP Visit: D ate: 0 01/08/2023 F oot Pain: Nature: b urning, tightness and loss of balance. Location: F orefoot, Midfoot, B/L. Duration: s everal years. Onset: p arkinson's. Course: p rogressive. Misc: abby woody. T oe pain: Nature: t enderness, aching. Location: B /L feet, Great toe. Duration: s everal months. Treatments: p na worked well. * ROS: G eneral/Constitutional: Nausea d enies. V omiting d enies. H tammy Thirst d enies. L oss appetite d enies. C hills d enies. F atigue d enies.?Fever d enies. N ight Sweats d enies. U nexplained weight loss d enies. U nexplained weight gain d enies. H EENTM: Dentures d enies. D izziness d enies. G lasses/contacts a dmits. R etinopathy d enies. B lurred/double vision d enies. T MJ?denies. D ischarge/drainage d enies. I mplants d enies. S ore throat d enies. D ental implants d enies. H cornel of hearing d enies. D ifficulty chewing/swallowing/speaking d enies. N ose bleeds d enies. S ore mouth d enies. ? R espiratory: On Oxygen d enies. P neumonia/pleurisy d enies.?Bronchitis d enies. E mphysema d enies. C oughing d enies. C ough blood?denies. S hortness of breath d enies. W heezing d enies. C ardiovascular: Pacemaker d enies. M TEST BORER d enies. W PW d enies. C HF d enies. H eart attack d enies. S eptal defect d enies. R apid beat d enies. C hest pain d enies. A trial Fib. d enies. M urmur/Palpitations d enies. G astrointestinal: Hemorrhoids d enies. S tomach/Abdominal pain d enies. D ark blood stool d enies. I rritable bowel d enies. C onstipation d enies. D iarrhea d enies. H ematology: Swelling d enies. C lots d enies. V aricose Veins d enies. B ruising d enies. B leeding problem d enies. G enitourinary: Blood urine d enies. F requent/Painfu/urination/bladder control d enies. K idney stones d enies. I nfection (UTI) d enies. N ephropathy d enies. s ex trans dis (STD) d enies. P rostate d enies. M usculoskeletal: Hammertoes d enies. B unions d enies. B ack Pain d enies. M uscle Cramps/ Resting d enies. M uscle cramps / walking d enies.?Generalized aches and pains d enies. W eakness d enies. I nteg.: Hines d enies. S cars d enies. C orns/calluses?denies. I ngrown nails d enies. P ainful nails d enies. O pen Sores d enies. R ashes d enies. N eurologic: Difficulty sleeping d enies. B rain disorder d enies. N umbness d enies. B alance trouble d enies. C onfusion d enies. F ainting/blackouts d enies. T ingling d enies. T remors d enies. * Medical History: Objective: * Vitals: * Examination: G eneral Examination: GENERAL APPEARANCE: p leasant, alert, well nourished, well developed, well hydrated, with good attention to hygene/body habitus, and in no acute distress. ORIENTED: p erson,place, and time. N eurological: SENSORY: N eurological exam reveals intact sensorium, pain sensation normal, vibration sensation intact, pinprick sensation is normal in the lower extremities, Pt denies, anesthesia, burning, paresthesia, tingling, B/L, Neurological exam demonstrates pop ta ipj. BABINSKI REFLEX: a bsent. V ascular: DP PULSES (B): 0/4, B/L. PT PULSES (B): 0/4, B/L. TROPHIC CONDITION-TEXTURE/ELASTICITY/TURGOR/HAIR GROWTH (B):? decreased, B/L. TEMPERTURE GRADIENT (C): decreased, cool to cold, proximal to distal, B/L. PIGMENTATION: cyanotic, B/L. D ermatologic: SKIN FINDINGS: Skin exam reveals Keratotic lesion(s) located at, Plantar, Heel(s), B/L , Medial plantar, IPJ, TA, T5. O rthopedic: MUSCLE STRENGTH: 5 /5 all groups in a symmetrical fashion , B/L. GAIT ABNORMALITY: p ronated, abducted, B/L. ? N ails: NAILS are: Elongated, overgrown, dystrophic, lytic, greater than 3mm thick, discolored and friable with crumbly malodorous subungual debris, with pain on palpation, 1-5 B/L. I ngrown Nail: INSPECTION: Reveals nail incurvation, pain on palpation, groove hypertrophy, groove ischemia, Medial nail border, T5. Assessment: * Assessment: 1. I ngrowing nail - L60.0 (Primary) 2 . P ain in left toe(s) - M79.675? 3. R aynauds disease without gangrene - I73.00 4 . P arkinson disease - G20 5 . N euralgia and neuritis, unspecified - M79.2 6 . U nspecified atherosclerosis of [place] arteries of extremities, bilateral legs - I70.203 7 . T inea unguium - B35.1 8 . P ain in right toe(s) - M79.674? 9. P rimary osteoarthritis, left ankle and foot - M19.072 Plan: * Treatment: 2. R aynauds disease without gangrene Start Nitro-Bid Ointment, 2 %, as directed, Transdermal, apply bid to affected skin quiana feet, 30 days, 90, Refills 4. * Procedures: D ebride Nail 6-10: Nail debridement N ail debridement performed extensively to reduce/remove overall nail length and girth, subungual debris, and necrotic tissue, by manual and electrical means with use of a nail nipper and/or dremel, to more viable healthy nail plate or bed tissue 6-10. Silver nitrate used for any petechial bleeding as necessary. Patient chooses, no pharmaceutical tx (53874). K eratoma Treatment: Parring or Cutting of Benign Hyperkeratotic Lesion(s) 1 1056 (2-4 Lesions) - The Benign hyperkeratotic lesions, as described above were pared, and/or cut utilizing a sterile #15 blade, tissue nippers, and/or dremel, Q8. * Procedure Codes: 1 1721 DEBRIDE NAIL, 6 OR MORE, Modifiers: XS , 74627 TRIM SKIN LESIONS, 2 TO 4, Modifiers: Q8 * Follow Up: 3 Months * Images: * The named appointment provid er may or may not be the originator of this progress note, and it is not deemed complete until electronically signed by the appointment provider. Sign off status: Pending * Provider: Shanon Garcia DPM Date: 0 01/14/2024 Generated for Catarina merino/Bryanna/Valente on: 10:40 AM EST History and Physical Notes * HPI (History of Present Illness) Category Sub-Category Detail Notes Category Not es Toe pain Nature: tenderness, aching Location: B/L feet, Great toe Duration: several months Treatments: pna worked well Painful Nails Pt States Last PCP Visit: Date:: 01/08/2023 Foot Pain Nature: burning, tightness and loss of balance Location: Forefoot, Midfoot, B /L Duration: several years Onset: parkinson's Course: progressive Misc: dr. woody Examination Category Sub-Category Detail Notes Category Not es Ingrown Nail INSPECTION: Reveals nail inc urvation, pain on palpation, groove hypertrophy, groove ischemia, Medial nail border, T5 Neurological SENSORY: Neurological exa m reveals intact sensorium, pain sensation normal, vibration sensation intact, pinprick sensation is normal in the lower extremities, Pt denies, anesthesia, burning, paresthesia, tingling, B/L, Neurological exam demonstrates pop ta ipj BABINSKI REFLEX: absent Dermatologic SKIN FINDINGS: Skin exam reveal s Keratotic lesion(s) located at, Plantar, Heel(s), B/L , Medial plantar, IPJ, TA, T5 Orthopedic GAIT ABNORMALITY: pronated, abducted, B/L MUSCLE STRENGTH: 5/5 all groups in a symmetrical fashion , B/L General Examination GENERAL APPEARANCE: pleasant , alert, well nourished, well developed, well hydrated, with good attention to hygene/body habitus, and in no acute distress ORIENTED: person,place, and ti me Vascular DP PULSES (B): 0/4, B/L PT PULSES (B): 0/4, B/L TEMPERTURE GRADIENT (C): decreased, cool to cold, proximal to distal, B/L TROPHIC CONDITION-TEXTURE/ELASTICITY/TURGOR/HAIR GROWTH (B): decreased, B/L PIGMENTATION: cyanotic, B/L Nails NAILS are: Elongated, overg rown, dystrophic, lytic, greater than 3mm thick, discolored and friable with crumbly malodorous subungual debris, with pain on palpation, 1-5 B/L
--- OUTSIDE RECORDS SUMMARY | 2025-03-11 06:15 | XMS_ITS ---
[facility] Address [address] [place] [address] Care Team Providers Care Veneer Sorter Name Role Phone Denise KARIMI, Iwona Meza Primary Care Provider Un available Zulay Magana Unavailable [phone] Encounters Encounter Location Date Provider Diagnosis [facility] [address] [place] [address] 03/11/2025 Zulay Magana Plan Of Treatment Next Appt Details Provider Name:Zulay elmore, 06/17/2025 11:30:00 AM, [address] [place], [address], Progress Notes * Sarai GONZALEZ RDOB:[birth year] (84 yo F)Acc No.[id number]:03/11/2025 Progress Note Patient: Sarai MARTINEZ Provider: Manny Magana DPM :1940 A ge:84 Y S ex:Female Date:03/11/2025 [address] [id number] Pcp:Victoria Ortiz Subjective: * Chief Complaints: * * Medical History: Objective: * Vitals: Assessment: Plan: * Treatment: * Images: * The named appointment provid er may or may not be the originator of this progress note, and it is not deemed complete until electronically signed by the appointment provider. Sign off status: Pending * Provider: Manny Magana DPM Date: 1 Generated for Catarina merino/Bryanna/Valente on: 1 10:39 AM EST
--- NOTE | ~2025-05-20 | MM_ITS ---
EXAMINATION: DXA BONE DENSITY AXIAL HISTORY: Z78.0 - Asymptomatic menopausal state TECHNIQUE: [employer] Dual energy absorptiometry (DEXA) of the lumbar spine, total left hip, and femoral neck was performed. COMPARISON: Comparison is made with the prior examination dated 04/11/2016. FINDINGS: The bone mineral density of the lumbar spine is 1.134 g/cm2, corresponding to a T-score of -0.3, and a Z-score of 0.9. This is indicative of normal bone mineral density. This represents a BMD change of 0.8% compared to the prior exam. This is not statistically significant. The bone mineral density of the left total hip is 0.953 g/cm2, corresponding to a T-score of -0.4, and a Z-score of 1.2. This is indicative of normal bone mineral density. This represents a BMD change of 0.3% compared to the prior exam. This is not statistically significant. The bone mineral density of the left femoral neck is 0.8445 g/cm2, corresponding to a T-score of -1.4, and a Z-score of 0.5. This is indicative of osteopenia. This represents a BMD change of -2.3% compared to the prior exam. FRACTURE RISK: The FRAX index suggests a ten year probability of major osteoporotic fracture of 12.5%, and of hip fracture 3.1%. MM/XR DEXA axial skeleton IMPRESSION: Based on bone mineral density, and according to World Health Organization (WHO) criteria, the diagnosis is consistent with osteopenia. Statistically, 68% of repeat scans fall within 1 SD (+/- 0.010 g/cm2 for AP spine L1-L4) and 1 SD (+/- 0.012 g/cm2 for femur total) FRAX is a trademark of the [employer] [place] [facility] Metabolic Bone Disease, a World Health Organization (WHO) Collaborating Center. Electronically signed by: Milo Duckworth MD 05/20/2025 10:55 AM [facility]
--- OUTSIDE RECORDS SUMMARY | 2025-05-20 10:40 | XMS_ITS | Patient Health Record ---
Author Organization [facility] Address [address] [place] [address] Care Team Providers Care Rubber Block Layer Name Role Phone Denise KARIMI, Iwona Primary Care Provider Maury Ram Jr Unavailable Allergies Allergen (clinical drug ingredient) Drug/Non Drug Allergy documented on EMR Reaction Allergy Type Onset Date Status shell fish (uncoded) Unknown Allergy Active Codeine Phosphate Unknown Drug Allergy Active erythromycin Erythromycin Unknown Drug Allergy A ctive acetaminophen / oxycodone Percocet Unknown Drug Allergy Active PredniSONE Unknown Drug Allergy Active Penicillin Unknown Drug Allergy Active Reason For Referral No Information Medications Medication SIG (Take, Route, Frequency, Duration) Notes Start Date End Date Status Carbidopa-Levodopa ER 50-200 MG Tablet Extended Release Oral; Duration: 90 Active Timolol Hemihydrate 0.5 % Solution 1 drop into affected eye Ophthalmic Once a day Active Fish Oil 1000mg Capsule 1 capsule Orally Once a day Active Dicyclomine HCl 20 MG Tablet TAKE 1 TABLET 4 TIMES DAILYAS NEEDED; Duration: 90 Active Losartan Potassium 50 MG Tablet 1 tablet Orally Once a day Active MiraLax (colon prep) 17 GM/SCOOP Powder mixed with Gatorade or Crystal Light Orally begin at 5:00 p.m. the day before the procedure; Duration: 1 day 05/04/2021 Active Pantoprazole Sodium 20 MG Tablet Delayed Release TAKE 1 TABLET BY MOUTH EVERY DAY; Duration: 90 Active Vitamin D 1000 UNIT Tablet 1 tablet Oral ly Once a day Active buPROPion HCl ER (SR) 200 MG Tablet Extended Release 12 Hour 1 tablet in the morning Orally Once a day; Duration: 30 day(s) Active Lipitor 20 MG Tablet 1 tablet Orally Onc e a day Active Furosemide 20 MG Tablet 1 tablet Orally Once a day; Duration: 30 day(s) Active Immunizations Vaccine Route Administration Date Status Comme nts Flu vaccine no Preserv 3 and > Unknown 03/30/2015 Admin istered Flu vaccine no Preserv 3 and > Unknown 02/29/2016 Admin istered Flu vaccine no Preserv 3 and > Unknown 03/26/2017 Admin istered Influenza Unknown 03/06/2018 Administered Influenza Unknown 02/16/2021 Administered Social History Social History Additional Details Category Social Info Options Details Miscellaneous: Marital status: 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 Problems Problem Type SNOMED Code ICD Code Onset Dates Problem Status W/U Status Risk Notes Problem Colon cancer screening (251681989) Colon cancer screening (Z12.11) Active confirmed Problem Gastroesophageal reflux disease without esophagitis (256628859) Gastroesophageal reflux disease without esophagitis (K21.9) Active confirmed Problem Intolerance to lactose (finding) (120658998) Lactose intolerance (E73.9) Active confirmed Problem Irritable bowel syndrome (31902215) Irritable bowel syndrome, unspecified type (K58.9) Active confirmed Problem Gastroesophageal reflux disease (558224907) Esophageal reflux disease (K21.9) Active confirmed Plan Of Treatment [...] Date MEDICARE OF [place] [address] [place] [address] [id number] GIL GONZALEZ Self - patient is the insured [employer] ATT[employer] CLAIMS [address] [place] [address] [id number] GIL GONZALEZ Self - patient is the insured Medical (General) History Medical History History ICD Code esophageal reflux urinary urgency depression osteoarthritis fibromyalgia irritable bowel syndrome glaucoma elevated cholesterol parkinsons disease unsteady gait Surgical History Surgery Date(Month/Year) carpal tunnel surgery hammer toe tonsillectomy adnoids
--- OUTSIDE RECORDS SUMMARY | 2025-05-20 10:40 | XMS_ITS | Patient Health Record ---
Author Organization [facility] Address [address] [place] [address] Care Team Providers Care Lab Tech Name Role Phone Denise KARIMI, Iwona Meza Primary Care Provider Un available Zulay Magana Unavailable [phone] Allergies Allergen (clinical drug ingredient) Drug/Non Drug Allergy documented on EMR Reaction Allergy Type Onset Date Status 12 Hour Nasal [place] Unknown Drug Allergy Active ibuprofen Advil Unknown [...] Duration) Notes Start Date End Date Status Atorvastatin Calcium 20 MG 1 tablet Orally Once a day Active Furosemide 20 MG TAKE 1 TAB ORALLY EVERY MORNING Oral; Duration: 30 days As needed Active Timolol Maleate 0.5 % 1 drop into affect ed eye Ophthalmic twice a day Active Dicyclomine HCl 20 MG 1 tablet Orally Fo ur times a day Not-Taking Voltaren 1 % as directed Externally Active Latanoprost 0.005 % 1 drop into affected eye in the evening Ophthalmic Once a day Not-Taking BuPROPion HBr Active Pantoprazole Sodium 40 MG 1 tablet Orally Once a day Not-Taking Carbidopa-Levodopa A ctive Nitro-Bid 2 % APPLY TRANSDERMALLY TWO TIMES A DAY TO AFFECTED SKIN OF BOTH FEET DIRECTED; Duration: 30 Not-Takin g Fish Oil 1000 MG 2 Orally Once a day Active Meclizine HCl Not-Ta sandra lipitor 1 tab Oral Not-Takin g Nortripytline HCl No t-Taking Probiotic Orally Not-Taking Losartan Potassium 50 MG 1 tablet Orally Once a day Active Vitamin D 1000 UNIT 1 tablet Orally Once a day Active Nitro-Bid 2 % as directed Transder mal apply bid to affected skin quiana feet; Duration: 30 days Active Compression Stockings 20-30mm Hg 1 pair wear daily: With Zippers; Duration: 30 days Not-Taking Immunizations Vaccine Route Administration Date Status Comme nts Influenza Unknown 01/20/2024 Administered Influenza Unknown 01/19/2025 Administered COVID-19 Pfizer BioNTech Vaccine Unknown 09/19/2021 [...] atherosclerosis of arteries of lower limbs (disorder) (23147003704537538 ) Unspecified atherosclerosis of [place] arteries of extremities, bilateral legs (I70.203) Active confirmed Problem Parkinson's disease (15793745) Parkinson disease (G20) Active confirmed Problem Raynaud's disease (440003034) 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 (I73.00) Active confirmed Vital Signs Blood pressure diastolic 70 mm Hg 03/17/2025 Height 5 ft 5 in in 03/17/2025 Blood pressure systolic 115 mm Hg 03/17/2025 Weight 195 lbs 03/17/2025 BMI 32.45 kg/m2 03/17/2025 Encounters Encounter Location Date Provider Diagnosis [facility] [address] [place] [address] 06/17/2024 Zulay Magana Atherosclerosis of [place] artery of both lower extremities, with unspecified presence of clinical manifestation I70.203 ; Edema, lower extremity R60.0 ; Tinea unguium B35.1 ; Pain in right toe(s) M79.674 and Pain in left toe(s) M79.[address] [address] 09/09/2024 Zulay Perica Atherosclerosis of [place] artery of both lower extremities, with unspecified presence of clinical manifestation I70.203 ; Edema, lower extremity R60.0 ; Tinea unguium B35.1 ; Pain in right toe(s) M79.674 and Pain in left toe(s) M79.[address] [address] 12/10/2024 Zulay Perica Edema, lower extremi ty R60.0 ; Tinea unguium B35.1 ; Atherosclerosis of [place] artery of both lower extremities, with unspecified presence of clinical manifestation I70.203 ; Pain in right toe(s) M79.674 and Pain in left toe(s) M79.[address] [address] 03/17/2025 Zulay Perica Tinea unguium B35.1 ; Atherosclerosis of [place] artery of both lower extremities, with unspecified presence of clinical manifestation I70.203 ; Pain in right toe(s) M79.674 and Pain in left toe(s) M79.[address] [address] 12/11/2024 Zulay Perica Assessments Encounter Date Diagnosis (ICD Code) Assessment Notes Treatment Notes Treatment Clinical Notes Section Notes 06/17/2024 Atherosclerosis of [place] artery of both lower extremities, with unspecified presence of clinical manifestation (ICD-10 - I70.203) Q7(A), Q8(2B), Q9(1B,2C) 06/17/2024 Edema, lower extremity (ICD-10 - R60.0) 09/09/2024 Atherosclerosis of [place] artery of both lower extremities, with unspecified presence of clinical manifestation (ICD-10 - I70.203) Q7(A), Q8(2B), Q9(1B,2C) 09/09/2024 Edema, lower extremity (ICD-10 - R60.0) 12/10/2024 Tinea unguium (ICD-10 - B35.1) 12/10/2024 Edema, lower extremity (ICD-10 - R60.0) 03/17/2025 Tinea unguium (ICD-10 - B35.1) 12/10/2024 Atherosclerosis of [place] artery of both lower extremities, with unspecified presence of clinical manifestation (ICD-10 - I70.203) Q7(A), Q8(2B), Q9(1B,2C) 03/17/2025 Atherosclerosis of [place] artery of both lower extremities, with unspecified presence of clinical manifestation (ICD-10 - I70.203) Q7(A), Q8(2B), Q9(1B,2C) 09/09/2024 Tinea unguium (ICD-10 - B35.1) 06/17/2024 Tinea unguium (ICD-10 - B35.1) 06/17/2024 Pain in right toe(s) (ICD-10 - M79.674) 09/09/2024 Pain in right toe(s) (ICD-10 - M79.674) 12/10/2024 Pain in right toe(s) (ICD-10 - M79.674) 03/17/2025 Pain in right toe(s) (ICD-10 - M79.674) 03/17/2025 Pain in left toe(s) (ICD-10 - M79.675) 12/10/2024 Pain in left toe(s) (ICD-10 - M79.675) 06/17/2024 Pain in left toe(s) (ICD-10 - M79.675) 09/09/2024 Pain in left toe(s) (ICD-10 - M79.675) Plan Of Treatment Pending Test Test Name Order Date X ray : Foot, left 3V 09/23/2014 [id number] Destruction, 1-14 10/28/2014 76811-Gsec Destruction, 1-14 09/23/2014 82198-Giqgnehe Plate 09/13/2016 91151-Mdtpkhjh Plate 06/25/2017 03409-KYG 11/01/2017 90070- Debride <25 sq cm 11/15/2017 58937- Debride <25 sq cm 12/05/2017 69070-YRUM SKIN LESIONS, 2 TO 4 06/30/19 Next Appt Details Provider Name:Zulay elmore, 06/17/2025 11:30:00 AM, [address] [place], [address], Insurance Providers Payer Name Payer Address Payer Phone Subscriber Number Group Number Insured Name Patient Relationship to Insured Coverage Start Date Coverage End Date Medicare National [facility] [id number] [address] [place] [address] [id number] Sarai Ramon Self - patient is the insured [employer] [address] [place] [address] [id number] Sarai Ramon Self - patient is the [...] pressure, passed out, dehydrat ed 09/12 [facility] ER- patellar tendinitis - edema 06/13
== END 2025-05-20 09:55 | disposition home or self-care (01) ==
LOC: HO.MAMMO 09:54
PROVIDERS: PCP Internal Medicine; Visit Provider Internal Medicine
DX: Z78.0 Asymptomatic menopausal state (principal)
CPT/HCPCS: 77080

== ENCOUNTER → 2025-05-20 10:00 | Outpatient (BNV) | payer MEDICARE, SELFPAY | PROVIDERS: PCP Internal Medicine; Visit Provider Radiology Diagnostic Radiology | DX: E28.39 Other primary ovarian failure (principal) | CPT/HCPCS: 77080 ==